=== PATIENT | female | born 1935 | race Caucasian/White ===

== ENCOUNTER 2017-01-04 17:20 | Inpatient (IN) | payer OTHER, BC ==
[~2017-01-04] VITALS: Ht 157.5 cm; Wt 57.2 kg
[~2017-01-04 17:20] MED LIST: ACET-1256 PO; ASCA500 PO; ASPI81TA28 PO; BTP80 PO; CALC500C70 PO; CHOL100010 PO; CLOTCRE33 TOP; CLR10 PO; CYAN3INJ INJ; ESTR1CRE PV; FURO20TA PO; LEVO100T7 PO; MAGN400T6 PO; MULT-506 PO; [UNRECOGNIZED DRUG - OTHER] PO
[2017-01-04] MEDS ORDERED: CHOL1000 PO (18:15)
[2017-01-04] MEDS ORDERED: SODIUM CHLORIDE 0.9% 1000ML 1,000 ML IV STA (18:17)
[2017-01-04] MEDS ORDERED: SODIUM CHLORIDE 0.9% 500ML 500 ML IV STA (18:22)
[2017-01-04] MEDS ORDERED: ONDANSETRON INJ 2 MG/ML 2 ML VIAL IV STA (18:22)
[2017-01-04 18:49] LABS: BASO % 0.4 %; BASO ABS # 0.05 K/uL (0-0.2); COMPLETE YES; EOS % 1.3 %; IG% 0.2 %; LYMPH % 6.5 %; LYMPH ABS # 0.75 K/uL (1.2-3.4); MEAN CELL VOLUME 97.2 fL (80-100); MEAN CORPUSCULAR HEMOGLOBIN 33.6 pg (25-34); MEAN CORPUSCULAR HGB CONC 34.5 g/dl (32-36); MEAN PLATELET VOLUME 9.3 fL (7.4-10.4); MONO % 8.7 %; NEUT % 82.9 %; PLATELET COUNT 325 K/uL (130-400); RED BLOOD COUNT 4.32 M/uL (4.2-5.4); WHITE BLOOD COUNT 11.46 K/uL (4.8-10.8)
[2017-01-04 19:00] LABS: PROTHROMBIN TIME (PATIENT) 10.6 SECONDS (9.0-12.0)
[2017-01-04 19:06] LABS: ALT/SGPT 24 U/L (12-78); AST/SGOT 30 U/L (15-37); BLOOD UREA NITROGEN 22 mg/dl (7-18); BUN/CREATININE RATIO 24.2 (10-20); CALCIUM 8.6 mg/dl (8.5-10.1); CARBON DIOXIDE 27 mmol/L (21-32); CHLORIDE 101 mmol/L (98-107); CREATININE 0.93 mg/dl (0.60-1.20); GLUCOSE 94 mg/dl (70-99); POTASSIUM 4.3 mmol/L (3.5-5.1); SODIUM 138 mmol/L (136-145)
[2017-01-04 19:17] LABS: ALKALINE PHOSPHATASE 107 U/L (45-117)
--- NOTE | 2017-01-04 19:33 | DIAGNOSTIC IMAGING REPORT ---
CT OF THE ABDOMEN AND PELVIS WITHOUT CONTRAST CLINICAL HISTORY: Upper bowel pain, nausea and vomiting. COMPARISON STUDY: Renal ultrasound November 11, 2011. TECHNIQUE: Axial images of the abdomen and pelvis were obtained without IV contrast. Images were reviewed in the axial, sagittal, and coronal planes. FINDINGS: Visualized portions the lower chest demonstrate several small pulmonary nodules which are unchanged since CT of October 20, 2015. Therefore, these are benign. Pacer leads are partially imaged. There are old lumbar spine compression fractures. Evaluation of the abdomen and pelvis is markedly compromised the lack of IV and oral contrast and paucity of intra-abdominal fat. A right hepatic lobe cyst is unchanged. Severe right hydroureteronephrosis is noted with suspected urothelial thickening. This is been shown on prior exams. A Walker balloon is present within the bladder which is collapsed. There is extensive atherosclerotic plaque of the abdominal aorta. Unenhanced images of the spleen, adrenal glands and pancreas are unremarkable. There is no peripancreatic or pericholecystic infiltration. There is evidence for pelvic floor relaxation. A sigmoid anastomosis is noted. The small bowel is fluid-filled and slightly dilated. No transition point is identified. The stomach is mildly distended and fluid filled. IMPRESSION: 1. Study significantly compromised given the lack of IV and oral contrast and paucity of intra-abdominal fat. 2. Severe right hydroureteronephrosis with suspected urothelial thickening and right renal cortical thinning. These findings could been shown on prior exams and are likely chronic and may be related to reflux given findings on prior [facility]G. However, correlation with urinalysis and urine cytology is recommended. 3. Fluid-filled mildly dilated small bowel. A low-grade partial small bowel obstruction would be difficult to exclude but no transition point is identified. 4. Mildly distended, fluid-filled stomach. Electronically signed by: Myles Aguilar M.D. 01/04/2017 7:31 PM Dictated Date/Time: 01/04/2017 7:19 PM
[2017-01-04] MEDS ORDERED: CEFTRIAXONE SOD INJ 1 GM ADDVIAL IV STA (19:45)
[2017-01-04 19:49] LABS: URINE APPEARANCE CLOUDY (CLEAR); URINE BILIRUBIN NEG (NEG); URINE COLOR YELLOW; URINE NITRITE NEG (NEG); URINE PH >= 9.0 (4.5-7.5); URINE SPECIFIC GRAVITY 1.009 (1.000-1.030); UROBILINOGEN NEG (NEG)
[2017-01-04 20:01] LABS: MANUAL MICROSCOPIC REQUIRED? NO; REVIEW REQ? YES; SULFASALICYLIC ACID POS (NEG)
[2017-01-04 20:05] LABS: URINE PATH CASTS 5-10 GRANULAR CASTS /lpf (0)
--- NOTE | 2017-01-04 21:46 | EMERGENCY ROOM VISIT NOTE ---
History Report prepared by Jovanni: Luisa Martin Under the Supervision of: Dr. Dharmesh Pollard M.D. First contact with patient: 18:16 Chief Complaint: NAUSEA Stated Complaint: NAUSEA, VOMIT Nursing Triage Summary: pt arrived bls with c/o acute onset of n/v that started shortly after dinner this evening. Pt states "I felt like I was going to pass out, my body became weak and then my abdomen started to hurt." denies LOC. Pt reports feeling better upon arrival. Hx of MS and Celiac disease. History of Present Illness The patient is a 81 year old female who presents to the Emergency Room with complaints of acute onset of nausea and vomiting that started [employer]. The patient came to the ED via ambulance from home. She reports that she was starting to feel better, but now she is feeling worse again. The patient is unsure of how many episodes of vomiting she has experienced. She states that shortly after eating dinner, she felt like she was going to experience syncope and her body became weak then she experienced abdominal cramping. The patient then experienced nausea and vomiting. She states that she felt weak all day. The patient is also experiencing chills and diarrhea. The patient has Celiac disease but denies eating any gluten today. The patient's states that they ate hamburgers and haitian fries for dinner. He also states that he was admitted to the hospital from December 18- for similar symptoms. The patient adds that her Walker catheter is due to be changed. 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 A total of ten systems were reviewed and were otherwise negative. Past Medical & Surgical Medical Problems: (1) Celiac disease (2) Chest heaviness (3) Complicated UTI (urinary tract infection) (4) Hypothyroidism (5) Multiple sclerosis (6) Multiple sclerosis (7) Neurogenic bladder (8) Osteoporosis (9) Pacemaker (10) Paroxysmal atrial fibrillation (11) SBO (small bowel obstruction) (12) Vertigo Surgical Problems: (1) H/O colonoscopy (2) H/O dilation and curettage (3) History of appendectomy (4) S/P partial colectomy Family History Noncontributory secondary to age. Social History Smoking Status: Former Smoker Alcohol Use: none Drug Use: none Marital Status: Housing Status: lives with significant other Occupation Status: retired Current/Historical Medications Scheduled Ascorbic Acid (Vitamin C), 500 MG PO DAILY@1200 Aspirin (Aspirin Ec), 81 MG PO BID Calcium/Vitamin D (Os-Hitesh 500 Plus D), 1 TAB PO TID Cholecalciferol (Vitamin D3), 1 TAB PO BID Cyanocobalamin (Vitamin B-12 Inj), 1,000 MCG INJ MONTHLY Estrogens, Conjugated Vaginal (Premarin), 1 APPLN PV UD Furosemide (Lasix), 1 TAB PO 2XWK Levothyroxine Sodium (Levothyroxine Sodium), 100 MCG PO DAILYBB Magnesium Oxide (Mag-Ox), 400 MG PO DAILYBL Multivitamin (Multivitamin), 1 TAB PO DAILYBD Potassium Chloride (Catie Ciel Elix), 1.5 TSP PO 2XWK Sotalol HCl (Sotalol HCl), 80 MG PO QAM Sotalol HCl (Sotalol HCl), 40 MG PO HS Scheduled PRN Acetaminophen (Tylenol), 1,000 MG PO DIRECTED PRN for PRN Loratadine (Claritin), 10 MG PO DAILY PRN for ALLERGY SX Allergies Coded Allergies: Sulfa Antibiotics (Verified Allergy, Unknown, ?, 09/09/16) Gluten (Verified Adverse Reaction, Intermediate, GI DISTRESS, 09/09/16) Codeine (Verified Adverse Reaction, Unknown, N/V, 09/09/16) Physical Exam Vital Signs Date Time Temp Pulse Resp B/P Pulse Ox O2 Delivery O2 Flow Rate FiO2 01/04/17 19:21 88 18 160/90 94 Room Air 01/04/17 18:20 94 Room Air 01/04/17 17:47 76 01/04/17 17:34 36.4 75 22 164/95 94 Room Air Physical Exam GENERAL: Awake, alert, uncomfortable-appearing, actively vomiting, in no distress HENT: Normocephalic, atraumatic. Oropharynx unremarkable. EYES: Normal conjunctiva. Sclera non-icteric. NECK: Supple. No nuchal rigidity. FROM. No JVD. RESPIRATORY: Clear to auscultation. CARDIAC: Regular rate, normal rhythm. Extremities warm and well perfused. Pulses equal. ABDOMEN: Soft, non-distended. Epigastric tenderness to palpation. No rebound or guarding. No masses. RECTAL: Deferred. MUSCULOSKELETAL: Chest examination reveals no tenderness. The back is symmetrical on inspection without obvious abnormality. There is no CVA tenderness to palpation. No joint edema. LOWER EXTREMITIES: Calves are equal size bilaterally and non-tender. 1+ edema. No discoloration. NEURO: Normal sensorium. No sensory or motor deficits noted. SKIN: No rash or jaundice noted. Medical Decision & Procedures ER Provider Diagnostic Interpretation: CT results as stated below per my review and radiologist interpretation CT OF THE ABDOMEN AND PELVIS WITHOUT CONTRAST IMPRESSION: 1. Study significantly compromised given the lack of IV and oral contrast and paucity of intra-abdominal fat. 2. Severe right hydroureteronephrosis with suspected urothelial thickening and right renal cortical thinning. These findings could been shown on prior exams and are likely chronic and may be related to reflux given findings on prior VCUG. However, correlation with urinalysis and urine cytology is recommended. 3. Fluid-filled mildly dilated small bowel. A low-grade partial small bowel obstruction would be difficult to exclude but no transition point is identified. 4. Mildly distended, fluid-filled stomach. Electronically signed by: Myles Aguilar M.D. 01/04/2017 7:31 PM Dictated Date/Time: 01/04/2017 7:19 PM Laboratory Results 01/04/17 18:37 Red Blood Count 4.32, Mean Corpuscular Volume 97.2, Mean Corpuscular Hemoglobin 33.6, Mean Corpuscular Hemoglobin Concent 34.5, Mean Platelet Volume 9.3, Neutrophils (%) (Auto) 82.9, Lymphocytes (%) (Auto) 6.5, Monocytes (%) (Auto) 8.7, Eosinophils (%) (Auto) 1.3, Basophils (%) (Auto) 0.4, Neutrophils # (Auto) 9.49, Lymphocytes # (Auto) 0.75, Monocytes # (Auto) 1.00, Eosinophils # (Auto) 0.15, Basophils # (Auto) 0.05 01/04/17 18:37 Test 01/04/17 18:37 01/04/17 19:23 White Blood Count 11.46 K/uL (4.8-10.8) Red Blood Count 4.32 M/uL (4.2-5.4) Hemoglobin 14.5 g/dL (12.0-16.0) Hematocrit 42.0 % (37-47) Mean Corpuscular Volume 97.2 fL (80-100) Mean Corpuscular Hemoglobin 33.6 pg (25-34) Mean Corpuscular Hemoglobin Concent 34.5 g/dl (32-36) Platelet Count 325 K/uL (130-400) Mean Platelet Volume 9.3 fL (7.4-10.4) Neutrophils (%) (Auto) 82.9 % Lymphocytes (%) (Auto) 6.5 % Monocytes (%) (Auto) 8.7 % Eosinophils (%) (Auto) 1.3 % Basophils (%) (Auto) 0.4 % Neutrophils # (Auto) 9.49 K/uL (1.4-6.5) Lymphocytes # (Auto) 0.75 K/uL (1.2-3.4) Monocytes # (Auto) 1.00 K/uL (0.11-0.59) Eosinophils # (Auto) 0.15 K/uL (0-0.5) Basophils # (Auto) 0.05 K/uL (0-0.2) RDW Standard Deviation 49.3 fL (36.4-46.3) RDW Coefficient of Variation 13.8 % (11.5-14.5) Immature Granulocyte % (Auto) 0.2 % Immature Granulocyte # (Auto) 0.02 K/uL (0.00-0.02) Prothrombin Time 10.6 SECONDS (9.0-12.0) Prothromb Time International Ratio 1.0 (0.9-1.1) Activated Partial Thromboplast Time 27.1 SECONDS (21.0-31.0) Partial Thromboplastin Ratio 1.0 Anion Gap 10.0 mmol/L (3-11) Est Creatinine Clear Calc Drug Dose 36.9 ml/min Estimated GFR () 66.3 Estimated GFR (Non- 57.2 BUN/Creatinine Ratio 24.2 (10-20) Calcium Level 8.6 mg/dl (8.5-10.1) Magnesium Level 2.0 mg/dl (1.8-2.4) Total Bilirubin 0.2 mg/dl (0.2-1) Direct Bilirubin < 0.1 mg/dl (0-0.2) Aspartate Amino Transf (AST/SGOT) 30 U/L (15-37) Alanine Aminotransferase (ALT/SGPT) 24 U/L (12-78) Alkaline Phosphatase 107 U/L (45-117) Troponin I < 0.015 ng/ml (0-0.045) Total Protein 7.0 gm/dl (6.4-8.2) Albumin 3.3 gm/dl (3.4-5.0) Lipase 293 U/L (73-393) Thyroid Stimulating Hormone (TSH) 1.050 uIu/ml (0.300-4.500) Urine Color YELLOW Urine Appearance CLOUDY (CLEAR) Urine pH >= 9.0 (4.5-7.5) Urine Specific [place] 1.009 (1.000-1.030) Urine Protein 2+ (NEG) Urine Glucose (UA) NEG (NEG) Urine Ketones NEG (NEG) Urine Occult Blood 2+ (NEG) Urine Nitrite NEG (NEG) Urine Bilirubin NEG (NEG) Urine Urobilinogen NEG (NEG) Urine Leukocyte Esterase LARGE (NEG) Urine WBC (Auto) >30 /hpf (0-5) Urine RBC (Auto) 10-30 /hpf (0-4) Urine Hyaline Casts (Auto) 5-10 /lpf (0-5) Urine Epithelial Cells (Auto) 5-10 /lpf (0-5) Urine Bacteria (Auto) NEG (NEG) Urine Pathogenic Casts 5-10 GRANULAR CASTS /lpf (0) Urine Yeast (Auto) (NONE PRSENT) Laboratory results reviewed by me Medications Administered Medications (Trade) Dose Ordered Sig/Van Route Start Time Stop Time Status Last Admin Dose Admin Sodium Chloride (Nss 1000ml) 1,000 ml @ 125 mls/hr Q8H STAT IV 01/04/17 18:17 01/05/17 02:16 01/04/17 18:35 125 MLS/HR Ondansetron HCl 4 mg 4 mg NOW STAT IV 01/04/17 18:22 01/04/17 18:23 DC 01/04/17 18:32 4 MG Sodium Chloride (Nss 500ml) 500 ml @ 999 mls/hr Q31M STAT IV 01/04/17 18:22 01/04/17 18:52 DC 01/04/17 18:22 999 MLS/HR Ceftriaxone Sodium (Rocephin Inj) 1 gm NOW STAT IV 01/04/17 19:45 01/04/17 19:46 DC 01/04/17 19:54 1 GM ECG Indication: nausea Rate (beats per minute): 76 Rhythm: sinus with SA Findings: 1st degree AV block, no acute ischemic change, no ectopy, other ( poor R wave progression anteriorly) ED Course 1816: Ordered Sodium Chloride 1000 ml @ 125 mls/hr IV 1820: The patient was evaluated in room A12. A complete history and physical exam was performed. 1821: Ordered Sodium Chloride 500 ml @ 999 mls/hr IV, Zofran Inj 4 mg IV 1944: Ordered Rocephin Inj 1 gm IV 1948: Upon reexamination, the patient was resting comfortably. I discussed the test results and treatment plan with her. The patient will be evaluated for further management. 2009: Discussed the patient's case with Dr. Ramiro Loza. The patient will be evaluated for further treatment and disposition. Medical Decision Prior records/ancillary studies reviewed. Triage Nursing notes reviewed and agree them. Additional history obtained from her . The patient's history was concerning for abdominal pain. Differential diagnosis: Etiologies such as UTI, pancreatitis, obstruction, appendicitis, diverticulitis , PUD, biliary pathology, mesenteric ischemia, aortic pathology, infections, inflammatory bowel disease, renal colic, as well as others were entertained. Physical examination findings: As above. The patient was quite uncomfortable with nausea and vomiting. ER treatment provided: IV normal saline IV Zofran IV Rocephin On reassessment the patient felt better. Diagnostics interpreted by me: ECG: No ischemia The labs revealed mild leukocytosis on CBC. Chemistry panel was unremarkable. Urinalysis was concerning for infection. Imaging studies: CT scan as above. Concerning for partial small bowel obstruction patient also has hydroureter. Patient was informed. She will need further treatment in the hospital. She was doing much better after her nausea and vomiting had been controlled. Consultation: A consultation was placed with the the [facility] hospitalist. The case was discussed and diagnostics were reviewed. The patient was evaluated in the ER for further treatment. The chart was completed utilizing [employer] voice recognition software. Grammatical errors, random word insertions, pronoun errors, and incomplete sentences are an occasional consequence of this system due to software limitations, ambient noise, and hardware issues. Any formal questions or concerns about the content, text, or information contained within the body of this dictation should be directly addressed to the physician for clarification. Consults Time Called: 1952 Consulting Physician: Dr. Ramiro Loza Returned Call: 2009 Discussed the patient's case with Dr. Ramiro Loza. The patient will be evaluated for further treatment and disposition. Impression Primary Impression: Partial small bowel obstruction Additional Impressions: Vomiting UTI (urinary tract infection) Scribe Attestation The scribe's documentation has been prepared under my direction and personally reviewed by me in its entirety. I confirm that the note above accurately reflects all work, treatment, procedures, and medical decision making performed by me. Departure Information Dispostion Being Evaluated By Hospitalist Genevieve Rao M.D. (PCP) Patient Instructions [facility] Problem Qualifiers Additional Impressions: Vomiting Vomiting type: unspecified Vomiting Intractability: unspecified Nausea presence: with nausea Qualified Codes: R11.2 - Nausea with vomiting, unspecified UTI (urinary tract infection) Urinary tract infection type: catheter-associated UTI Indwelling urinary catheter type: unspecified Encounter type: initial encounter Qualified Codes : T83.511A - Infection and inflammatory reaction due to indwelling urethral catheter, initial encounter; N39.0 - Urinary tract infection, site not specified
[2017-01-04] MEDS ORDERED: ACETAMINOPHEN 325 MG TAB PO PRN (22:15)
[2017-01-04] MEDS ORDERED: PROMETHAZINE HCL INJ 12.5 MG in SODIUM CHLORIDE 0.9% 50ML 50 ML IV PRN (22:15)
[2017-01-04] MEDS ORDERED: HYDROmorphone INJ 0.5 MG/0.5 ML SYR IV PRN (22:15)
[2017-01-04] MEDS ORDERED: ONDANSETRON INJ 2 MG/ML 2 ML VIAL IV PRN (22:15)
[2017-01-04] MEDS ORDERED: TRAMADOL HCL 50 MG TAB PO PRN (22:15)
--- NOTE | 2017-01-04 22:20 | History and Physical ---
History & Physical Date & Time of Service: Jan 04, 2017 at 21:38 Chief Complaint: Nausea, Vomit Primary Care Physician: Reggie Peña D.OBonnie History of Present Illness Source: patient, clinic records, hospital records This is an 81 year old female with PMH of MS, PAF, hx pacemaker, chronic welsh, recurrent UTI's, gluten sensitivity, hx appendectomy and 2 bowel surgeries, hx C. diff, and other problems listed below who presents to the ED With N/V. Pt 1 hour after having a gluten free dinner tonight she developed generalized weakness and nausea. 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 She had associated bloating and lower abdominal pressure which are resolved. She received Zofran and is no longer feeling nauseous. No further vomiting or diarrhea. Denies passing flatus in ER. She was transiently lightheaded at home. She had chills earlier. Currently she is feeling fatigued. Pt has a chronic Welsh which was due to be changed tomorrow. Welsh was changed in ER today. She has noted foul urinary odor. Pt was hospitalized for UTI in 2015; cx grew > 3 types of organisms, treated with Levaquin. Had recurrent UTI late October; urine cx grew pseudomonas and beta strep group B and pt treated with Ceftin. Pt denies fever, URI sx, cough, CP, palpitations, SOB, GI bleeding, hematuria, cloudy urine. She uses a motorized chair at home. Pt's was ill with vomiting in mid December. Past Medical/Surgical History Medical Problems: (1) Celiac disease Status: Chronic (2) Cystocele Status: Chronic (3) Hypothyroidism Status: Chronic (4) Multiple sclerosis Status: Chronic (5) Neurogenic bladder Status: Chronic (6) Neurogenic bowel Status: Chronic (7) Osteoporosis Status: Chronic (8) Pacemaker Status: Chronic (9) Paroxysmal atrial fibrillation Status: Chronic (10) PVD (peripheral vascular disease) Status: Chronic (11) Rectocele Status: Chronic (12) Urinary retention Status: Chronic (13) Vertigo Status: Resolved Surgical Problems: (1) H/O colonoscopy Status: Chronic (2) H/O dilation and curettage Status: Chronic (3) History of appendectomy Status: Chronic (4) S/P partial colectomy Permanent Comment: x2 for prolapse Status: Chronic Family History FH: CAD (coronary artery disease) FATHER SISTER Social History Smoking Status: Former Smoker (quit in ) Alcohol Use: none Drug Use: none Marital Status: Housing status: lives with significant other 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) Immunizations History of Influenza Vaccine: Yes Influenza Vaccine Date: Aug 07, 2012 History of Tetanus Vaccine?: Unknown Tetanus Immunization Date: Sep 14, 2004 History of Pneumococcal: Yes Pneumococcal Date: Nov 07, 2009 History of Hepatitis B Vaccine: No Multi-Drug Resistant Organisms History of MDRO: No Allergies Coded Allergies: Sulfa Antibiotics (Verified Allergy, Unknown, ?, 09/09/16) Gluten (Verified Adverse Reaction, Intermediate, GI DISTRESS, 09/09/16) Codeine (Verified Adverse Reaction, Unknown, N/V, 09/09/16) Home Medications Scheduled Ascorbic Acid (Vitamin C), 500 MG PO DAILY@1200 Aspirin (Aspirin Ec), 81 MG PO BID Calcium/Vitamin D (Os-Hitesh 500 Plus D), 1 TAB PO TID Cholecalciferol (Vitamin D3), 1 TAB PO BID Cyanocobalamin (Vitamin B-12 Inj), 1,000 MCG INJ MONTHLY Estrogens, Conjugated Vaginal (Premarin), 1 APPLN PV UD Furosemide (Lasix), 1 TAB PO 2XWK Levothyroxine Sodium (Levothyroxine Sodium), 100 MCG PO DAILYBB Magnesium Oxide (Mag-Ox), 400 MG PO DAILYBL Multivitamin (Multivitamin), 1 TAB PO DAILYBD Potassium Chloride (Catie Ciel Elix), 1.5 TSP PO 2XWK Sotalol HCl (Sotalol HCl), 80 MG PO QAM Sotalol HCl (Sotalol HCl), 40 MG PO HS Scheduled PRN Acetaminophen (Tylenol), 1,000 MG PO DIRECTED PRN for PRN Loratadine (Claritin), 10 MG PO DAILY PRN for ALLERGY SX Review of Systems Ten point review of systems performed with pertinent positives and negatives noted in HPI. Physical Exam Vital Signs Date Time Temp Pulse Resp B/P Pulse Ox O2 Delivery O2 Flow Rate FiO2 01/04/17 19:21 88 18 160/90 94 Room Air 01/04/17 18:20 94 Room Air 01/04/17 17:47 76 01/04/17 17:34 36.4 75 22 164/95 94 Room Air General Appearance: WD/WN, no apparent distress, + pertinent finding (pleasant alert elderly female) Head: normocephalic, atraumatic Eyes: normal inspection, sclerae normal ENT: hearing grossly normal, pharynx normal, + pertinent finding (lips are dry) Neck: supple, trachea midline Respiratory/Chest: lungs clear, normal breath sounds, no respiratory distress, no accessory muscle use Cardiovascular: regular rate, rhythm, no murmur Abdomen/GI: normal bowel sounds, non tender, soft Extremities/Musculoskelatal: no calf tenderness, no pedal edema Neurologic/Psych: alert, normal mood/affect, oriented x 3, + pertinent finding (upper extremities no gross motor deficit. chronic weakness RLE > LLE) Skin: normal color, warm/dry, + pertinent finding (+ skin tenting) Diagnostics Laboratory Results Results Past 24 Hours Test 01/04/17 18:37 01/04/17 19:23 Range/Units White Blood Count 11.46 4.8-10.8 K/uL Red Blood Count 4.32 4.2-5.4 M/uL Hemoglobin 14.5 12.0-16.0 g/dL Hematocrit 42.0 37-47 % Mean Corpuscular Volume 97.2 80-100 fL Mean Corpuscular Hemoglobin 33.6 25-34 pg Mean Corpuscular Hemoglobin Concent 34.5 32-36 g/dl Platelet Count 325 130-400 K/uL Mean Platelet Volume 9.3 7.4-10.4 fL Neutrophils (%) (Auto) 82.9 % Lymphocytes (%) (Auto) 6.5 % Monocytes (%) (Auto) 8.7 % Eosinophils (%) (Auto) 1.3 % Basophils (%) (Auto) 0.4 % Neutrophils # (Auto) 9.49 1.4-6.5 K/uL Lymphocytes # (Auto) 0.75 1.2-3.4 K/uL Monocytes # (Auto) 1.00 0.11-0.59 K/uL Eosinophils # (Auto) 0.15 0-0.5 K/uL Basophils # (Auto) 0.05 0-0.2 K/uL RDW Standard Deviation 49.3 36.4-46.3 fL RDW Coefficient of Variation 13.8 11.5-14.5 % Immature Granulocyte % (Auto) 0.2 % Immature Granulocyte # (Auto) 0.02 0.00-0.02 K/uL Prothrombin Time 10.6 9.0-12.0 SECONDS Prothromb Time International Ratio 1.0 0.9-1.1 Activated Partial Thromboplast Time 27.1 21.0-31.0 SECONDS Partial Thromboplastin Ratio 1.0 Sodium Level 138 136-145 mmol/L Potassium Level 4.3 3.5-5.1 mmol/L Chloride Level 101 98-107 mmol/L Carbon Dioxide Level 27 21-32 mmol/L Anion Gap 10.0 3-11 mmol/L Blood Urea Nitrogen 22 7-18 mg/dl Creatinine 0.93 0.60-1.20 mg/dl Est Creatinine Clear Calc Drug Dose 36.9 ml/min Estimated GFR () 66.3 Estimated GFR (Non- 57.2 BUN/Creatinine Ratio 24.2 10-20 Random Glucose 94 70-99 mg/dl Calcium Level 8.6 8.5-10.1 mg/dl Magnesium Level 2.0 1.8-2.4 mg/dl Total Bilirubin 0.2 0.2-1 mg/dl Direct Bilirubin < 0.1 0-0.2 mg/dl Aspartate Amino Transf (AST/SGOT) 30 15-37 U/L Alanine Aminotransferase (ALT/SGPT) 24 12-78 U/L Alkaline Phosphatase 107 45-117 U/L Troponin I < 0.015 0-0.045 ng/ml Total Protein 7.0 6.4-8.2 gm/dl Albumin 3.3 3.4-5.0 gm/dl Lipase 293 73-393 U/L Thyroid Stimulating Hormone (TSH) 1.050 0.300-4.500 uIu/ml Urine Color YELLOW Urine Appearance CLOUDY CLEAR Urine pH >= 9.0 4.5-7.5 Urine Specific [place] 1.009 1.000-1.030 Urine Protein 2+ NEG Urine Glucose (UA) NEG NEG Urine Ketones NEG NEG Urine Occult Blood 2+ NEG Urine Nitrite NEG NEG Urine Bilirubin NEG NEG Urine Urobilinogen NEG NEG Urine Leukocyte Esterase LARGE NEG Urine WBC (Auto) >30 0-5 /hpf Urine RBC (Auto) 10-30 0-4 /hpf Urine Hyaline Casts (Auto) 5-10 0-5 /lpf Urine Epithelial Cells (Auto) 5-10 0-5 /lpf Urine Bacteria (Auto) NEG NEG Urine Pathogenic Casts 5-10 GRANULAR CASTS 0 /lpf Urine Yeast (Auto) NONE PRSENT Microbiology Results 01/04/17 Urine Culture, Received Pending Diagnostic Radiology CT OF THE ABDOMEN AND PELVIS WITHOUT CONTRAST CLINICAL HISTORY: Upper bowel pain, nausea and vomiting. COMPARISON STUDY: Renal ultrasound November 11, 2011. TECHNIQUE: Axial images of the abdomen and pelvis were obtained without IV contrast. Images were reviewed in the axial, sagittal, and coronal planes. FINDINGS: Visualized portions the lower chest demonstrate several small pulmonary nodules which are unchanged since CT of October 20, 2015. Therefore, these are benign. Pacer leads are partially imaged. There are old lumbar spine compression fractures. Evaluation of the abdomen and pelvis is markedly compromised the lack of IV and oral contrast and paucity of intra-abdominal fat. A right hepatic lobe cyst is unchanged. Severe right hydroureteronephrosis is noted with suspected urothelial thickening. This is been shown on prior exams. A Welsh balloon is present within the bladder which is collapsed. There is extensive atherosclerotic plaque of the abdominal aorta. Unenhanced images of the spleen, adrenal glands and pancreas are unremarkable. There is no peripancreatic or pericholecystic infiltration. There is evidence for pelvic floor relaxation. A sigmoid anastomosis is noted. The small bowel is fluid-filled and slightly dilated. No transition point is identified. The stomach is mildly distended and fluid filled. IMPRESSION: 1. Study significantly compromised given the lack of IV and oral contrast and paucity of intra-abdominal fat. 2. Severe right hydroureteronephrosis with suspected urothelial thickening and right renal cortical thinning. These findings could been shown on prior exams and are likely chronic and may be related to reflux given findings on prior [facility]G. However, correlation with urinalysis and urine cytology is recommended. 3. Fluid-filled mildly dilated small bowel. A low-grade partial small bowel obstruction would be difficult to exclude but no transition point is identified. 4. Mildly distended, fluid-filled stomach. EKG sinus rhythm with sinus arrhythmia, 1st degree AV block, no ST or T wave abnormality, poor R wave progression Impression Assessment and Plan PARTIAL SBO CT a/p showed fluid filled mildly dilated small bowel ? low grade partial SBO, mildly distended fluid filled stomach Likely has adhesions s/p multiple bowel surgeries Received Zofran and IVF's in ER NPO except ice chips, continue IVF's, PRN antiemetics Check stool for C. diff Consult general surgery ? RECURRENT UTI In setting of Welsh catheter Ct a/p shows severe right hydroureteronephrosis with suspected urothelial thickening and right renal cortical thinning- chronic finding UA 2+ occult blood, large leuk esterase, WBC >30, RBC 10-30, hyaline casts 5-10 , epithelial cells 5-10, granular casts 5-10 Urine cx Oct 2016 grew pseudomonas and beta strep group B Rocephin given in ER Follow results of urine culture PAF S/P PACEMAKER Currently in sinus rhythm Continue sotalol HYPOTHYROIDISM Continue levothyroxine DVT PROPHYLAXIS Lovenox SQ CODE STATUS Full code per my discussion with the patient DISPOSITION Admit to med/surg Lives with Follows with Dr. Reggie Peña for primary care Patient seen in collaboration with Dr. Rubio. Please see his addendum for further recommendations. Assessment/Plan IM ATTENDING : Patient seen and examined. Preceding documentation by Ms Bernarda Benton PA-C, reviewed. FINAL ASSESSMENT AND PLAN as follows: 1. Abdominal pain, nausea, vomiting, diarrhea ileus versus partial small bowel obstruction history past bowel surgery 2. diarrhea ro recurrent Clostridium difficile colitis 3. asymptomatic pyuria chronic indwelling Welsh catheter 2 to neurogenic bladder 2 to MS no sepsis, 4. hypertension, slightly elevated 5. SSS sp PPM 6. past tobacco abuse. GMF bowel rest, IV fluids analgesia, antiemetics Surgery consult RE partial SBO, abn CT stool cdif Hold off on antibiotics until urine CS back DVT prophylaxis, Lovenox subQ. Full code.
[2017-01-04 22:33] VITALS: Ht 157.5 cm; Wt 57.2 kg
[2017-01-04 23:09] VITALS: BP 129/76; PULSE 73; TEMP 36.6; O2SAT 92
[2017-01-04] MEDS ORDERED: SOTALOL HCL 80 MG TAB PO ONE (23:15)
[2017-01-04] MEDS: SODIUM CHLORIDE 0.9% 1000ML 1,000 ML IV SCH (23:22)
--- NOTE | 2017-01-05 00:51 | HISTORY & PHYSICAL EXAMINATION ---
DATE OF ADMISSION: 01/04/2017 IM ATTENDING : Patient seen and examined. Preceding documentation by Ms Bernarda Benton PA-C, reviewed. FINAL ASSESSMENT AND PLAN as follows: 1. Abdominal pain, nausea, vomiting, diarrhea ileus versus partial small bowel obstruction history past bowel surgery 2. diarrhea ro recurrent Clostridium difficile colitis 3. asymptomatic pyuria chronic indwelling Walker catheter 2 to neurogenic bladder 2 to MS no sepsis, 4. hypertension, slightly elevated 5. SSS sp PPM 6. past tobacco abuse. GMF bowel rest, IV fluids analgesia, antiemetics Surgery consult RE partial SBO, abn CT stool cdif Hold off on antibiotics until urine CS back DVT prophylaxis, Lovenox subQ. Full code. MTDD
[2017-01-05] MEDS: LEVOTHYROXINE 100 MCG TAB PO SCH (05:23)
[2017-01-05 07:26] LABS: BASO % 0.9 %; BASO ABS # 0.04 K/uL (0-0.2); COMPLETE YES; EOS % 1.3 %; HEMATOCRIT 33.7 % (37-47); IG% 0.2 %; LYMPH % 31.4 %; LYMPH ABS # 1.45 K/uL (1.2-3.4); MEAN CELL VOLUME 98.3 fL (80-100); MEAN CORPUSCULAR HEMOGLOBIN 32.7 pg (25-34); MEAN CORPUSCULAR HGB CONC 33.2 g/dl (32-36); MEAN PLATELET VOLUME 9.1 fL (7.4-10.4); MONO % 12.3 %; NEUT % 53.9 %; PLATELET COUNT 281 K/uL (130-400); RED BLOOD COUNT 3.43 M/uL (4.2-5.4); WHITE BLOOD COUNT 4.62 K/uL (4.8-10.8)
[2017-01-05 07:53] VITALS: BP 127/68; PULSE 69; TEMP 36.7; O2SAT 92
[2017-01-05] MEDS: LORATADINE 10 MG TAB PO PRN (08:45)
[2017-01-05] MEDS: SOTALOL HCL 80 MG TAB PO SCH ×2 (08:45→21:45)
[2017-01-05] MEDS: ASPIRIN 81 MG ECTAB PO SCH ×2 (08:46→21:44)
[2017-01-05] MEDS: ENOXAPARIN 40 MG/0.4 ML SYR SQ SCH (08:52)
--- NOTE | 2017-01-05 09:53 | Surgery Consultation ---
Consultation Date of Consultation: Jan 05, 2017. Attending Physician: Aaron Garcias DO Reason for Consultation: partial SBO (Buffy Murphy PA-C) History of Present Illness Mariluz is a pleasant 81 year-old female who presented to emergency department last evening with complaint of sudden nausea and vomiting after eating dinner. States she was feeling her normal self earlier in the day and suddenly felt a wave of weakness and sudden urge of nausea and vomiting after eating her dinner. States she had a similar episode when she found out she had gluten intolerance however no other previous similar episodes. Mariluz states she had continuous vomiting. No real abdominal pain. She also states she had sudden diarrhea as well. Last normal/formed bowel movement yesterday morning. Denies of any fever, chills, night sweats, vomiting blood, recent changes in bowel habits, black/tarry stools, or blood in stools. CT scan of abdomen and pelvis without oral or IV contrast showed Fluid-filled mildly dilated small bowel. A low-grade partial small bowel obstruction would be difficult to exclude but no transition point is identified. No leukocytosis on admission (Buffy Murphy PA-C) Past Medical/Surgical History Medical Problems: (1) Exacerbation of multiple sclerosis Status: Acute (2) Pacemaker failure Status: Acute (3) Partial small bowel obstruction Status: Acute (4) UTI (urinary tract infection) Status: Acute (5) UTI (urinary tract infection) Status: Acute (6) Vomiting Status: Acute (7) Weakness Status: Acute (Buffy Murphy PA-C) Family History FH: CAD (coronary artery disease) FATHER SISTER (Buffy Murphy PA-C) FH: CAD (coronary artery disease) FATHER SISTER (Rasheed Almaguer M.D.) Social History Smoking Status: Former Smoker Alcohol Use: none Drug Use: none Marital Status: Housing Status: lives with significant other 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) (Buffy Murphy PA-C) Allergies Coded Allergies: Sulfa Antibiotics (Verified Allergy, Unknown, ?, 09/09/16) Gluten (Verified Adverse Reaction, Intermediate, GI DISTRESS, 09/09/16) Codeine (Verified Adverse Reaction, Unknown, N/V, 09/09/16) Home Medications Scheduled Ascorbic Acid (Vitamin C), 500 MG PO DAILY@1200 Aspirin (Aspirin Ec), 81 MG PO BID Calcium/Vitamin D (Os-Hitesh 500 Plus D), 1 TAB PO TID Cholecalciferol (Vitamin D3), 1 TAB PO BID Cyanocobalamin (Vitamin B-12 Inj), 1,000 MCG INJ MONTHLY Estrogens, Conjugated Vaginal (Premarin), 1 APPLN PV UD Furosemide (Lasix), 1 TAB PO 2XWK Levothyroxine Sodium (Levothyroxine Sodium), 100 MCG PO DAILYBB Magnesium Oxide (Mag-Ox), 400 MG PO DAILYBL Multivitamin (Multivitamin), 1 TAB PO DAILYBD Potassium Chloride (Catie Ciel Elix), 1.5 TSP PO 2XWK Sotalol HCl (Sotalol HCl), 80 MG PO QAM Sotalol HCl (Sotalol HCl), 40 MG PO HS Scheduled PRN Acetaminophen (Tylenol), 1,000 MG PO DIRECTED PRN for PRN Loratadine (Claritin), 10 MG PO DAILY PRN for ALLERGY SX Current Inpatient Medications Current Inpatient Medications Medications (Trade) Dose Ordered Sig/Van Route Start Time Stop Time Status Last Admin Dose Admin Enoxaparin Sodium (Lovenox Inj) 40 mg QAM SQ 01/05/17 09:00 02/04/17 08:59 01/05/17 08:52 40 MG Acetaminophen (Tylenol Tab) 650 mg Q4H PRN PO 01/04/17 22:15 02/03/17 22:14 Aspirin (Ecotrin Tab) 81 mg BID PO 01/05/17 09:00 02/04/17 08:59 01/05/17 08:46 81 MG Levothyroxine Sodium (Synthroid Tab) 100 mcg DAILYBB PO 01/05/17 06:00 02/04/17 06:59 01/05/17 05:23 100 MCG Loratadine (Claritin Tab) 10 mg DAILY PRN PO 01/04/17 22:15 02/03/17 22:14 01/05/17 08:45 10 MG Multivitamins (Multivitamin Tab) 1 tab DAILYBD PO 01/05/17 16:00 02/04/17 15:59 Sotalol HCl (Betapace Tab) 40 mg HS PO 01/05/17 21:00 02/04/17 20:59 Sotalol HCl 80 mg 80 mg QAM PO 01/05/17 09:00 02/04/17 08:59 01/05/17 08:45 80 MG Sodium Chloride (Nss 1000ml) 1,000 ml @ 60 mls/hr [id number] IV 01/04/17 22:15 02/03/17 22:14 01/04/17 23:22 60 MLS/HR Ondansetron HCl 4 mg 4 mg Q6H PRN IV 01/04/17 22:15 02/03/17 22:14 Promethazine HCl/ Sodium Chloride (Phenergan Inj/ Nss 50ml) 50.5 ml @ 204 mls/hr Q6H PRN IV 01/04/17 22:15 02/03/17 22:14 Tramadol HCl (Ultram Tab) 25 mg Q6H PRN PO 01/04/17 22:15 02/03/17 22:14 Hydromorphone HCl (Dilaudid Inj) 0.5 mg Q3H PRN IV 01/04/17 22:15 01/18/17 22:14 (Buffy Murphy ., PA-C) Review of Systems Constitutional: + fatigue, + weakness, No chills, No fever, No sweats Respiratory: No shortness of breath Cardiovascular: No chest pain Abdomen: + diarrhea, + nausea, + vomiting, No GI bleeding, No constipation, No pain Genitourinary - Female: + problem reported (physician allergist immunologist Walker catheter) Neurologic: + weakness Endocrine: + fatigue Hematologic / Lymphatic: No abnormal bleeding/bruising Integumentary: No rash (Buffy Murphy, PA-C) Physical Exam Date Time Temp Pulse Resp B/P Pulse Ox O2 Delivery O2 Flow Rate FiO2 01/05/17 07:53 36.7 69 18 127/68 92 Room Air 01/04/17 23:12 Room Air 01/04/17 23:09 36.6 73 18 129/76 92 Room Air 01/04/17 22:50 77 18 132/81 93 Room Air 01/04/17 22:33 Room Air 01/04/17 21:50 85 20 93 01/04/17 21:44 146/70 01/04/17 21:20 86 32 93 01/04/17 20:50 81 17 90 01/04/17 20:20 84 20 92 01/04/17 19:50 75 14 91 01/04/17 19:21 88 18 160/90 94 Room Air 01/04/17 19:21 160/90 01/04/17 18:50 84 26 01/04/17 18:20 94 Room Air 01/04/17 18:20 77 17 01/04/17 17:50 74 17 01/04/17 17:47 76 01/04/17 17:34 36.4 75 22 164/95 94 Room Air 01/04/17 17:32 164/95 General Appearance: WD/WN, no apparent distress Head: normocephalic, atraumatic Eyes: sclerae normal ENT: hearing grossly normal Respiratory/Chest: lungs clear, normal breath sounds, no respiratory distress, no accessory muscle use Cardiovascular: regular rate, rhythm, no murmur Abdomen/GI: non tender, soft, no organomegaly, no pulsatile mass, + abnormal bowel sounds (hypoactive bowel sounds) Neurologic/Psych: alert, normal mood/affect, oriented x 3 Skin: normal color, warm/dry, no rash (Buffy Murphy ., PA-C) Laboratory Results Last 24 Hours Test 01/04/17 18:37 01/04/17 19:23 01/05/17 05:59 White Blood Count 11.46 K/uL 4.62 K/uL Red Blood Count 4.32 M/uL 3.43 M/uL Hemoglobin 14.5 g/dL 11.2 g/dL Hematocrit 42.0 % 33.7 % Mean Corpuscular Volume 97.2 fL 98.3 fL Mean Corpuscular Hemoglobin 33.6 pg 32.7 pg Mean Corpuscular Hemoglobin Concent 34.5 g/dl 33.2 g/dl Platelet Count 325 K/uL 281 K/uL Mean Platelet Volume 9.3 fL 9.1 fL Neutrophils (%) (Auto) 82.9 % 53.9 % Lymphocytes (%) (Auto) 6.5 % 31.4 % Monocytes (%) (Auto) 8.7 % 12.3 % Eosinophils (%) (Auto) 1.3 % 1.3 % Basophils (%) (Auto) 0.4 % 0.9 % Neutrophils # (Auto) 9.49 K/uL 2.49 K/uL Lymphocytes # (Auto) 0.75 K/uL 1.45 K/uL Monocytes # (Auto) 1.00 K/uL 0.57 K/uL Eosinophils # (Auto) 0.15 K/uL 0.06 K/uL Basophils # (Auto) 0.05 K/uL 0.04 K/uL RDW Standard Deviation 49.3 fL 50.8 fL RDW Coefficient of Variation 13.8 % 14.2 % Immature Granulocyte % (Auto) 0.2 % 0.2 % Immature Granulocyte # (Auto) 0.02 K/uL 0.01 K/uL Prothrombin Time 10.6 SECONDS Prothromb Time International Ratio 1.0 Activated Partial Thromboplast Time 27.1 SECONDS Partial Thromboplastin Ratio 1.0 Sodium Level 138 mmol/L Potassium Level 4.3 mmol/L Chloride Level 101 mmol/L Carbon Dioxide Level 27 mmol/L Anion Gap 10.0 mmol/L Blood Urea Nitrogen 22 mg/dl Creatinine 0.93 mg/dl Est Creatinine Clear Calc Drug Dose 36.9 ml/min Estimated GFR () 66.3 Estimated GFR (Non- 57.2 BUN/Creatinine Ratio 24.2 Random Glucose 94 mg/dl Calcium Level 8.6 mg/dl Magnesium Level 2.0 mg/dl Total Bilirubin 0.2 mg/dl Direct Bilirubin < 0.1 mg/dl Aspartate Amino Transf (AST/SGOT) 30 U/L Alanine Aminotransferase (ALT/SGPT) 24 U/L Alkaline Phosphatase 107 U/L Troponin I < 0.015 ng/ml Total Protein 7.0 gm/dl Albumin 3.3 gm/dl Lipase 293 U/L Thyroid Stimulating Hormone (TSH) 1.050 uIu/ml Urine Color YELLOW Urine Appearance CLOUDY Urine pH >= 9.0 Urine Specific [place] 1.009 Urine Protein 2+ Urine Glucose (UA) NEG Urine Ketones NEG Urine Occult Blood 2+ Urine Nitrite NEG Urine Bilirubin NEG Urine Urobilinogen NEG Urine Leukocyte Esterase LARGE Urine WBC (Auto) >30 /hpf Urine RBC (Auto) 10-30 /hpf Urine Hyaline Casts (Auto) 5-10 /lpf Urine Epithelial Cells (Auto) 5-10 /lpf Urine Bacteria (Auto) NEG Urine Pathogenic Casts 5-10 GRANULAR CASTS /lpf Urine Yeast (Auto) (Buffy Murphy ., HILARYC) Assessment & Plan Partial SBO - no leukocytosis - Nausea and vomiting have resolved - no abdominal pain - Benign abdominal examination Plan: Continue conservative management IV fluids, IV pain medication and Zofran prn Will continue to monitor Dr. Almaguer has seen and examined patient, developed assessment and plan. Re-examined with Dr. Almaguer at 11 am, patient passed flatus Okay to start clear liquids (Buffy Murphy ., PA-C) I examined and interviewed this patient and reviewed her labs and radiology studies and I agree with the above note. She never had abdominal pain. The CT is only suggestive of partial SBO but she is moving her bowels and passing flatus and she no longer has nausea. I do not feel there is any indication for surgical intervention at this time. (Rasheed Almaguer M.D.)
--- NOTE | 2017-01-05 13:04 | Progress Note ---
Subjective Date of Service: Jan 05, 2017. Subjective Pt evaluation today including: conversation w/ patient, physical exam, lab review, review of studies, review of inpatient medication list This is a pleasant 81 year old female with PMH of MS, neurogenic bladder and chronic indwelling catheter, paroxysmal atrial fibrillation s/p PPM, gluten sensitivity, hx. of C. diff, multiple abdominal surgeries presented with nausea/ vomiting multiple episodes. She developed sudden weakness and then developed the n/v. Abdominal CT showed partial SBO. She has been doing better throughout this morning and early afternoon - + passing gas, no BMs as of yet - no abdominal pain. No other acute issues to note. Problem List Medical Problems: (1) Exacerbation of multiple sclerosis Status: Acute (2) Pacemaker failure Status: Acute (3) Partial small bowel obstruction Status: Acute (4) UTI (urinary tract infection) Status: Acute (5) UTI (urinary tract infection) Status: Acute (6) Vomiting Status: Acute (7) Weakness Status: Acute Review of Systems Constitutional: + fatigue, + weakness, No chills, No fever Respiratory: No cough, No dyspnea at rest, No dyspnea on exertion, No hemoptysis, No shortness of breath, No sputum, No wheezing Cardiac: No chest pain, No edema, No palpitations Abdomen: + nausea, + vomiting (improved), No diarrhea, No pain Heme: No abnormal bleeding/bruising Medications Current Inpatient Medications Medications (Trade) Dose Ordered Sig/Van Route Start Time Stop Time Status Last Admin Dose Admin Enoxaparin Sodium (Lovenox Inj) 40 mg QAM SQ 01/05/17 09:00 02/04/17 08:59 01/05/17 08:52 40 MG Acetaminophen (Tylenol Tab) 650 mg Q4H PRN PO 01/04/17 22:15 02/03/17 22:14 Aspirin (Ecotrin Tab) 81 mg BID PO 01/05/17 09:00 02/04/17 08:59 01/05/17 08:46 81 MG Levothyroxine Sodium (Synthroid Tab) 100 mcg DAILYBB PO 01/05/17 06:00 02/04/17 06:59 01/05/17 05:23 100 MCG Loratadine (Claritin Tab) 10 mg DAILY PRN PO 01/04/17 22:15 02/03/17 22:14 01/05/17 08:45 10 MG Multivitamins (Multivitamin Tab) 1 tab DAILYBD PO 01/05/17 16:00 02/04/17 15:59 Sotalol HCl (Betapace Tab) 40 mg HS PO 01/05/17 21:00 02/04/17 20:59 Sotalol HCl 80 mg 80 mg QAM PO 01/05/17 09:00 02/04/17 08:59 01/05/17 08:45 80 MG Sodium Chloride (Nss 1000ml) 1,000 ml @ 60 mls/hr [id number] IV 01/04/17 22:15 02/03/17 22:14 01/04/17 23:22 60 MLS/HR Ondansetron HCl 4 mg 4 mg Q6H PRN IV 01/04/17 22:15 02/03/17 22:14 Promethazine HCl/ Sodium Chloride (Phenergan Inj/ Nss 50ml) 50.5 ml @ 204 mls/hr Q6H PRN IV 01/04/17 22:15 02/03/17 22:14 Tramadol HCl (Ultram Tab) 25 mg Q6H PRN PO 01/04/17 22:15 02/03/17 22:14 Hydromorphone HCl (Dilaudid Inj) 0.5 mg Q3H PRN IV 01/04/17 22:15 01/18/17 22:14 Objective Vital Signs Date Time Temp Pulse Resp B/P Pulse Ox O2 Delivery O2 Flow Rate FiO2 01/05/17 08:00 Room Air 01/05/17 07:53 36.7 69 18 127/68 92 Room Air 01/04/17 23:12 Room Air 01/04/17 23:09 36.6 73 18 129/76 92 Room Air 01/04/17 22:50 77 18 132/81 93 Room Air 01/04/17 22:33 Room Air 01/04/17 21:50 85 20 93 01/04/17 21:44 146/70 01/04/17 21:20 86 32 93 01/04/17 20:50 81 17 90 01/04/17 20:20 84 20 92 01/04/17 19:50 75 14 91 01/04/17 19:21 88 18 160/90 94 Room Air 01/04/17 19:21 160/90 01/04/17 18:50 84 26 01/04/17 18:20 94 Room Air 01/04/17 18:20 77 17 01/04/17 17:50 74 17 01/04/17 17:47 76 01/04/17 17:34 36.4 75 22 164/95 94 Room Air 01/04/17 17:32 164/95 Physical Exam General Appearance: no apparent distress Respiratory/Chest: lungs clear, normal breath sounds, no respiratory distress, no accessory muscle use Cardiovascular: regular rate, rhythm, no edema, no murmur Abdomen: non tender, soft, + abnormal bowel sounds (decreased bowel sounds) Extremities: normal inspection, no pedal edema Neurologic/Psychiatric: no motor/sensory deficits, alert, normal mood/affect Skin: + pertinent finding (redness between gluteal folds with blistering) Laboratory Results Last 24 Hours Test 01/04/17 18:37 01/04/17 19:23 01/05/17 05:59 White Blood Count 11.46 K/uL 4.62 K/uL Red Blood Count 4.32 M/uL 3.43 M/uL Hemoglobin 14.5 g/dL 11.2 g/dL Hematocrit 42.0 % 33.7 % Mean Corpuscular Volume 97.2 fL 98.3 fL Mean Corpuscular Hemoglobin 33.6 pg 32.7 pg Mean Corpuscular Hemoglobin Concent 34.5 g/dl 33.2 g/dl Platelet Count 325 K/uL 281 K/uL Mean Platelet Volume 9.3 fL 9.1 fL Neutrophils (%) (Auto) 82.9 % 53.9 % Lymphocytes (%) (Auto) 6.5 % 31.4 % Monocytes (%) (Auto) 8.7 % 12.3 % Eosinophils (%) (Auto) 1.3 % 1.3 % Basophils (%) (Auto) 0.4 % 0.9 % Neutrophils # (Auto) 9.49 K/uL 2.49 K/uL Lymphocytes # (Auto) 0.75 K/uL 1.45 K/uL Monocytes # (Auto) 1.00 K/uL 0.57 K/uL Eosinophils # (Auto) 0.15 K/uL 0.06 K/uL Basophils # (Auto) 0.05 K/uL 0.04 K/uL RDW Standard Deviation 49.3 fL 50.8 fL RDW Coefficient of Variation 13.8 % 14.2 % Immature Granulocyte % (Auto) 0.2 % 0.2 % Immature Granulocyte # (Auto) 0.02 K/uL 0.01 K/uL Prothrombin Time 10.6 SECONDS Prothromb Time International Ratio 1.0 Activated Partial Thromboplast Time 27.1 SECONDS Partial Thromboplastin Ratio 1.0 Sodium Level 138 mmol/L Potassium Level 4.3 mmol/L Chloride Level 101 mmol/L Carbon Dioxide Level 27 mmol/L Anion Gap 10.0 mmol/L Blood Urea Nitrogen 22 mg/dl Creatinine 0.93 mg/dl Est Creatinine Clear Calc Drug Dose 36.9 ml/min Estimated GFR () 66.3 Estimated GFR (Non- 57.2 BUN/Creatinine Ratio 24.2 Random Glucose 94 mg/dl Calcium Level 8.6 mg/dl Magnesium Level 2.0 mg/dl Total Bilirubin 0.2 mg/dl Direct Bilirubin < 0.1 mg/dl Aspartate Amino Transf (AST/SGOT) 30 U/L Alanine Aminotransferase (ALT/SGPT) 24 U/L Alkaline Phosphatase 107 U/L Troponin I < 0.015 ng/ml Total Protein 7.0 gm/dl Albumin 3.3 gm/dl Lipase 293 U/L Thyroid Stimulating Hormone (TSH) 1.050 uIu/ml Urine Color YELLOW Urine Appearance CLOUDY Urine pH >= 9.0 Urine Specific [place] 1.009 Urine Protein 2+ Urine Glucose (UA) NEG Urine Ketones NEG Urine Occult Blood 2+ Urine Nitrite NEG Urine Bilirubin NEG Urine Urobilinogen NEG Urine Leukocyte Esterase LARGE Urine WBC (Auto) >30 /hpf Urine RBC (Auto) 10-30 /hpf Urine Hyaline Casts (Auto) 5-10 /lpf Urine Epithelial Cells (Auto) 5-10 /lpf Urine Bacteria (Auto) NEG Urine Pathogenic Casts 5-10 GRANULAR CASTS /lpf Urine Yeast (Auto) Assessment and Plan This is a pleasant 81 year old female with PMH of MS, neurogenic bladder and chronic indwelling catheter, paroxysmal atrial fibrillation s/p PPM, gluten sensitivity, hx. of C. diff, multiple abdominal surgeries presented with partial SBO Partial SBO nausea/vomiting resolved no abdominal pain Abdominal CT showed possible partial SBO +flatus No BMs as of yet clears, IVFs, antiemetics advance diet in AM (01/06) Neurogenic Bladder Chronic Indwelling Catheter catheter changed yesterday (01/04) chronic urinalysis changes noted urine culture is pending hold off on antibiotics for now unless culture has significant findings has a hx. of c. Diff Paroxysmal Atrial Fibrillation s/p PPM currently NSR continue sotalol Hypothyroidism cont. Synthroid DVT ppx lovenox FULL CODE d/c home after advancing diet (likely 01/06)
[2017-01-05] MEDS: SODIUM CHLORIDE 0.9% 1000ML 1,000 ML IV SCH (15:03)
[2017-01-05 15:28] VITALS: BP 147/74; PULSE 58; TEMP 36.6; O2SAT 96
[2017-01-05] MEDS: MULTIVITAMIN TAB PO SCH (18:31)
[2017-01-05 21:43] VITALS: BP 151/67; PULSE 64
[2017-01-05 23:12] VITALS: BP 164/77; PULSE 64; TEMP 36.4; O2SAT 95
[2017-01-06] VITALS (8 sets, daily range): BP systolic 146–179; BP diastolic 61–82; PULSE 60–66; TEMP 36.4–37; O2SAT 94–97
[2017-01-06] MEDS: LEVOTHYROXINE 100 MCG TAB PO SCH (06:09)
[2017-01-06 07:20] LABS: HEMATOCRIT 34.6 % (37-47); MEAN CELL VOLUME 97.5 fL (80-100); MEAN CORPUSCULAR HEMOGLOBIN 32.4 pg (25-34); MEAN CORPUSCULAR HGB CONC 33.2 g/dl (32-36); MEAN PLATELET VOLUME 8.6 fL (7.4-10.4); PLATELET COUNT 255 K/uL (130-400); RED BLOOD COUNT 3.55 M/uL (4.2-5.4); WHITE BLOOD COUNT 3.83 K/uL (4.8-10.8)
[2017-01-06] MEDS: SODIUM CHLORIDE 0.9% 1000ML 1,000 ML IV SCH ×2 (07:36→23:35)
[2017-01-06 07:59] LABS: BUN/CREATININE RATIO 19.5 (10-20); CALCIUM 7.2 mg/dl (8.5-10.1); CREATININE 0.56 mg/dl (0.60-1.20)
[2017-01-06 08:24] LABS: POTASSIUM 3.6 mmol/L (3.5-5.1)
[2017-01-06] MEDS: LORATADINE 10 MG TAB PO PRN (08:32)
[2017-01-06] MEDS: ASPIRIN 81 MG ECTAB PO SCH ×2 (08:33→20:45)
[2017-01-06] MEDS: SOTALOL HCL 80 MG TAB PO SCH ×2 (08:33→20:45)
[2017-01-06] MEDS: ENOXAPARIN 40 MG/0.4 ML SYR SQ SCH (08:34)
--- NOTE | 2017-01-06 09:22 | Surgery Progress Note ---
Surgery Progress Note Date of Service Jan 06, 2017. Subjective + diet (tolerated clear liquids), + feeling well, No complaints, No nausea, No vomiting Objective Vital Signs: Date Time Temp Pulse Resp B/P Pulse Ox O2 Delivery O2 Flow Rate FiO2 01/06/17 07:56 36.4 63 14 150/66 94 Room Air 01/06/17 03:19 66 146/61 01/06/17 03:05 66 18 169/79 94 Room Air 01/06/17 00:50 60 159/72 01/06/17 00:40 Room Air 01/05/17 23:12 36.4 64 18 164/77 95 Room Air 01/05/17 21:43 64 151/67 01/05/17 16:20 Room Air 01/05/17 15:28 36.6 58 16 147/74 96 Room Air Abdomen: normal bowel sounds, non tender, non distended, soft Laboratory Results: Results Past 24 Hours Test 01/06/17 07:06 Range/Units White Blood Count 3.83 4.8-10.8 K/uL Red Blood Count 3.55 4.2-5.4 M/uL Hemoglobin 11.5 12.0-16.0 g/dL Hematocrit 34.6 37-47 % Mean Corpuscular Volume 97.5 80-100 fL Mean Corpuscular Hemoglobin 32.4 25-34 pg Mean Corpuscular Hemoglobin Concent 33.2 32-36 g/dl RDW Standard Deviation 51.1 36.4-46.3 fL RDW Coefficient of Variation 14.1 11.5-14.5 % Platelet Count 255 130-400 K/uL Mean Platelet Volume 8.6 7.4-10.4 fL Sodium Level 141 136-145 mmol/L Potassium Level 3.6 3.5-5.1 mmol/L Chloride Level 109 98-107 mmol/L Carbon Dioxide Level 22 21-32 mmol/L Anion Gap 10.0 3-11 mmol/L Blood Urea Nitrogen 11 7-18 mg/dl Creatinine 0.56 0.60-1.20 mg/dl Est Creatinine Clear Calc Drug Dose 61.3 ml/min Estimated GFR () 100.6 Estimated GFR (Non- 86.8 BUN/Creatinine Ratio 19.5 10-20 Random Glucose 76 70-99 mg/dl Calcium Level 7.2 8.5-10.1 mg/dl Magnesium Level 2.0 1.8-2.4 mg/dl Microbiology Results 01/05/17 C.difficile Toxin B Gene (PCR) - Final, Complete No C. difficile toxin B gene detected Assessment & Plan Doubt bowel obstruction Advance to soft diet
--- NOTE | 2017-01-06 17:54 | Progress Note ---
Internal Med Progress Note Date of Service: Jan 06, 2017. Provider Documentation: SUBJECTIVE: Patient is seen and examined at bedside. States having mild abdominal discomfort. No nausea, vomiting. +flatus, Last BM yesterday. OBJECTIVE: Vital Signs-as noted below Physical Exam: General Appearance:Thin, fragile, no apparent distress Head: normocephalic, Atraumatic Eyes: normal inspection, EOMI, PERRLA Neck: supple, no JVD, Trachea midline Respiratory/Chest: Normal breath sounds, CTA Cardiovascular: S1, S2, No murmur Abdomen/GI:Soft, Non tender, Bowel sounds present Extremities/Musculoskelatal:normal inspection, no edema Neurologic/Psych:AAOX3, grossly no focal neurological deficits Skin: redness between gluteal folds with blistering Lab data as noted below. ASSESSMENT & PLAN: Patient is an 81 yr old female with PMH of MS, neurogenic bladder and chronic indwelling catheter, paroxysmal atrial fibrillation s/p PPM, gluten sensitivity , hx. of C. diff, multiple abdominal surgeries presented with partial SBO Partial SBO nausea/vomiting resolved Abdominal CT showed possible partial SBO +flatus, last BM yesterday Appreciate Surgery input Advanced to GI soft diet No BM today Continue IVF Neurogenic Bladder Chronic Indwelling Catheter catheter changed yesterday (01/04) chronic urinalysis changes noted urine culture: Needs repeat Urine culture hold off on antibiotics for now unless culture has significant findings has a hx. of c. Diff Denies any urinary symptoms Afebrile, No leukocytosis Paroxysmal Atrial Fibrillation s/p PPM currently NSR continue sotalol Hypothyroidism continue Synthroid DVT px lovenox SQ Code Status: FULL CODE Disposition: Likely Home PT/OT Vital Signs: Date Time Temp Pulse Resp B/P Pulse Ox O2 Delivery O2 Flow Rate FiO2 01/06/17 15:30 Room Air 01/06/17 15:08 37.0 62 17 167/80 97 Room Air 01/06/17 10:27 94 Room Air 01/06/17 07:56 36.4 63 14 150/66 94 Room Air 01/06/17 07:50 Room Air 01/06/17 03:19 66 146/61 01/06/17 03:05 66 18 169/79 94 Room Air 01/06/17 00:50 60 159/72 01/06/17 00:40 Room Air 01/05/17 23:12 36.4 64 18 164/77 95 Room Air 01/05/17 21:43 64 151/67 Lab Results: Results Past 24 Hours Test 01/06/17 07:06 Range/Units White Blood Count 3.83 4.8-10.8 K/uL Red Blood Count 3.55 4.2-5.4 M/uL Hemoglobin 11.5 12.0-16.0 g/dL Hematocrit 34.6 37-47 % Mean Corpuscular Volume 97.5 80-100 fL Mean Corpuscular Hemoglobin 32.4 25-34 pg Mean Corpuscular Hemoglobin Concent 33.2 32-36 g/dl RDW Standard Deviation 51.1 36.4-46.3 fL RDW Coefficient of Variation 14.1 11.5-14.5 % Platelet Count 255 130-400 K/uL Mean Platelet Volume 8.6 7.4-10.4 fL Sodium Level 141 136-145 mmol/L Potassium Level 3.6 3.5-5.1 mmol/L Chloride Level 109 98-107 mmol/L Carbon Dioxide Level 22 21-32 mmol/L Anion Gap 10.0 3-11 mmol/L Blood Urea Nitrogen 11 7-18 mg/dl Creatinine 0.56 0.60-1.20 mg/dl Est Creatinine Clear Calc Drug Dose 61.3 ml/min Estimated GFR () 100.6 Estimated GFR (Non- 86.8 BUN/Creatinine Ratio 19.5 10-20 Random Glucose 76 70-99 mg/dl Calcium Level 7.2 8.5-10.1 mg/dl Magnesium Level 2.0 1.8-2.4 mg/dl Microbiology Results 01/05/17 C.difficile Toxin B Gene (PCR) - Final, Complete No C. difficile toxin B gene detected
[2017-01-06] MEDS: MULTIVITAMIN TAB PO SCH (18:49)
[2017-01-07] MEDS: LEVOTHYROXINE 100 MCG TAB PO SCH (05:53)
[2017-01-07 05:55] VITALS: BP 163/67; PULSE 65
[2017-01-07 07:10] VITALS: BP 158/72; PULSE 65; TEMP 36.8; O2SAT 96
[2017-01-07] MEDS: ASPIRIN 81 MG ECTAB PO SCH ×2 (08:48→21:16)
[2017-01-07] MEDS: SOTALOL HCL 80 MG TAB PO SCH ×2 (08:48→21:16)
[2017-01-07] MEDS: ENOXAPARIN 40 MG/0.4 ML SYR SQ SCH (10:16)
[2017-01-07] MEDS: LORATADINE 10 MG TAB PO PRN (10:16)
[2017-01-07 15:37] VITALS: BP 175/79; PULSE 60; TEMP 36.7; O2SAT 97
--- NOTE | 2017-01-07 16:10 | Progress Note ---
Internal Med Progress Note Date of Service: Jan 07, 2017. Provider Documentation: SUBJECTIVE: Patient is seen and examined at bedside. Had BM today. Denies any nausea, vomiting, abd pain. Offers no other complaints. OBJECTIVE: Vital Signs-as noted below Physical Exam: General Appearance:Thin, fragile, no apparent distress Head: normocephalic, Atraumatic Eyes: normal inspection, EOMI, PERRLA Neck: supple, no JVD, Trachea midline Respiratory/Chest: Normal breath sounds, CTA Cardiovascular: S1, S2, No murmur Abdomen/GI:Soft, Non tender, Bowel sounds present Extremities/Musculoskelatal:normal inspection, no edema Neurologic/Psych:AAOX3, grossly no focal neurological deficits Skin: redness between gluteal folds with blistering Lab data as noted below. ASSESSMENT & PLAN: Patient is an 81 yr old female with PMH of MS, neurogenic bladder and chronic indwelling catheter, paroxysmal atrial fibrillation s/p PPM, gluten sensitivity , hx. of C. diff, multiple abdominal surgeries presented with partial SBO Partial SBO nausea/vomiting/Abd pain resolved Abdominal CT showed possible partial SBO +flatus, BM today Appreciate Surgery input Continue GI soft diet DC IVF Neurogenic Bladder Chronic Indwelling Catheter catheter changed yesterday (01/04) chronic urinalysis changes noted hold off on antibiotics for now unless culture has significant findings has a hx. of c. Diff Denies any urinary symptoms Afebrile, No leukocytosis Follow up repeat Urine culture Hypertension: BP elevated today Asymptomatic DC IVF Restart home lasix Paroxysmal Atrial Fibrillation s/p PPM currently NSR continue sotalol Hypothyroidism continue Synthroid DVT px lovenox SQ Code Status: FULL CODE Disposition: Likely Home with home health PT/OT Vital Signs: Date Time Temp Pulse Resp B/P Pulse Ox O2 Delivery O2 Flow Rate FiO2 01/07/17 15:37 36.7 60 16 175/79 97 Room Air 01/07/17 09:00 Room Air 01/07/17 07:10 36.8 65 17 158/72 96 Room Air 01/07/17 05:55 65 163/67 01/06/17 23:35 Room Air 01/06/17 23:20 160/77 01/06/17 23:19 36.7 65 12 179/82 96 Room Air Lab Results: Microbiology Results 01/06/17 Urine Culture, Received Pending
[2017-01-07] MEDS ORDERED: POTASSIUM CHLORIDE 20MEQ/15ML 473ML PO ONE ×2 (16:15→16:45)
[2017-01-07] MEDS ORDERED: FUROSEMIDE 20 MG TAB PO ONE (16:30)
[2017-01-07] MEDS: MULTIVITAMIN TAB PO SCH (17:22)
[2017-01-07 18:56] VITALS: BP 166/79
[2017-01-07 21:13] VITALS: BP 176/83; PULSE 60
[2017-01-07 23:08] VITALS: BP 158/76; PULSE 64; TEMP 36.7; O2SAT 95
[2017-01-08] MEDS: LEVOTHYROXINE 100 MCG TAB PO SCH (06:05)
[2017-01-08 06:18] LABS: BASO % 1.2 %; BASO ABS # 0.07 K/uL (0-0.2); COMPLETE YES; HEMATOCRIT 37.3 % (37-47); IG% 0.2 %; LYMPH % 29.5 %; LYMPH ABS # 1.77 K/uL (1.2-3.4); MEAN CELL VOLUME 98.2 fL (80-100); MEAN CORPUSCULAR HEMOGLOBIN 32.9 pg (25-34); MEAN CORPUSCULAR HGB CONC 33.5 g/dl (32-36); MEAN PLATELET VOLUME 9.1 fL (7.4-10.4); MONO % 13.4 %; NEUT % 51.7 %; PLATELET COUNT 262 K/uL (130-400); WHITE BLOOD COUNT 5.99 K/uL (4.8-10.8)
[2017-01-08 08:05] VITALS: BP 172/76; PULSE 65; TEMP 36.4; O2SAT 97
[2017-01-08] MEDS: ASPIRIN 81 MG ECTAB PO SCH ×2 (09:21→20:50)
[2017-01-08] MEDS: SOTALOL HCL 80 MG TAB PO SCH ×2 (09:21→20:50)
[2017-01-08] MEDS: LORATADINE 10 MG TAB PO PRN (09:21)
[2017-01-08] MEDS: ENOXAPARIN 40 MG/0.4 ML SYR SQ SCH (09:22)
[2017-01-08] MEDS: MAGNESIUM OXIDE 400 MG TAB PO SCH (12:02)
--- NOTE | 2017-01-08 13:11 | Progress Note ---
Internal Med Progress Note Date of Service: Jan 08, 2017. Provider Documentation: SUBJECTIVE: Patient is seen and examined at bedside. Feels well. No complaints. Eager to get discharged. No BM yet today. OBJECTIVE: Vital Signs-as noted below Physical Exam: General Appearance:Thin, fragile, no apparent distress Head: normocephalic, Atraumatic Eyes: normal inspection, EOMI, PERRLA Neck: supple, no JVD, Trachea midline Respiratory/Chest: Normal breath sounds, CTA Cardiovascular: S1, S2, No murmur Abdomen/GI:Soft, Non tender, Bowel sounds present Extremities/Musculoskelatal:normal inspection, no edema Neurologic/Psych:AAOX3, grossly no focal neurological deficits Skin: redness between gluteal folds with blistering Lab data as noted below. ASSESSMENT & PLAN: Patient is an 81 yr old female with PMH of MS, neurogenic bladder and chronic indwelling catheter, paroxysmal atrial fibrillation s/p PPM, gluten sensitivity , hx. of C. diff, multiple abdominal surgeries presented with partial SBO Partial SBO nausea/vomiting/Abd pain resolved Abdominal CT showed possible partial SBO +flatus, BM yesterday Appreciate Surgery input Advance to regular diet DC IVF Neurogenic Bladder Chronic Indwelling Catheter catheter changed yesterday (01/04) Afebrile, No leukocytosis Urine culture: Enterococcus Start IV Rocephin Follow up sensitivities Hypertension: BP elevated Asymptomatic Increase lasix 20mg to daily Continue Sotolol Paroxysmal Atrial Fibrillation s/p PPM currently NSR continue sotalol Hypothyroidism continue Synthroid DVT px lovenox SQ Code Status: FULL CODE Disposition: Likely Home with home health PT/OT Await for Urine culture sensitivities Vital Signs: Date Time Temp Pulse Resp B/P Pulse Ox O2 Delivery O2 Flow Rate FiO2 01/08/17 08:15 Room Air 01/08/17 08:05 36.4 65 16 172/76 97 Room Air 01/07/17 23:08 36.7 64 14 158/76 95 Room Air 01/07/17 21:13 60 176/83 01/07/17 19:35 Room Air 01/07/17 18:56 166/79 01/07/17 15:37 36.7 60 16 175/79 97 Room Air Lab Results: Results Past 24 Hours Test 01/08/17 06:07 Range/Units White Blood Count 5.99 4.8-10.8 K/uL Red Blood Count 3.80 4.2-5.4 M/uL Hemoglobin 12.5 12.0-16.0 g/dL Hematocrit 37.3 37-47 % Mean Corpuscular Volume 98.2 80-100 fL Mean Corpuscular Hemoglobin 32.9 25-34 pg Mean Corpuscular Hemoglobin Concent 33.5 32-36 g/dl Platelet Count 262 130-400 K/uL Mean Platelet Volume 9.1 7.4-10.4 fL Neutrophils (%) (Auto) 51.7 % Lymphocytes (%) (Auto) 29.5 % Monocytes (%) (Auto) 13.4 % Eosinophils (%) (Auto) 4.0 % Basophils (%) (Auto) 1.2 % Neutrophils # (Auto) 3.10 1.4-6.5 K/uL Lymphocytes # (Auto) 1.77 1.2-3.4 K/uL Monocytes # (Auto) 0.80 0.11-0.59 K/uL Eosinophils # (Auto) 0.24 0-0.5 K/uL Basophils # (Auto) 0.07 0-0.2 K/uL RDW Standard Deviation 50.6 36.4-46.3 fL RDW Coefficient of Variation 14.1 11.5-14.5 % Immature Granulocyte % (Auto) 0.2 % Immature Granulocyte # (Auto) 0.01 0.00-0.02 K/uL
[2017-01-08] MEDS ORDERED: FUROSEMIDE 40 MG TAB PO ONE (13:30)
[2017-01-08] MEDS ORDERED: CEFTRIAXONE SOD INJ 1 GM in DEXTROSE 5% ADD-VANTAGE 50ML 50 ML IV SCH (14:00)
[2017-01-08 14:53] VITALS: BP 158/80; PULSE 64; TEMP 36.5; O2SAT 99
[2017-01-08] MEDS: MULTIVITAMIN TAB PO SCH (15:10)
[2017-01-08 20:48] VITALS: BP 143/80; PULSE 76
[2017-01-08 23:20] VITALS: BP 147/83; PULSE 73; TEMP 36.7; O2SAT 95
[2017-01-09] MEDS: LEVOTHYROXINE 100 MCG TAB PO SCH (06:01)
[2017-01-09 06:40] LABS: CREATININE 0.81 mg/dl (0.60-1.20)
[2017-01-09 07:58] VITALS: BP 150/71; PULSE 67; TEMP 36.6; O2SAT 95
[2017-01-09 09:00] VITALS: O2SAT 95
[2017-01-09] MEDS ORDERED: FUROSEMIDE 20 MG TAB PO SCH (09:00)
[2017-01-09] MEDS: SOTALOL HCL 80 MG TAB PO SCH (09:02)
[2017-01-09] MEDS: ASPIRIN 81 MG ECTAB PO SCH (09:03)
[2017-01-09] MEDS: ENOXAPARIN 40 MG/0.4 ML SYR SQ SCH (09:26)
--- NOTE | 2017-01-09 11:40 | Progress Note ---
Internal Med Progress Note Date of Service: Jan 09, 2017. Provider Documentation: SUBJECTIVE: Patient is seen and examined at bedside. Eager to get discharged. Denies nausea , vomiting, abd pain. +flatus OBJECTIVE: Vital Signs-as noted below Physical Exam: General Appearance:Thin, fragile, no apparent distress Head: normocephalic, Atraumatic Eyes: normal inspection, EOMI, PERRLA Neck: supple, no JVD, Trachea midline Respiratory/Chest: Normal breath sounds, CTA Cardiovascular: S1, S2, No murmur Abdomen/GI:Soft, Non tender, Bowel sounds present Extremities/Musculoskelatal:normal inspection, no edema Neurologic/Psych:AAOX3, grossly no focal neurological deficits Skin: redness between gluteal folds with blistering Lab data as noted below. ASSESSMENT & PLAN: Patient is an 81 yr old female with PMH of MS, neurogenic bladder and chronic indwelling catheter, paroxysmal atrial fibrillation s/p PPM, gluten sensitivity , hx. of C. diff, multiple abdominal surgeries presented with partial SBO Partial SBO nausea/vomiting/Abd pain resolved Abdominal CT showed possible partial SBO +flatus, BM Appreciate Surgery input Advance to regular diet DC IVF Bowel regimen Neurogenic Bladder Chronic Indwelling Catheter UTI likely secondary to catheter catheter changed yesterday (01/04) Afebrile, No leukocytosis Urine culture: Enterococcus faecalis Plan to start on Amox 500mg TID for 7 days Hypertension: BP Stable Asymptomatic Continue lasix 20mg daily which was increased from twice weekly Continue Sotolol Paroxysmal Atrial Fibrillation s/p PPM currently NSR continue sotalol Hypothyroidism continue Synthroid DVT px lovenox SQ Code Status: FULL CODE Disposition: Home with home health PT/OT Follow up with on January 16 AT 11:50am Vital Signs: Date Time Temp Pulse Resp B/P Pulse Ox O2 Delivery O2 Flow Rate FiO2 01/09/17 12:36 36.6 67 21 95 Room Air Lab Results:
[2017-01-09] MEDS ORDERED: AMX500 PO (11:53)
[2017-01-09] MEDS ORDERED: DOCU-94 PO (11:53)
[2017-01-09] MEDS ORDERED: FURO20TA PO (11:53)
--- NOTE | 2017-01-09 11:57 | Discharge Summary ---
Discharge Summary Date of Service Jan 09, 2017. Discharge Summary Admission Date: Jan 04, 2017 at 21:41 Discharge Date: Jan 09, 2017 Discharge Disposition: Home Principal Diagnosis: Partial SBO, UTI Procedures: CT abdomen: 1. Study significantly compromised given the lack of IV and oral contrast and paucity of intra-abdominal fat. 2. Severe right hydroureteronephrosis with suspected urothelial thickening and right renal cortical thinning. These findings could been shown on prior exams and are likely chronic and may be related to reflux given findings on prior VCUG. However, correlation with urinalysis and urine cytology is recommended. 3. Fluid-filled mildly dilated small bowel. A low-grade partial small bowel obstruction would be difficult to exclude but no transition point is identified. 4. Mildly distended, fluid-filled stomach. Consultations: surgery Pending Studies/Follow-Up: Follow up with on January 16 AT 11:50am Complete the antibiotic course as prescribed Seek immediate medical attention if your symptoms reoccur or worsen Medication Reconciliation New Medications: Docusate Sodium (Colace) 100 Mg Cap 1 CAP PO BID PRN for constipation for 15 Days, #30 CAP Amoxicillin (Amoxicillin) 500 Mg Cap 500 MG PO Q8H for 7 Days, #21 CAP Changed Medications: Furosemide (Lasix) 20 Mg Tab 1 TAB PO DAILY for 90 Days, #90 TAB 1 Refill (Changed from: 2XWK) Continued Medications: Acetaminophen (Tylenol) 500 Mg Tab 1000 MG PO DIRECTED PRN for PRN, TAB Ascorbic Acid (Vitamin C) 500 Mg Tab 500 MG PO DAILY@1200 Aspirin (Aspirin Ec) 81 Mg Tab 81 MG PO BID Calcium/Vitamin D (Os-Hitesh 500 Plus D) Tab 1 TAB PO TID Cholecalciferol (Vitamin D3) 1,000 Unit Tab 1 TAB PO BID for 90 Days, #180 TAB 3 Refills Cyanocobalamin (Vitamin B-12 Inj) Inj 1000 MCG INJ MONTHLY Estrogens, Conjugated Vaginal (Premarin) 0.625 Mg/ Cre 1 APPLN PV UD, #30 USE ON MONDAYS AND FRIDAYS Levothyroxine Sodium (Levothyroxine Sodium) 100 Mcg Tab 100 MCG PO DAILYBB Loratadine (Claritin) 10 Mg Tab 10 MG PO DAILY PRN for ALLERGY SX, 0 Refills Magnesium Oxide (Mag-Ox) 400 Mg Tab 400 MG PO DAILYBL Multivitamin (Multivitamin) Tab 1 TAB PO DAILYBD CENTRUM Potassium Chloride (Catie Ciel Elix) 20 Meq/15 Ml Elix 1.5 TSP PO 2XWK, #56 TAKE MONDAY AND MONDAY Sotalol HCl (Sotalol HCl) 80 Mg Tab 80 MG PO QAM for 30 Days, #30 TAB 1 Refill Sotalol HCl (Sotalol HCl) 80 Mg Tab 40 MG PO HS for 30 Days, #30 TAB 1 Refill Admission Information HPI (per Admitting provider): This is an 81 year old female with PMH of MS, PAF, hx pacemaker, chronic welsh, recurrent UTI's, gluten sensitivity, hx appendectomy and 2 bowel surgeries, hx C. diff, and other problems listed below who presents to the ED With N/V. Pt 1 hour after having a gluten free dinner tonight she developed generalized weakness and nausea. 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 She had associated bloating and lower abdominal pressure which are resolved. She received Zofran and is no longer feeling nauseous. No further vomiting or diarrhea. Denies passing flatus in ER. She was transiently lightheaded at home. She had chills earlier. Currently she is feeling fatigued. Pt has a chronic Welsh which was due to be changed tomorrow. Welsh was changed in ER today. She has noted foul urinary odor. Pt was hospitalized for UTI in 2015; cx grew > 3 types of organisms, treated with Levaquin. Had recurrent UTI late October; urine cx grew pseudomonas and beta strep group B and pt treated with Ceftin. Pt denies fever, URI sx, cough, CP, palpitations, SOB, GI bleeding, hematuria, cloudy urine. She uses a motorized chair at home. Pt's was ill with vomiting in mid December. Physical Exam (per Admitting): General Appearance: WD/WN, no apparent distress, + pertinent finding ( pleasant alert elderly female) Head: normocephalic, atraumatic Eyes: normal inspection, sclerae normal ENT: hearing grossly normal, pharynx normal, + pertinent finding (lips are dry) Neck: supple, trachea midline Respiratory/Chest: lungs clear, normal breath sounds, no respiratory distress, no accessory muscle use Cardiovascular: regular rate, rhythm, no murmur Abdomen/GI: normal bowel sounds, non tender, soft Extremities/Musculoskelatal: no calf tenderness, no pedal edema Neurologic/Psych: alert, normal mood/affect, oriented x 3, + pertinent finding (upper extremities no gross motor deficit. chronic weakness RLE > LLE) Skin: normal color, warm/dry, + pertinent finding (+ skin tenting) Hospital Course Patient is an 81 yr old female with PMH of MS, neurogenic bladder and chronic indwelling catheter, paroxysmal atrial fibrillation s/p PPM, gluten sensitivity , hx. of C. diff, multiple abdominal surgeries presented with partial SBO Partial SBO nausea/vomiting/Abd pain resolved Abdominal CT showed possible partial SBO +flatus, BM Appreciate Surgery input Advance to regular diet DC IVF Bowel regimen Neurogenic Bladder Chronic Indwelling Catheter catheter changed yesterday (01/04) Afebrile, No leukocytosis Urine culture: Enterococcus faecalis Plan to start on Amox 500mg TID for 7 days Hypertension: BP Stable Asymptomatic Continue lasix 20mg daily which was increased from twice weekly Continue Sotolol Paroxysmal Atrial Fibrillation s/p PPM currently NSR continue sotalol Hypothyroidism continue Synthroid DVT px lovenox SQ Code Status: FULL CODE Disposition: Home with home health PT/OT Follow up with on January 16 AT 11:50am Total time spent on discharge = 35 minutes This includes examination of the patient, discharge planning, medication reconciliation, and communication with other providers. Discharge Instructions Discharge Instructions Date of Service Jan 09, 2017. Admission Reason for Admission: SBO Discharge Discharge Diagnosis / Problem: Partial SBO, UTI Discharge Goals Goal(s): Decrease discomfort, Improve function Activity Recommendations Activity Limitations: resume your previous activity Exercise/Sports Limitations: as tolerated Driving or Machine Use: No driving . Instructions / Follow-Up Instructions / Follow-Up Follow up with on January 16 AT 11:50am Complete the antibiotic course as prescribed Seek immediate medical attention if your symptoms reoccur or worsen Current Hospital Diet Patient's current hospital diet: Regular Diet Discharge Diet Recommended Diet: Regular Diet Pending Studies Studies pending at discharge: no Medical Emergencies . Who to Call and When: Medical Emergencies: If at any time you feel your situation is an emergency, please call 911 immediately. . Non-Emergent Contact Non-Emergency issues call your: Primary Care Provider Call Non-Emergent contact if: you have a fever, your pain is not controlled, your pain is worsening, your pain is unusual for you, you have any medication questions . . "Provider Documentation" section prepared by Johnathan Junior. VTE Core Measure Inpt VTE Proph given/why not?: Enoxaparin (Lovenox)SQ
[2017-01-09] MEDS: MAGNESIUM OXIDE 400 MG TAB PO SCH (12:00)
[2017-01-09] MEDS ORDERED: AMOXICILLIN 500 MG CAP PO SCH ×2 (12:00→14:00)
[2017-01-09 12:36] VITALS: BP 150/71; PULSE 67; TEMP 36.6; O2SAT 95
--- NOTE | 2017-01-10 10:21 | EDITING REQUIRED CODING QUERY ---
CODING QUERY To promote full compliance with coding requirements relating to patient care, provider participation is requested in all cases of medical records coder uncertainty. Please assist us with the question(s) below: Coding Question(s): Patient admitted with SBO and recurrent UTI in the setting of Walker catheter. Urinary Catheter was changed during this inpatient stay. History of chronic indwelling urinary catheter. ED note states UTI due to indwelling urinary catheter. Please check the statement that describes what was treated during this stay. Thank you. Sukhwinder Hunter RESPIRATORY [employer] [facility] Physician's Response(s): _x Urinary Catheter induced UTI UTI not due to the Urinary Catheter Cannot clinically correlate Other: Please document : Principal Diagnosis: "_that condition established after study, to be chiefly responsible for occasioning the admission of the patient to the hospital for care." Co-Existing Principal Diagnosis: "_when two or more diagnoses equally meet the criteria for principal diagnosis as determined by the circumstances of admission, diagnostic work up, and/or therapy provided, and the Alphabetic Index, Tabular List, or another coding guideline does not provide sequencing direction, any one of the diagnoses may be sequenced first." "When the physician has documented what appears to be a current diagnosis in the body of the record, but has not included the diagnosis in the final diagnostic statement, the physician should be asked whether the diagnosis should be added." (Source Coding Clinic 2 QTR90. p3-4)
[2017-03-01] MEDS ORDERED: PRED10TA PO (14:55)
[2017-03-01] MEDS ORDERED: BENZ100C7 PO (14:55)
[2017-03-01] MEDS ORDERED: DOXY100C2 PO (14:55)
[2017-05-16] MEDS ORDERED: DXY100 PO (16:27)
[2017-08-04] MEDS ORDERED: CPR500 PO (13:10)
== END 2017-01-09 14:09 | disposition home health service (06) | DRG 389 ==
LOC: ENRESERVTM → ENRESERVDT → EDBD 17:20 → C.EDA 17:21 → C.MSW 21:41
PROVIDERS: ADMIT Internal Medicine; ATTEND Internal Medicine
PROC: 0T9B70Z Drainage of Bladder with Drainage Device, Via Natural or Artificial Opening (ICD-10-PCS; principal; 2017-01-04)
DX: K56.60 Unspecified intestinal obstruction (principal); T83.518A Infection and inflammatory reaction due to other urinary catheter, initial encounter; N39.0 Urinary tract infection, site not specified; K90.0 Celiac disease; I10 Essential (primary) hypertension; E03.9 Hypothyroidism, unspecified; G35 Multiple sclerosis; N31.9 Neuromuscular dysfunction of bladder, unspecified; M81.0 Age-related osteoporosis without current pathological fracture; Z87.891 Personal history of nicotine dependence; Z95.0 Presence of cardiac pacemaker; I48.0 Paroxysmal atrial fibrillation; N81.10 Cystocele, unspecified; R33.8 Other retention of urine; B95.2 Enterococcus as the cause of diseases classified elsewhere; Y84.6 Urinary catheterization as the cause of abnormal reaction of the patient, or of later complication, without mention of misadventure at the time of the procedure; Y92.009 Unspecified place in unspecified non-institutional (private) residence as the place of occurrence of the external cause

== ENCOUNTER → 2017-01-16 | Outpatient (CLI) | payer OTHER, BC ==
[~2017-01-16] MED LIST changes: +AMX500 PO; +BENZ100C7 PO; +CHOL1000 PO; -CHOL100010 PO; +CIPR1TAB11 PO; -CLOTCRE33 TOP; +CPR500 PO; +CYNI1000 INJ; +DEXT30TA7 PO; +DOCU-94 PO; +DOCU100C31 PO; +DOXY100C2 PO; +DXY100 PO; +FURO-85 PO; +IMD/2 PO; +KCLI20/100 PO; +MULTTAB5 PO; +ONDA4TAB10 SL; +ONDA4TAB65 PO; +PRED10TA PO; +PRMVC PV; +PROC1TAB5 PO; +[UNRECOGNIZED DRUG - CODE] PO
--- NOTE | 2017-01-16 18:01 | DIAGNOSTIC IMAGING REPORT ---
RIGHT LOWER EXTREMITY VENOUS DOPPLER CLINICAL HISTORY: Right calf pain. COMPARISON STUDY: Right lower extremity venous Doppler February 01, 2016. TECHNIQUE: Sonography of the deep venous system of the right lower extremity was performed. Compression and augmentation were evaluated. FINDINGS: The right common femoral, superficial femoral and popliteal veins were compressible. Augmentation was normal. No deep venous thrombus is identified within the calf veins of the right lower extremity although the peroneal veins were not well visualized on this exam. Note was made of a complex 3.5 x 5.2 x 0.8 cm fluid collection within the posterior upper calf. There is also a 3.2 x 1.8 x 1 cm suspected popliteal cyst. IMPRESSION: 1. No evidence of deep venous thrombus within the right lower extremity. 2. 3.5 x 5.2 x 0.8 cm elongated mildly complex fluid collection within the posterior upper right calf. This could reflect a ruptured popliteal cyst or small hematoma. 2. Small right popliteal cyst. Electronically signed by: Myles Aguilar M.D. 01/16/2017 5:59 PM Dictated Date/Time: 01/16/2017 5:57 PM
== END | disposition home or self-care (01) ==
LOC: C.ULTR 17:07
PROVIDERS: ATTEND Family Medicine
DX: M79.661 Pain in right lower leg (principal); M71.21 Synovial cyst of popliteal space [Baker], right knee

== ENCOUNTER 2017-02-15 07:36 | Emergency (ER) | payer OTHER, BC ==
[~2017-02-15] VITALS: Ht 157.5 cm; Wt 55.9 kg
[~2017-02-15 07:36] MED LIST changes: -BENZ100C7 PO; -CIPR1TAB11 PO; -CPR500 PO; -CYNI1000 INJ; -DEXT30TA7 PO; -DOCU-94 PO; -DOCU100C31 PO; -DOXY100C2 PO; -DXY100 PO; -FURO-85 PO; -IMD/2 PO; -KCLI20/100 PO; -MULTTAB5 PO; -ONDA4TAB10 SL; -ONDA4TAB65 PO; -PRED10TA PO; -PRMVC PV; -PROC1TAB5 PO; -[UNRECOGNIZED DRUG - CODE] PO
[2017-02-15] MEDS ORDERED: SODIUM CHLORIDE 0.9% 1000ML 1,000 ML IV STA (07:48)
[2017-02-15] MEDS ORDERED: PROCHLORPERAZINE 5 MG/ML 2 ML VIAL IV STA (07:48)
[2017-02-15 07:49] VITALS: Ht 157.5 cm; Wt 55.9 kg
[2017-02-15] MEDS ORDERED: CEFTRIAXONE SOD INJ 1 GM ADDVIAL IV STA (07:49)
[2017-02-15 08:04] LABS: BASO % 1.8 %; BASO ABS # 0.08 K/uL (0-0.2); COMPLETE YES; EOS % 0.7 %; HEMATOCRIT 39.2 % (37-47); IG% 0.2 %; LYMPH % 22.5 %; LYMPH ABS # 1.02 K/uL (1.2-3.4); MEAN CORPUSCULAR HEMOGLOBIN 32.4 pg (25-34); MEAN CORPUSCULAR HGB CONC 33.4 g/dl (32-36); MONO % 15.2 %; NEUT % 59.6 %; PLATELET COUNT 263 K/uL (130-400); RED BLOOD COUNT 4.04 M/uL (4.2-5.4); WHITE BLOOD COUNT 4.54 K/uL (4.8-10.8)
[2017-02-15 08:12] LABS: INR 1.1 (0.9-1.1); PARTIAL THROMBOPLASTIN RATIO 1.3; PROTHROMBIN TIME (PATIENT) 11.6 SECONDS (9.0-12.0)
--- NOTE | 2017-02-15 08:14 | DIAGNOSTIC IMAGING REPORT ---
CHEST ONE VIEW PORTABLE HISTORY: EVALUATE ALTERED MENTAL STATUS/WEAKNESS COMPARISON: Chest 09/09/2016. FINDINGS: Rotated study. The heart remains mildly enlarged. Left-sided dual-chamber pacemaker. Hazy appearance the left lung base remains unchanged. This favors prominent mediastinal fat. No new focal lung consolidations to suggest pneumonia. No evidence or pulmonary edema. Old, healed right-sided rib fractures. Nodular density the right lung base is likely due to the overlying old rib fracture. IMPRESSION: Rotated study. Chronic changes as described above. No acute process identified. Electronically signed by: Tolu Gregory M.D. 02/15/2017 8:12 AM Dictated Date/Time: 02/15/2017 8:10 AM
[2017-02-15 08:23] LABS: ALT/SGPT 16 U/L (12-78); BLOOD UREA NITROGEN 19 mg/dl (7-18); BUN/CREATININE RATIO 21.3 (10-20); CARBON DIOXIDE 25 mmol/L (21-32); CHLORIDE 102 mmol/L (98-107); CREATININE 0.89 mg/dl (0.60-1.20); GLUCOSE 96 mg/dl (70-99); MAGNESIUM 2.1 mg/dl (1.8-2.4); POTASSIUM 3.7 mmol/L (3.5-5.1); SODIUM 135 mmol/L (136-145)
[2017-02-15 08:30] LABS: ALKALINE PHOSPHATASE 95 U/L (45-117); AST/SGOT 27 U/L (15-37); CKMB/CK RATIO 2.2 (0-3.0)
[2017-02-15 08:38] LABS: MANUAL MICROSCOPIC REQUIRED? NO; REVIEW REQ? YES; URINE APPEARANCE TURBID (CLEAR); URINE BILIRUBIN NEG (NEG); URINE COLOR YELLOW; URINE EPITHELIAL CELL AUTO >30 /lpf (0-5); URINE NITRITE POS (NEG); URINE PH 7.5 (4.5-7.5); URINE SPECIFIC GRAVITY 1.011 (1.000-1.030); UROBILINOGEN NEG (NEG)
[2017-02-15] MEDS ORDERED: CIPR1TAB11 PO (08:41)
[2017-02-15 08:49] LABS: SULFASALICYLIC ACID POS (NEG)
[2017-02-15] MEDS ORDERED: KCLI20/100 PO (08:50)
[2017-02-15] MEDS ORDERED: CYNI1000 INJ (08:50)
[2017-02-15] MEDS ORDERED: PRMVC PV (08:53)
[2017-02-15] MEDS ORDERED: ONDA4TAB10 SL (10:00)
--- NOTE | 2017-02-15 10:01 | EMERGENCY ROOM VISIT NOTE ---
History Report prepared by Jovanni: Yamila Payton Under the Supervision of: Dr. Barry Leone D.O. First contact with patient: 07:40 Stated Complaint: WEAKNESS/CHEST DISCOMFORT History of Present Illness The patient is an 81 year old female who presents to the Emergency Room with complaints of persistent nausea starting yesterday. She presents to the ED by EMS. She received Zofran and fluids on the way. She states that the medications have not helped her. She has a Walker catheter in place and was placed on Cipro yesterday for a suspected UTI. Last night she started having dizziness, lightheadedness, nausea, chest pain, and fever. She also states that her mouth is dry and she has had some cough. She had some diarrhea 2 nights ago. She denies any vomiting or abdominal pain. Source of History: patient, nursing staff Onset: yesterday Position: other (global) Quality: other (nausea) Timing: other (persistent) Associated Symptoms: + chest pain, + cough, + diarrhea, + fevers, No abdominal pain, No vomiting Note: Pt reports dizziness, lightheadedness, dry mouth. Review of Systems See HPI for pertinent positives & negatives. A total of 10 systems reviewed and were otherwise negative. Past Medical & Surgical Medical Problems: (1) Celiac disease (2) Chest heaviness (3) Complicated UTI (urinary tract infection) (4) Cystocele (5) Hypothyroidism (6) Multiple sclerosis (7) Multiple sclerosis (8) Neurogenic bladder (9) Neurogenic bowel (10) Osteoporosis (11) Pacemaker (12) Paroxysmal atrial fibrillation (13) PVD (peripheral vascular disease) (14) Rectocele (15) SBO (small bowel obstruction) (16) Urinary retention (17) Vertigo Surgical Problems: (1) H/O colonoscopy (2) H/O dilation and curettage (3) History of appendectomy (4) S/P partial colectomy Family History FH: CAD (coronary artery disease) FATHER SISTER Social History Smoking Status: Former Smoker Alcohol Use: none Drug Use: none Marital Status: Housing Status: lives with significant other Occupation Status: retired Current/Historical Medications Scheduled Ascorbic Acid (Vitamin C), 500 MG PO DAILY@1200 Aspirin (Aspirin Ec), 81 MG PO BID Calcium/Vitamin D (Os-Hitesh 500 Plus D), 1 TAB PO TID Cholecalciferol (Vitamin D3), 1 TAB PO BID Ciprofloxacin Tab (Cipro), 250 MG PO BID Cyanocobalamin (Cyanocobalamin), 1,000 MCG INJ MONTHLY Estrogens, Conjugated (Premarin), 1 APPLN PV UD Furosemide (Lasix), 1 TAB PO DAILY Levothyroxine Sodium (Levothyroxine Sodium), 100 MCG PO DAILYBB Magnesium Oxide (Mag-Ox), 400 MG PO DAILYBL Multivitamin (Multivitamin), 1 TAB PO DAILYBD Ondasetron Odt (Zofran Odt), 4 MG SL Q6H Potassium Chloride (Potassium Chloride), 1.5 TSP PO 2XWK Sotalol HCl (Sotalol HCl), 80 MG PO QAM Sotalol HCl (Sotalol HCl), 40 MG PO HS Scheduled PRN Acetaminophen (Tylenol), 1,000 MG PO DIRECTED PRN for PRN Loratadine (Claritin), 10 MG PO DAILY PRN for ALLERGY SX Allergies Coded Allergies: Sulfa Antibiotics (Verified Allergy, Unknown, ?, 02/15/17) Gluten (Verified Adverse Reaction, Intermediate, GI DISTRESS, 02/15/17) Codeine (Verified Adverse Reaction, Unknown, N/V, 02/15/17) Physical Exam Vital Signs Date Time Temp Pulse Resp B/P Pulse Ox O2 Delivery O2 Flow Rate FiO2 02/15/17 10:08 37.5 77 24 135/68 92 Room Air 02/15/17 09:43 72 18 142/76 97 Nasal Cannula 3.0 02/15/17 08:58 73 02/15/17 07:49 37.3 77 18 187/97 95 Room Air Physical Exam CONSTITUTIONAL/VITAL SIGNS: Reviewed / noted above. GENERAL: Non-toxic in appearance. INTEGUMENTARY: Warm, dry, and [place]. HEAD: Normocephalic. EYES: without scleral icterus or trauma. ENT/OROPHARYNX: clear, dry mucous membranes. LYMPHADENOPATHY/NECK: Is supple without lymphadenopathy or meningismus. RESPIRATORY: Lungs clear and equal. CARDIOVASCULAR: Regular rate and rhythm. GI/ABDOMEN: Soft and nontender. No organomegaly or pulsatile mass. No rebound or guarding. Normal bowel sounds. EXTREMITIES: Warm and well perfused. BACK: No CVA tenderness. NEUROLOGICAL: Intact without focal deficits. PSYCHIATRIC: normal affect. MUSCULOSKELETAL: Normally developed with good muscle tone. Medical Decision & Procedures ER Provider Diagnostic Interpretation: X ray results and stated below per my interpretation and radiology interpretation. CHEST ONE VIEW PORTABLE HISTORY: EVALUATE ALTERED MENTAL STATUS/WEAKNESS COMPARISON: Chest 09/09/2016. FINDINGS: Rotated study. The heart remains mildly enlarged. Left-sided dual-chamber pacemaker. Hazy appearance the left lung base remains unchanged. This favors prominent mediastinal fat. No new focal lung consolidations to suggest pneumonia. No evidence or pulmonary edema. Old, healed right-sided rib fractures. Nodular density the right lung base is likely due to the overlying old rib fracture. IMPRESSION: Rotated study. Chronic changes as described above. No acute process identified. Electronically signed by: Tolu Gregory M.D. 02/15/2017 8:12 AM Dictated Date/Time: 02/15/2017 8:10 AM Laboratory Results 02/15/17 07:50 Red Blood Count 4.04, Mean Corpuscular Volume 97.0, Mean Corpuscular Hemoglobin 32.4, Mean Corpuscular Hemoglobin Concent 33.4, Mean Platelet Volume 9.0, Neutrophils (%) (Auto) 59.6, Lymphocytes (%) (Auto) 22.5, Monocytes (%) (Auto) 15.2, Eosinophils (%) (Auto) 0.7, Basophils (%) (Auto) 1.8, Neutrophils # (Auto ) 2.71, Lymphocytes # (Auto) 1.02, Monocytes # (Auto) 0.69, Eosinophils # (Auto ) 0.03, Basophils # (Auto) 0.08 02/15/17 07:50 Test 02/15/17 07:50 02/15/17 08:20 White Blood Count 4.54 K/uL (4.8-10.8) Red Blood Count 4.04 M/uL (4.2-5.4) Hemoglobin 13.1 g/dL (12.0-16.0) Hematocrit 39.2 % (37-47) Mean Corpuscular Volume 97.0 fL (80-100) Mean Corpuscular Hemoglobin 32.4 pg (25-34) Mean Corpuscular Hemoglobin Concent 33.4 g/dl (32-36) Platelet Count 263 K/uL (130-400) Mean Platelet Volume 9.0 fL (7.4-10.4) Neutrophils (%) (Auto) 59.6 % Lymphocytes (%) (Auto) 22.5 % Monocytes (%) (Auto) 15.2 % Eosinophils (%) (Auto) 0.7 % Basophils (%) (Auto) 1.8 % Neutrophils # (Auto) 2.71 K/uL (1.4-6.5) Lymphocytes # (Auto) 1.02 K/uL (1.2-3.4) Monocytes # (Auto) 0.69 K/uL (0.11-0.59) Eosinophils # (Auto) 0.03 K/uL (0-0.5) Basophils # (Auto) 0.08 K/uL (0-0.2) RDW Standard Deviation 50.1 fL (36.4-46.3) RDW Coefficient of Variation 14.0 % (11.5-14.5) Immature Granulocyte % (Auto) 0.2 % Immature Granulocyte # (Auto) 0.01 K/uL (0.00-0.02) Prothrombin Time 11.6 SECONDS (9.0-12.0) Prothromb Time International Ratio 1.1 (0.9-1.1) Activated Partial Thromboplast Time 32.9 SECONDS (21.0-31.0) Partial Thromboplastin Ratio 1.3 Anion Gap 8.0 mmol/L (3-11) Est Creatinine Clear Calc Drug Dose 38.6 ml/min Estimated GFR () 70.0 Estimated GFR (Non- 60.4 BUN/Creatinine Ratio 21.3 (10-20) Calcium Level 8.1 mg/dl (8.5-10.1) Magnesium Level 2.1 mg/dl (1.8-2.4) Total Bilirubin 0.2 mg/dl (0.2-1) Direct Bilirubin < 0.1 mg/dl (0-0.2) Aspartate Amino Transf (AST/SGOT) 27 U/L (15-37) Alanine Aminotransferase (ALT/SGPT) 16 U/L (12-78) Alkaline Phosphatase 95 U/L (45-117) Total Creatine Kinase 59 U/L (26-192) Creatine Kinase MB 1.3 ng/ml (0.5-3.6) Creatine Kinase MB Ratio 2.2 (0-3.0) Troponin I 0.018 ng/ml (0-0.045) Total Protein 6.7 gm/dl (6.4-8.2) Albumin 3.1 gm/dl (3.4-5.0) Lipase 291 U/L (73-393) Urine Color YELLOW Urine Appearance TURBID (CLEAR) Urine pH 7.5 (4.5-7.5) Urine Specific [place] 1.011 (1.000-1.030) Urine Protein 2+ (NEG) Urine Glucose (UA) NEG (NEG) Urine Ketones 1+ (NEG) Urine Occult Blood 2+ (NEG) Urine Nitrite POS (NEG) Urine Bilirubin NEG (NEG) Urine Urobilinogen NEG (NEG) Urine Leukocyte Esterase LARGE (NEG) Urine WBC (Auto) >30 /hpf (0-5) Urine RBC (Auto) 5-10 /hpf (0-4) Urine Hyaline Casts (Auto) 10-30 /lpf (0-5) Urine Epithelial Cells (Auto) >30 /lpf (0-5) Urine Bacteria (Auto) 3+ (NEG) Laboratory results as stated above per my review. Medications Administered Medications (Trade) Dose Ordered Sig/Van Route Start Time Stop Time Status Last Admin Dose Admin Sodium Chloride (Nss 1000ml) 1,000 ml @ 999 mls/hr Q1H1M STAT IV 02/15/17 07:48 02/15/17 08:48 DC 02/15/17 08:09 999 MLS/HR Prochlorperazine Edisylate (Compazine Inj) 5 mg NOW STAT IV 02/15/17 07:48 02/15/17 07:50 DC 02/15/17 08:09 5 MG Ceftriaxone Sodium (Rocephin Inj) 1 gm NOW STAT IV 02/15/17 07:49 02/15/17 07:50 DC 02/15/17 08:09 1 GM ECG Indication: chest pain Rate (beats per minute): 74 Rhythm: sinus rhythm Findings: 1st degree AV block, no ectopy, other (no acute injury) ED Course 0744: Previous medical records were reviewed. The patient was evaluated in room A10. A complete history and physical examination was performed. 0748: Compazine Inj 5 mg IV, NSS 1000 ml @ 999 mls/hr IV. 0749: Rocephin Inj 1 gm IV. 0953: On reevaluation, the patient is doing well. Her nausea has improved. I discussed the results and findings with the patient. She verbalized agreement of the treatment plan. She was discharged home. Medical Decision Differential includes acute coronary syndrome, myocardial infarction, CVA, TIA, anemia, infection, pneumonia, UTI, pyelonephritis, poor nutrition, dehydration, electrolyte disturbance,hypoglycemia. This is a 81-year-old female who presents to the ED with a chief complaint of some chest pain, nausea, lightheadedness. The patient has an indwelling Walker catheter. She has a history of MS. She had a temperature of 99.9 at home. Yesterday she was started on Cipro because she is felt to have a UTI by her PCP. The patient presents by ambulance complaining of feeling very nauseated. EMS provided Zofran and IV fluids. She also reports dry mouth. Her exam reveals dry mucous membranes. Her exam also reveals indwelling Walker catheter. Abdomen is soft and nontender. Lungs were clear. Rest her exam was unremarkable. The patient has an unremarkable CBC. Chest x-ray was negative for acute disease. EKG shows a sinus rhythm at a rate of 74. BUN is 19. Metabolic panel was otherwise unremarkable. Lipase is negative. Troponin is negative. Urine suggest infection. The patient has been on Cipro for the past 12 hours. She was given IV Rocephin here and IV fluids as well as IV Compazine. She feels comfortable going home. She was given a prescription for Zofran. She will continue Cipro. She will follow-up with her doctor and return for worsening. Impression Primary Impression: Complicated UTI (urinary tract infection) Additional Impression: Dehydration Scribe Attestation The scribe's documentation has been prepared under my direction and personally reviewed by me in its entirety. I confirm that the note above accurately reflects all work, treatment, procedures, and medical decision making performed by me. Departure Information Dispostion Home / Self-Care Prescriptions Ondasetron Odt (ZOFRAN ODT) 4 Mg Tab 4 MG SL Q6H for Nausea, #15 TAB Prov: Barry Leone D.O. 02/15/17 Referrals Reggie Peña D.OBonnie (PCP) Additional Instructions Zofran: Allow one tablet to dissolve under the tongue every 6 hours as needed for nausea or vomiting. Continue your Cipro. Return for worsening. Follow-up with your doctor for recheck in 2 days. Problem Qualifiers
[2017-02-15 10:08] VITALS: BP 135/68; PULSE 77; TEMP 37.5; O2SAT 92
[2017-02-15 15:27] LABS: CALCIUM 8.6 mg/dl (8.5-10.1)
[2017-03-01] MEDS ORDERED: DOXY100C2 PO (14:55)
[2017-03-01] MEDS ORDERED: BENZ100C7 PO (14:55)
[2017-03-01] MEDS ORDERED: PRED10TA PO (14:55)
[2017-05-16] MEDS ORDERED: DXY100 PO (16:27)
[2017-08-04] MEDS ORDERED: CPR500 PO (13:10)
== END 2017-02-15 11:08 | disposition home or self-care (01) ==
LOC: EDBD 07:36 → C.EDA 07:38
DX: N39.0 Urinary tract infection, site not specified (principal); E86.0 Dehydration; K90.0 Celiac disease; E03.9 Hypothyroidism, unspecified; G35 Multiple sclerosis; M81.0 Age-related osteoporosis without current pathological fracture; Z95.0 Presence of cardiac pacemaker; I48.91 Unspecified atrial fibrillation; I73.9 Peripheral vascular disease, unspecified; Z90.49 Acquired absence of other specified parts of digestive tract; Z82.49 Family history of ischemic heart disease and other diseases of the circulatory system; Z87.891 Personal history of nicotine dependence; Z79.82 Long term (current) use of aspirin; Z79.899 Other long term (current) drug therapy

== ENCOUNTER 2017-02-25 11:37 | Inpatient (IN) | payer OTHER, BC ==
[~2017-02-25] VITALS: Ht 157.5 cm; Wt 51.9 kg
[~2017-02-25 11:37] MED LIST changes: -AMX500 PO; +CIPR1TAB11 PO; -CYAN3INJ INJ; +CYNI1000 INJ; -ESTR1CRE PV; +KCLI20/100 PO; +ONDA4TAB10 SL; +PRMVC PV; -[UNRECOGNIZED DRUG - OTHER] PO
[2017-02-25] MEDS ORDERED: FURO-85 PO (11:55)
[2017-02-25] MEDS ORDERED: BTP80 PO ×2 (11:59)
[2017-02-25] MEDS ORDERED: DOXY100C2 PO (11:59)
[2017-02-25 13:00] LABS: BASO % 0.1 %; BASO ABS # 0.01 K/uL (0-0.2); COMPLETE YES; EOS % 0.1 %; HEMATOCRIT 37.9 % (37-47); IG% 0.4 %; LYMPH % 6.8 %; LYMPH ABS # 1.02 K/uL (1.2-3.4); MEAN CELL VOLUME 96.4 fL (80-100); MEAN CORPUSCULAR HEMOGLOBIN 32.3 pg (25-34); MEAN CORPUSCULAR HGB CONC 33.5 g/dl (32-36); MEAN PLATELET VOLUME 9.3 fL (7.4-10.4); MONO % 8.4 %; NEUT % 84.2 %; PLATELET COUNT 357 K/uL (130-400); RED BLOOD COUNT 3.93 M/uL (4.2-5.4); WHITE BLOOD COUNT 15.07 K/uL (4.8-10.8)
[2017-02-25 13:09] LABS: PROTHROMBIN TIME (PATIENT) 10.4 SECONDS (9.0-12.0)
[2017-02-25 13:17] LABS: BUN/CREATININE RATIO 23.9 (10-20); CALCIUM 9.2 mg/dl (8.5-10.1); POTASSIUM 3.9 mmol/L (3.5-5.1)
[2017-02-25 13:20] LABS: ALB/GLOB RATIO 0.8 (0.9-2)
--- NOTE | 2017-02-25 13:38 | DIAGNOSTIC IMAGING REPORT ---
CHEST 2 VIEWS ROUTINE CLINICAL HISTORY: Pneumonia COMPARISON STUDY: 02/15/2017 FINDINGS: The heart is normal in size. There is aortic tortuosity. There is a left subclavian dual-chamber central venous pacemaker present. There is mild interstitial thickening. There is no lobar consolidation. There is basilar atelectasis. There is a nonspecific 1 cm opacity at the right lung base,[ IMPRESSION: 1. No lobar consolidation 2. Interstitial thickening 3. Basilar atelectasis 4. Nonspecific 1 cm opacity at the right lung base Electronically signed by: Teodoro Chamberlain M.D. 02/25/2017 1:36 PM Dictated Date/Time: 02/25/2017 1:33 PM
--- NOTE | 2017-02-25 14:01 | DIAGNOSTIC IMAGING REPORT ---
ULTRASOUND RIGHT VENOUS DOPP LOWER EXT UNILAT CLINICAL HISTORY: Right leg swelling. COMPARISON STUDY: 01/16/2017 FINDINGS: Real-time and color flow Doppler imaging were performed. Flow was seen within the femoral, popliteal and calf veins with no intraluminal thrombus demonstrated. The saphenous vein is patent. There is a small popliteal cyst measuring 24 x 14 x 7 mm. IMPRESSION: No evidence of right lower extremity DVT Electronically signed by: Teodoro Chamberlain M.D. 02/25/2017 1:59 PM Dictated Date/Time: 02/25/2017 1:58 PM
[2017-02-25] MEDS ORDERED: ACETAMINOPHEN 325 MG TAB PO PRN (14:45)
[2017-02-25] MEDS ORDERED: ONDANSETRON INJ 2 MG/ML 2 ML VIAL IV PRN (14:45)
[2017-02-25] MEDS ORDERED: ONDA4TAB65 PO (14:56)
[2017-02-25] MEDS ORDERED: MULTTAB5 PO (14:56)
[2017-02-25] MEDS ORDERED: DOCU100C31 PO (14:56)
[2017-02-25] MEDS ORDERED: DEXT30TA7 PO (14:56)
[2017-02-25] MEDS ORDERED: IMD/2 PO (14:56)
[2017-02-25] MEDS ORDERED: PROC1TAB5 PO (14:56)
[2017-02-25] MEDS ORDERED: [UNRECOGNIZED DRUG - CODE] PO (14:56)
[2017-02-25] MEDS ORDERED: PRED10TA PO (14:56)
[2017-02-25 15:00] VITALS: O2SAT 94; Ht 157.5 cm; Wt 51.9 kg
--- NOTE | 2017-02-25 15:52 | History and Physical ---
History & Physical Date & Time of Service: Feb 25, 2017 at 15:09 Chief Complaint: Cough, Weakness Primary Care Physician: Reggie Peña D.O. History of Present Illness 81 year old female who presents to the ER with cough and generalized weakness. Patient reports she started getting sick two weeks ago with cold like symptoms of sinus congestion and cough. She was also diagnosed with a UTI and was placed on Cipro on 02/14. She reports she did not finish the entire course due to nausea. She reports cough has persisted. It is moist and non productive. She reports she feels short of breath when she has a bad coughing spell. She has history of MS and reports she is mostly chair bound however usually can ambulate with a walker. Recently, she has been requiring a lot of assistance. She feels generally weak. Denies unilateral weakness. She was seen by her neurologist and construction executive on 02/23. Dr. Coreas did not feel as though she was having a MS flare, however he did prescribe her steroids for the URI. She then saw Dr. Campos who prescribed her doxycycline. Patient reports she continues to cough and have generalized weakness. She reports a poor appetite. No abdominal pain, nausea, vomiting, or diarrhea. She has a chronic welsh in place and reports urine has been clear. She denies chest pain. No lightheadedness, dizziness, diaphoresis, or syncopal events. In the ER, vitals are stable. WBC 15K, remainder of the other labs are unremarkable. Past Medical/Surgical History Medical Problems: (1) Celiac disease Status: Chronic (2) cystocel repair Status: Chronic (3) Hypothyroidism Status: Chronic (4) Multiple sclerosis Status: Chronic (5) Neurogenic bladder Status: Chronic (6) Osteoporosis Status: Chronic (7) Pacemaker Status: Chronic (8) Paroxysmal atrial fibrillation Status: Chronic (9) PVD (peripheral vascular disease) Status: Chronic (10) rectocele repair Status: Chronic (11) SBO (small bowel obstruction) Status: Chronic (12) Vertigo Status: Resolved Surgical Problems: (1) H/O dilation and curettage Status: Chronic (2) History of appendectomy Status: Chronic (3) S/P partial colectomy Permanent Comment: x2 for prolapse Status: Chronic Family History non contributory due to patient's age Social History Smoking Status: Former Smoker Alcohol Use: none Marital Status: Housing status: lives with significant other Immunizations History of Influenza Vaccine: Yes Influenza Vaccine Date: Aug 22, 2016 History of Tetanus Vaccine?: Yes Tetanus Immunization Date: Nov 29, 2016 History of Pneumococcal: Yes Pneumococcal Date: Sep 01, 2015 Multi-Drug Resistant Organisms History of MDRO: No Allergies Coded Allergies: Sulfa Antibiotics (Verified Allergy, Unknown, ?, 02/25/17) Gluten (Verified Adverse Reaction, Intermediate, GI DISTRESS, 02/25/17) Codeine (Verified Adverse Reaction, Unknown, N/V, 02/25/17) Home Medications Scheduled Ascorbic Acid (Vitamin C), 500 MG PO DAILY@1200 Aspirin (Aspirin Ec), 81 MG PO BID Calcium/Vitamin D (Os-Hitesh 500 Plus D), 1 TAB PO TID Cholecalciferol (Vitamin D3), 1 TAB PO BID Cyanocobalamin (Cyanocobalamin), 1,000 MCG INJ MONTHLY Doxycycline Hyclate (Vibramycin), 100 MG PO BID Estrogens, Conjugated (Premarin), 1 APPLN PV UD Furosemide (Lasix), 20 MG PO DAILY Levothyroxine Sodium (Levothyroxine Sodium), 100 MCG PO DAILYBB Magnesium Oxide (Mag-Ox), 400 MG PO DAILYBL Multiple Vitamins W/ Minerals (Centrum), 1 TAB PO DAILY Potassium Chloride (Potassium Chloride), 20 MEQ PO 3XWK Prednisone Tab (Prednisone), 10 MG PO DAILY Sotalol HCl (Sotalol HCl), 80 MG PO QAM Sotalol HCl (Sotalol HCl), 40 MG PO QPM Scheduled PRN Acetaminophen (Tylenol), 1,000 MG PO Q8H PRN for Pain Dextromethorphan-Guaifenesin (Mucinex Dm), 1 TAB PO Q12 PRN for Cough Docusate Sodium (Docusate Sodium), 1 CAP PO BID PRN for Constipation Loperamide Hcl (Imodium), 2 MG PO for Diarrhea Loratadine (Claritin), 10 MG PO DAILY PRN for ALLERGY SX Ondansetron Hcl (Zofran), 1 TAB PO Q8H PRN for Nausea or Vomiting Prochlorperazine Maleate (Compazine), 5 MG PO Q6 PRN for Nausea Review of Systems 10 point review of systems was completed with the pertinent positives and negatives noted per the HPI Physical Exam Vital Signs Date Time Temp Pulse Resp B/P Pulse Ox O2 Delivery O2 Flow Rate FiO2 02/25/17 13:57 61 20 147/105 94 Room Air 02/25/17 12:14 61 02/25/17 12:04 94 Room Air 02/25/17 11:41 36.3 66 18 133/73 91 Room Air General Appearance: no apparent distress Head: normocephalic Eyes: normal inspection ENT: hearing grossly normal Neck: supple, no JVD Respiratory/Chest: no respiratory distress, + decreased breath sounds, + rhonchi (faint, BL bases), + pertinent finding (frequent coughing with deep breath, moist non productive) Cardiovascular: regular rate, rhythm, normal peripheral pulses, + pertinent finding (trace edema BLLE, R > L ) Abdomen/GI: normal bowel sounds, non tender, soft Extremities/Musculoskelatal: normal inspection, no calf tenderness Neurologic/Psych: no motor/sensory deficits, alert, normal mood/affect, oriented x 3 Skin: normal color, warm/dry Diagnostics Laboratory Results Results Past 24 Hours Test 02/25/17 12:10 02/25/17 12:34 02/25/17 12:37 Range/Units White Blood Count 15.07 4.8-10.8 K/uL Red Blood Count 3.93 4.2-5.4 M/uL Hemoglobin 12.7 12.0-16.0 g/dL Hematocrit 37.9 37-47 % Mean Corpuscular Volume 96.4 80-100 fL Mean Corpuscular Hemoglobin 32.3 25-34 pg Mean Corpuscular Hemoglobin Concent 33.5 32-36 g/dl Platelet Count 357 130-400 K/uL Mean Platelet Volume 9.3 7.4-10.4 fL Neutrophils (%) (Auto) 84.2 % Lymphocytes (%) (Auto) 6.8 % Monocytes (%) (Auto) 8.4 % Eosinophils (%) (Auto) 0.1 % Basophils (%) (Auto) 0.1 % Neutrophils # (Auto) 12.71 1.4-6.5 K/uL Lymphocytes # (Auto) 1.02 1.2-3.4 K/uL Monocytes # (Auto) 1.26 0.11-0.59 K/uL Eosinophils # (Auto) 0.01 0-0.5 K/uL Basophils # (Auto) 0.01 0-0.2 K/uL RDW Standard Deviation 47.8 36.4-46.3 fL RDW Coefficient of Variation 13.5 11.5-14.5 % Immature Granulocyte % (Auto) 0.4 % Immature Granulocyte # (Auto) 0.06 0.00-0.02 K/uL Prothrombin Time 10.4 9.0-12.0 SECONDS Prothromb Time International Ratio 1.0 0.9-1.1 Activated Partial Thromboplast Time 26.6 21.0-31.0 SECONDS Partial Thromboplastin Ratio 1.0 Sodium Level 134 136-145 mmol/L Potassium Level 3.9 3.5-5.1 mmol/L Chloride Level 96 98-107 mmol/L Carbon Dioxide Level 33 21-32 mmol/L Anion Gap 5.0 3-11 mmol/L Blood Urea Nitrogen 24 7-18 mg/dl Creatinine 1.00 0.60-1.20 mg/dl Est Creatinine Clear Calc Drug Dose 34.3 ml/min Estimated GFR () 60.8 Estimated GFR (Non- 52.4 BUN/Creatinine Ratio 23.9 10-20 Random Glucose 103 70-99 mg/dl Calcium Level 9.2 8.5-10.1 mg/dl Total Bilirubin 0.4 0.2-1 mg/dl Aspartate Amino Transf (AST/SGOT) 19 15-37 U/L Alanine Aminotransferase (ALT/SGPT) 14 12-78 U/L Alkaline Phosphatase 92 45-117 U/L Total Protein 6.6 6.4-8.2 gm/dl Albumin 2.9 3.4-5.0 gm/dl Globulin 3.7 2.5-4.0 gm/dl Albumin/Globulin Ratio 0.8 0.9-2 Bedside Lactic Acid Venous 1.29 0.90-1.70 mmol/L Bedside Troponin I 0.000 0-0.045 ng/ml Microbiology Results 02/25/17 Blood Culture, Received Pending 02/25/17 Blood Culture, Received Pending Diagnostic Radiology RIGHT LE US IMPRESSION: No evidence of right lower extremity DVT CXR IMPRESSION: 1. No lobar consolidation 2. Interstitial thickening 3. Basilar atelectasis 4. Nonspecific 1 cm opacity at the right lung base Impression Assessment and Plan GENERALIZED WEAKNESS, HX MS URI - admit to med/surg - patient presenting with two weeks of non productive cough and generalized weakness; was placed on doxycycline and steroid taper on 02/23 - no clear infiltrate on CXR, saturating well on room air - WBC 15K (steroids likely contributing), afebrile, BP stable - since patient just started the doxy two days ago, will continue with for now - nebs - also will continue with steroid taper ordered by neurology - will place consult for recommendations if dosing adjustments are needed - gentle IVF - PT/OT, may need short term rehab placement PAROXYSMAL AFIB, HX TACHYBRADY S/P PACEMAKER - on Sotalol for rhythm control, will continue - not anticoagulated due to hematuria while on Coumadin CHRONIC LOWER EXTREMITY EDEMA - holing Lasix while giving IVF HYPOTHYROIDISM - continue levothyroxine NEUROGENIC BLADDER - chronic welsh in place DVT PROPHYLAXIS - SCDs due to poor tolerance of anticoagulants in the past causing hematuria CODE STATUS - Patient is a full code as per my discussion with her. DISPO - In my clinical judgment this beneficiary meets acute admission criteria, established by [facility], that includes being hospitalized through two midnights. Level of Care Med/Surg Resuscitation Status FULL RESUSCITATION VTE Prophylaxis VTE Risk Assessment Done? Y/N: Yes Risk Level: Moderate Given or contraindicated: Enoxaparin (Lovenox)SQ Note ATTENDING ADDENDUM: On exam her vitals were stable and she was in a pleasant mood without any conversational dyspnea. She is well-nourished and well-developed. Lungs with coarse rhonchi at the R base and clear to auscultation on the L side. Abdomen non-tender, soft. UE strength 5/5 (biceps/triceps/finger spread) and sensation intact. LE are 3/5 hip flexion, 5/5 hip extension, 3/5 knee flexion, 5/5 knee extension. 5/5 dorsi and plantarflexion. 2/4 knee reflex bilaterally. LE sensation intact. Gait was not assessed. Active Problems: 1. Cough/Dyspnea 2/2 bronchitis vs LRTI (pneumonia)--no infiltrate but there is a small nonspecific opacity. Agree with doxy for now. Although she was recently hospitalized and had just been on antibiotics, so technically this would be HCAP, she is not ill-appearing, has no conversational dyspnea, tachypnea or hypoxia and is afebrile and hemodynamically stable. Agree with MRSA swab. 2. Weakness that is generalized--she has had a UTI since being discharged from the hospital with a partial SBO in early January, and she just came off of cipro. She has an indwelling welsh catheter and is, therefore, at higher risk for infection. Prior cultures showed sensitivity to Cipro and she declines any symptoms at this time. She was seen by Dr. Coreas two days ago who didn't think she was having an MS flare, but thought the weakness was related to poor reserve in the setting of an infection and placed her on a steroid taper. Since being placed on the steroids she has been able to sleep where she hadn't been for several days. So in that respect she feels better. However, she still feels too weak to stay home and may need placement. PT/OT evaluation. Neuro was also consulted for formal evaluation and current thoughts. 3. MS 4. Neurogenic bladder with indwelling Welsh 5. Leukocytosis in setting of steroid use -normal two weeks ago 6. Nausea without vomiting or diarrhea 7. Chronic LE swelling--LE u/s negative for DVT today and patient is asymptomatic. Held Lasix in setting of poor PO intake to avoid dehydration. Zoe Lange DO [facility] Hospitalist
[2017-02-25] MEDS: ALBUT/IPRATROP 3MG/0.5MG NEB 3 ML VIAL INH SCH ×2 (16:00→20:19)
--- NOTE | 2017-02-25 17:07 | EMERGENCY ROOM VISIT NOTE ---
History Report prepared by Jovanni: Javier Aguayo Under the Supervision of: Dr. Julio C Garg M.D. First contact with patient: 12:03 Chief Complaint: SHORTNESS OF BREATH Stated Complaint: BRONCHINITIS,REF BY Nursing Triage Summary: Cough and SOB x 2 weeks. Getting worse even after starting Doxy . Andres Bronchitis Right Lung Prescribed Doxy and Prednisone. Hx MS History of Present Illness The patient is a 81 year old female who presents to the Emergency Room with complaints of intermittent cough beginning two weeks ago. She states "I'm just so sick". She states that her cough produces a clear sputum. The patient was seen by her neurologist and her citizenship instructor two days ago. Her neurologist started her on Prednisone, and her citizenship instructor placed her on Doxycycline. She states that her citizenship instructor "heard junky sounds" in her lungs at her visit. The patient notes that she has a history of MS and has a pacemaker in place. She was told that the pacemaker was working well. She also complains of a shortness of breath, chest "tightness", weakness, and chills. She notes that she only feels short of breath with coughing. She states that all of her symptoms became present two weeks ago. The patient denies any fevers, vomiting, increased leg swelling, or abdominal pain. She states that her right leg appears a little more swollen than her left, but states that this has been the case for many months. Source of History: patient Onset: two weeks ago Position: other (global) Quality: other (cough) Timing: intermittent Associated Symptoms: + chest pain ("tightness"), + chills, + weakness, No abdominal pain, No fevers, No vomiting Note: The patient denies any increased leg swelling. Review of Systems See HPI for pertinent positives & negatives. A total of 10 systems reviewed and were otherwise negative. Past Medical & Surgical Medical Problems: (1) Celiac disease (2) cystocel repair (3) Hypothyroidism (4) Multiple sclerosis (5) Neurogenic bladder (6) Osteoporosis (7) Pacemaker (8) Paroxysmal atrial fibrillation (9) PVD (peripheral vascular disease) (10) rectocele repair (11) SBO (small bowel obstruction) (12) Vertigo Surgical Problems: (1) H/O dilation and curettage (2) History of appendectomy (3) S/P partial colectomy Family History FH: CAD (coronary artery disease) FATHER SISTER Social History Smoking Status: Former Smoker Alcohol Use: none Drug Use: none Marital Status: Housing Status: lives with significant other Occupation Status: retired Current/Historical Medications Scheduled Ascorbic Acid (Vitamin C), 500 MG PO DAILY@1200 Aspirin (Aspirin Ec), 81 MG PO BID Calcium/Vitamin D (Os-Hitesh 500 Plus D), 1 TAB PO TID Cholecalciferol (Vitamin D3), 1 TAB PO BID Cyanocobalamin (Cyanocobalamin), 1,000 MCG INJ MONTHLY Doxycycline Hyclate (Vibramycin), 100 MG PO BID Estrogens, Conjugated (Premarin), 1 APPLN PV UD Furosemide (Lasix), 20 MG PO DAILY Levothyroxine Sodium (Levothyroxine Sodium), 100 MCG PO DAILYBB Magnesium Oxide (Mag-Ox), 400 MG PO DAILYBL Multiple Vitamins W/ Minerals (Centrum), 1 TAB PO DAILY Potassium Chloride (Potassium Chloride), 20 MEQ PO 3XWK Prednisone Tab (Prednisone), 10 MG PO DAILY Sotalol HCl (Sotalol HCl), 80 MG PO QAM Sotalol HCl (Sotalol HCl), 40 MG PO QPM Scheduled PRN Acetaminophen (Tylenol), 1,000 MG PO Q8H PRN for Pain Dextromethorphan-Guaifenesin (Mucinex Dm), 1 TAB PO Q12 PRN for Cough Docusate Sodium (Docusate Sodium), 1 CAP PO BID PRN for Constipation Loperamide Hcl (Imodium), 2 MG PO for Diarrhea Loratadine (Claritin), 10 MG PO DAILY PRN for ALLERGY SX Ondansetron Hcl (Zofran), 1 TAB PO Q8H PRN for Nausea or Vomiting Prochlorperazine Maleate (Compazine), 5 MG PO Q6 PRN for Nausea Allergies Coded Allergies: Sulfa Antibiotics (Verified Allergy, Unknown, ?, 02/25/17) Gluten (Verified Adverse Reaction, Intermediate, GI DISTRESS, 02/25/17) Codeine (Verified Adverse Reaction, Unknown, N/V, 02/25/17) Physical Exam Vital Signs Date Time Temp Pulse Resp B/P Pulse Ox O2 Delivery O2 Flow Rate FiO2 02/25/17 16:46 61 20 145/81 95 Room Air 02/25/17 15:57 60 20 167/86 95 Room Air 02/25/17 15:00 94 Room Air 02/25/17 13:57 61 20 147/105 94 Room Air 02/25/17 12:14 61 02/25/17 12:04 94 Room Air 02/25/17 11:41 36.3 66 18 133/73 91 Room Air Physical Exam Constitutional: Vital signs reviewed. Eyes: Pupils are equal round reactive to light. Conjunctiva are noninjected. ENT: Pharynx is clear without erythema or exudate. Mucous membranes are moist. Neck supple without meningeal signs. Respiratory: Scattered rhonchi bilaterally. Breath sounds are equal bilaterally. Cardiovascular: Regular rate and rhythm. No rubs or gallops. GI: Soft, nondistended and nontender. Bowel sounds are present. Musculoskeletal: Bilateral lower extremity edema, greater on the right. No lower extremity tenderness. Integumentary: No cyanosis. Neurological: The patient is awake and alert. No focal deficits. Psychiatric: Normal affect. Medical Decision & Procedures ER Provider Diagnostic Interpretation: US results as stated below per my review and the radiologist's interpretation. X -ray results as stated below per interpretation by me and the radiologist: ULTRASOUND RIGHT VENOUS DOPP LOWER EXT UNILAT FINDINGS: Real-time and color flow Doppler imaging were performed. Flow was seen within the femoral, popliteal and calf veins with no intraluminal thrombus demonstrated. The saphenous vein is patent. There is a small popliteal cyst measuring 24 x 14 x 7 mm. IMPRESSION: No evidence of right lower extremity DVT Electronically signed by: Teodoro Chamberlain M.D. CHEST 2 VIEWS ROUTINE FINDINGS: The heart is normal in size. There is aortic tortuosity. There is a left subclavian dual-chamber central venous pacemaker present. There is mild interstitial thickening. There is no lobar consolidation. There is basilar atelectasis. There is a nonspecific 1 cm opacity at the right lung base,[ IMPRESSION: 1. No lobar consolidation 2. Interstitial thickening 3. Basilar atelectasis 4. Nonspecific 1 cm opacity at the right lung base Electronically signed by: Teodoro Chamberlain M.D. Laboratory Results 02/25/17 12:10 Red Blood Count 3.93, Mean Corpuscular Volume 96.4, Mean Corpuscular Hemoglobin 32.3, Mean Corpuscular Hemoglobin Concent 33.5, Mean Platelet Volume 9.3, Neutrophils (%) (Auto) 84.2, Lymphocytes (%) (Auto) 6.8, Monocytes (%) (Auto) 8.4, Eosinophils (%) (Auto) 0.1, Basophils (%) (Auto) 0.1, Neutrophils # (Auto) 12.71, Lymphocytes # (Auto) 1.02, Monocytes # (Auto) 1.26, Eosinophils # (Auto) 0.01, Basophils # (Auto) 0.01 02/25/17 12:10 Test 02/25/17 12:10 02/25/17 12:34 02/25/17 12:37 White Blood Count 15.07 K/uL (4.8-10.8) Red Blood Count 3.93 M/uL (4.2-5.4) Hemoglobin 12.7 g/dL (12.0-16.0) Hematocrit 37.9 % (37-47) Mean Corpuscular Volume 96.4 fL (80-100) Mean Corpuscular Hemoglobin 32.3 pg (25-34) Mean Corpuscular Hemoglobin Concent 33.5 g/dl (32-36) Platelet Count 357 K/uL (130-400) Mean Platelet Volume 9.3 fL (7.4-10.4) Neutrophils (%) (Auto) 84.2 % Lymphocytes (%) (Auto) 6.8 % Monocytes (%) (Auto) 8.4 % Eosinophils (%) (Auto) 0.1 % Basophils (%) (Auto) 0.1 % Neutrophils # (Auto) 12.71 K/uL (1.4-6.5) Lymphocytes # (Auto) 1.02 K/uL (1.2-3.4) Monocytes # (Auto) 1.26 K/uL (0.11-0.59) Eosinophils # (Auto) 0.01 K/uL (0-0.5) Basophils # (Auto) 0.01 K/uL (0-0.2) RDW Standard Deviation 47.8 fL (36.4-46.3) RDW Coefficient of Variation 13.5 % (11.5-14.5) Immature Granulocyte % (Auto) 0.4 % Immature Granulocyte # (Auto) 0.06 K/uL (0.00-0.02) Prothrombin Time 10.4 SECONDS (9.0-12.0) Prothromb Time International Ratio 1.0 (0.9-1.1) Activated Partial Thromboplast Time 26.6 SECONDS (21.0-31.0) Partial Thromboplastin Ratio 1.0 Anion Gap 5.0 mmol/L (3-11) Est Creatinine Clear Calc Drug Dose 34.3 ml/min Estimated GFR () 60.8 Estimated GFR (Non- 52.4 BUN/Creatinine Ratio 23.9 (10-20) Calcium Level 9.2 mg/dl (8.5-10.1) Total Bilirubin 0.4 mg/dl (0.2-1) Aspartate Amino Transf (AST/SGOT) 19 U/L (15-37) Alanine Aminotransferase (ALT/SGPT) 14 U/L (12-78) Alkaline Phosphatase 92 U/L (45-117) Total Protein 6.6 gm/dl (6.4-8.2) Albumin 2.9 gm/dl (3.4-5.0) Globulin 3.7 gm/dl (2.5-4.0) Albumin/Globulin Ratio 0.8 (0.9-2) Bedside Lactic Acid Venous 1.29 mmol/L (0.90-1.70) Bedside Troponin I 0.000 ng/ml (0-0.045) Laboratory results as reviewed by me. ECG Indication: SOB/dyspnea Rate (beats per minute): 61 Rhythm: other (Occasional atrial paced rhythm) Findings: other (LVH. QRS of 102 ms. ) ED Course 1205: The patient was evaluated in room C3. A complete history and physical exam was performed. 1355: I reassessed the patient. She is resting comfortably. We discussed her test results and treatment plan. The patient verbalized agreement and understanding. The patient will be evaluated for further management. Medical Decision This is an 81-year-old female who presents with cough, shortness breath and chest tightness. Differential diagnosis includes pneumonia, bronchitis, CHF, pleural effusion, acute coronary syndrome. I did perform a limited focused review of portions of the patient's old chart on the electronic medical record. She was seen in the ED February 15 for weakness and chest discomfort with fever. She had a negative chest x-ray and was diagnosed with UTI. I did evaluate the patient as noted above. IV access was established. The patient was placed on a continuous engine monitor. I did order and personally review the patient's 12-lead EKG and chest x-ray as described above. Her chest x-ray demonstrates a nonspecific right-sided infiltrate. This is where she said that her citizenship instructor's heard increased lung sounds. I did order and review the patient's blood work as noted in the electronic medical record. Her white blood cell count is elevated. I did order an ultrasound of the right lower extremity. I did review the images myself as well as the radiology report as described above. There is no evidence of DVT. I did discuss the test results with the patient. She states she is feeling very unwell at this time. I did therefore recommended hospitalization as she does appear to have an infiltrate at the right base. She will likely be placed on IV antibiotics. I did discuss the case with the hospitalist and hospice case manager. Consults Time Called: 1357 Consulting Physician: Dr. Nazario Carreon Returned Call: [address] Lange of [facility]. We discussed the patient and her results. The patient will be further evaluated by [facility]. Impression Primary Impression: Right lower lobe pneumonia Additional Impression: Failure of outpatient treatment Scribe Attestation The scribe's documentation has been prepared under my direct and personally reviewed by me in its entirety. I confirm that the note above accurately reflects all work, treatment, procedures, and medical decision making performed by me. Departure Information Dispostion Being Evaluated By Hospitalist Referrals Reggie Peña D.O. (PCP) Patient Instructions [facility] Problem Qualifiers Primary Impression: Right lower lobe pneumonia Pneumonia type: due to unspecified organism Qualified Codes: J18.1 - Lobar pneumonia, unspecified organism
[2017-02-25 17:30] VITALS: BP 166/79; PULSE 64; TEMP 36.4; O2SAT 94
[2017-02-25] MEDS ORDERED: SODIUM CHLORIDE 0.9% 1000ML 1,000 ML IV SCH (17:30)
[2017-02-25] MEDS: SACCHAROMYCES BOUL (FLORASTOR) 250 MG CAP PO SCH (18:01)
[2017-02-25 18:23] LABS: URINE APPEARANCE CLOUDY (CLEAR); URINE BILIRUBIN NEG (NEG); URINE COLOR YELLOW; URINE NITRITE NEG (NEG); URINE PH 8.5 (4.5-7.5); URINE SPECIFIC GRAVITY 1.011 (1.000-1.030); UROBILINOGEN NEG (NEG); ZZURINE CULT IF INDIC CATH YES
[2017-02-25 18:24] LABS: MANUAL MICROSCOPIC REQUIRED? NO; REVIEW REQ? YES
[2017-02-25 20:19] VITALS: PULSE 74; O2SAT 92
[2017-02-25] MEDS: SOTALOL HCL 80 MG TAB PO SCH (20:22)
[2017-02-25] MEDS: CALCIUM 600MG + VIT D 400 IU TAB PO SCH (20:22)
[2017-02-25] MEDS: GUAIFENESIN/DEXTROM SYRUP 200MG/20MG 10ML UDC PO SCH (20:23)
[2017-02-25] MEDS: CHOLECALCIFEROL 1000 INTER.UNIT TAB PO SCH (20:24)
[2017-02-25] MEDS: DOXYCYCLINE HYCLATE 100 MG CAP PO SCH (20:24)
[2017-02-25] MEDS: ASPIRIN 81 MG ECTAB PO SCH (20:25)
[2017-02-25 23:45] VITALS: BP 158/78; PULSE 62; TEMP 36.8; O2SAT 93
[2017-02-26] VITALS (8 sets, daily range): BP systolic 145–181; BP diastolic 72–83; PULSE 62–76; TEMP 36.4–36.7; O2SAT 92–97
[2017-02-26] MEDS: ALBUT/IPRATROP 3MG/0.5MG NEB 3 ML VIAL INH SCH ×5 (03:48→19:49)
[2017-02-26] MEDS: LEVOTHYROXINE 100 MCG TAB PO SCH (06:13)
[2017-02-26 07:11] LABS: HEMATOCRIT 36.6 % (37-47); MEAN CELL VOLUME 97.1 fL (80-100); MEAN CORPUSCULAR HEMOGLOBIN 31.8 pg (25-34); MEAN CORPUSCULAR HGB CONC 32.8 g/dl (32-36); MEAN PLATELET VOLUME 9.1 fL (7.4-10.4); PLATELET COUNT 367 K/uL (130-400); RED BLOOD COUNT 3.77 M/uL (4.2-5.4); WHITE BLOOD COUNT 12.71 K/uL (4.8-10.8)
[2017-02-26 07:40] LABS: BUN/CREATININE RATIO 27.5 (10-20); CALCIUM 8.3 mg/dl (8.5-10.1); CREATININE 0.89 mg/dl (0.60-1.20); POTASSIUM 3.7 mmol/L (3.5-5.1)
[2017-02-26] MEDS: GUAIFENESIN/DEXTROM SYRUP 200MG/20MG 10ML UDC PO SCH ×2 (08:13→20:37)
[2017-02-26] MEDS: ASPIRIN 81 MG ECTAB PO SCH ×2 (08:17→20:39)
[2017-02-26] MEDS: DOXYCYCLINE HYCLATE 100 MG CAP PO SCH ×2 (08:17→20:39)
[2017-02-26] MEDS: SOTALOL HCL 80 MG TAB PO SCH ×2 (08:17→20:40)
[2017-02-26] MEDS: CALCIUM 600MG + VIT D 400 IU TAB PO SCH ×3 (08:18→20:37)
[2017-02-26] MEDS: SACCHAROMYCES BOUL (FLORASTOR) 250 MG CAP PO SCH (08:18)
[2017-02-26] MEDS: CHOLECALCIFEROL 1000 INTER.UNIT TAB PO SCH ×2 (08:18→20:38)
[2017-02-26] MEDS: CEROVITE ADV FORMULA TAB PO SCH (08:19)
[2017-02-26] MEDS: ENOXAPARIN 40 MG/0.4 ML SYR SQ SCH (08:23)
[2017-02-26] MEDS: MAGNESIUM OXIDE 400 MG TAB PO SCH (10:50)
[2017-02-26] MEDS: ASCORBIC ACID 500 MG TAB PO SCH (10:51)
[2017-02-26] MEDS ORDERED: BENZONATATE 100MG CAP PO ONE (11:00)
--- NOTE | 2017-02-26 11:12 | Progress Note ---
Subjective Date of Service: Feb 26, 2017. Subjective Pt evaluation today including: conversation w/ patient, physical exam, chart review, lab review, review of studies, conversation w/ bath design sales consultant, review of inpatient medication list Saw/examined the patient in room 460 She's doing okay today; +productive cough is her main concern states that the breathing issues and cough began earlier this week (around Monday, 02/21) +weakness Problem List Medical Problems: (1) Dehydration Status: Acute (2) Exacerbation of multiple sclerosis Status: Acute (3) Failure of outpatient treatment Status: Acute (4) Pacemaker failure Status: Acute (5) Partial small bowel obstruction Status: Acute (6) Right lower lobe pneumonia Status: Acute (7) UTI (urinary tract infection) Status: Acute (8) UTI (urinary tract infection) Status: Acute (9) Vomiting Status: Acute (10) Weakness Status: Acute Review of Systems Constitutional: + fatigue, + weakness, No chills, No fever Respiratory: + cough, + shortness of breath, + sputum, No dyspnea at rest, No dyspnea on exertion, No hemoptysis, No wheezing Cardiac: No chest pain, No edema, No palpitations Abdomen: No diarrhea, No nausea, No pain, No vomiting Neurologic: + weakness, No balance problems, No memory loss, No numbness/ tingling, No paralysis, No vertigo Heme: No abnormal bleeding/bruising Endo: + fatigue, No excessive thirst, No excessive urination Medications Current Inpatient Medications Medications (Trade) Dose Ordered Sig/Van Route Start Time Stop Time Status Last Admin Dose Admin Acetaminophen (Tylenol Tab) 650 mg Q4H PRN PO 02/25/17 14:45 03/27/17 14:44 Ondansetron HCl (Zofran Inj) 4 mg Q6H PRN IV 02/25/17 14:45 03/27/17 14:44 Saccharomyces Boulardii (Florastor Cap) 250 mg DAILY PO 02/25/17 17:30 03/27/17 17:29 02/26/17 08:18 250 MG Ascorbic Acid (Vitamin C Tab) 500 mg DAILY@1200 PO 02/26/17 12:00 03/28/17 11:59 Aspirin (Ecotrin Tab) 81 mg BID PO 02/25/17 20:00 03/27/17 20:59 02/26/17 08:17 81 MG Calcium/Vitamin D (Caltrate Plus Tab) 1 tab TID PO 02/25/17 20:00 03/27/17 20:59 02/26/17 08:18 1 TAB Cholecalciferol (Vitamin D Tab) 1,000 inter.unit BID PO 02/25/17 20:00 03/27/17 20:59 02/26/17 08:18 1,000 INTER.UNIT Doxycycline Hyclate (Vibramycin Cap) 100 mg BID PO 02/25/17 20:00 03/04/17 20:59 02/26/17 08:17 100 MG Levothyroxine Sodium (Synthroid Tab) 100 mcg DAILYBB PO 02/26/17 06:30 03/28/17 06:59 02/26/17 06:13 100 MCG Magnesium Oxide (Mag-Ox Tab) 400 mg DAILYBL PO 02/26/17 11:00 03/28/17 10:59 Multivitamins/ Minerals (Multivitamin W/ Minerals Tab) 1 tab DAILY PO 02/26/17 08:00 03/28/17 08:59 02/26/17 08:19 1 TAB Prednisone (PredniSONE TAB) 60 mg Taper DAILY PO 02/26/17 08:00 03/05/17 07:59 02/26/17 08:17 60 MG Sotalol HCl (Betapace Tab) 40 mg QPM PO 02/25/17 21:00 03/27/17 20:59 02/25/17 20:22 40 MG Sotalol HCl (Betapace Tab) 80 mg QAM PO 02/26/17 08:00 03/28/17 08:59 02/26/17 08:17 80 MG Guaifenesin/ Dextromethorphan (Robitussin-Dm Syrup) 10 ml Q12H PO 02/25/17 20:00 03/27/17 19:59 02/26/17 08:13 10 ML Albuterol/ Ipratropium (Duoneb) 3 ml QIDR INH 02/25/17 16:00 03/27/17 15:59 02/26/17 07:46 3 ML Enoxaparin Sodium (Lovenox Inj) 40 mg QAM SQ 02/26/17 08:00 03/28/17 08:59 02/26/17 08:23 40 MG Objective Vital Signs Date Time Temp Pulse Resp B/P Pulse Ox O2 Delivery O2 Flow Rate FiO2 02/26/17 07:16 36.6 67 18 181/83 97 Room Air 02/26/17 03:48 76 18 93 Room Air 02/26/17 00:14 Room Air 02/25/17 23:45 36.8 62 18 158/78 93 Room Air 02/25/17 21:00 Room Air 02/25/17 20:19 74 18 92 Room Air 02/25/17 17:30 36.4 64 20 166/79 94 02/25/17 16:46 61 20 145/81 95 Room Air 02/25/17 15:57 60 20 167/86 95 Room Air 02/25/17 15:00 94 Room Air 02/25/17 13:57 61 20 147/105 94 Room Air 02/25/17 12:14 61 02/25/17 12:04 94 Room Air 02/25/17 11:41 36.3 66 18 133/73 91 Room Air Physical Exam General Appearance: no apparent distress, + thin Respiratory/Chest: chest non-tender, lungs clear, normal breath sounds, no respiratory distress, no accessory muscle use Cardiovascular: regular rate, rhythm, no edema, no gallop, no JVD, no murmur Abdomen: normal bowel sounds, non tender, soft Extremities: normal inspection, no pedal edema Neurologic/Psychiatric: alert, normal mood/affect, + motor weakness Laboratory Results Last 24 Hours Test 02/25/17 12:10 02/25/17 12:34 02/25/17 12:37 02/25/17 17:50 White Blood Count 15.07 K/uL Red Blood Count 3.93 M/uL Hemoglobin 12.7 g/dL Hematocrit 37.9 % Mean Corpuscular Volume 96.4 fL Mean Corpuscular Hemoglobin 32.3 pg Mean Corpuscular Hemoglobin Concent 33.5 g/dl Platelet Count 357 K/uL Mean Platelet Volume 9.3 fL Neutrophils (%) (Auto) 84.2 % Lymphocytes (%) (Auto) 6.8 % Monocytes (%) (Auto) 8.4 % Eosinophils (%) (Auto) 0.1 % Basophils (%) (Auto) 0.1 % Neutrophils # (Auto) 12.71 K/uL Lymphocytes # (Auto) 1.02 K/uL Monocytes # (Auto) 1.26 K/uL Eosinophils # (Auto) 0.01 K/uL Basophils # (Auto) 0.01 K/uL RDW Standard Deviation 47.8 fL RDW Coefficient of Variation 13.5 % Immature Granulocyte % (Auto) 0.4 % Immature Granulocyte # (Auto) 0.06 K/uL Prothrombin Time 10.4 SECONDS Prothromb Time International Ratio 1.0 Activated Partial Thromboplast Time 26.6 SECONDS Partial Thromboplastin Ratio 1.0 Sodium Level 134 mmol/L Potassium Level 3.9 mmol/L Chloride Level 96 mmol/L Carbon Dioxide Level 33 mmol/L Anion Gap 5.0 mmol/L Blood Urea Nitrogen 24 mg/dl Creatinine 1.00 mg/dl Est Creatinine Clear Calc Drug Dose 34.3 ml/min Estimated GFR () 60.8 Estimated GFR (Non- 52.4 BUN/Creatinine Ratio 23.9 Random Glucose 103 mg/dl Calcium Level 9.2 mg/dl Total Bilirubin 0.4 mg/dl Aspartate Amino Transf (AST/SGOT) 19 U/L Alanine Aminotransferase (ALT/SGPT) 14 U/L Alkaline Phosphatase 92 U/L Total Protein 6.6 gm/dl Albumin 2.9 gm/dl Globulin 3.7 gm/dl Albumin/Globulin Ratio 0.8 Bedside Lactic Acid Venous 1.29 mmol/L Bedside Troponin I 0.000 ng/ml Urine Color YELLOW Urine Appearance CLOUDY Urine pH 8.5 Urine Specific [place] 1.011 Urine Protein NEG Urine Glucose (UA) NEG Urine Ketones NEG Urine Occult Blood TRACE Urine Nitrite NEG Urine Bilirubin NEG Urine Urobilinogen NEG Urine Leukocyte Esterase LARGE Urine WBC (Auto) >30 /hpf Urine RBC (Auto) 0-4 /hpf Urine Hyaline Casts (Auto) 5-10 /lpf Urine Epithelial Cells (Auto) 10-20 /lpf Urine Bacteria (Auto) 1+ Urine Yeast (Auto) Test 02/26/17 06:34 White Blood Count 12.71 K/uL Red Blood Count 3.77 M/uL Hemoglobin 12.0 g/dL Hematocrit 36.6 % Mean Corpuscular Volume 97.1 fL Mean Corpuscular Hemoglobin 31.8 pg Mean Corpuscular Hemoglobin Concent 32.8 g/dl RDW Standard Deviation 48.5 fL RDW Coefficient of Variation 13.7 % Platelet Count 367 K/uL Mean Platelet Volume 9.1 fL Assessment and Plan This is an 81 year old female with PMH of MS, neurogenic bladder and chronic indwelling catheter, paroxysmal atrial fibrillation s/p PPM, hx. of C. diff, hypothyroidism, multiple abdominal surgeries with recent admission for partial SBO presented due to a worsening cough Productive Cough, likely Acute Bronchitis CXR showing an opacity in the R lung base possible pneumonia? multiple recent hospital admission due to partial SBO has had antibiotics for a UTI (recurrent UTIs due to chronic indwelling catheter ) Patient's main concern is her cough - likely bronchial in nature possibly viral bronchitis agree with Doxycycline for now to cover for bacterial infections MRSA swab negative cultures are pending Generalized Weakness in the setting of MS patient recently seen by neurology as outpatient had been put on a prednisone taper due to a possibly MS flare will continue this prednisone taper as prescribed by neurology neurology consult appreciated - steroid taper as per neuro recommendation PT ordered - patient does not want to participate in OT Leukocytosis the elevated WBC is likely due to her high dose steroids she had been on 80mg of prednisone on and Monday (02/23 and 02/24) currently on 60mg prednisone and tapering down Elevated Blood Pressure without diagnosis of HTN patient's blood pressure usually runs in the 120s-130s blood pressure readings this morning have been elevated likely worsening by steroid use, nebulizer use, as well as her coughing IVFs have been stopped continue sotalol for A. Fib, otherwise, we will monitor and may need PRN medications Neurogenic Bladder chronic indwelling catheter Paroxysmal Atrial Fibrillation continue Sotalol (QTc < 500) no anticoagulation due to bleeding risk s/p PPM due to bradycardia/sick sinus Chronic LE edema no significant edema noted currently she is on steroids, which may make things worse currently holding IVFs and Lasix Hypothyroidism continue Synthroid DVT ppx Lovenox monitor for hematuria FULL CODE
--- NOTE | 2017-02-26 11:24 | NEUROLOGY CONSULTATION ---
DATE OF CONSULTATION: 02/26/2017 REASON FOR CONSULTATION: Query flare of multiple sclerosis. HISTORY OF PRESENT ILLNESS: Mrs. Nick is an 81-year-old right-handed female who was diagnosed with multiple sclerosis in the late 70s when she presented with what clinically sounds like transverse myelitis. She was thought to have at least a progressive course unclear whether it was relapsing, secondarily progressive and at this point has not had a lot of activity of disease. She had never been on disease modifying meds. The pt ambulates with a walker, has a neurogenic bladder requiring an indwelling Walker and uses a wheelchair significantly as well. On this background, she has had multiple infections. Several weeks ago she was treated for urinary tract infection with Cipro, which she did not complete the course of because of intolerance. Around that time she started having a nonproductive cough which has persisted. Associated with the nonproductive cough the patient has felt generally weaker and less able to ambulate. She does not notice any new sensory symptoms, no new bowel or bladder symptoms, no cranial nerve symptoms or change in her upper extremity function. There is no change in her baseline spasticity. She saw Dr. Coreas in the office on and was given a taper of steroids, I believe she took 80 mg for 2 days prior to coming into the hospital. I am unable to access the [facility] outpatient record at this point. She also saw Dr. Campos who started her on doxycycline. She was admitted yesterday for ongoing weakness, cough. REVIEW OF SYSTEMS: As above. Additionally, the patient has lost approximately 10 pounds over the last 6 months. Decreased appetite. No abdominal pain, nausea, vomiting, diarrhea. No chest pain. No calf swelling. PAST MEDICAL HISTORY: Celiac disease, cystocele repair, hypothyroidism, multiple sclerosis, neurogenic bladder and osteoporosis with vertebral compression fractures, paroxysmal atrial fibrillation, tachy-nichole syndrome, status post pacemaker; peripheral vascular disease, rectocele repair, small-bowel obstruction, vertigo, history of D\\T\\C, appendectomy, partial colectomy for prolapse. FAMILY HISTORY: Noncontributory. SOCIAL HISTORY: Nonsmoker. 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 ALLERGIES: SULFA, GLUTEN AND CODEINE. HOME MEDICATIONS: Ascorbic acid, aspirin, calcium and vitamin D, vitamin D3 one tablet twice a day, B12, doxycycline, Premarin, Lasix, levothyroxine, Mag-Ox, Centrum, potassium chloride, prednisone, sotalol, and on a p.r.n. basis Tylenol, Mucinex, docusate, Imodium, Claritin, Zofran, and Compazine. CURRENT MEDICATIONS: Include ascorbic acid, mag ox, multiple vitamins, prednisone taper 60 for 1 day, 40 for 2, 20 for 2, 10 for 2 and then off; Lovenox, Synthroid, betapace, Ecotrin, calcium, vitamin D, doxycycline, Robitussin, Florastor, albuterol, Tylenol and Zofran. LABORATORY DATA: White count on admission 15, H\\T\\H 12.7/37.9, platelet count 357. PT/PTT 10.4, 26.6. Chemistry profile: Sodium 134, potassium 3.9, BUN and creatinine 24/1, random glucose 103. Transaminases normal, albumin 2.9. Urinalysis, trace blood, large leukocyte esterase, greater than 30 white blood cells. Urine bacteria 1+. PHYSICAL EXAMINATION: VITAL SIGNS: T-max 36.8, current temperature 36.6; 67, 18, 181/83, 97%. GENERAL: The patient is awake and alert. She is an excellent historian. Her affect is appropriate. NECK: There are no carotid bruits. HEART: No heart murmurs. HEART: Regular rate and rhythm. NECK: Supple. ABDOMEN: Soft, nontender. EXTREMITIES: There is no calf swelling or tenderness. Increased tone is noted in both lower extremities. NEUROLOGIC: Pupils are equal, round, reactive to light. There is no afferent pupillary defect, the optic nerve was normal on the right, unable to visualize on the left. Normal godfrey, motility, facial sensation and facial symmetry. UPPER EXTREMITIES: Strength appears to be diffusely about 4/5 in lower extremity strength. The right lower extremity is less than antigravity, the quad is approximately 2+, TA 2+ to 3, gastroc 3 in the left upper, left lower barely antigravity about 3 of the quad, hamstring less than 3, TA 3+, gastroc 3+. Reflexes are diffusely brisk. Toes are chronically upgoing. There is mild dystaxia on left [id number] and [id number] is unable to be performed because of spasticity. There is decreased light touch in the right lower extremity. Otherwise, temperature, vibration sense is normal. Gait was not testable. IMPRESSION: Likely this is "pseudo flare" of her multiple sclerosis, just related to medical illness. I will try to reviewed her medical record and Dr Coreas prescribed prednisone as has been ordered here. The patient desires no medications for spasticity, although that would be an option if she was more concerned. Physical therapy remains appropriate. We will follow with you. CYRIL
[2017-02-26] MEDS ORDERED: SODIUM CHLORIDE 0.65% NA SOLN 45 ML (OCEAN) ONE (20:53)
[2017-02-26] MEDS: BENZONATATE 100MG CAP PO PRN (22:39)
[2017-02-27] VITALS (7 sets, daily range): BP systolic 125–158; BP diastolic 54–84; PULSE 59–72; TEMP 36.2–36.5; O2SAT 91–95
[2017-02-27] MEDS: LEVOTHYROXINE 100 MCG TAB PO SCH (06:16)
[2017-02-27 07:32] LABS: MEAN CELL VOLUME 97.3 fL (80-100); MEAN CORPUSCULAR HEMOGLOBIN 32.7 pg (25-34); MEAN CORPUSCULAR HGB CONC 33.6 g/dl (32-36); MEAN PLATELET VOLUME 8.7 fL (7.4-10.4); PLATELET COUNT 344 K/uL (130-400); WHITE BLOOD COUNT 9.76 K/uL (4.8-10.8)
[2017-02-27 07:57] LABS: BUN/CREATININE RATIO 23.1 (10-20); CALCIUM 8.5 mg/dl (8.5-10.1); CREATININE 0.98 mg/dl (0.60-1.20); POTASSIUM 3.9 mmol/L (3.5-5.1)
[2017-02-27] MEDS: ALBUT/IPRATROP 3MG/0.5MG NEB 3 ML VIAL INH SCH ×4 (08:23→19:32)
[2017-02-27] MEDS: CALCIUM 600MG + VIT D 400 IU TAB PO SCH ×3 (08:24→19:32)
[2017-02-27] MEDS: CEROVITE ADV FORMULA TAB PO SCH (08:27)
[2017-02-27] MEDS: GUAIFENESIN/DEXTROM SYRUP 200MG/20MG 10ML UDC PO SCH ×3 (08:27→22:26)
[2017-02-27] MEDS: CHOLECALCIFEROL 1000 INTER.UNIT TAB PO SCH ×2 (08:29→19:32)
[2017-02-27] MEDS: SOTALOL HCL 80 MG TAB PO SCH ×2 (08:29→19:33)
[2017-02-27] MEDS: SACCHAROMYCES BOUL (FLORASTOR) 250 MG CAP PO SCH (08:30)
[2017-02-27] MEDS: ASPIRIN 81 MG ECTAB PO SCH ×2 (08:31→19:32)
[2017-02-27] MEDS: DOXYCYCLINE HYCLATE 100 MG CAP PO SCH ×2 (08:31→19:32)
[2017-02-27] MEDS: ENOXAPARIN 40 MG/0.4 ML SYR SQ SCH (08:32)
[2017-02-27] MEDS: BENZONATATE 100MG CAP PO PRN (10:19)
--- NOTE | 2017-02-27 10:36 | Progress Note ---
Subjective Date of Service: Feb 27, 2017. Subjective Pt evaluation today including: conversation w/ patient, physical exam, lab review, review of studies, conversation w/ qm consultant, review of inpatient medication list Saw/examined the patient in room 460 Did well overnight and slept well and woke up feeling fine But then she developed her cough again and became nauseous states she just feels bad, but can't pinpoint what Problem List Medical Problems: (1) Dehydration Status: Acute (2) Exacerbation of multiple sclerosis Status: Acute (3) Failure of outpatient treatment Status: Acute (4) Pacemaker failure Status: Acute (5) Partial small bowel obstruction Status: Acute (6) Right lower lobe pneumonia Status: Acute (7) UTI (urinary tract infection) Status: Acute (8) UTI (urinary tract infection) Status: Acute (9) Vomiting Status: Acute (10) Weakness Status: Acute Review of Systems Constitutional: + fatigue, + weakness, No chills, No fever Respiratory: + cough, + sputum, No dyspnea at rest, No dyspnea on exertion, No shortness of breath, No wheezing Cardiac: No chest pain, No edema, No palpitations Abdomen: + nausea, No constipation, No diarrhea, No pain, No vomiting Medications Current Inpatient Medications Medications (Trade) Dose Ordered Sig/Van Route Start Time Stop Time Status Last Admin Dose Admin Acetaminophen (Tylenol Tab) 650 mg Q4H PRN PO 02/25/17 14:45 03/27/17 14:44 Ondansetron HCl (Zofran Inj) 4 mg Q6H PRN IV 02/25/17 14:45 03/27/17 14:44 02/27/17 10:25 4 MG Saccharomyces Boulardii (Florastor Cap) 250 mg DAILY PO 02/25/17 17:30 03/27/17 17:29 02/27/17 08:30 250 MG Ascorbic Acid (Vitamin C Tab) 500 mg DAILY@1200 PO 02/26/17 12:00 03/28/17 11:59 02/26/17 10:51 500 MG Aspirin (Ecotrin Tab) 81 mg BID PO 02/25/17 20:00 03/27/17 20:59 02/27/17 08:31 81 MG Calcium/Vitamin D (Caltrate Plus Tab) 1 tab TID PO 02/25/17 20:00 03/27/17 20:59 02/27/17 08:24 1 TAB Cholecalciferol (Vitamin D Tab) 1,000 inter.unit BID PO 02/25/17 20:00 03/27/17 20:59 02/27/17 08:29 1,000 INTER.UNIT Doxycycline Hyclate (Vibramycin Cap) 100 mg BID PO 02/25/17 20:00 03/04/17 20:59 02/27/17 08:31 100 MG Levothyroxine Sodium (Synthroid Tab) 100 mcg DAILYBB PO 02/26/17 06:30 03/28/17 06:59 02/27/17 06:16 100 MCG Magnesium Oxide (Mag-Ox Tab) 400 mg DAILYBL PO 02/26/17 11:00 03/28/17 10:59 02/26/17 10:50 400 MG Multivitamins/ Minerals (Multivitamin W/ Minerals Tab) 1 tab DAILY PO 02/26/17 08:00 03/28/17 08:59 02/27/17 08:27 1 TAB Prednisone (PredniSONE TAB) 40 mg Taper DAILY PO 02/26/17 08:00 03/05/17 07:59 02/27/17 08:28 40 MG Sotalol HCl (Betapace Tab) 40 mg QPM PO 02/25/17 21:00 03/27/17 20:59 02/26/17 20:40 40 MG Sotalol HCl (Betapace Tab) 80 mg QAM PO 02/26/17 08:00 03/28/17 08:59 02/27/17 08:29 80 MG Guaifenesin/ Dextromethorphan (Robitussin-Dm Syrup) 10 ml Q12H PO 02/25/17 20:00 03/27/17 19:59 02/27/17 08:27 10 ML Albuterol/ Ipratropium (Duoneb) 3 ml QIDR INH 02/25/17 16:00 03/27/17 15:59 02/27/17 08:23 3 ML Enoxaparin Sodium (Lovenox Inj) 40 mg QAM SQ 02/26/17 08:00 03/28/17 08:59 02/27/17 08:32 40 MG Benzonatate (Tessalon Perles Cap) 100 mg TID PO 02/27/17 14:00 03/29/17 13:59 UNV Ciprofloxacin (Cipro Tab) 500 mg DAILY PO 02/28/17 08:00 03/03/17 07:59 UNV Objective Vital Signs Date Time Temp Pulse Resp B/P Pulse Ox O2 Delivery O2 Flow Rate FiO2 02/27/17 09:00 Room Air 02/27/17 07:44 64 18 94 Room Air 02/27/17 07:21 36.5 62 20 158/76 95 Room Air 02/27/17 00:23 Room Air 02/26/17 23:32 36.7 67 18 159/74 95 Room Air 02/26/17 21:09 Room Air 02/26/17 19:49 68 18 93 Room Air 02/26/17 16:00 Room Air 02/26/17 15:35 36.4 65 16 156/79 93 Room Air 02/26/17 14:36 62 18 94 Room Air 02/26/17 10:41 36.4 65 16 145/72 92 Physical Exam General Appearance: no apparent distress Respiratory/Chest: no respiratory distress, no accessory muscle use, + rhonchi , + pertinent finding (pacemaker implanted on left chest wall) Cardiovascular: regular rate, rhythm, no edema, no murmur Abdomen: normal bowel sounds, non tender, soft Extremities: normal inspection, no pedal edema Laboratory Results Last 24 Hours Test 02/27/17 07:16 White Blood Count 9.76 K/uL Red Blood Count 3.70 M/uL Hemoglobin 12.1 g/dL Hematocrit 36.0 % Mean Corpuscular Volume 97.3 fL Mean Corpuscular Hemoglobin 32.7 pg Mean Corpuscular Hemoglobin Concent 33.6 g/dl RDW Standard Deviation 49.3 fL RDW Coefficient of Variation 13.8 % Platelet Count 344 K/uL Mean Platelet Volume 8.7 fL Sodium Level 137 mmol/L Potassium Level 3.9 mmol/L Chloride Level 102 mmol/L Carbon Dioxide Level 31 mmol/L Anion Gap 4.0 mmol/L Blood Urea Nitrogen 23 mg/dl Creatinine 0.98 mg/dl Est Creatinine Clear Calc Drug Dose 35.0 ml/min Estimated GFR () 62.3 Estimated GFR (Non- 53.7 BUN/Creatinine Ratio 23.1 Random Glucose 85 mg/dl Calcium Level 8.5 mg/dl Assessment and Plan This is an 81 year old female with PMH of MS, neurogenic bladder and chronic indwelling catheter, paroxysmal atrial fibrillation s/p PPM, hx. of C. diff, hypothyroidism, multiple abdominal surgeries with recent admission for partial SBO presented due to a worsening cough Productive Cough, likely Acute Bronchitis 02/27 patient had a good night, but now developing the cough again will check CXR in AM tessalon changed to scheduled TID - this seemed to have helped with her breathing continue nebulizers as this helps patient as well doxycycline 02/26 CXR showing an opacity in the R lung base possible pneumonia? multiple recent hospital admission due to partial SBO has had antibiotics for a UTI (recurrent UTIs due to chronic indwelling catheter ) Patient's main concern is her cough - likely bronchial in nature possibly viral bronchitis agree with Doxycycline for now to cover for bacterial infections MRSA swab negative cultures are pending Generalized Weakness in the setting of MS 02/27 appreciate neurology input will continue prednisone taper as prescribed by Dr. Coreas continue PT home health vs. rehab 02/26 patient recently seen by neurology as outpatient had been put on a prednisone taper due to a possibly MS flare will continue this prednisone taper as prescribed by neurology neurology consult appreciated - steroid taper as per neuro recommendation PT ordered - patient does not want to participate in OT Leukocytosis - resolved the elevated WBC is likely due to her high dose steroids she had been on 80mg of prednisone on and Monday (02/23 and 02/24) currently on 60mg prednisone and tapering down Elevated Blood Pressure without diagnosis of HTN - improved patient's blood pressure usually runs in the 120s-130s blood pressure readings this morning have been elevated likely worsening by steroid use, nebulizer use, as well as her coughing IVFs have been stopped continue sotalol for A. Fib, otherwise, we will monitor and may need PRN medications Neurogenic Bladder chronic indwelling catheter urine culture positive for Pseudomonas has been on Cipro as outpatient will add Cipro back for three days Paroxysmal Atrial Fibrillation continue Sotalol (QTc < 500) no anticoagulation due to bleeding risk s/p PPM due to bradycardia/sick sinus Chronic LE edema no significant edema noted currently she is on steroids, which may make things worse currently holding IVFs and Lasix Hypothyroidism continue Synthroid DVT ppx Lovenox monitor for hematuria FULL CODE
[2017-02-27] MEDS: MAGNESIUM OXIDE 400 MG TAB PO SCH (11:44)
[2017-02-27] MEDS: ASCORBIC ACID 500 MG TAB PO SCH (11:45)
[2017-02-27] MEDS: BENZONATATE 100MG CAP PO SCH ×2 (14:16→19:32)
--- NOTE | 2017-02-27 15:33 | Neurology Progress Notes ---
Neurology Progress Note Date of Service Feb 27, 2017. Gem Mcgraw is an 81 year old female who presents with cough and generalized weakness. She had some cold-like symptoms several weeks ago and was diagnosed with a UTI and was placed on Cipro on 02/14. She couldn't finish the antibiotics because it was causing nausea. She has had a persistent cough which is non productive. She has history of MS and is well known to our service. She is not on any MS modulation medications. Her left leg is the leg most effected and needs lot of assistance. She saw Dr Coreas in neurology and her risk control field representative on 02/23. Dr. Coreas did not feel as though she was having a MS flare, however he did prescribe her steroids for the URI. She then saw Dr. Campos who prescribed her doxycycline. She continued to cough and have generalized weakness , She denies abdominal pain, N,V,D, vision changes, CP, falls. She does have a chronic Walker in place. Objective Date Time Temp Pulse Resp B/P Pulse Ox O2 Delivery O2 Flow Rate FiO2 02/27/17 11:08 72 18 91 Room Air 02/27/17 09:00 Room Air 02/27/17 07:44 64 18 94 Room Air 02/27/17 07:21 36.5 62 20 158/76 95 Room Air 02/27/17 00:23 Room Air 02/26/17 23:32 36.7 67 18 159/74 95 Room Air 02/26/17 21:09 Room Air 02/26/17 19:49 68 18 93 Room Air 02/26/17 16:00 Room Air 02/26/17 15:35 36.4 65 16 156/79 93 Room Air Last 24 Hours Test 02/27/17 07:16 White Blood Count 9.76 K/uL Red Blood Count 3.70 M/uL Hemoglobin 12.1 g/dL Hematocrit 36.0 % Mean Corpuscular Volume 97.3 fL Mean Corpuscular Hemoglobin 32.7 pg Mean Corpuscular Hemoglobin Concent 33.6 g/dl RDW Standard Deviation 49.3 fL RDW Coefficient of Variation 13.8 % Platelet Count 344 K/uL Mean Platelet Volume 8.7 fL Sodium Level 137 mmol/L Potassium Level 3.9 mmol/L Chloride Level 102 mmol/L Carbon Dioxide Level 31 mmol/L Anion Gap 4.0 mmol/L Blood Urea Nitrogen 23 mg/dl Creatinine 0.98 mg/dl Est Creatinine Clear Calc Drug Dose 35.0 ml/min Estimated GFR () 62.3 Estimated GFR (Non- 53.7 BUN/Creatinine Ratio 23.1 Random Glucose 85 mg/dl Calcium Level 8.5 mg/dl Imaging: no new imaging Exam: Physical Exam: Constitutional: appearance weak frail Ears, Nose, Mouth and Throat: mucous membranes moist, no injection and skin normal, eyes normal Cardiovascular: normal S-1 and S-2 and regular rate and rhythm Respiratory: inspiratory wheezing with course breath sounds Musculoskeletal: no peripheral edema and good distal pulses Skin: no stigmata of neurocutaneous disease noted and normal and intact Eyes: extraocular muscles intact (EOMI) and pupils equal, round and reactive to light (PERRL) NEUROLOGIC EXAMINATION: Mental status: Alert and interactive Oriented to full date and location Oriented to person Speech fluent with no evidence of aphasia Cranial Nerves facial symmetry Coordination: finger to nose without bi pass, no tremor or cog wheeling Gait/Stance: Posture normal.sitting in bedside chair Strength: generalized weakness, hand tomato pulper operator bicep triceps, hip flex Current Inpatient Medications Medications (Trade) Dose Ordered Sig/Van Route Start Time Stop Time Status Last Admin Dose Admin Acetaminophen (Tylenol Tab) 650 mg Q4H PRN PO 02/25/17 14:45 03/27/17 14:44 Ondansetron HCl (Zofran Inj) 4 mg Q6H PRN IV 02/25/17 14:45 03/27/17 14:44 02/27/17 10:25 4 MG Saccharomyces Boulardii (Florastor Cap) 250 mg DAILY PO 02/25/17 17:30 03/27/17 17:29 02/27/17 08:30 250 MG Ascorbic Acid (Vitamin C Tab) 500 mg DAILY@1200 PO 02/26/17 12:00 03/28/17 11:59 02/27/17 11:45 500 MG Aspirin (Ecotrin Tab) 81 mg BID PO 02/25/17 20:00 03/27/17 20:59 02/27/17 08:31 81 MG Calcium/Vitamin D (Caltrate Plus Tab) 1 tab TID PO 02/25/17 20:00 03/27/17 20:59 02/27/17 11:45 1 TAB Cholecalciferol (Vitamin D Tab) 1,000 inter.unit BID PO 02/25/17 20:00 03/27/17 20:59 02/27/17 08:29 1,000 INTER.UNIT Doxycycline Hyclate (Vibramycin Cap) 100 mg BID PO 02/25/17 20:00 03/04/17 20:59 02/27/17 08:31 100 MG Levothyroxine Sodium (Synthroid Tab) 100 mcg DAILYBB PO 02/26/17 06:30 03/28/17 06:59 02/27/17 06:16 100 MCG Magnesium Oxide (Mag-Ox Tab) 400 mg DAILYBL PO 02/26/17 11:00 03/28/17 10:59 02/27/17 11:44 400 MG Multivitamins/ Minerals (Multivitamin W/ Minerals Tab) 1 tab DAILY PO 02/26/17 08:00 03/28/17 08:59 02/27/17 08:27 1 TAB Prednisone (PredniSONE TAB) 40 mg Taper DAILY PO 02/26/17 08:00 03/05/17 07:59 02/27/17 08:28 40 MG Sotalol HCl (Betapace Tab) 40 mg QPM PO 02/25/17 21:00 03/27/17 20:59 02/26/17 20:40 40 MG Sotalol HCl (Betapace Tab) 80 mg QAM PO 02/26/17 08:00 03/28/17 08:59 02/27/17 08:29 80 MG Guaifenesin/ Dextromethorphan (Robitussin-Dm Syrup) 10 ml Q12H PO 02/25/17 20:00 03/27/17 19:59 02/27/17 08:27 10 ML Albuterol/ Ipratropium (Duoneb) 3 ml QIDR INH 02/25/17 16:00 03/27/17 15:59 02/27/17 11:08 3 ML Enoxaparin Sodium (Lovenox Inj) 40 mg QAM SQ 02/26/17 08:00 03/28/17 08:59 02/27/17 08:32 40 MG Benzonatate (Tessalon Perles Cap) 100 mg TID PO 02/27/17 14:00 03/29/17 13:59 02/27/17 14:16 100 MG Ciprofloxacin (Ciprofloxacin Tab) 250 mg Q12 PO 02/27/17 21:00 03/02/17 09:01 Impression 81 year old female cough and generalized weakness Plan 1. prednisone taper as scheduled 2. cipro 250 mg q 12 h for UTI 3. no current disease modifying medications 4. baclofen may be an option to reduce spasms if needed 5. ? whether breathing treatment may help with cough and congestion may need repeat CXR 6. PT/OT for discharge needs 7. further recommendations to follow I have seen and discussed above patient with Dr Cassi Grissom, neurology Pt seen and examined, tone as well as strength have improved in the LE. Agree with steroid taper and PT. KRISTIN Grissom MD
[2017-02-27] MEDS: CIPROFLOXACIN 250 MG TAB PO SCH (19:32)
[2017-02-28] VITALS (9 sets, daily range): BP systolic 114–162; BP diastolic 68–89; PULSE 57–113; TEMP 36.4–36.8; O2SAT 92–94
[2017-02-28] MEDS ORDERED: NURSING DECISION MEDICATION ORDER SCH (02:15)
[2017-02-28] MEDS ORDERED: MICONAZOLE NITRATE POWDER 43 GM EXT PRN (04:15)
[2017-02-28] MEDS: LEVOTHYROXINE 100 MCG TAB PO SCH (06:12)
[2017-02-28] MEDS: ALBUT/IPRATROP 3MG/0.5MG NEB 3 ML VIAL INH SCH ×4 (07:12→19:25)
[2017-02-28 07:41] LABS: HEMATOCRIT 36.5 % (37-47); MEAN CELL VOLUME 97.6 fL (80-100); MEAN CORPUSCULAR HEMOGLOBIN 32.9 pg (25-34); MEAN CORPUSCULAR HGB CONC 33.7 g/dl (32-36); MEAN PLATELET VOLUME 8.9 fL (7.4-10.4); PLATELET COUNT 379 K/uL (130-400); RED BLOOD COUNT 3.74 M/uL (4.2-5.4); WHITE BLOOD COUNT 9.67 K/uL (4.8-10.8)
--- NOTE | 2017-02-28 08:34 | DIAGNOSTIC IMAGING REPORT ---
CHEST 2 VIEWS ROUTINE HISTORY: worsening cough, bronchitis vs. pneumonia COMPARISON: Chest 02/25/2017. FINDINGS: Multiple compression deformities seen within the lower thoracic and upper lumbar spine are again noted. These remain unchanged. Left-sided dual-chamber pacemaker. The heart remains mildly enlarged. Trace bilateral pleural effusions have improved. No pneumothorax. No evidence for pulmonary edema. Patchy right basilar densities persist. IMPRESSION: 1. No change in the patchy right basilar densities. This may represent atelectasis or pneumonia. Recommend follow-up to resolution. 2. Trace bilateral pleural effusions have improved. Electronically signed by: Tolu Gregory M.D. 02/28/2017 8:32 AM Dictated Date/Time: 02/28/2017 8:30 AM
[2017-02-28 08:39] LABS: CALCIUM 8.7 mg/dl (8.5-10.1); CREATININE 0.91 mg/dl (0.60-1.20); POTASSIUM 4.1 mmol/L (3.5-5.1)
[2017-02-28] MEDS: ASPIRIN 81 MG ECTAB PO SCH ×2 (08:50→20:10)
[2017-02-28] MEDS: SOTALOL HCL 80 MG TAB PO SCH ×2 (08:51→20:11)
[2017-02-28] MEDS: CHOLECALCIFEROL 1000 INTER.UNIT TAB PO SCH ×2 (08:51→20:08)
[2017-02-28] MEDS: GUAIFENESIN/DEXTROM SYRUP 200MG/20MG 10ML UDC PO SCH ×2 (08:51→20:09)
[2017-02-28] MEDS: DOXYCYCLINE HYCLATE 100 MG CAP PO SCH ×2 (08:52→20:09)
[2017-02-28] MEDS: CIPROFLOXACIN 250 MG TAB PO SCH ×2 (08:52→20:09)
[2017-02-28] MEDS: CALCIUM 600MG + VIT D 400 IU TAB PO SCH ×3 (08:52→20:10)
[2017-02-28] MEDS: BENZONATATE 100MG CAP PO SCH ×3 (08:52→20:10)
[2017-02-28] MEDS: CEROVITE ADV FORMULA TAB PO SCH (08:53)
[2017-02-28] MEDS: SACCHAROMYCES BOUL (FLORASTOR) 250 MG CAP PO SCH (08:53)
[2017-02-28] MEDS: ENOXAPARIN 30 MG/0.3 ML SYR SQ SCH (08:54)
[2017-02-28] MEDS: MAGNESIUM OXIDE 400 MG TAB PO SCH (12:04)
[2017-02-28] MEDS: ASCORBIC ACID 500 MG TAB PO SCH (12:05)
--- NOTE | 2017-02-28 13:17 | Progress Note ---
Subjective Date of Service: Feb 28, 2017. Subjective Pt evaluation today including: conversation w/ patient, physical exam, lab review, review of studies, review of inpatient medication list Saw/examined the patient in room 460 She has some left sided rib and chest wall pain cough improving slightly feeling weak Problem List Medical Problems: (1) Dehydration Status: Acute (2) Exacerbation of multiple sclerosis Status: Acute (3) Failure of outpatient treatment Status: Acute (4) Pacemaker failure Status: Acute (5) Partial small bowel obstruction Status: Acute (6) Right lower lobe pneumonia Status: Acute (7) UTI (urinary tract infection) Status: Acute (8) UTI (urinary tract infection) Status: Acute (9) Vomiting Status: Acute (10) Weakness Status: Acute Review of Systems Constitutional: + weakness Respiratory: + cough, + shortness of breath, + sputum, No dyspnea at rest, No dyspnea on exertion, No hemoptysis, No wheezing Cardiac: No chest pain Abdomen: No diarrhea, No nausea, No pain, No vomiting Medications Current Inpatient Medications Medications (Trade) Dose Ordered Sig/Van Route Start Time Stop Time Status Last Admin Dose Admin Acetaminophen (Tylenol Tab) 650 mg Q4H PRN PO 02/25/17 14:45 03/27/17 14:44 Ondansetron HCl (Zofran Inj) 4 mg Q6H PRN IV 02/25/17 14:45 03/27/17 14:44 02/27/17 10:25 4 MG Saccharomyces Boulardii (Florastor Cap) 250 mg DAILY PO 02/25/17 17:30 03/27/17 17:29 02/28/17 08:53 250 MG Ascorbic Acid (Vitamin C Tab) 500 mg DAILY@1200 PO 02/26/17 12:00 03/28/17 11:59 02/28/17 12:05 500 MG Aspirin (Ecotrin Tab) 81 mg BID PO 02/25/17 20:00 03/27/17 20:59 02/28/17 08:50 81 MG Calcium/Vitamin D (Caltrate Plus Tab) 1 tab TID PO 02/25/17 20:00 03/27/17 20:59 02/28/17 12:04 1 TAB Cholecalciferol (Vitamin D Tab) 1,000 inter.unit BID PO 02/25/17 20:00 03/27/17 20:59 02/28/17 08:51 1,000 INTER.UNIT Doxycycline Hyclate (Vibramycin Cap) 100 mg BID PO 02/25/17 20:00 03/04/17 20:59 02/28/17 08:52 100 MG Levothyroxine Sodium (Synthroid Tab) 100 mcg DAILYBB PO 02/26/17 06:30 03/28/17 06:59 02/28/17 06:12 100 MCG Magnesium Oxide (Mag-Ox Tab) 400 mg DAILYBL PO 02/26/17 11:00 03/28/17 10:59 02/28/17 12:04 400 MG Multivitamins/ Minerals (Multivitamin W/ Minerals Tab) 1 tab DAILY PO 02/26/17 08:00 03/28/17 08:59 02/28/17 08:53 1 TAB Prednisone (PredniSONE TAB) 40 mg Taper DAILY PO 02/26/17 08:00 03/05/17 07:59 02/28/17 08:51 40 MG Sotalol HCl (Betapace Tab) 40 mg QPM PO 02/25/17 21:00 03/27/17 20:59 02/27/17 19:33 40 MG Sotalol HCl (Betapace Tab) 80 mg QAM PO 02/26/17 08:00 03/28/17 08:59 02/28/17 08:51 80 MG Guaifenesin/ Dextromethorphan (Robitussin-Dm Syrup) 10 ml Q12H PO 02/25/17 20:00 03/27/17 19:59 02/28/17 08:51 10 ML Albuterol/ Ipratropium (Duoneb) 3 ml QIDR INH 02/25/17 16:00 03/27/17 15:59 02/28/17 12:02 3 ML Benzonatate (Tessalon Perles Cap) 100 mg TID PO 02/27/17 14:00 03/29/17 13:59 02/28/17 08:52 100 MG Ciprofloxacin (Ciprofloxacin Tab) 250 mg Q12 PO 02/27/17 21:00 03/02/17 09:01 02/28/17 08:52 250 MG Enoxaparin Sodium (Lovenox Inj) 30 mg QAM SQ 02/28/17 08:00 03/30/17 07:59 02/28/17 08:54 30 MG Miconazole Nitrate (Desenex Powder) 1 appln PRN PRN EXT 02/28/17 04:15 03/30/17 04:14 Objective Vital Signs Date Time Temp Pulse Resp B/P Pulse Ox O2 Delivery O2 Flow Rate FiO2 02/28/17 12:02 57 16 92 Room Air 02/28/17 10:07 36.4 113 20 137/89 94 Room Air 02/28/17 08:00 Room Air 02/28/17 07:41 36.4 61 18 153/68 94 Room Air 02/28/17 07:13 57 16 92 Room Air 02/28/17 00:00 92 Room Air 02/27/17 23:13 36.2 62 18 128/54 94 Room Air 02/27/17 19:32 61 16 92 Room Air 02/27/17 19:28 68 18 125/69 92 Room Air 02/27/17 16:29 36.4 59 18 143/84 95 Room Air 02/27/17 16:00 Room Air Physical Exam General Appearance: no apparent distress, + thin Respiratory/Chest: lungs clear, normal breath sounds, no respiratory distress, no accessory muscle use, + pertinent finding (+chest wall tenderness at left axilla and under left breast) Cardiovascular: regular rate, rhythm, no edema, no murmur Extremities: normal inspection, no pedal edema Neurologic/Psychiatric: no motor/sensory deficits, alert, normal mood/affect Laboratory Results Last 24 Hours Test 02/28/17 07:20 White Blood Count 9.67 K/uL Red Blood Count 3.74 M/uL Hemoglobin 12.3 g/dL Hematocrit 36.5 % Mean Corpuscular Volume 97.6 fL Mean Corpuscular Hemoglobin 32.9 pg Mean Corpuscular Hemoglobin Concent 33.7 g/dl RDW Standard Deviation 48.4 fL RDW Coefficient of Variation 13.6 % Platelet Count 379 K/uL Mean Platelet Volume 8.9 fL Sodium Level 136 mmol/L Potassium Level 4.1 mmol/L Chloride Level 101 mmol/L Carbon Dioxide Level 31 mmol/L Anion Gap 4.0 mmol/L Blood Urea Nitrogen 22 mg/dl Creatinine 0.91 mg/dl Est Creatinine Clear Calc Drug Dose 37.7 ml/min Estimated GFR () 68.1 Estimated GFR (Non- 58.8 BUN/Creatinine Ratio 24.0 Random Glucose 84 mg/dl Calcium Level 8.7 mg/dl Assessment and Plan This is an 81 year old female with PMH of MS, neurogenic bladder and chronic indwelling catheter, paroxysmal atrial fibrillation s/p PPM, hx. of C. diff, hypothyroidism, multiple abdominal surgeries with recent admission for partial SBO presented due to a worsening cough Productive Cough, likely Acute Bronchitis 02/28 will continue with doxycycline Tessalon + cough syrup + nebulizers PRN 02/27 patient had a good night, but now developing the cough again will check CXR in AM tessalon changed to scheduled TID - this seemed to have helped with her breathing continue nebulizers as this helps patient as well doxycycline 02/26 CXR showing an opacity in the R lung base possible pneumonia? multiple recent hospital admission due to partial SBO has had antibiotics for a UTI (recurrent UTIs due to chronic indwelling catheter ) Patient's main concern is her cough - likely bronchial in nature possibly viral bronchitis agree with Doxycycline for now to cover for bacterial infections MRSA swab negative cultures are pending Generalized Weakness in the setting of MS 02/28 continue prednisone taper PT pending - home health vs. SNF 02/27 appreciate neurology input will continue prednisone taper as prescribed by Dr. Coreas continue PT home health vs. rehab 02/26 patient recently seen by neurology as outpatient had been put on a prednisone taper due to a possibly MS flare will continue this prednisone taper as prescribed by neurology neurology consult appreciated - steroid taper as per neuro recommendation PT ordered - patient does not want to participate in OT Leukocytosis - resolved the elevated WBC is likely due to her high dose steroids she had been on 80mg of prednisone on and Monday (02/23 and 02/24) currently on 60mg prednisone and tapering down Elevated Blood Pressure without diagnosis of HTN - improved patient's blood pressure usually runs in the 120s-130s blood pressure readings this morning have been elevated likely worsening by steroid use, nebulizer use, as well as her coughing IVFs have been stopped continue sotalol for A. Fib, otherwise, we will monitor and may need PRN medications Neurogenic Bladder chronic indwelling catheter urine culture positive for Pseudomonas has been on Cipro as outpatient will add Cipro back for three days Paroxysmal Atrial Fibrillation continue Sotalol (QTc < 500) no anticoagulation due to bleeding risk s/p PPM due to bradycardia/sick sinus Chronic LE edema no significant edema noted currently she is on steroids, which may make things worse currently holding IVFs and Lasix Hypothyroidism continue Synthroid DVT ppx Lovenox monitor for hematuria FULL CODE
--- NOTE | 2017-02-28 16:02 | Neurology Progress Notes ---
Neurology Progress Note Date of Service Feb 28, 2017. Gem Mcgraw is an 81 year old female who presents with cough and generalized weakness. She had some cold-like symptoms several weeks ago and was diagnosed with a UTI and was placed on Cipro on 02/14. She couldn't finish the antibiotics because it was causing nausea. She has had a persistent cough which is non productive. She has history of MS and is well known to our service. She is not on any MS modulation medications. Her left leg is the leg most effected and needs lot of assistance. She saw Dr Coreas in neurology and her finance effectiveness manager on 02/23. Dr. Coreas did not feel as though she was having a MS flare, however he did prescribe her steroids for the URI. She then saw Dr. Campos who prescribed her doxycycline. She continues to cough and have generalized weakness. She state she is getting nebulizer treatments that seem to help. She was hoping to see PT today to see if she can make plans to go home. She denies abdominal pain, N,V,D, vision changes, CP, falls. She does have a chronic Walker in place. Objective Date Time Temp Pulse Resp B/P Pulse Ox O2 Delivery O2 Flow Rate FiO2 02/28/17 15:12 75 16 92 Room Air 02/28/17 12:02 57 16 92 Room Air 02/28/17 10:07 36.4 113 20 137/89 94 Room Air 02/28/17 08:00 Room Air 02/28/17 07:41 36.4 61 18 153/68 94 Room Air 02/28/17 07:13 57 16 92 Room Air 02/28/17 00:00 92 Room Air 02/27/17 23:13 36.2 62 18 128/54 94 Room Air 02/27/17 19:32 61 16 92 Room Air 02/27/17 19:28 68 18 125/69 92 Room Air 02/27/17 16:29 36.4 59 18 143/84 95 Room Air 02/27/17 16:00 Room Air Last 24 Hours Test 02/28/17 07:20 White Blood Count 9.67 K/uL Red Blood Count 3.74 M/uL Hemoglobin 12.3 g/dL Hematocrit 36.5 % Mean Corpuscular Volume 97.6 fL Mean Corpuscular Hemoglobin 32.9 pg Mean Corpuscular Hemoglobin Concent 33.7 g/dl RDW Standard Deviation 48.4 fL RDW Coefficient of Variation 13.6 % Platelet Count 379 K/uL Mean Platelet Volume 8.9 fL Sodium Level 136 mmol/L Potassium Level 4.1 mmol/L Chloride Level 101 mmol/L Carbon Dioxide Level 31 mmol/L Anion Gap 4.0 mmol/L Blood Urea Nitrogen 22 mg/dl Creatinine 0.91 mg/dl Est Creatinine Clear Calc Drug Dose 37.7 ml/min Estimated GFR () 68.1 Estimated GFR (Non- 58.8 BUN/Creatinine Ratio 24.0 Random Glucose 84 mg/dl Calcium Level 8.7 mg/dl Imaging: CXR- No change in the patchy right basilar densities. This may represent atelectasis or pneumonia. Recommend follow-up to resolution. Trace bilateral pleural effusions have improved. Exam: Physical Exam: Constitutional: appearance pale frail Ears, Nose, Mouth and Throat: mucous membranes moist, no injection and skin normal, eyes normal Cardiovascular: normal S-1 and S-2 and regular rate and rhythm Respiratory: harsh breath sound bilaterally Musculoskeletal: no peripheral edema and good distal pulses Skin: no stigmata of neurocutaneous disease noted and normal and intact Eyes: extraocular muscles intact (EOMI) and pupils equal, round and reactive to light (PERRL) NEUROLOGIC EXAMINATION: Mental status: Alert and interactive Oriented to full date and location Oriented to person Speech fluent with no evidence of aphasia Cranial Nerves facial symmetry Gait/Stance: Posture lying in bed Strength: hand medicare biller and biceps triceps 4+/5 bilaterally LE 3/5 right hip flex, left 4/5. some spasticity bilaterally LE Current Inpatient Medications Medications (Trade) Dose Ordered Sig/Van Route Start Time Stop Time Status Last Admin Dose Admin Acetaminophen (Tylenol Tab) 650 mg Q4H PRN PO 02/25/17 14:45 03/27/17 14:44 Ondansetron HCl (Zofran Inj) 4 mg Q6H PRN IV 02/25/17 14:45 03/27/17 14:44 02/27/17 10:25 4 MG Saccharomyces Boulardii (Florastor Cap) 250 mg DAILY PO 02/25/17 17:30 03/27/17 17:29 02/28/17 08:53 250 MG Ascorbic Acid (Vitamin C Tab) 500 mg DAILY@1200 PO 02/26/17 12:00 03/28/17 11:59 02/28/17 12:05 500 MG Aspirin (Ecotrin Tab) 81 mg BID PO 02/25/17 20:00 03/27/17 20:59 02/28/17 08:50 81 MG Calcium/Vitamin D (Caltrate Plus Tab) 1 tab TID PO 02/25/17 20:00 03/27/17 20:59 02/28/17 12:04 1 TAB Cholecalciferol (Vitamin D Tab) 1,000 inter.unit BID PO 02/25/17 20:00 03/27/17 20:59 02/28/17 08:51 1,000 INTER.UNIT Doxycycline Hyclate (Vibramycin Cap) 100 mg BID PO 02/25/17 20:00 03/04/17 20:59 02/28/17 08:52 100 MG Levothyroxine Sodium (Synthroid Tab) 100 mcg DAILYBB PO 02/26/17 06:30 03/28/17 06:59 02/28/17 06:12 100 MCG Magnesium Oxide (Mag-Ox Tab) 400 mg DAILYBL PO 02/26/17 11:00 03/28/17 10:59 02/28/17 12:04 400 MG Multivitamins/ Minerals (Multivitamin W/ Minerals Tab) 1 tab DAILY PO 02/26/17 08:00 03/28/17 08:59 02/28/17 08:53 1 TAB Prednisone (PredniSONE TAB) 40 mg Taper DAILY PO 02/26/17 08:00 03/05/17 07:59 02/28/17 08:51 40 MG Sotalol HCl (Betapace Tab) 40 mg QPM PO 02/25/17 21:00 03/27/17 20:59 02/27/17 19:33 40 MG Sotalol HCl (Betapace Tab) 80 mg QAM PO 02/26/17 08:00 03/28/17 08:59 02/28/17 08:51 80 MG Guaifenesin/ Dextromethorphan (Robitussin-Dm Syrup) 10 ml Q12H PO 02/25/17 20:00 03/27/17 19:59 02/28/17 08:51 10 ML Albuterol/ Ipratropium (Duoneb) 3 ml QIDR INH 02/25/17 16:00 03/27/17 15:59 02/28/17 15:12 3 ML Benzonatate (Tessalon Perles Cap) 100 mg TID PO 02/27/17 14:00 03/29/17 13:59 02/28/17 14:28 100 MG Ciprofloxacin (Ciprofloxacin Tab) 250 mg Q12 PO 02/27/17 21:00 03/02/17 09:01 02/28/17 08:52 250 MG Enoxaparin Sodium (Lovenox Inj) 30 mg QAM SQ 02/28/17 08:00 03/30/17 07:59 02/28/17 08:54 30 MG Miconazole Nitrate (Desenex Powder) 1 appln PRN PRN EXT 02/28/17 04:15 03/30/17 04:14 Impression 81 year old female cough and generalized weakness Plan 1. prednisone taper as scheduled- patient does not think this is helping 2. cipro 250 mg q 12 h for UTI 3. no current disease modifying medications 4. baclofen may be an option to reduce spasms if needed 5. breathing treatments are helping repeat CXR- unchanged 6. PT/OT for discharge needs 7. likely viral infection which has not resolved 8. may need SNF prior to going home will sign off for now will be available for input as needed. follow up with Dr Coreas, neurology as scheduled. PT seen and examined, pt to be dc to home tomorrow with home PT I have seen and discussed above patient with Dr Cassi Grissom, neurology
[2017-03-01] MEDS: LEVOTHYROXINE 100 MCG TAB PO SCH (06:04)
[2017-03-01] MEDS: ALBUT/IPRATROP 3MG/0.5MG NEB 3 ML VIAL INH SCH ×3 (07:55→15:51)
[2017-03-01 07:57] VITALS: BP 158/82; PULSE 60; TEMP 36.4; O2SAT 94
--- NOTE | 2017-03-01 08:07 | DIAGNOSTIC IMAGING REPORT ---
CHEST 2 VIEWS ROUTINE CLINICAL HISTORY: Abnormal chest x-ray. Cough. Bronchitis. COMPARISON STUDY: 02/28/2017 FINDINGS: The cardiac and mediastinal contours remain stable. There is a left subclavian dual-chamber central venous pacemaker. There are old right-sided rib deformities. There are persistent nodular airspace opacities at the right lung base. There are new linear opacities the left lung base likely atelectatic. The bones are osteopenic and multiple thoracic and lumbar vertebral body compression fractures are visualized.[ IMPRESSION: Persistent nodular right basilar airspace opacities statistically inflammatory. Continued radiographic follow-up is recommended. Electronically signed by: Teodoro Chamberlain M.D. 03/01/2017 8:04 AM Dictated Date/Time: 03/01/2017 8:02 AM
[2017-03-01 08:54] LABS: HEMATOCRIT 40.8 % (37-47); MEAN CELL VOLUME 98.6 fL (80-100); MEAN CORPUSCULAR HEMOGLOBIN 33.1 pg (25-34); MEAN CORPUSCULAR HGB CONC 33.6 g/dl (32-36); MEAN PLATELET VOLUME 8.7 fL (7.4-10.4); PLATELET COUNT 437 K/uL (130-400); RED BLOOD COUNT 4.14 M/uL (4.2-5.4); WHITE BLOOD COUNT 9.39 K/uL (4.8-10.8)
[2017-03-01] MEDS: CALCIUM 600MG + VIT D 400 IU TAB PO SCH ×2 (09:08→14:33)
[2017-03-01] MEDS: ASPIRIN 81 MG ECTAB PO SCH (09:09)
[2017-03-01] MEDS: CEROVITE ADV FORMULA TAB PO SCH (09:10)
[2017-03-01] MEDS: SACCHAROMYCES BOUL (FLORASTOR) 250 MG CAP PO SCH (09:10)
[2017-03-01] MEDS: GUAIFENESIN/DEXTROM SYRUP 200MG/20MG 10ML UDC PO SCH (09:11)
[2017-03-01] MEDS: BENZONATATE 100MG CAP PO SCH ×2 (09:12→14:33)
[2017-03-01] MEDS: DOXYCYCLINE HYCLATE 100 MG CAP PO SCH (09:12)
[2017-03-01] MEDS: CHOLECALCIFEROL 1000 INTER.UNIT TAB PO SCH (09:13)
[2017-03-01] MEDS: CIPROFLOXACIN 250 MG TAB PO SCH (09:15)
[2017-03-01] MEDS: ENOXAPARIN 30 MG/0.3 ML SYR SQ SCH (09:15)
[2017-03-01] MEDS: SOTALOL HCL 80 MG TAB PO SCH (09:16)
[2017-03-01 09:31] LABS: BUN/CREATININE RATIO 26.5 (10-20); CALCIUM 9.1 mg/dl (8.5-10.1); CREATININE 0.91 mg/dl (0.60-1.20); POTASSIUM 3.4 mmol/L (3.5-5.1)
[2017-03-01 11:48] VITALS: PULSE 67; O2SAT 91
[2017-03-01] MEDS: ASCORBIC ACID 500 MG TAB PO SCH (12:32)
[2017-03-01] MEDS: MAGNESIUM OXIDE 400 MG TAB PO SCH (12:32)
--- NOTE | 2017-03-01 14:50 | Progress Note ---
Subjective Date of Service: Mar 01, 2017. Subjective Pt evaluation today including: conversation w/ patient, conversation w/ family , physical exam, lab review, review of studies, review of inpatient medication list Saw/examined the patient in room 460 She's doing much better today, cough has improved, no shortness of breath +weakness, but no other issues to note Problem List Medical Problems: (1) Dehydration Status: Acute (2) Exacerbation of multiple sclerosis Status: Acute (3) Failure of outpatient treatment Status: Acute (4) Pacemaker failure Status: Acute (5) Partial small bowel obstruction Status: Acute (6) Right lower lobe pneumonia Status: Acute (7) UTI (urinary tract infection) Status: Acute (8) UTI (urinary tract infection) Status: Acute (9) Vomiting Status: Acute (10) Weakness Status: Acute Review of Systems Constitutional: + weakness Respiratory: + cough, + sputum (improving), No dyspnea at rest, No dyspnea on exertion, No shortness of breath, No wheezing Cardiac: No chest pain, No edema, No palpitations Abdomen: No nausea, No pain Female : No dysuria, No urinary frequency Psychiatric: No anxiety, No insomnia Heme: No abnormal bleeding/bruising Medications Current Inpatient Medications Medications (Trade) Dose Ordered Sig/Van Route Start Time Stop Time Status Last Admin Dose Admin Acetaminophen (Tylenol Tab) 650 mg Q4H PRN PO 02/25/17 14:45 03/27/17 14:44 Ondansetron HCl (Zofran Inj) 4 mg Q6H PRN IV 02/25/17 14:45 03/27/17 14:44 02/27/17 10:25 4 MG Saccharomyces Boulardii (Florastor Cap) 250 mg DAILY PO 02/25/17 17:30 03/27/17 17:29 03/01/17 09:10 250 MG Ascorbic Acid (Vitamin C Tab) 500 mg DAILY@1200 PO 02/26/17 12:00 03/28/17 11:59 03/01/17 12:32 500 MG Aspirin (Ecotrin Tab) 81 mg BID PO 02/25/17 20:00 03/27/17 20:59 03/01/17 09:09 81 MG Calcium/Vitamin D (Caltrate Plus Tab) 1 tab TID PO 02/25/17 20:00 03/27/17 20:59 03/01/17 09:08 1 TAB Cholecalciferol (Vitamin D Tab) 1,000 inter.unit BID PO 02/25/17 20:00 03/27/17 20:59 03/01/17 09:13 1,000 INTER.UNIT Doxycycline Hyclate (Vibramycin Cap) 100 mg BID PO 02/25/17 20:00 03/04/17 20:59 03/01/17 09:12 100 MG Levothyroxine Sodium (Synthroid Tab) 100 mcg DAILYBB PO 02/26/17 06:30 03/28/17 06:59 03/01/17 06:04 100 MCG Magnesium Oxide (Mag-Ox Tab) 400 mg DAILYBL PO 02/26/17 11:00 03/28/17 10:59 03/01/17 12:32 400 MG Multivitamins/ Minerals (Multivitamin W/ Minerals Tab) 1 tab DAILY PO 02/26/17 08:00 03/28/17 08:59 03/01/17 09:10 1 TAB Prednisone (PredniSONE TAB) 20 mg Taper DAILY PO 02/26/17 08:00 03/05/17 07:59 03/01/17 09:11 20 MG Sotalol HCl (Betapace Tab) 40 mg QPM PO 02/25/17 21:00 03/27/17 20:59 02/28/17 20:11 40 MG Sotalol HCl (Betapace Tab) 80 mg QAM PO 02/26/17 08:00 03/28/17 08:59 03/01/17 09:16 80 MG Guaifenesin/ Dextromethorphan (Robitussin-Dm Syrup) 10 ml Q12H PO 02/25/17 20:00 03/27/17 19:59 03/01/17 09:11 10 ML Albuterol/ Ipratropium (Duoneb) 3 ml QIDR INH 02/25/17 16:00 03/27/17 15:59 03/01/17 11:48 3 ML Benzonatate (Tessalon Perles Cap) 100 mg TID PO 02/27/17 14:00 03/29/17 13:59 03/01/17 14:33 100 MG Ciprofloxacin (Ciprofloxacin Tab) 250 mg Q12 PO 02/27/17 21:00 03/02/17 09:01 03/01/17 09:15 250 MG Enoxaparin Sodium (Lovenox Inj) 30 mg QAM SQ 02/28/17 08:00 03/30/17 07:59 03/01/17 09:15 30 MG Miconazole Nitrate (Desenex Powder) 1 appln PRN PRN EXT 02/28/17 04:15 03/30/17 04:14 Objective Vital Signs Date Time Temp Pulse Resp B/P Pulse Ox O2 Delivery O2 Flow Rate FiO2 03/01/17 12:43 Room Air 03/01/17 11:48 67 16 91 Room Air 03/01/17 07:57 36.4 60 18 158/82 94 Room Air 03/01/17 00:00 Room Air 02/28/17 23:42 36.6 62 18 162/84 93 Room Air 02/28/17 20:00 Room Air 02/28/17 19:25 82 16 93 Room Air 02/28/17 16:00 Room Air 02/28/17 15:12 75 16 92 Room Air 02/28/17 15:00 36.8 73 18 114/75 92 Room Air Physical Exam General Appearance: no apparent distress, + thin, + pertinent finding (frail) Respiratory/Chest: lungs clear, normal breath sounds, no respiratory distress, no accessory muscle use Cardiovascular: regular rate, rhythm, no edema, no murmur Abdomen: normal bowel sounds, non tender, soft Extremities: normal inspection, no pedal edema Neurologic/Psychiatric: no motor/sensory deficits, alert, normal mood/affect Laboratory Results Last 24 Hours Test 03/01/17 08:42 White Blood Count 9.39 K/uL Red Blood Count 4.14 M/uL Hemoglobin 13.7 g/dL Hematocrit 40.8 % Mean Corpuscular Volume 98.6 fL Mean Corpuscular Hemoglobin 33.1 pg Mean Corpuscular Hemoglobin Concent 33.6 g/dl RDW Standard Deviation 49.0 fL RDW Coefficient of Variation 13.6 % Platelet Count 437 K/uL Mean Platelet Volume 8.7 fL Sodium Level 138 mmol/L Potassium Level 3.4 mmol/L Chloride Level 100 mmol/L Carbon Dioxide Level 31 mmol/L Anion Gap 7.0 mmol/L Blood Urea Nitrogen 24 mg/dl Creatinine 0.91 mg/dl Est Creatinine Clear Calc Drug Dose 37.7 ml/min Estimated GFR () 68.1 Estimated GFR (Non- 58.8 BUN/Creatinine Ratio 26.5 Random Glucose 110 mg/dl Calcium Level 9.1 mg/dl Magnesium Level 2.0 mg/dl Assessment and Plan This is an 81 year old female with PMH of MS, neurogenic bladder and chronic indwelling catheter, paroxysmal atrial fibrillation s/p PPM, hx. of C. diff, hypothyroidism, multiple abdominal surgeries with recent admission for partial SBO presented due to a worsening cough Productive Cough, likely Acute Bronchitis 03/01 Doing well, will d/c home today with home health d/c with doxycycline and Tessalon Perles 02/28 will continue with doxycycline Tessalon + cough syrup + nebulizers PRN 02/27 patient had a good night, but now developing the cough again will check CXR in AM tessalon changed to scheduled TID - this seemed to have helped with her breathing continue nebulizers as this helps patient as well doxycycline 02/26 CXR showing an opacity in the R lung base possible pneumonia? multiple recent hospital admission due to partial SBO has had antibiotics for a UTI (recurrent UTIs due to chronic indwelling catheter ) Patient's main concern is her cough - likely bronchial in nature possibly viral bronchitis agree with Doxycycline for now to cover for bacterial infections MRSA swab negative cultures are pending Generalized Weakness in the setting of MS 03/01 d/c home with home PT prednisone taper outpatient neurology consultation 02/28 continue prednisone taper PT pending - home health vs. SNF 02/27 appreciate neurology input will continue prednisone taper as prescribed by Dr. Coreas continue PT home health vs. rehab 02/26 patient recently seen by neurology as outpatient had been put on a prednisone taper due to a possibly MS flare will continue this prednisone taper as prescribed by neurology neurology consult appreciated - steroid taper as per neuro recommendation PT ordered - patient does not want to participate in OT Leukocytosis - resolved the elevated WBC is likely due to her high dose steroids she had been on 80mg of prednisone on and Monday (02/23 and 02/24) currently on 60mg prednisone and tapering down Elevated Blood Pressure without diagnosis of HTN - improved patient's blood pressure usually runs in the 120s-130s blood pressure readings this morning have been elevated likely worsening by steroid use, nebulizer use, as well as her coughing IVFs have been stopped continue sotalol for A. Fib, otherwise, we will monitor and may need PRN medications Neurogenic Bladder chronic indwelling catheter urine culture positive for Pseudomonas has been on Cipro as outpatient will add Cipro back for three days Paroxysmal Atrial Fibrillation continue Sotalol (QTc < 500) no anticoagulation due to bleeding risk s/p PPM due to bradycardia/sick sinus Chronic LE edema no significant edema noted currently she is on steroids, which may make things worse currently holding IVFs and Lasix Hypothyroidism continue Synthroid DVT ppx Lovenox monitor for hematuria FULL CODE Discharge planning: home with home health
[2017-03-01] MEDS ORDERED: BENZ100C7 PO (14:55)
[2017-03-01] MEDS ORDERED: PRED10TA PO (14:55)
[2017-03-01] MEDS ORDERED: DOXY100C2 PO (14:55)
--- NOTE | 2017-03-01 14:57 | Discharge Instructions ---
Discharge Instructions Date of Service Mar 01, 2017. Admission Reason for Admission: Pneumonia Discharge Discharge Diagnosis / Problem: Viral Bronchitis vs. Pneumonia, MS flare up Discharge Goals Goal(s): Decrease discomfort, Improve function, Diagnostic testing, Therapeutic intervention Activity Recommendations Activity Limitations: resume your previous activity . Instructions / Follow-Up Instructions / Follow-Up Please follow-up with Dr. Reggie Peña - you will get a phone call with an appointment date and time * Take prednisone 10mg for the next two days (03/02 and 03/03) and then stop - follow-up with neurology as outpatient * You will be given doxycycline (antibiotic) take this as prescribed for the next 6 days * You are prescribed Tessalon Perles for your cough, take this as needed * You may need a repeat chest x-ray in one week Current Hospital Diet Patient's current hospital diet: Gluten Free Diet Discharge Diet Recommended Diet: Gluten Free Diet Pending Studies Studies pending at discharge: no Medical Emergencies . Who to Call and When: Medical Emergencies: If at any time you feel your situation is an emergency, please call 911 immediately. . Non-Emergent Contact Non-Emergency issues call your: Primary Care Provider, Neurologist . . "Provider Documentation" section prepared by Aaron Garcias. . VTE Core Measure Inpt VTE Proph given/why not?: Enoxaparin (Lovenox)SQ
--- NOTE | 2017-03-01 14:58 | Discharge Summary ---
Discharge Summary Date of Service Mar 01, 2017. Discharge Summary Admission Date: Feb 25, 2017 at 14:14 Discharge Date: Mar 01, 2017 Discharge Disposition: Home with services Principal Diagnosis: Acute Bronchitis; Viral Bronchitis Possible Pneumonia MS flare Medication Reconciliation New Medications: Prednisone Tab (Prednisone) 10 Mg Tab 10 MG PO DAILY for 2 Days, #2 TAB Benzonatate (Benzonatate) 100 Mg Cap 100 MG PO TID for 3 Days, #9 CAP Continued Medications: Acetaminophen (Tylenol) 500 Mg Tab 1000 MG PO Q8H PRN for Pain, TAB Ascorbic Acid (Vitamin C) 500 Mg Tab 500 MG PO DAILY@1200 Aspirin (Aspirin Ec) 81 Mg Tab 81 MG PO BID Calcium/Vitamin D (Os-Hitesh 500 Plus D) Tab 1 TAB PO TID Cholecalciferol (Vitamin D3) 1,000 Unit Tab 1 TAB PO BID for 90 Days, #180 TAB 3 Refills Cyanocobalamin (Cyanocobalamin) 1,000 Mcg/Ml Inj 1000 MCG INJ MONTHLY Dextromethorphan-Guaifenesin (Mucinex Dm) 1 Tab Tab 1 TAB PO Q12 PRN for Cough for 10 Days, #20 TAB Docusate Sodium (Docusate Sodium) 100 Mg Cap 1 CAP PO BID PRN for Constipation for 15 Days, #30 CAP Doxycycline Hyclate (Vibramycin) 100 Mg Cap 100 MG PO BID for 6 Days, #12 CAP (This prescription has been renewed) BID FOR 10 DAYS Estrogens, Conjugated (Premarin) 14 Appln/30 Gm Cr 1 APPLN PV UD MONDAYS AND FRIDAYS Furosemide (Lasix) 20 Mg Tab 20 MG PO DAILY, TAB Levothyroxine Sodium (Levothyroxine Sodium) 100 Mcg Tab 100 MCG PO DAILYBB Loperamide Hcl (Imodium) 2 Mg Cap 2 MG PO PRN for Diarrhea, CAP Loratadine (Claritin) 10 Mg Tab 10 MG PO DAILY PRN for ALLERGY SX, 0 Refills Magnesium Oxide (Mag-Ox) 400 Mg Tab 400 MG PO DAILYBL Multiple Vitamins W/ Minerals (Centrum) 1 Tab Tab 1 TAB PO DAILY Ondansetron Hcl (Zofran) 4 Mg Tab 1 TAB PO Q8H PRN for Nausea or Vomiting, #10 TAB 1 Refill Potassium Chloride (Potassium Chloride) 10 Meq Soln 20 MEQ PO 3XWK Prochlorperazine Maleate (Compazine) 10 Mg Tab 5 MG PO Q6 PRN for Nausea for 7 Days, #30 TAB 3 Refills Sotalol HCl (Sotalol HCl) 80 Mg Tab 80 MG PO QAM Sotalol HCl (Sotalol HCl) 80 Mg Tab 40 MG PO QPM Admission Information HPI (per Admitting provider): 81 year old female who presents to the ER with cough and generalized weakness. Patient reports she started getting sick two weeks ago with cold like symptoms of sinus congestion and cough. She was also diagnosed with a UTI and was placed on Cipro on 02/14. She reports she did not finish the entire course due to nausea. She reports cough has persisted. It is moist and non productive. She reports she feels short of breath when she has a bad coughing spell. She has history of MS and reports she is mostly chair bound however usually can ambulate with a walker. Recently, she has been requiring a lot of assistance. She feels generally weak. Denies unilateral weakness. She was seen by her neurologist and tapper bit on 02/23. Dr. Coreas did not feel as though she was having a MS flare, however he did prescribe her steroids for the URI. She then saw Dr. Campos who prescribed her doxycycline. Patient reports she continues to cough and have generalized weakness. She reports a poor appetite. No abdominal pain, nausea, vomiting, or diarrhea. She has a chronic welsh in place and reports urine has been clear. She denies chest pain. No lightheadedness, dizziness, diaphoresis, or syncopal events. In the ER, vitals are stable. WBC 15K, remainder of the other labs are unremarkable. Physical Exam (per Admitting): General Appearance: no apparent distress Head: normocephalic Eyes: normal inspection ENT: hearing grossly normal Neck: supple, no JVD Respiratory/Chest: no respiratory distress, + decreased breath sounds, + rhonchi (faint, BL bases), + pertinent finding (frequent coughing with deep breath, moist non productive) Cardiovascular: regular rate, rhythm, normal peripheral pulses, + pertinent finding (trace edema BLLE, R > L ) Abdomen/GI: normal bowel sounds, non tender, soft Extremities/Musculoskelatal: normal inspection, no calf tenderness Neurologic/Psych: no motor/sensory deficits, alert, normal mood/affect, oriented x 3 Skin: normal color, warm/dry Hospital Course This is an 81 year old female with PMH of MS, neurogenic bladder and chronic indwelling catheter, paroxysmal atrial fibrillation s/p PPM, hx. of C. diff, hypothyroidism, multiple abdominal surgeries with recent admission for partial SBO presented due to a worsening cough Productive Cough, likely Acute Bronchitis 03/01 Doing well, will d/c home today with home health d/c with doxycycline and Tessalon Perles 02/28 will continue with doxycycline Tessalon + cough syrup + nebulizers PRN 02/27 patient had a good night, but now developing the cough again will check CXR in AM tessalon changed to scheduled TID - this seemed to have helped with her breathing continue nebulizers as this helps patient as well doxycycline 02/26 CXR showing an opacity in the R lung base possible pneumonia? multiple recent hospital admission due to partial SBO has had antibiotics for a UTI (recurrent UTIs due to chronic indwelling catheter ) Patient's main concern is her cough - likely bronchial in nature possibly viral bronchitis agree with Doxycycline for now to cover for bacterial infections MRSA swab negative cultures are pending Generalized Weakness in the setting of MS 03/01 d/c home with home PT prednisone taper outpatient neurology consultation 02/28 continue prednisone taper PT pending - home health vs. SNF 02/27 appreciate neurology input will continue prednisone taper as prescribed by Dr. Coreas continue PT home health vs. rehab 02/26 patient recently seen by neurology as outpatient had been put on a prednisone taper due to a possibly MS flare will continue this prednisone taper as prescribed by neurology neurology consult appreciated - steroid taper as per neuro recommendation PT ordered - patient does not want to participate in OT Leukocytosis - resolved the elevated WBC is likely due to her high dose steroids she had been on 80mg of prednisone on and Monday (02/23 and 02/24) currently on 60mg prednisone and tapering down Elevated Blood Pressure without diagnosis of HTN - improved patient's blood pressure usually runs in the 120s-130s blood pressure readings this morning have been elevated likely worsening by steroid use, nebulizer use, as well as her coughing IVFs have been stopped continue sotalol for A. Fib, otherwise, we will monitor and may need PRN medications Neurogenic Bladder chronic indwelling catheter urine culture positive for Pseudomonas has been on Cipro as outpatient will add Cipro back for three days Paroxysmal Atrial Fibrillation continue Sotalol (QTc < 500) no anticoagulation due to bleeding risk s/p PPM due to bradycardia/sick sinus Chronic LE edema no significant edema noted currently she is on steroids, which may make things worse currently holding IVFs and Lasix Hypothyroidism continue Synthroid DVT ppx Lovenox monitor for hematuria FULL CODE Discharge planning: home with home health Total time spent on discharge = 42 minutes This includes examination of the patient, discharge planning, medication reconciliation, and communication with other providers. Discharge Instructions Please follow-up with Dr. Reggie Peña - you will get a phone call with an appointment date and time * Take prednisone 10mg for the next two days (03/02 and 03/03) and then stop - follow-up with neurology as outpatient * You will be given doxycycline (antibiotic) take this as prescribed for the next 6 days * You are prescribed Tessalon Perles for your cough, take this as needed * You may need a repeat chest x-ray in one week
[2017-03-01 15:52] VITALS: PULSE 62; O2SAT 95
[2017-03-01 16:02] VITALS: BP 158/82; PULSE 62; TEMP 36.4; O2SAT 95
[2017-05-16] MEDS ORDERED: DXY100 PO (16:27)
[2017-08-04] MEDS ORDERED: CPR500 PO (13:10)
== END 2017-03-01 19:00 | disposition home health service (06) | DRG 202 ==
LOC: ENRESERVDT → ENRESERVTM → C.EDB 11:39 → C.MS4W 14:14 → EDBEDREQ 15:43
PROVIDERS: ADMIT Hospitalist; ATTEND Family Medicine
DX: J20.8 Acute bronchitis due to other specified organisms (principal); J18.9 Pneumonia, unspecified organism; T83.518A Infection and inflammatory reaction due to other urinary catheter, initial encounter; N39.0 Urinary tract infection, site not specified; K56.60 Unspecified intestinal obstruction; I48.0 Paroxysmal atrial fibrillation; E03.9 Hypothyroidism, unspecified; G35 Multiple sclerosis; N31.9 Neuromuscular dysfunction of bladder, unspecified; Y84.6 Urinary catheterization as the cause of abnormal reaction of the patient, or of later complication, without mention of misadventure at the time of the procedure; R60.0 Localized edema; Z87.891 Personal history of nicotine dependence; M81.0 Age-related osteoporosis without current pathological fracture; Z95.0 Presence of cardiac pacemaker; I73.9 Peripheral vascular disease, unspecified; B96.5 Pseudomonas (aeruginosa) (mallei) (pseudomallei) as the cause of diseases classified elsewhere

== ENCOUNTER 2017-05-12 19:19 | Inpatient (IN) | payer OTHER, BC ==
[~2017-05-12] VITALS: Ht 154.9 cm; Wt 54.4 kg
[~2017-05-12 19:19] MED LIST changes: +BENZ100C7 PO; -CIPR1TAB11 PO; +DEXT30TA7 PO; +DOCU100C31 PO; +DOXY100C2 PO; +FURO-85 PO; -FURO20TA PO; +IMD/2 PO; -KCLI20/100 PO; -MULT-506 PO; +MULTTAB5 PO; -ONDA4TAB10 SL; +ONDA4TAB65 PO; +PROC1TAB5 PO; +[UNRECOGNIZED DRUG - CODE] PO
[2017-05-12] MEDS ORDERED: ONDANSETRON INJ 2 MG/ML 2 ML VIAL IV STA (19:59)
[2017-05-12 20:17] LABS: BASO % 0.5 %; BASO ABS # 0.06 K/uL (0-0.2); COMPLETE YES; EOS % 4.1 %; HEMATOCRIT 38.6 % (37-47); IG% 0.2 %; LYMPH % 14.4 %; MEAN CORPUSCULAR HEMOGLOBIN 33.2 pg (25-34); MEAN CORPUSCULAR HGB CONC 33.2 g/dl (32-36); MEAN PLATELET VOLUME 9.1 fL (7.4-10.4); MONO % 8.5 %; NEUT % 72.3 %; PLATELET COUNT 390 K/uL (130-400); RED BLOOD COUNT 3.86 M/uL (4.2-5.4); WHITE BLOOD COUNT 12.47 K/uL (4.8-10.8)
[2017-05-12 20:24] LABS: BLOOD UREA NITROGEN 22 mg/dl (7-18); BUN/CREATININE RATIO 25.8 (10-20); CALCIUM 9.2 mg/dl (8.5-10.1); CARBON DIOXIDE 28 mmol/L (21-32); CHLORIDE 98 mmol/L (98-107); CREATININE 0.86 mg/dl (0.60-1.20); GLUCOSE 95 mg/dl (70-99); POTASSIUM 4.8 mmol/L (3.5-5.1); SODIUM 133 mmol/L (136-145)
[2017-05-12 20:27] LABS: PARTIAL THROMBOPLASTIN RATIO 1.1; PROTHROMBIN TIME (PATIENT) 10.6 SECONDS (9.0-12.0)
[2017-05-12 20:38] LABS: POINT OF CARE PRO-BNP 1348 pg/ml (0-1800); POINT OF CARE TROPONIN I < 0.030 ng/ml (0-0.045)
--- NOTE | 2017-05-12 21:21 | DIAGNOSTIC IMAGING REPORT ---
TWO VIEW CHEST CLINICAL HISTORY: Cough and dyspnea. FINDINGS: AP and lateral chest radiographs are compared to study dated 03/01/2017. Correlation is made with chest CT dated 10/20/2015. The AP view is significant degraded by patient rotation. A 2-lead cardiac pacemaker is unchanged in position and partially obscures the left mid chest. The heart is enlarged and there is atherosclerotic calcification of the thoracic aorta. The pulmonary vasculature is noncongested. Chronic interstitial thickening is similar to previous. Airspace consolidation is identified at the left lung base. The right lung is grossly clear and there is no large pleural effusion. There is no pneumothorax. The skeletal structures are osteopenic. Numerous compression deformities are seen in the imaged lower lumbar spine. Degenerative change and hyperkyphosis is present. There are healed right-sided rib fractures. IMPRESSION: 1. Cardiomegaly and cardiac pacemaker. There is no radiographic evidence of congestive failure. 2. Airspace consolidation is seen at the left lung base. This could represent atelectasis, pneumonia, and/or aspiration pneumonitis. Clinical correlation will be required and radiographic follow-up to resolution is recommended. Electronically signed by: Jose Pisano M.D. 05/12/2017 9:20 PM Dictated Date/Time: 05/12/2017 9:17 PM
[2017-05-12] MEDS ORDERED: LEVAQUIN 750MG / 150ML D5W IV STA (21:53)
[2017-05-12] MEDS ORDERED: VANCOMYCIN INJ 1,450 MG in SODIUM CHLORIDE 0.9% 500ML 500 ML IV STA (22:06)
[2017-05-12] MEDS ORDERED: VANCOMYCIN CONSULT ACTIVE PRN (22:15)
[2017-05-12] MEDS ORDERED: PIPERACILL/TAZOBAC IV 3.375 GM in DEXTROSE 5% 100ML IV ONE (22:15)
[2017-05-12] MEDS ORDERED: PIPERACILL/TAZOBAC CONSULT ACTIVE PRN (22:15)
[2017-05-12] MEDS ORDERED: LORATADINE 10 MG TAB PO PRN (23:15)
[2017-05-12] MEDS ORDERED: ACETAMINOPHEN 325 MG TAB PO PRN (23:15)
[2017-05-12] MEDS ORDERED: ONDANSETRON INJ 2 MG/ML 2 ML VIAL IV PRN (23:15)
[2017-05-12] MEDS ORDERED: ALUMINUM/MAGNESIUM/SIMETH (MAALOX MAX) 30 ML UDC PO PRN (23:15)
[2017-05-12] MEDS ORDERED: MAGNESIUM HYDROXIDE SUSP 30 ML UDC PO PRN (23:15)
[2017-05-12] MEDS ORDERED: POLYETHYLENE (MIRALAX) 17 GM PACK PO PRN (23:45)
[2017-05-13] VITALS (8 sets, daily range): BP systolic 96–117; BP diastolic 60–67; PULSE 64–89; TEMP 36.6–37; O2SAT 92–99; Ht 154.9 cm; Wt 54.4 kg
--- NOTE | 2017-05-13 00:44 | EMERGENCY ROOM VISIT NOTE ---
History Report prepared by Jovanni: Alvina Henry Under the Supervision of: Dr. Julio C Garg M.D. First contact with patient: 19:50 Chief Complaint: RESPIRATORY PROBLEMS Stated Complaint: PACEMAKER, AFIB CANT BREATHE History of Present Illness The patient is an 81 year old female who presents to the Emergency Room with complaints of persistent shortness of breath that began two weeks ago, but worsened today. She currently rates her discomfort as a 5/10 in severity. The patient states that her symptoms worsened today. She additionally notes nausea , but denies any vomiting. The patient states that sitting forward worsens her shortness of breath. She denies being on supplemental nasal cannula oxygen at home. The patient denies any history of COPD, emphysema, or CHF, but states that she does take Lasix for her edema to her lower extremities. She denies any increased edema to her lower extremities. The patient reports a cough, stating that she has been bringing up clear sputum. She states that she is unsure of any fever. The patient states that she has been having increased bladder spasms. She states that she has a Walker Catheter in place chronically. The patient reports a history of MS. She denies any chest pain. Source of History: patient Onset: two weeks ago Position: other (global) Symptom Intensity: 5/10 Quality: other (shortness of breath) Timing: worsening, other (persistent) Modifying Factors (Worsening): other (sitting forward) Associated Symptoms: + nausea, No chest pain, No vomiting Note: Associated Symptoms: increased bladder spasms Review of Systems See HPI for pertinent positives & negatives. A total of 10 systems reviewed and were otherwise negative. Past Medical & Surgical Medical Problems: (1) Celiac disease (2) cystocel repair (3) HCAP (healthcare-associated pneumonia) (4) Hypothyroidism (5) Multiple sclerosis (6) Neurogenic bladder (7) Osteoporosis (8) Pacemaker (9) Paroxysmal atrial fibrillation (10) PVD (peripheral vascular disease) (11) rectocele repair (12) SBO (small bowel obstruction) (13) Vertigo Surgical Problems: (1) H/O dilation and curettage (2) History of appendectomy (3) S/P partial colectomy Family History FH: CAD (coronary artery disease) FATHER SISTER Social History Smoking Status: Never Smoker Alcohol Use: none Drug Use: none Marital Status: Housing Status: lives with significant other Occupation Status: retired Current/Historical Medications Scheduled Ascorbic Acid (Vitamin C), 500 MG PO DAILY@1200 Aspirin (Aspirin Ec), 81 MG PO BID Benzonatate (Benzonatate), 100 MG PO TID Calcium/Vitamin D (Os-Hitesh 500 Plus D), 1 TAB PO TID Cholecalciferol (Vitamin D3), 1 TAB PO BID Cyanocobalamin (Cyanocobalamin), 1,000 MCG INJ MONTHLY Estrogens, Conjugated (Premarin), 1 APPLN PV UD Furosemide (Lasix), 20 MG PO DAILY Levothyroxine Sodium (Levothyroxine Sodium), 100 MCG PO DAILYBB Magnesium Oxide (Mag-Ox), 400 MG PO DAILYBL Multiple Vitamins W/ Minerals (Centrum), 1 TAB PO DAILY Potassium Chloride (Potassium Chloride), 20 MEQ PO 3XWK Sotalol HCl (Sotalol HCl), 80 MG PO QAM Sotalol HCl (Sotalol HCl), 40 MG PO QPM Scheduled PRN Acetaminophen (Tylenol), 1,000 MG PO Q8H PRN for Pain Dextromethorphan-Guaifenesin (Mucinex Dm), 1 TAB PO Q12 PRN for Cough Docusate Sodium (Docusate Sodium), 1 CAP PO BID PRN for Constipation Loperamide Hcl (Imodium), 2 MG PO for Diarrhea Loratadine (Claritin), 10 MG PO DAILY PRN for ALLERGY SX Ondansetron Hcl (Zofran), 1 TAB PO Q8H PRN for Nausea or Vomiting Prochlorperazine Maleate (Compazine), 5 MG PO Q6 PRN for Nausea Allergies Coded Allergies: Sulfa Antibiotics (Verified Allergy, Unknown, ?, 05/12/17) Gluten (Verified Adverse Reaction, Intermediate, GI DISTRESS, 05/12/17) Codeine (Verified Adverse Reaction, Unknown, N/V, 05/12/17) Physical Exam Vital Signs Date Time Temp Pulse Resp B/P (MAP) Pulse Ox O2 Delivery O2 Flow Rate FiO2 05/12/17 23:01 90 24 103/67 96 Nasal Cannula 3.0 05/12/17 21:41 105 20 126/81 96 Nasal Cannula 3.0 05/12/17 20:34 102 24 162/104 91 Nasal Cannula 2.0 7/7/17 20:24 100 05/12/17 19:54 100 Nasal Cannula 2.0 05/12/17 19:45 96 Room Air 05/12/17 19:45 96 Room Air 05/12/17 19:20 36.9 98 20 160/64 96 Room Air Physical Exam Constitutional: Vital signs reviewed. Eyes: Pupils are equal round reactive to light. Conjunctiva are noninjected. ENT: Pharynx is clear without erythema or exudate. Mucous membranes are moist. Neck supple without meningeal signs. Respiratory: Clear to auscultation bilaterally. Breath sounds are equal bilaterally. Cardiovascular: Tachycardic rate at 105 and regular rhythm. No rubs or gallops. GI: Soft, nondistended and nontender. Bowel sounds are present. Musculoskeletal: No peripheral edema. No lower extremity tenderness. Integumentary: No cyanosis. Neurological: The patient is awake and alert. No focal deficits. Psychiatric: Anxious. Medical Decision & Procedures ER Provider Diagnostic Interpretation: X-ray results as stated below per interpretation by me and the radiologist: TWO VIEW CHEST CLINICAL HISTORY: Cough and dyspnea. FINDINGS: AP and lateral chest radiographs are compared to study dated 03/01/2017. Correlation is made with chest CT dated 10/20/2015. The AP view is significant degraded by patient rotation. A 2-lead cardiac pacemaker is unchanged in position and partially obscures the left mid chest. The heart is enlarged and there is atherosclerotic calcification of the thoracic aorta. The pulmonary vasculature is noncongested. Chronic interstitial thickening is similar to previous. Airspace consolidation is identified at the left lung base. The right lung is grossly clear and there is no large pleural effusion. There is no pneumothorax. The skeletal structures are osteopenic. Numerous compression deformities are seen in the imaged lower lumbar spine. Degenerative change and hyperkyphosis is present. There are healed right-sided rib fractures. IMPRESSION: 1. Cardiomegaly and cardiac pacemaker. There is no radiographic evidence of congestive failure. 2. Airspace consolidation is seen at the left lung base. This could represent atelectasis, pneumonia, and/or aspiration pneumonitis. Clinical correlation will be required and radiographic follow-up to resolution is recommended. Electronically signed by: Jose Pisano M.D. 05/12/2017 9:20 PM Dictated Date/Time: 05/12/2017 9:17 PM Laboratory Results 05/12/17 19:45 Red Blood Count 3.86, Mean Corpuscular Volume 100.0, Mean Corpuscular Hemoglobin 33.2, Mean Corpuscular Hemoglobin Concent 33.2, Mean Platelet Volume 9.1, Neutrophils (%) (Auto) 72.3, Lymphocytes (%) (Auto) 14.4, Monocytes (%) ( Auto) 8.5, Eosinophils (%) (Auto) 4.1, Basophils (%) (Auto) 0.5, Neutrophils # ( Auto) 9.01, Lymphocytes # (Auto) 1.80, Monocytes # (Auto) 1.06, Eosinophils # ( Auto) 0.51, Basophils # (Auto) 0.06 05/12/17 19:45 Test 05/12/17 19:44 05/12/17 19:45 05/12/17 20:19 Bedside Lactic Acid Venous 1.76 mmol/L (0.90-1.70) White Blood Count 12.47 K/uL (4.8-10.8) Red Blood Count 3.86 M/uL (4.2-5.4) Hemoglobin 12.8 g/dL (12.0-16.0) Hematocrit 38.6 % (37-47) Mean Corpuscular Volume 100.0 fL (80-100) Mean Corpuscular Hemoglobin 33.2 pg (25-34) Mean Corpuscular Hemoglobin Concent 33.2 g/dl (32-36) Platelet Count 390 K/uL (130-400) Mean Platelet Volume 9.1 fL (7.4-10.4) Neutrophils (%) (Auto) 72.3 % Lymphocytes (%) (Auto) 14.4 % Monocytes (%) (Auto) 8.5 % Eosinophils (%) (Auto) 4.1 % Basophils (%) (Auto) 0.5 % Neutrophils # (Auto) 9.01 K/uL (1.4-6.5) Lymphocytes # (Auto) 1.80 K/uL (1.2-3.4) Monocytes # (Auto) 1.06 K/uL (0.11-0.59) Eosinophils # (Auto) 0.51 K/uL (0-0.5) Basophils # (Auto) 0.06 K/uL (0-0.2) RDW Standard Deviation 51.4 fL (36.4-46.3) RDW Coefficient of Variation 14.2 % (11.5-14.5) Immature Granulocyte % (Auto) 0.2 % Immature Granulocyte # (Auto) 0.03 K/uL (0.00-0.02) Prothrombin Time 10.6 SECONDS (9.0-12.0) Prothromb Time International Ratio 1.0 (0.9-1.1) Activated Partial Thromboplast Time 29.3 SECONDS (21.0-31.0) Partial Thromboplastin Ratio 1.1 Anion Gap 7.0 mmol/L (3-11) Estimated GFR () 72.9 Estimated GFR (Non- 62.9 BUN/Creatinine Ratio 25.8 (10-20) Calcium Level 9.2 mg/dl (8.5-10.1) Bedside Troponin I < 0.030 ng/ml (0-0.045) VM-Bcg-V-Type Natriuretic Peptide 1348 pg/ml (0-1800) Laboratory results as reviewed by me. Medications Administered Medications (Trade) Dose Ordered Sig/Van Route Start Time Stop Time Status Last Admin Dose Admin Ondansetron HCl (Zofran Inj) 4 mg NOW STAT IV 05/12/17 19:59 05/12/17 20:01 DC 05/12/17 20:05 4 MG Vancomycin HCl 1450 mg/Sodium Chloride 529 ml @ 200 mls/hr ONE STAT IV 05/12/17 22:06 05/13/17 00:44 05/12/17 22:06 200 MLS/HR Piperacillin Sod/ Tazobactam Sod 3.375 gm/Dextrose 115 ml @ 230 mls/hr NOW ONCE IV 05/12/17 22:15 05/12/17 22:44 DC 05/12/17 22:15 230 MLS/HR ECG Indication: SOB/dyspnea Rate (beats per minute): 104 Rhythm: sinus tachycardia Findings: 1st degree AV block, nonspecific-ST abn, no ectopy ED Course 1952: The patient was evaluated in room A3. A complete history and physical exam was performed. 1958: Ordered Zofran Inj 4 mg IV. 2144: I reevaluated the patient and she is resting comfortably. I discussed all the exam findings with her and I discussed the treatment plan. She verbalized complete understanding and agreement. She is going to be evaluated for further treatment. 2151: I discussed the patients case with Denia Chatman. He is going to evaluate the patient for further treatment. 2152: Ordered Levofloxacin 750 mg IV. Medical Decision This is an 81-year-old female presents with shortness of breath. Differential diagnosis includes CHF exacerbation, pulmonary edema, pneumonia, pulmonary embolism, cardiac. I did perform a limited focused review of portions of the patient's old chart on the electronic medical record. The patient was admitted in February for a MS flare and bronchitis. Blood Pressure Screening: Patient was found to have an elevated blood pressure and was referred to their primary doctor for recheck and further treatment. Medication Reconciliation: I attest that I have personally reviewed the patient' s current medication list. I did evaluate the patient as noted above. IV access was established. The patient was placed on a continuous testing manager. I did order and personally review the patient's 12-lead EKG and chest x-ray as described above. She does have a left-sided pneumonia. I did order and review the patient's blood work as noted in the electronic medical record. Her white blood cell count is elevated. Blood cultures were ordered. I did treat patient with Zofran. She was also given Levaquin IV. I did discuss case with the hospice and major case detective. I did discuss the test results with the patient. Consults Time Called: 2149 Consulting Physician: Denia Chatman Returned Call: 2151 I discussed the patients case with Denia Chatman. He is going to evaluate the patient for further treatment. Impression Primary Impression: Left lower lobe pneumonia Scribe Attestation The scribe's documentation has been prepared under my direct and personally reviewed by me in its entirety. I confirm that the note above accurately reflects all work, treatment, procedures, and medical decision making performed by me. Departure Information Dispostion Being Evaluated By Hospitalist Referrals Reggie Peña D.OBonnie (PCP) Problem Qualifiers Primary Impression: Left lower lobe pneumonia Pneumonia type: due to unspecified organism Qualified Codes: J18.1 - Lobar pneumonia, unspecified organism
--- NOTE | 2017-05-13 01:38 | History and Physical ---
History & Physical Date & Time of Service: May 13, 2017 at 01:21 Chief Complaint: Hcap (Healthcare-Associated Pneumonia) Primary Care Physician: Reggie Peña D.OBonnie Past Medical/Surgical History Medical Problems: (1) Celiac disease Status: Chronic (2) cystocel repair Status: Chronic (3) Hypothyroidism Status: Chronic (4) Multiple sclerosis Status: Chronic (5) Neurogenic bladder Status: Chronic (6) Osteoporosis Status: Chronic (7) Pacemaker Status: Chronic (8) Paroxysmal atrial fibrillation Status: Chronic (9) PVD (peripheral vascular disease) Status: Chronic (10) rectocele repair Status: Chronic (11) SBO (small bowel obstruction) Status: Chronic (12) Vertigo Status: Resolved Surgical Problems: (1) H/O dilation and curettage Status: Chronic (2) History of appendectomy Status: Chronic (3) S/P partial colectomy Permanent Comment: x2 for prolapse Status: Chronic Family History FH: CAD (coronary artery disease) FATHER SISTER Social History Smoking Status: Never Smoker Drug Use: none Marital Status: Housing status: lives with significant other Occupational Status: retired Immunizations History of Influenza Vaccine: Yes Influenza Vaccine Date: Aug 22, 2016 History of Tetanus Vaccine?: Yes Tetanus Immunization Date: Nov 29, 2016 History of Pneumococcal: Yes Pneumococcal Date: Sep 01, 2015 Multi-Drug Resistant Organisms History of MDRO: No Allergies Coded Allergies: Sulfa Antibiotics (Verified Allergy, Unknown, ?, 05/12/17) Gluten (Verified Adverse Reaction, Intermediate, GI DISTRESS, 05/12/17) Codeine (Verified Adverse Reaction, Unknown, N/V, 05/12/17) Home Medications Scheduled Ascorbic Acid (Vitamin C), 500 MG PO DAILY@1200 Aspirin (Aspirin Ec), 81 MG PO BID Benzonatate (Benzonatate), 100 MG PO TID Calcium/Vitamin D (Os-Hitesh 500 Plus D), 1 TAB PO TID Cholecalciferol (Vitamin D3), 1 TAB PO BID Cyanocobalamin (Cyanocobalamin), 1,000 MCG INJ MONTHLY Estrogens, Conjugated (Premarin), 1 APPLN PV UD Furosemide (Lasix), 20 MG PO DAILY Levothyroxine Sodium (Levothyroxine Sodium), 100 MCG PO DAILYBB Magnesium Oxide (Mag-Ox), 400 MG PO DAILYBL Multiple Vitamins W/ Minerals (Centrum), 1 TAB PO DAILY Potassium Chloride (Potassium Chloride), 20 MEQ PO 3XWK Sotalol HCl (Sotalol HCl), 80 MG PO QAM Sotalol HCl (Sotalol HCl), 40 MG PO QPM Scheduled PRN Acetaminophen (Tylenol), 1,000 MG PO Q8H PRN for Pain Dextromethorphan-Guaifenesin (Mucinex Dm), 1 TAB PO Q12 PRN for Cough Docusate Sodium (Docusate Sodium), 1 CAP PO BID PRN for Constipation Loperamide Hcl (Imodium), 2 MG PO for Diarrhea Loratadine (Claritin), 10 MG PO DAILY PRN for ALLERGY SX Ondansetron Hcl (Zofran), 1 TAB PO Q8H PRN for Nausea or Vomiting Prochlorperazine Maleate (Compazine), 5 MG PO Q6 PRN for Nausea Physical Exam Vital Signs Date Time Temp Pulse Resp B/P (MAP) Pulse Ox O2 Delivery O2 Flow Rate FiO2 05/13/17 00:22 37.0 89 22 103/65 95 Nasal Cannula 2.0 05/12/17 23:21 90 24 103/67 96 05/12/17 23:01 90 24 103/67 96 Nasal Cannula 3.0 05/12/17 21:41 105 20 126/81 96 Nasal Cannula 3.0 05/12/17 20:34 102 24 162/104 91 Nasal Cannula 2.0 05/12/17 20:24 100 05/12/17 19:54 100 Nasal Cannula 2.0 05/12/17 19:45 96 Room Air 05/12/17 19:45 96 Room Air 05/12/17 19:20 36.9 98 20 160/64 96 Room Air Diagnostics Laboratory Results Results Past 24 Hours Test 05/12/17 19:44 05/12/17 19:45 05/12/17 20:19 Range/Units Bedside Lactic Acid Venous 1.76 0.90-1.70 mmol/L White Blood Count 12.47 4.8-10.8 K/uL Red Blood Count 3.86 4.2-5.4 M/uL Hemoglobin 12.8 12.0-16.0 g/dL Hematocrit 38.6 37-47 % Mean Corpuscular Volume 100.0 80-100 fL Mean Corpuscular Hemoglobin 33.2 25-34 pg Mean Corpuscular Hemoglobin Concent 33.2 32-36 g/dl Platelet Count 390 130-400 K/uL Mean Platelet Volume 9.1 7.4-10.4 fL Neutrophils (%) (Auto) 72.3 % Lymphocytes (%) (Auto) 14.4 % Monocytes (%) (Auto) 8.5 % Eosinophils (%) (Auto) 4.1 % Basophils (%) (Auto) 0.5 % Neutrophils # (Auto) 9.01 1.4-6.5 K/uL Lymphocytes # (Auto) 1.80 1.2-3.4 K/uL Monocytes # (Auto) 1.06 0.11-0.59 K/uL Eosinophils # (Auto) 0.51 0-0.5 K/uL Basophils # (Auto) 0.06 0-0.2 K/uL RDW Standard Deviation 51.4 36.4-46.3 fL RDW Coefficient of Variation 14.2 11.5-14.5 % Immature Granulocyte % (Auto) 0.2 % Immature Granulocyte # (Auto) 0.03 0.00-0.02 K/uL Prothrombin Time 10.6 9.0-12.0 SECONDS Prothromb Time International Ratio 1.0 0.9-1.1 Activated Partial Thromboplast Time 29.3 21.0-31.0 SECONDS Partial Thromboplastin Ratio 1.1 Sodium Level 133 136-145 mmol/L Potassium Level 4.8 3.5-5.1 mmol/L Chloride Level 98 98-107 mmol/L Carbon Dioxide Level 28 21-32 mmol/L Anion Gap 7.0 3-11 mmol/L Blood Urea Nitrogen 22 7-18 mg/dl Creatinine 0.86 0.60-1.20 mg/dl Estimated GFR () 72.9 Estimated GFR (Non- 62.9 BUN/Creatinine Ratio 25.8 10-20 Random Glucose 95 70-99 mg/dl Calcium Level 9.2 8.5-10.1 mg/dl Bedside Troponin I < 0.030 0-0.045 ng/ml FV-Nxf-X-Type Natriuretic Peptide 1348 0-1800 pg/ml Microbiology Results 05/12/17 Blood Culture, Received Pending 05/12/17 Blood Culture, Received Pending Impression Assessment and Plan This is an 81 year old female with PMH of MS, neurogenic bladder and chronic indwelling catheter, paroxysmal atrial fibrillation s/p PPM, hx. of C. diff, hypothyroidism with admission to [facility] in February 2017 for pneumonia presents with worsening generalized weakness; found to have pneumonia HCAP CXR Airspace consolidation is seen at the left lung base. This could represent atelectasis, pneumonia, and/or aspiration pneumonitis. re-admission < 90 days leukocytosis, tachycardia, tachypnea on admission lactic acid < 2 cultures pending will start Vanco + Zosyn repeat CXR in 1-2 days Generalized Weakness possible MS flare? patient has been receiving PT as per neurology for MS she was doing well with a walker at baseline until one day prior to arrival will consult neurology regarding possible steroid use; will try to avoid to prevent immunosuppression Neurogenic Bladder chronic indwelling catheter Paroxysmal A. Fib currently NSR DVT ppx subq heparin FULL CODE Advanced Directives Existing Living Will: Yes Existing Power of Technician Preventative Medicine: Yes VTE Prophylaxis VTE Risk Assessment Done? Y/N: Yes Risk Level: Moderate
[2017-05-13 02:19] LABS: URINE APPEARANCE TURBID (CLEAR); URINE BILIRUBIN NEG (NEG); URINE COLOR YELLOW; URINE EPITHELIAL CELL AUTO >30 /lpf (0-5); URINE NITRITE POS (NEG); URINE SPECIFIC GRAVITY 1.015 (1.000-1.030); UROBILINOGEN NEG (NEG); ZZURINE CULT IF INDIC CATH YES
[2017-05-13 02:39] LABS: MANUAL MICROSCOPIC REQUIRED? NO; REVIEW REQ? YES
[2017-05-13 02:40] LABS: SULFASALICYLIC ACID POS (NEG)
[2017-05-13] MEDS: PIPERACILL/TAZOBAC IV 3.375 GM in DEXTROSE 5% 100ML 100 ML IV SCH ×3 (04:13→20:08)
--- NOTE | 2017-05-13 05:06 | Pharmacy Progress Note ---
Pharmacy Abx Initial Consult Date of Service May 13, 2017. Pharmacy Dosing Scope Date of Consult: 05/12/17 Consultation requested by: Dr. Garcias Pharmacy is consulted to initiate IV Zosyn and Vancomycin dosing therapy, order appropriate labs and adjust drug dose/frequency. Subjective The patient is a 81 year old female admitted on May 12, 2017 at 23:05 with SOB and nausea who's chest xray revealed what looked to be LLL Pneumonia. She had been treated for RLL Pneumonia here at [facility] back in February. She has hx of MS and has welsh catheter in place. Objective Height (Feet): 5 Height (Inches): 1.00 Weight (Kilograms): 54.400 Vital Signs (Past 12Hrs) Vital Signs Past 12 Hours Date Time Temp Pulse Resp B/P (MAP) Pulse Ox O2 Delivery O2 Flow Rate FiO2 05/13/17 00:22 37.0 89 22 103/65 95 Nasal Cannula 2.0 05/12/17 23:21 90 24 103/67 96 05/12/17 23:01 90 24 103/67 96 Nasal Cannula 3.0 05/12/17 21:41 105 20 126/81 96 Nasal Cannula 3.0 05/12/17 20:34 102 24 162/104 91 Nasal Cannula 2.0 05/12/17 20:24 100 05/12/17 19:54 100 Nasal Cannula 2.0 05/12/17 19:45 96 Room Air 05/12/17 19:45 96 Room Air 05/12/17 19:20 36.9 98 20 160/64 96 Room Air Lab Results (24Hrs) Laboratory Tests (24 Hours) Test 05/12/17 19:45 05/13/17 04:44 White Blood Count 12.47 K/uL (4.8-10.8) H Red Blood Count 3.86 M/uL (4.2-5.4) L Hemoglobin 12.8 g/dL (12.0-16.0) Hematocrit 38.6 % (37-47) Mean Corpuscular Volume 100.0 fL (80-100) Mean Corpuscular Hemoglobin 33.2 pg (25-34) Mean Corpuscular Hemoglobin Concent 33.2 g/dl (32-36) Platelet Count 390 K/uL (130-400) Mean Platelet Volume 9.1 fL (7.4-10.4) Neutrophils (%) (Auto) 72.3 % Lymphocytes (%) (Auto) 14.4 % Monocytes (%) (Auto) 8.5 % Eosinophils (%) (Auto) 4.1 % Basophils (%) (Auto) 0.5 % Neutrophils # (Auto) 9.01 K/uL (1.4-6.5) H Lymphocytes # (Auto) 1.80 K/uL (1.2-3.4) Monocytes # (Auto) 1.06 K/uL (0.11-0.59) H Eosinophils # (Auto) 0.51 K/uL (0-0.5) H Basophils # (Auto) 0.06 K/uL (0-0.2) Micro Results Date/Time Source Procedure Growth Status 05/12/17 20:31 Blood Blood Culture Pending Received 05/12/17 19:40 Blood Blood Culture Pending Received 05/13/17 02:10 Urine,Catheterized Urine Culture Pending Received Assessment & Plan Assessment 81 year old female who presents to the ER with SOB and nausea. Found to have LLL Pneumonia started on Zosyn and Vancomycin by Dr. Garcias Plan Vancomycin and Zosyn for treatment of PNX Vancomycin IV * Loading dose: 1450 mg (25 mg/kg) * Maintenance dose: 1000 mg IV (18 mg/kg) every 24 hours * Goal trough level for PNX : 15 to 20 mcg/mL * Trough level ordered prior to 2000 dose on 05/15/17 * I also ordered a MRSA nasal swab. History from [facility] does not she received IV Vancomycin in the past Piperacillin/tazobactam * 3.375g bolus administered over 30 minutes, then 3.375 g IV extended infusion every 8 hours for CrCl greater than 20 mL/min Pharmacy will continue to follow and will adjust dose/frequency as necessary. Thank you.
[2017-05-13] MEDS: LEVOTHYROXINE 100 MCG TAB PO SCH (06:11)
[2017-05-13] MEDS: HEPARIN SOD 5000 UNIT/0.5 ML CARP SQ SCH ×3 (06:13→21:47)
[2017-05-13 07:11] LABS: HEMATOCRIT 34.2 % (37-47); MEAN CORPUSCULAR HEMOGLOBIN 32.2 pg (25-34); MEAN CORPUSCULAR HGB CONC 32.2 g/dl (32-36); MEAN PLATELET VOLUME 8.8 fL (7.4-10.4); PLATELET COUNT 308 K/uL (130-400); RED BLOOD COUNT 3.42 M/uL (4.2-5.4); WHITE BLOOD COUNT 10.14 K/uL (4.8-10.8)
--- NOTE | 2017-05-13 07:17 | Neurology Consultation ---
Neurology Consultation Date of Consultation: May 13, 2017. Attending Physician: Mary Caro M.D. Primary Care Physician: Reggie Peña D.OBonnie Reason for Consultation: known ms now with weakness in legs patient known to you History of Present Illness Source: patient Mariluz is well known to me and has secondary ms for over thirty years and never on any treatment save episodic steroids and now has had multiple hospitalizations for infection issues etither uti or more recently pneumonitis and is now readmitted for increased cough no significant sputum production equivocal fevers and about 48 hours of increasing bilateral, right greater than left leg weakness which actually may be slightly better even now with institution of antibiotic rx for pneumonia. 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 Past Medical/Surgical History Medical Problems: (1) Dehydration Status: Acute (2) Exacerbation of multiple sclerosis Status: Acute (3) Failure of outpatient treatment Status: Acute (4) Left lower lobe pneumonia Status: Acute (5) Pacemaker failure Status: Acute (6) Partial small bowel obstruction Status: Acute (7) Right lower lobe pneumonia Status: Acute (8) UTI (urinary tract infection) Status: Acute (9) UTI (urinary tract infection) Status: Acute (10) Vomiting Status: Acute (11) Weakness Status: Acute Home Medications Scheduled Ascorbic Acid (Vitamin C), 500 MG PO DAILY@1200 Aspirin (Aspirin Ec), 81 MG PO BID Benzonatate (Benzonatate), 100 MG PO TID Calcium/Vitamin D (Os-Hitesh 500 Plus D), 1 TAB PO TID Cholecalciferol (Vitamin D3), 1 TAB PO BID Cyanocobalamin (Cyanocobalamin), 1,000 MCG INJ MONTHLY Estrogens, Conjugated (Premarin), 1 APPLN PV UD Furosemide (Lasix), 20 MG PO DAILY Levothyroxine Sodium (Levothyroxine Sodium), 100 MCG PO DAILYBB Magnesium Oxide (Mag-Ox), 400 MG PO DAILYBL Multiple Vitamins W/ Minerals (Centrum), 1 TAB PO DAILY Potassium Chloride (Potassium Chloride), 20 MEQ PO 3XWK Sotalol HCl (Sotalol HCl), 80 MG PO QAM Sotalol HCl (Sotalol HCl), 40 MG PO QPM Scheduled PRN Acetaminophen (Tylenol), 1,000 MG PO Q8H PRN for Pain Dextromethorphan-Guaifenesin (Mucinex Dm), 1 TAB PO Q12 PRN for Cough Docusate Sodium (Docusate Sodium), 1 CAP PO BID PRN for Constipation Loperamide Hcl (Imodium), 2 MG PO for Diarrhea Loratadine (Claritin), 10 MG PO DAILY PRN for ALLERGY SX Ondansetron Hcl (Zofran), 1 TAB PO Q8H PRN for Nausea or Vomiting Prochlorperazine Maleate (Compazine), 5 MG PO Q6 PRN for Nausea Family History non contributory due to age No previous generations or children have neurological disorders and specifically no MS Social History Smoking Status: Never smoker Alcohol Use: socially Drug Use: none Marital Status: Housing Status: lives with significant other Occupation Status: retired Allergies Coded Allergies: Sulfa Antibiotics (Verified Allergy, Unknown, ?, 05/12/17) Gluten (Verified Adverse Reaction, Intermediate, GI DISTRESS, 05/12/17) Codeine (Verified Adverse Reaction, Unknown, N/V, 05/12/17) Current Inpatient Medications Current Inpatient Medications Medications (Trade) Dose Ordered Sig/Van Route Start Time Stop Time Status Last Admin Dose Admin Vancomycin HCl 1000 mg/Sodium Chloride 270 ml @ 125 mls/hr Q24H IV 05/13/17 20:00 05/20/17 19:59 Piperacillin Sod/ Tazobactam Sod 3.375 gm/Dextrose 115 ml @ 28.75 mls/ hr Q8H IV 05/13/17 04:00 05/20/17 03:59 05/13/17 04:13 28.75 MLS/HR Vancomycin HCl (Consult) 1 ea UD PRN N/A 05/12/17 22:15 06/11/17 22:14 Piperacillin Sod/ Tazobactam Sod (Consult) 1 ea UD PRN N/A 05/12/17 22:15 06/11/17 22:14 Heparin Sodium (Porcine) (Heparin Sq 5000 Unit/0.5ml) 5,000 unit Q8H SQ 05/13/17 06:00 06/12/17 05:59 05/13/17 06:13 5,000 UNIT Acetaminophen (Tylenol Tab) 650 mg Q4H PRN PO 05/12/17 23:15 06/11/17 23:14 Al Hydrox/Mg Hydrox/Simethicone (Maalox Max Susp) 15 ml Q4H PRN PO 05/12/17 23:15 06/11/17 23:14 Magnesium Hydroxide (Milk Of Magnesia Susp) 30 ml Q6H PRN PO 05/12/17 23:15 06/11/17 23:14 Polyethylene (Miralax Powder Packet) 17 gm DAILY PRN PO 05/12/17 23:45 06/11/17 23:44 Ondansetron HCl (Zofran Inj) 4 mg Q6H PRN IV 05/12/17 23:15 06/11/17 23:14 Aspirin (Ecotrin Tab) 81 mg BID PO 05/13/17 09:00 06/12/17 08:59 Furosemide (Lasix Tab) 20 mg DAILY PO 05/13/17 09:00 06/12/17 08:59 Levothyroxine Sodium (Synthroid Tab) 100 mcg DAILYBB PO 05/13/17 06:30 06/12/17 06:59 05/13/17 06:11 100 MCG Loratadine (Claritin Tab) 10 mg DAILY PRN PO 05/12/17 23:15 06/11/17 23:14 Magnesium Oxide (Mag-Ox Tab) 400 mg DAILYBL PO 05/13/17 11:00 06/12/17 10:59 Sotalol HCl (Betapace Tab) 40 mg QPM PO 05/13/17 21:00 06/12/17 20:59 Sotalol HCl (Betapace Tab) 80 mg QAM PO 05/13/17 09:00 06/12/17 08:59 Review of Systems Constitutional: + fever Eyes: No worsening of vision, No eye pain, No redness, No discharge, No diplopia, No problem reported Respiratory: + cough, + sputum, + shortness of breath, + dyspnea on exertion, + dyspnea at rest Cardiovascular: + orthopnea, + PND, + edema Abdomen: + nausea, + vomiting Genitourinary - Female: + dysuria Neurologic: + weakness Physical Exam Vital Signs (Past 24 Hrs): Date Time Temp Pulse Resp B/P (MAP) Pulse Ox O2 Delivery O2 Flow Rate FiO2 05/13/17 00:22 37.0 89 22 103/65 95 Nasal Cannula 2.0 05/12/17 23:21 90 24 103/67 96 05/12/17 23:01 90 24 103/67 96 Nasal Cannula 3.0 05/12/17 21:41 105 20 126/81 96 Nasal Cannula 3.0 05/12/17 20:34 102 24 162/104 91 Nasal Cannula 2.0 05/12/17 20:24 100 05/12/17 19:54 100 Nasal Cannula 2.0 05/12/17 19:45 96 Room Air 05/12/17 19:45 96 Room Air 05/12/17 19:20 36.9 98 20 160/64 96 Room Air Physical Exam: Constitutional: .Appearance nourished, but thin and frail Ears, Nose, Mouth and Throat: mucous membranes moist, no injection and skin normal, eyes normal Cardiovascular: normal S-1 and S-2 and regular rate and rhythm Respiratory: clear to auscultation (CTA) and no rales, few rhonchi in right lung Musculoskeletal: mildperipheral edema and good distal pulses Abdomen: Soft nontender no hepatic or splenic enlargement Skin: normal and intact Eyes: extraocular muscles intact (EOMI) and pupils equal, round and reactive to light (PERRL) NEUROLOGIC EXAMINATION: Mental status: Alert and interactive Oriented to full date and location Oriented to person Speech fluent with no evidence of aphasia Cranial Nerves Normal findings for Cranial Nerves II - XII Reflexes: Deep tendon reflexes were symmetrical and graded 2/5.in upper extremities Lower extremity bilaterally weak worse on left and worse proximally with brisk dts indreased tone and bilateral extensor toes more brisk on right Overall degree of weakness is worse than bseline on the right sn only slightly worse on the left Sensory: no sensory deficits Coordination: on [id number] shows slight tremor with right arm loere extremities very spastic and stiff with increased tone Gait: patient cannot stand or bear weight on legs at the present time at baseline can ambulate over short distances with a walker and can transfer Motor: Negative for pronator drift of out stretched arms with eyes closed. legs very weak as above Laboratory Results Past 24 Hours: Test 05/12/17 19:44 05/12/17 19:45 05/12/17 20:19 05/13/17 02:10 Bedside Lactic Acid Venous 1.76 mmol/L (0.90-1.70) RDW Standard Deviation 51.4 fL (36.4-46.3) RDW Coefficient of Variation 14.2 % (11.5-14.5) White Blood Count 12.47 K/uL (4.8-10.8) Red Blood Count 3.86 M/uL (4.2-5.4) Hemoglobin 12.8 g/dL (12.0-16.0) Hematocrit 38.6 % (37-47) Mean Corpuscular Volume 100.0 fL (80-100) Mean Corpuscular Hemoglobin 33.2 pg (25-34) Mean Corpuscular Hemoglobin Concent 33.2 g/dl (32-36) Platelet Count 390 K/uL (130-400) Mean Platelet Volume 9.1 fL (7.4-10.4) Neutrophils (%) (Auto) 72.3 % Lymphocytes (%) (Auto) 14.4 % Monocytes (%) (Auto) 8.5 % Eosinophils (%) (Auto) 4.1 % Basophils (%) (Auto) 0.5 % Neutrophils # (Auto) 9.01 K/uL (1.4-6.5) Lymphocytes # (Auto) 1.80 K/uL (1.2-3.4) Monocytes # (Auto) 1.06 K/uL (0.11-0.59) Eosinophils # (Auto) 0.51 K/uL (0-0.5) Basophils # (Auto) 0.06 K/uL (0-0.2) Immature Granulocyte % (Auto) 0.2 % Immature Granulocyte # (Auto) 0.03 K/uL (0.00-0.02) Prothrombin Time 10.6 SECONDS (9.0-12.0) Prothromb Time International Ratio 1.0 (0.9-1.1) Activated Partial Thromboplast Time 29.3 SECONDS (21.0-31.0) Partial Thromboplastin Ratio 1.1 Bedside Troponin I < 0.030 ng/ml (0-0.045) IX-Lhh-[id number]-Type Natriuretic Peptide 1348 pg/ml (0-1800) Urine Color YELLOW Urine Appearance TURBID (CLEAR) Urine pH 8.0 (4.5-7.5) Urine Specific [place] 1.015 (1.000-1.030) Urine Protein 2+ (NEG) Urine Glucose (UA) NEG (NEG) Urine Ketones NEG (NEG) Urine Occult Blood 3+ (NEG) Urine Nitrite POS (NEG) Urine Bilirubin NEG (NEG) Urine Urobilinogen NEG (NEG) Urine Leukocyte Esterase LARGE (NEG) Urine WBC (Auto) >30 /hpf (0-5) Urine RBC (Auto) >30 /hpf (0-4) Urine Hyaline Casts (Auto) 1-5 /lpf (0-5) Urine Epithelial Cells (Auto) >30 /lpf (0-5) Urine Bacteria (Auto) 4+ (NEG) Urine Pathogenic Casts /lpf (0) Urine Yeast (Auto) PRESENT (NONE PRSENT) Test 05/13/17 06:39 Imaging Chest x ray rsluts reviewed and agree with interpretation no neuroimaging studies done and none needed Impression 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 This is not likely going to respond to steroids except for the nonspecific energizing effect and perhaps transient improvement in central nervous pathway conduction di may occur but would not be sustained I agree with holding steroids here until we see how she will respond to simple antibiotics, fever reduction , PT, OT and tincture of time. Plan As above This is not a true ms flare I would hold steroids for now I will check back tomorrow continue to rx the pneumonia and perhaps a uti if the labs support a true infection versus colonization in this chronically catheterized state
[2017-05-13 07:36] LABS: BUN/CREATININE RATIO 19.7 (10-20); CREATININE 0.97 mg/dl (0.60-1.20); POTASSIUM 4.2 mmol/L (3.5-5.1)
[2017-05-13] MEDS: MAGNESIUM OXIDE 400 MG TAB PO SCH (08:19)
[2017-05-13] MEDS: ASPIRIN 81 MG ECTAB PO SCH ×2 (08:19→20:27)
[2017-05-13] MEDS: SOTALOL HCL 80 MG TAB PO SCH ×2 (08:19→20:28)
[2017-05-13] MEDS: FUROSEMIDE 20 MG TAB PO SCH (08:21)
--- NOTE | 2017-05-13 17:33 | Progress Note ---
Medicine Progress Note Date & Time of Visit: May 13, 2017 at 16:54. Subjective Pt was seen and examined Lying in bed with no distress Pt said that she feels much better today She is breathing better on RA She denies any fever, cough, chest pain, palpitation, SOB and dizziness Objective Last 8 Hrs Date Time Temp Pulse Resp B/P (MAP) Pulse Ox O2 Delivery O2 Flow Rate FiO2 05/13/17 15:29 36.7 64 20 96/60 (72) 92 Room Air Physical Exam: General- No acute distress, very pleasant Head- atraumatic Eyes- PERRL, EOMI ENT- oropharynx clear Neck- supple, no JVD Lungs- No wheezing, no crackles Heart- regular rhythm Abdomen- normal bowel sounds, soft, nontender Extremities- no calf tenderness, +edema LE Neuro- alert, oriented x 3; PERRL, EOMI; no facial palsy Skin- warm & dry Laboratory Results: Last 24 Hours Test 05/12/17 19:44 05/12/17 19:45 05/12/17 20:19 05/13/17 02:10 Bedside Lactic Acid Venous 1.76 mmol/L White Blood Count 12.47 K/uL Red Blood Count 3.86 M/uL Hemoglobin 12.8 g/dL Hematocrit 38.6 % Mean Corpuscular Volume 100.0 fL Mean Corpuscular Hemoglobin 33.2 pg Mean Corpuscular Hemoglobin Concent 33.2 g/dl Platelet Count 390 K/uL Mean Platelet Volume 9.1 fL Neutrophils (%) (Auto) 72.3 % Lymphocytes (%) (Auto) 14.4 % Monocytes (%) (Auto) 8.5 % Eosinophils (%) (Auto) 4.1 % Basophils (%) (Auto) 0.5 % Neutrophils # (Auto) 9.01 K/uL Lymphocytes # (Auto) 1.80 K/uL Monocytes # (Auto) 1.06 K/uL Eosinophils # (Auto) 0.51 K/uL Basophils # (Auto) 0.06 K/uL RDW Standard Deviation 51.4 fL RDW Coefficient of Variation 14.2 % Immature Granulocyte % (Auto) 0.2 % Immature Granulocyte # (Auto) 0.03 K/uL Prothrombin Time 10.6 SECONDS Prothromb Time International Ratio 1.0 Activated Partial Thromboplast Time 29.3 SECONDS Partial Thromboplastin Ratio 1.1 Sodium Level 133 mmol/L Potassium Level 4.8 mmol/L Chloride Level 98 mmol/L Carbon Dioxide Level 28 mmol/L Anion Gap 7.0 mmol/L Blood Urea Nitrogen 22 mg/dl Creatinine 0.86 mg/dl Estimated GFR () 72.9 Estimated GFR (Non- 62.9 BUN/Creatinine Ratio 25.8 Random Glucose 95 mg/dl Calcium Level 9.2 mg/dl Bedside Troponin I < 0.030 ng/ml [id number] Natriuretic Peptide 1348 pg/ml Urine Color YELLOW Urine Appearance TURBID Urine pH 8.0 Urine Specific [place] 1.015 Urine Protein 2+ Urine Glucose (UA) NEG Urine Ketones NEG Urine Occult Blood 3+ Urine Nitrite POS Urine Bilirubin NEG Urine Urobilinogen NEG Urine Leukocyte Esterase LARGE Urine WBC (Auto) >30 /hpf Urine RBC (Auto) >30 /hpf Urine Hyaline Casts (Auto) 1-5 /lpf Urine Epithelial Cells (Auto) >30 /lpf Urine Bacteria (Auto) 4+ Urine Pathogenic Casts /lpf Urine Yeast (Auto) PRESENT Test 05/13/17 06:39 White Blood Count 10.14 K/uL Red Blood Count 3.42 M/uL Hemoglobin 11.0 g/dL Hematocrit 34.2 % Mean Corpuscular Volume 100.0 fL Mean Corpuscular Hemoglobin 32.2 pg Mean Corpuscular Hemoglobin Concent 32.2 g/dl RDW Standard Deviation 52.2 fL RDW Coefficient of Variation 14.2 % Platelet Count 308 K/uL Mean Platelet Volume 8.8 fL Sodium Level 134 mmol/L Potassium Level 4.2 mmol/L Chloride Level 100 mmol/L Carbon Dioxide Level 26 mmol/L Anion Gap 8.0 mmol/L Blood Urea Nitrogen 19 mg/dl Creatinine 0.97 mg/dl Est Creatinine Clear Calc Drug Dose 33.7 ml/min Estimated GFR () 63.0 Estimated GFR (Non- 54.4 BUN/Creatinine Ratio 19.7 Random Glucose 112 mg/dl Calcium Level 8.0 mg/dl Date/Time Source Procedure Growth Status 05/12/17 20:31 Blood Blood Culture Pending Received 05/12/17 19:40 Blood Blood Culture Pending Received 05/13/17 06:20 Nasal MRSA DNA Surveillance Screen - Final Specimen Negative for MRSA by DNA Probe Complete 05/13/17 02:10 Urine,Catheterized Urine Culture Pending Received Assessment & Plan WORSENING SOB Possible related to healthcare associated pneumonia CXR showed airspace consolidation seen at the left lung base. Was recently in the hospital 2 months ago Present with leukocytosis, tachycardia, tachypnea on admission lactic acid < 2 WBC trending down to normal, afebrile Blood cx and urine cx pending Continue vanco and zosyn for now Repeat CXR in am Generalized Weakness Doubt it is MS flares Neurology was consulted do not believe that was a true MS flared No steroid recommended as per Neuro PT/OT UTI UA is positive for UA Asymptomatic, but pt has neurogenic bladder dx On Zosyn Urine cx pending Neurogenic Bladder chronic indwelling catheter Paroxysmal A. Fib currently NSR Stable DVT ppx subq heparin FULL CODE Consultants: Neurology Current Inpatient Medications: Current Inpatient Medications Medications (Trade) Dose Ordered Sig/Van Route Start Time Stop Time Status Last Admin Dose Admin Vancomycin HCl 1000 mg/Sodium Chloride 270 ml @ 125 mls/hr Q24H IV 05/13/17 20:00 05/20/17 19:59 Piperacillin Sod/ Tazobactam Sod 3.375 gm/Dextrose 115 ml @ 28.75 mls/ hr Q8H IV 05/13/17 04:00 05/20/17 03:59 05/13/17 11:38 28.75 MLS/HR Vancomycin HCl (Consult) 1 ea UD PRN N/A 05/12/17 22:15 06/11/17 22:14 Piperacillin Sod/ Tazobactam Sod (Consult) 1 ea UD PRN N/A 05/12/17 22:15 06/11/17 22:14 Heparin Sodium (Porcine) (Heparin Sq 5000 Unit/0.5ml) 5,000 unit Q8H SQ 05/13/17 06:00 06/12/17 05:59 05/13/17 14:05 5,000 UNIT Acetaminophen (Tylenol Tab) 650 mg Q4H PRN PO 05/12/17 23:15 06/11/17 23:14 Al Hydrox/Mg Hydrox/Simethicone (Maalox Max Susp) 15 ml Q4H PRN PO 05/12/17 23:15 06/11/17 23:14 Magnesium Hydroxide (Milk Of Magnesia Susp) 30 ml Q6H PRN PO 05/12/17 23:15 06/11/17 23:14 Polyethylene (Miralax Powder Packet) 17 gm DAILY PRN PO 05/12/17 23:45 06/11/17 23:44 Ondansetron HCl (Zofran Inj) 4 mg Q6H PRN IV 05/12/17 23:15 06/11/17 23:14 05/13/17 11:05 4 MG Aspirin (Ecotrin Tab) 81 mg BID PO 05/13/17 09:00 06/12/17 08:59 05/13/17 08:19 81 MG Furosemide (Lasix Tab) 20 mg DAILY PO 05/13/17 09:00 06/12/17 08:59 05/13/17 08:21 20 MG Levothyroxine Sodium (Synthroid Tab) 100 mcg DAILYBB PO 05/13/17 06:30 06/12/17 06:59 05/13/17 06:11 100 MCG Loratadine (Claritin Tab) 10 mg DAILY PRN PO 05/12/17 23:15 06/11/17 23:14 Magnesium Oxide (Mag-Ox Tab) 400 mg DAILYBL PO 05/13/17 11:00 06/12/17 10:59 05/13/17 08:19 400 MG Sotalol HCl (Betapace Tab) 40 mg QPM PO 05/13/17 21:00 06/12/17 20:59 Sotalol HCl (Betapace Tab) 80 mg QAM PO 05/13/17 09:00 06/12/17 08:59 05/13/17 08:19 80 MG
[2017-05-13] MEDS ORDERED: VANCOMYCIN INJ 1,000 MG in SODIUM CHLORIDE 0.9% 250ML 250 ML IV SCH (20:00)
[2017-05-14] MEDS: PIPERACILL/TAZOBAC IV 3.375 GM in DEXTROSE 5% 100ML 100 ML IV SCH ×3 (03:33→20:01)
[2017-05-14] MEDS: LEVOTHYROXINE 100 MCG TAB PO SCH (05:59)
[2017-05-14] MEDS: HEPARIN SOD 5000 UNIT/0.5 ML CARP SQ SCH ×3 (06:00→20:58)
[2017-05-14 07:21] VITALS: BP 108/64; PULSE 72; TEMP 36.6; O2SAT 93
[2017-05-14 07:32] LABS: CREATININE 0.92 mg/dl (0.60-1.20)
[2017-05-14 08:00] VITALS: O2SAT 93
[2017-05-14] MEDS: ASPIRIN 81 MG ECTAB PO SCH ×2 (08:12→20:52)
[2017-05-14] MEDS: FUROSEMIDE 20 MG TAB PO SCH (08:12)
[2017-05-14] MEDS: SOTALOL HCL 80 MG TAB PO SCH ×2 (08:13→20:53)
[2017-05-14] MEDS: MAGNESIUM OXIDE 400 MG TAB PO SCH (08:13)
--- NOTE | 2017-05-14 10:23 | Neurology Progress Notes ---
Neurology Progress Note Date of Service May 14, 2017. Subjective Mariluz is better less cough and afrebrile and legs are getting back to near baseline will await pt assessment as she has not been out of bed but overall seems improved Objective Date Time Temp Pulse Resp B/P (MAP) Pulse Ox O2 Delivery O2 Flow Rate FiO2 05/14/17 08:00 93 Room Air 05/14/17 07:21 36.6 72 18 108/64 (79) 93 Room Air 05/14/17 00:00 Room Air 05/13/17 23:45 36.7 73 20 117/67 (84) 95 Room Air 05/13/17 20:31 71 111/66 (81) 05/13/17 16:00 92 Room Air 2.0 05/13/17 15:29 36.7 64 20 96/60 (72) 92 Room Air Last 24 Hours Test 05/14/17 06:31 Creatinine 0.92 mg/dl Est Creatinine Clear Calc Drug Dose 35.5 ml/min Estimated GFR () 67.2 Estimated GFR (Non- 58.0 Exam: Exam is baseline in terms of cranial nerves and upper extremity strength coordination and sensory exam Legs however remain paretic worse on right and this is here pattern at baseline Her distal strength bilaterally is improved tone remains very spastic but this too is baseline for her with bilateral up going toes and normal sensation Impression / Plan 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 This is not likely going to respond to steroids except for the nonspecific energizing effect and perhaps transient improvement in central nervous pathway conduction di may occur but would not be sustained I agree with holding steroids here until we see how she will respond to simple antibiotics, fever reduction , PT, OT and tincture of time. 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
[2017-05-14 11:41] VITALS: BP 107/65; PULSE 63; TEMP 36.4; O2SAT 95
--- NOTE | 2017-05-14 13:52 | Progress Note ---
Medicine Progress Note Date & Time of Visit: May 14, 2017 at 13:36. Subjective Pt was seen and examined Lying in bed with no distress Pt said that she feels a little better today Pt said that she still has some weakness She said that her breathing is getting better Denies any fever, palpitation, dizziness and SOB Objective Last 8 Hrs Date Time Temp Pulse Resp B/P (MAP) Pulse Ox O2 Delivery O2 Flow Rate FiO2 05/14/17 11:41 36.4 63 18 107/65 (79) 95 Room Air 05/14/17 08:00 93 Room Air 05/14/17 07:21 36.6 72 18 108/64 (79) 93 Room Air Physical Exam: General- No acute distress, very pleasant Head- atraumatic Eyes- PERRL, EOMI ENT- oropharynx clear Neck- supple, no JVD Lungs- No wheezing, no crackles Heart- regular rhythm Abdomen- normal bowel sounds, soft, nontender Extremities- no calf tenderness, +edema LE Neuro- alert, oriented x 3; PERRL, EOMI; no facial palsy Skin- warm & dry Laboratory Results: Last 24 Hours Test 05/14/17 06:31 Creatinine 0.92 mg/dl Est Creatinine Clear Calc Drug Dose 35.5 ml/min Estimated GFR () 67.2 Estimated GFR (Non- 58.0 Date/Time Source Procedure Growth Status 05/14/17 09:40 Urine,Catheterized Urine Culture Pending Received Assessment & Plan WORSENING SOB Possible related to healthcare associated pneumonia CXR showed airspace consolidation seen at the left lung base. Was recently in the hospital 2 months ago Present with leukocytosis, tachycardia, tachypnea on admission lactic acid < 2 WBC trending down to normal, afebrile Blood cx and urine cx pending D/c vanco Will continue with Zosyn for now Clinically improved Repeat CXR tomorrow Generalized Weakness Doubt it is MS flares Neurology was consulted do not believe that was a true MS flared No steroid recommended as per Neuro Continue Physical therapy UTI UA is positive for UA Asymptomatic, but pt has neurogenic bladder dx On Zosyn Urine cx growth more than 3 organisms will repeat urine cx Neurogenic Bladder chronic indwelling catheter Paroxysmal A. Fib currently NSR Stable DVT ppx subq heparin FULL CODE Consultants: Neurology Current Inpatient Medications: Current Inpatient Medications Medications (Trade) Dose Ordered Sig/Van Route Start Time Stop Time Status Last Admin Dose Admin Piperacillin Sod/ Tazobactam Sod 3.375 gm/Dextrose 115 ml @ 28.75 mls/ hr Q8H IV 05/13/17 04:00 05/20/17 03:59 05/14/17 12:01 28.75 MLS/HR Piperacillin Sod/ Tazobactam Sod (Consult) 1 ea UD PRN N/A 05/12/17 22:15 06/11/17 22:14 Heparin Sodium (Porcine) (Heparin Sq 5000 Unit/0.5ml) 5,000 unit Q8H SQ 05/13/17 06:00 06/12/17 05:59 05/14/17 06:00 5,000 UNIT Acetaminophen (Tylenol Tab) 650 mg Q4H PRN PO 05/12/17 23:15 06/11/17 23:14 Al Hydrox/Mg Hydrox/Simethicone (Maalox Max Susp) 15 ml Q4H PRN PO 05/12/17 23:15 06/11/17 23:14 05/13/17 23:33 15 ML Magnesium Hydroxide (Milk Of Magnesia Susp) 30 ml Q6H PRN PO 05/12/17 23:15 06/11/17 23:14 Polyethylene (Miralax Powder Packet) 17 gm DAILY PRN PO 05/12/17 23:45 06/11/17 23:44 Ondansetron HCl (Zofran Inj) 4 mg Q6H PRN IV 05/12/17 23:15 06/11/17 23:14 05/13/17 11:05 4 MG Aspirin (Ecotrin Tab) 81 mg BID PO 05/13/17 09:00 06/12/17 08:59 05/14/17 08:12 81 MG Furosemide (Lasix Tab) 20 mg DAILY PO 05/13/17 09:00 06/12/17 08:59 05/14/17 08:12 20 MG Levothyroxine Sodium (Synthroid Tab) 100 mcg DAILYBB PO 05/13/17 06:30 06/12/17 06:59 05/14/17 05:59 100 MCG Loratadine (Claritin Tab) 10 mg DAILY PRN PO 05/12/17 23:15 06/11/17 23:14 Magnesium Oxide (Mag-Ox Tab) 400 mg DAILYBL PO 05/13/17 11:00 06/12/17 10:59 05/14/17 08:13 400 MG Sotalol HCl (Betapace Tab) 40 mg QPM PO 05/13/17 21:00 06/12/17 20:59 05/13/17 20:28 40 MG Sotalol HCl (Betapace Tab) 80 mg QAM PO 05/13/17 09:00 06/12/17 08:59 05/14/17 08:13 80 MG
[2017-05-14 15:52] VITALS: BP 114/68; PULSE 67; TEMP 36.9; O2SAT 95
[2017-05-14 16:00] VITALS: O2SAT 92
[2017-05-14] MEDS: NYSTATIN POWDER 15GM BTL EXT SCH (20:41)
[2017-05-14 23:22] VITALS: BP 157/70; PULSE 78; TEMP 36.7; O2SAT 100
[2017-05-15] MEDS: PIPERACILL/TAZOBAC IV 3.375 GM in DEXTROSE 5% 100ML 100 ML IV SCH ×2 (03:36→12:26)
[2017-05-15 05:39] LABS: HEMATOCRIT 32.4 % (37-47); MEAN CELL VOLUME 97.9 fL (80-100); MEAN CORPUSCULAR HEMOGLOBIN 31.4 pg (25-34); MEAN CORPUSCULAR HGB CONC 32.1 g/dl (32-36); MEAN PLATELET VOLUME 8.7 fL (7.4-10.4); PLATELET COUNT 316 K/uL (130-400); RED BLOOD COUNT 3.31 M/uL (4.2-5.4); WHITE BLOOD COUNT 6.69 K/uL (4.8-10.8)
[2017-05-15] MEDS: LEVOTHYROXINE 100 MCG TAB PO SCH (06:02)
[2017-05-15] MEDS: HEPARIN SOD 5000 UNIT/0.5 ML CARP SQ SCH ×3 (06:06→21:28)
[2017-05-15 06:17] LABS: BUN/CREATININE RATIO 16.9 (10-20); CALCIUM 7.5 mg/dl (8.5-10.1); CREATININE 0.92 mg/dl (0.60-1.20); POTASSIUM 3.7 mmol/L (3.5-5.1)
--- NOTE | 2017-05-15 07:23 | DIAGNOSTIC IMAGING REPORT ---
CHEST ONE VIEW PORTABLE CLINICAL HISTORY: 81 years-old Female presenting with f/u. TECHNIQUE: Portable upright AP view of the chest was obtained. COMPARISON: 05/12/2017. FINDINGS: Left-sided pacer with leads to the right atrium and right ventricular apex again noted. Cardiomediastinal silhouette unchanged. Suggestion of perihilar vascular indistinctness. Scattered minimal vague opacities in the right mid and lower lung as well as more discrete bandlike opacities at the left lung base. Minimal blunting of the left costophrenic angle, likely trace effusion. No pneumothorax. Osseous structures and upper abdomen grossly normal. IMPRESSION: 1. Perihilar vascular indistinctness and minimal subtle lung opacities may indicate volume overload. No da pulmonary edema. No convincing evidence of focal infiltrate to suggest pneumonia. Electronically signed by: Jesse Cleary 05/15/2017 7:21 AM Dictated Date/Time: 05/15/2017 7:16 AM
[2017-05-15 07:28] VITALS: BP 111/69; PULSE 67; TEMP 37.2; O2SAT 92
[2017-05-15] MEDS: SOTALOL HCL 80 MG TAB PO SCH ×2 (08:05→20:40)
[2017-05-15] MEDS: ASPIRIN 81 MG ECTAB PO SCH ×2 (08:05→20:39)
[2017-05-15] MEDS: NYSTATIN POWDER 15GM BTL EXT SCH ×2 (08:06→20:40)
[2017-05-15] MEDS: FUROSEMIDE 20 MG TAB PO SCH (08:06)
[2017-05-15] MEDS: MAGNESIUM OXIDE 400 MG TAB PO SCH (11:15)
[2017-05-15] MEDS: LOPERAMIDE HCL 2 MG CAP PO PRN ×2 (14:31→23:21)
[2017-05-15 15:51] VITALS: BP 135/91; PULSE 61; TEMP 36.5; O2SAT 94; O2SAT 97
--- NOTE | 2017-05-15 15:53 | Neurology Progress Notes ---
Neurology Progress Note Date of Service May 15, 2017. Subjective Mariluz is much better afebrile diarrhea is responding to meds and c diff is negative She has been up walking with a walker with PT and feels she is back to nearly her baseline and is planning to go home tomorrow Objective Date Time Temp Pulse Resp B/P (MAP) Pulse Ox O2 Delivery O2 Flow Rate FiO2 05/15/17 08:00 Room Air 05/15/17 07:28 37.2 67 16 111/69 (83) 92 Room Air 05/15/17 00:00 Room Air 05/14/17 23:22 36.7 78 20 157/70 (99) 100 Room Air 05/14/17 16:00 92 Room Air 05/14/17 15:52 36.9 67 20 114/68 (83) 95 Room Air Last 24 Hours Test 05/15/17 05:11 White Blood Count 6.69 K/uL Red Blood Count 3.31 M/uL Hemoglobin 10.4 g/dL Hematocrit 32.4 % Mean Corpuscular Volume 97.9 fL Mean Corpuscular Hemoglobin 31.4 pg Mean Corpuscular Hemoglobin Concent 32.1 g/dl RDW Standard Deviation 50.3 fL RDW Coefficient of Variation 14.0 % Platelet Count 316 K/uL Mean Platelet Volume 8.7 fL Sodium Level 137 mmol/L Potassium Level 3.7 mmol/L Chloride Level 105 mmol/L Carbon Dioxide Level 26 mmol/L Anion Gap 6.0 mmol/L Blood Urea Nitrogen 16 mg/dl Creatinine 0.92 mg/dl Est Creatinine Clear Calc Drug Dose 35.5 ml/min Estimated GFR () 67.2 Estimated GFR (Non- 58.0 BUN/Creatinine Ratio 16.9 Random Glucose 93 mg/dl Calcium Level 7.5 mg/dl Exam: Cranial nerves normal upper extremities only mildly clumsy and back to her baseline legs spastic and weak proximally more than distally with increased tone and upgoing toes and worse on the right but the exam is at her baseline for me minor subjective reduced touch over the toes Impression / Plan 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 This is not likely going to respond to steroids except for the nonspecific energizing effect and perhaps transient improvement in central nervous pathway conduction di may occur but would not be sustained I agree with holding steroids here until we see how she will respond to simple antibiotics, fever reduction , PT, OT and tincture of time. 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
--- NOTE | 2017-05-15 17:30 | Progress Note ---
Medicine Progress Note Date & Time of Visit: May 15, 2017 at 17:15. Subjective Pt was seen and examined Sitting in bed with no distress Pt said that she has been having diarrhea She said the stool is loose, no watery She is worried about Cdiff because she had Cdiff in the past She feels tired today Denies any fever, chills, palpitation, dizziness and SOB Objective Last 8 Hrs Date Time Temp Pulse Resp B/P (MAP) Pulse Ox O2 Delivery O2 Flow Rate FiO2 05/15/17 15:51 36.5 61 17 135/91 (106) 97 Room Air Physical Exam: General- No acute distress, very pleasant Head- atraumatic Eyes- PERRL, EOMI ENT- oropharynx clear Neck- supple, no JVD Lungs- No wheezing, no crackles Heart- regular rhythm Abdomen- normal bowel sounds, soft, nontender Extremities- no calf tenderness, +edema LE Neuro- alert, oriented x 3; PERRL, EOMI; no facial palsy Skin- warm & dry Laboratory Results: Last 24 Hours Test 05/15/17 05:11 White Blood Count 6.69 K/uL Red Blood Count 3.31 M/uL Hemoglobin 10.4 g/dL Hematocrit 32.4 % Mean Corpuscular Volume 97.9 fL Mean Corpuscular Hemoglobin 31.4 pg Mean Corpuscular Hemoglobin Concent 32.1 g/dl RDW Standard Deviation 50.3 fL RDW Coefficient of Variation 14.0 % Platelet Count 316 K/uL Mean Platelet Volume 8.7 fL Sodium Level 137 mmol/L Potassium Level 3.7 mmol/L Chloride Level 105 mmol/L Carbon Dioxide Level 26 mmol/L Anion Gap 6.0 mmol/L Blood Urea Nitrogen 16 mg/dl Creatinine 0.92 mg/dl Est Creatinine Clear Calc Drug Dose 35.5 ml/min Estimated GFR () 67.2 Estimated GFR (Non- 58.0 BUN/Creatinine Ratio 16.9 Random Glucose 93 mg/dl Calcium Level 7.5 mg/dl Assessment & Plan WORSENING SOB Possible related to healthcare associated pneumonia CXR showed airspace consolidation seen at the left lung base. Was recently in the hospital 2 months ago Present with leukocytosis, tachycardia, tachypnea on admission lactic acid < 2 WBC trending down to normal, afebrile Blood cx and urine cx no growth CXR showed perihilar vascular indistinctness and minimal subtle lung opacities may indicate volume overload D/c vanco D/C Zosyn abx changed to doxy PO Clinically improved Generalized Weakness Doubt it is MS flares Neurology was consulted do not believe that was a true MS flared No steroid recommended as per Neuro Continue Physical therapy Stable UTI UA is positive for UA Asymptomatic, but pt has neurogenic bladder dx On Zosyn repeat Urine cx growth more than 3 organisms will d/c zosyn Neurogenic Bladder chronic indwelling catheter Paroxysmal A. Fib currently NSR Stable DVT ppx subq heparin FULL CODE Consultants: Neurology Current Inpatient Medications: Current Inpatient Medications Medications (Trade) Dose Ordered Sig/Van Route Start Time Stop Time Status Last Admin Dose Admin Piperacillin Sod/ Tazobactam Sod (Consult) 1 ea UD PRN N/A 05/12/17 22:15 06/11/17 22:14 Heparin Sodium (Porcine) (Heparin Sq 5000 Unit/0.5ml) 5,000 unit Q8H SQ 05/13/17 06:00 06/12/17 05:59 05/15/17 14:28 5,000 UNIT Acetaminophen (Tylenol Tab) 650 mg Q4H PRN PO 05/12/17 23:15 06/11/17 23:14 Al Hydrox/Mg Hydrox/Simethicone (Maalox Max Susp) 15 ml Q4H PRN PO 05/12/17 23:15 06/11/17 23:14 05/13/17 23:33 15 ML Magnesium Hydroxide (Milk Of Magnesia Susp) 30 ml Q6H PRN PO 05/12/17 23:15 06/11/17 23:14 Polyethylene (Miralax Powder Packet) 17 gm DAILY PRN PO 05/12/17 23:45 06/11/17 23:44 Ondansetron HCl (Zofran Inj) 4 mg Q6H PRN IV 05/12/17 23:15 06/11/17 23:14 05/13/17 11:05 4 MG Aspirin (Ecotrin Tab) 81 mg BID PO 05/13/17 09:00 06/12/17 08:59 05/15/17 08:05 81 MG Furosemide (Lasix Tab) 20 mg DAILY PO 05/13/17 09:00 06/12/17 08:59 05/15/17 08:06 20 MG Levothyroxine Sodium (Synthroid Tab) 100 mcg DAILYBB PO 05/13/17 06:30 06/12/17 06:59 05/15/17 06:02 100 MCG Loratadine (Claritin Tab) 10 mg DAILY PRN PO 05/12/17 23:15 06/11/17 23:14 Magnesium Oxide (Mag-Ox Tab) 400 mg DAILYBL PO 05/13/17 11:00 06/12/17 10:59 05/15/17 11:15 400 MG Sotalol HCl (Betapace Tab) 40 mg QPM PO 05/13/17 21:00 06/12/17 20:59 05/14/17 20:53 40 MG Sotalol HCl (Betapace Tab) 80 mg QAM PO 05/13/17 09:00 06/12/17 08:59 05/15/17 08:05 80 MG Nystatin (Mycostatin Powder) 1 appln BID EXT 05/14/17 21:00 06/13/17 20:59 Loperamide HCl (Imodium Cap) 2 mg Q8 PRN PO 05/15/17 14:15 06/14/17 14:14 05/15/17 14:31 2 MG
[2017-05-15 19:40] VITALS: BP 147/76; PULSE 71; TEMP 36.6; O2SAT 96
[2017-05-15] MEDS: DOXYCYCLINE HYCLATE 100 MG CAP PO SCH (20:39)
[2017-05-15 23:22] VITALS: BP 156/89; PULSE 72; TEMP 36.9; O2SAT 91
[2017-05-16] MEDS: LEVOTHYROXINE 100 MCG TAB PO SCH (06:07)
[2017-05-16] MEDS: HEPARIN SOD 5000 UNIT/0.5 ML CARP SQ SCH ×2 (06:09→14:44)
[2017-05-16 06:46] LABS: BUN/CREATININE RATIO 18.1 (10-20); CALCIUM 7.8 mg/dl (8.5-10.1); CREATININE 0.75 mg/dl (0.60-1.20); POTASSIUM 3.7 mmol/L (3.5-5.1)
[2017-05-16 07:46] VITALS: BP 131/73; PULSE 74; TEMP 36.7; O2SAT 94
[2017-05-16] MEDS: ASPIRIN 81 MG ECTAB PO SCH (08:14)
[2017-05-16] MEDS: SOTALOL HCL 80 MG TAB PO SCH (08:14)
[2017-05-16] MEDS: FUROSEMIDE 20 MG TAB PO SCH (08:14)
[2017-05-16] MEDS: NYSTATIN POWDER 15GM BTL EXT SCH (08:15)
[2017-05-16] MEDS: DOXYCYCLINE HYCLATE 100 MG CAP PO SCH (08:15)
[2017-05-16] MEDS: LOPERAMIDE HCL 2 MG CAP PO PRN ×2 (10:38→18:40)
[2017-05-16] MEDS: MAGNESIUM OXIDE 400 MG TAB PO SCH (11:25)
[2017-05-16 15:33] VITALS: BP 135/79; PULSE 66; TEMP 36.5; O2SAT 95
--- NOTE | 2017-05-16 15:46 | Neurology Progress Notes ---
Neurology Progress Note Date of Service May 16, 2017. Gem Mcgraw is back to nearly her baseline today but the diarrhea has returned and now c diff testing is being done ( I erroneously thought that it had been done yesterday ) If negative she will be going home on oral antibiotics. Objective Date Time Temp Pulse Resp B/P (MAP) Pulse Ox O2 Delivery O2 Flow Rate FiO2 05/16/17 15:33 36.5 66 17 135/79 (97) 95 Room Air 05/16/17 07:46 36.7 74 18 131/73 (92) 94 Room Air 05/16/17 00:01 Room Air 05/15/17 23:22 36.9 72 18 156/89 (111) 91 Room Air 05/15/17 19:40 36.6 71 18 147/76 (99) 96 Room Air 05/15/17 19:15 Room Air 05/15/17 16:00 Room Air 05/15/17 15:51 36.5 61 17 135/91 (106) 97 Room Air Last 24 Hours Test 05/16/17 06:04 Sodium Level 138 mmol/L Potassium Level 3.7 mmol/L Chloride Level 107 mmol/L Carbon Dioxide Level 23 mmol/L Anion Gap 8.0 mmol/L Blood Urea Nitrogen 14 mg/dl Creatinine 0.75 mg/dl Est Creatinine Clear Calc Drug Dose 43.6 ml/min Estimated GFR () 86.0 Estimated GFR (Non- 74.2 BUN/Creatinine Ratio 18.1 Random Glucose 89 mg/dl Calcium Level 7.8 mg/dl Exam: Exam neurologically remains at her baseline with intact cranial nerves, minor clumsiness of the arms, 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 This is not likely going to respond to steroids except for the nonspecific energizing effect and perhaps transient improvement in central nervous pathway conduction di may occur but would not be sustained I agree with holding steroids here until we see how she will respond to simple antibiotics, fever reduction , PT, OT and tincture of time. 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
--- NOTE | 2017-05-16 16:22 | Progress Note ---
Medicine Progress Note Date & Time of Visit: May 16, 2017 at 16:15. Subjective Pt was seen and examined Sitting in bed with no distress Pt said that she had a BM accident today she said that her stool is very loose She said that she is having a hard time to hold her BM Denies any chest pain, palpitation, dizziness and SOB Objective Last 8 Hrs Date Time Temp Pulse Resp B/P (MAP) Pulse Ox O2 Delivery O2 Flow Rate FiO2 05/16/17 15:33 36.5 66 17 135/79 (97) 95 Room Air Physical Exam: General- No acute distress, very pleasant Head- atraumatic Eyes- PERRL, EOMI ENT- oropharynx clear Neck- supple, no JVD Lungs- No wheezing, no crackles Heart- regular rhythm Abdomen- normal bowel sounds, soft, nontender Extremities- no calf tenderness, +trace edema LE Neuro- alert, oriented x 3; PERRL, EOMI; no facial palsy Skin- warm & dry Laboratory Results: Last 24 Hours Test 05/16/17 06:04 Sodium Level 138 mmol/L Potassium Level 3.7 mmol/L Chloride Level 107 mmol/L Carbon Dioxide Level 23 mmol/L Anion Gap 8.0 mmol/L Blood Urea Nitrogen 14 mg/dl Creatinine 0.75 mg/dl Est Creatinine Clear Calc Drug Dose 43.6 ml/min Estimated GFR () 86.0 Estimated GFR (Non- 74.2 BUN/Creatinine Ratio 18.1 Random Glucose 89 mg/dl Calcium Level 7.8 mg/dl Date/Time Source Procedure Growth Status 05/16/17 14:03 Stool C.difficile Toxin B Gene (PCR) - Final No C. difficile toxin B gene detected Complete Assessment & Plan WORSENING SOB Possible related to healthcare associated pneumonia CXR showed airspace consolidation seen at the left lung base. Was recently in the hospital 2 months ago Present with leukocytosis, tachycardia, tachypnea on admission lactic acid < 2 WBC trending down to normal, afebrile Blood cx and urine cx no growth CXR showed perihilar vascular indistinctness and minimal subtle lung opacities may indicate volume overload D/c vanco D/C Zosyn abx changed to doxy PO Continue Doxy for 2 days Clinically improved DIARRHEA Stool is more loose possible related to abx stool for Cdiff negative Continue loperamide prn Generalized Weakness Doubt it is MS flares Neurology was consulted do not believe that was a true MS flared No steroid recommended as per Neuro Continue Physical therapy Stable UTI UA is positive for UA Asymptomatic, but pt has neurogenic bladder dx On Zosyn repeat Urine cx growth more than 3 organisms will d/c zosyn Neurogenic Bladder chronic indwelling catheter Paroxysmal A. Fib currently NSR Stable DVT ppx subq heparin FULL CODE Consultants: Neurology Current Inpatient Medications: Current Inpatient Medications Medications (Trade) Dose Ordered Sig/Van Route Start Time Stop Time Status Last Admin Dose Admin Heparin Sodium (Porcine) (Heparin Sq 5000 Unit/0.5ml) 5,000 unit Q8H SQ 05/13/17 06:00 06/12/17 05:59 05/16/17 14:44 5,000 UNIT Acetaminophen (Tylenol Tab) 650 mg Q4H PRN PO 05/12/17 23:15 06/11/17 23:14 Al Hydrox/Mg Hydrox/Simethicone (Maalox Max Susp) 15 ml Q4H PRN PO 05/12/17 23:15 06/11/17 23:14 05/13/17 23:33 15 ML Magnesium Hydroxide (Milk Of Magnesia Susp) 30 ml Q6H PRN PO 05/12/17 23:15 06/11/17 23:14 Polyethylene (Miralax Powder Packet) 17 gm DAILY PRN PO 05/12/17 23:45 06/11/17 23:44 Ondansetron HCl (Zofran Inj) 4 mg Q6H PRN IV 05/12/17 23:15 06/11/17 23:14 05/13/17 11:05 4 MG Aspirin (Ecotrin Tab) 81 mg BID PO 05/13/17 09:00 06/12/17 08:59 05/16/17 08:14 81 MG Furosemide (Lasix Tab) 20 mg DAILY PO 05/13/17 09:00 06/12/17 08:59 05/16/17 08:14 20 MG Levothyroxine Sodium (Synthroid Tab) 100 mcg DAILYBB PO 05/13/17 06:30 06/12/17 06:59 05/16/17 06:07 100 MCG Loratadine (Claritin Tab) 10 mg DAILY PRN PO 05/12/17 23:15 06/11/17 23:14 Magnesium Oxide (Mag-Ox Tab) 400 mg DAILYBL PO 05/13/17 11:00 06/12/17 10:59 05/16/17 11:25 400 MG Sotalol HCl (Betapace Tab) 40 mg QPM PO 05/13/17 21:00 06/12/17 20:59 05/15/17 20:40 40 MG Sotalol HCl (Betapace Tab) 80 mg QAM PO 05/13/17 09:00 06/12/17 08:59 05/16/17 08:14 80 MG Nystatin (Mycostatin Powder) 1 appln BID EXT 05/14/17 21:00 06/13/17 20:59 Loperamide HCl (Imodium Cap) 2 mg Q8 PRN PO 05/15/17 14:15 06/14/17 14:14 05/16/17 10:38 2 MG Doxycycline Hyclate (Vibramycin Cap) 100 mg BID PO 05/15/17 21:00 05/22/17 20:59 05/16/17 08:15 100 MG
[2017-05-16] MEDS ORDERED: DXY100 PO (16:27)
--- NOTE | 2017-05-16 16:46 | Discharge Instructions ---
Discharge Instructions Date of Service May 16, 2017. Admission Reason for Admission: Hcap (Healthcare-Associated Pneumonia) Discharge Discharge Diagnosis / Problem: Pneumonia, Generalized Weakness, Diarrhea, Abnormal UA Discharge Goals Goal(s): Decrease discomfort, Improve function, Improve disease control Activity Recommendations Activity Limitations: resume your previous activity (as tolerated) . Instructions / Follow-Up Instructions / Follow-Up Follow up with your Primary care provider Dr. Peña on 05/19 @ 10:55 AM Continue Physical therapy Follow up with Neurology Dr. Coreas in 1 Month Complete Abx course Fall precaution Current Hospital Diet Patient's current hospital diet: Regular Diet Discharge Diet Recommended Diet: Regular Diet Pending Studies Studies pending at discharge: no Medical Emergencies . Who to Call and When: Medical Emergencies: If at any time you feel your situation is an emergency, please call 911 immediately. . Non-Emergent Contact Non-Emergency issues call your: Primary Care Provider Call Non-Emergent contact if: you have a fever, you have any medication questions . . "Provider Documentation" section prepared by Mary Caro. . VTE Core Measure Inpt VTE Proph given/why not?: Unfractionated heparin SQ
[2017-05-16 17:48] VITALS: BP 135/79; PULSE 66; TEMP 36.5; O2SAT 95
--- NOTE | 2017-05-19 09:36 | Discharge Summary ---
Discharge Summary Date of Service May 19, 2017. Discharge Summary Admission Date: May 12, 2017 at 23:05 Discharge Date: May 16, 2017 Discharge Disposition: Home with services Principal Diagnosis: PNEUMONIA Secondary Diagnoses/Problems: GENERALIZED WEAKNESS DIARRHEA NEUROGENIC BLADDER ABNORMAL UA P AFIB MS Procedures: TWO VIEW CHEST CLINICAL HISTORY: Cough and dyspnea. FINDINGS: AP and lateral chest radiographs are compared to study dated 03/01/2017. Correlation is made with chest CT dated 10/20/2015. The AP view is significant degraded by patient rotation. A 2-lead cardiac pacemaker is unchanged in position and partially obscures the left mid chest. The heart is enlarged and there is atherosclerotic calcification of the thoracic aorta. The pulmonary vasculature is noncongested. Chronic interstitial thickening is similar to previous. Airspace consolidation is identified at the left lung base. The right lung is grossly clear and there is no large pleural effusion. There is no pneumothorax. The skeletal structures are osteopenic. Numerous compression deformities are seen in the imaged lower lumbar spine. Degenerative change and hyperkyphosis is present. There are healed right-sided rib fractures. IMPRESSION: 1. Cardiomegaly and cardiac pacemaker. There is no radiographic evidence of congestive failure. 2. Airspace consolidation is seen at the left lung base. This could represent atelectasis, pneumonia, and/or aspiration pneumonitis. Clinical correlation will be required and radiographic follow-up to resolution is recommended. Electronically signed by: Jose Pisano M.D. 05/12/2017 9:20 PM Dictated Date/Time: 05/12/2017 9:17 PM CHEST ONE VIEW PORTABLE CLINICAL HISTORY: 81 years-old Female presenting with f/u. TECHNIQUE: Portable upright AP view of the chest was obtained. COMPARISON: 05/12/2017. FINDINGS: Left-sided pacer with leads to the right atrium and right ventricular apex again noted. Cardiomediastinal silhouette unchanged. Suggestion of perihilar vascular indistinctness. Scattered minimal vague opacities in the right mid and lower lung as well as more discrete bandlike opacities at the left lung base. Minimal blunting of the left costophrenic angle, likely trace effusion. No pneumothorax. Osseous structures and upper abdomen grossly normal. IMPRESSION: 1. Perihilar vascular indistinctness and minimal subtle lung opacities may indicate volume overload. No da pulmonary edema. No convincing evidence of focal infiltrate to suggest pneumonia. Electronically signed by: Jesse Cleary 05/15/2017 7:21 AM Dictated Date/Time: 05/15/2017 7:16 AM Consultations: Neurology Medication Reconciliation New Medications: Doxycycline Hyclate (Doxycycline Hyclate) 100 Mg Cap 100 MG PO BID for 2 Days, #4 CAP Continued Medications: Acetaminophen (Tylenol) 500 Mg Tab 1000 MG PO Q8H PRN for Pain, TAB Ascorbic Acid (Vitamin C) 500 Mg Tab 500 MG PO DAILY@1200 Aspirin (Aspirin Ec) 81 Mg Tab 81 MG PO BID Benzonatate (Benzonatate) 100 Mg Cap 100 MG PO TID for 3 Days, #9 CAP Calcium/Vitamin D (Os-Hitesh 500 Plus D) Tab 1 TAB PO TID Cholecalciferol (Vitamin D3) 1,000 Unit Tab 1 TAB PO BID for 90 Days, #180 TAB 3 Refills Cyanocobalamin (Cyanocobalamin) 1,000 Mcg/Ml Inj 1000 MCG INJ MONTHLY Dextromethorphan-Guaifenesin (Mucinex Dm) 1 Tab Tab 1 TAB PO Q12 PRN for Cough for 10 Days, #20 TAB Docusate Sodium (Docusate Sodium) 100 Mg Cap 1 CAP PO BID PRN for Constipation for 15 Days, #30 CAP Estrogens, Conjugated (Premarin) 14 Appln/30 Gm Cr 1 APPLN PV UD MONDAYS AND FRIDAYS Furosemide (Lasix) 20 Mg Tab 20 MG PO DAILY, TAB Levothyroxine Sodium (Levothyroxine Sodium) 100 Mcg Tab 100 MCG PO DAILYBB Loperamide Hcl (Imodium) 2 Mg Cap 2 MG PO PRN for Diarrhea, CAP Loratadine (Claritin) 10 Mg Tab 10 MG PO DAILY PRN for ALLERGY SX, 0 Refills Magnesium Oxide (Mag-Ox) 400 Mg Tab 400 MG PO DAILYBL Multiple Vitamins W/ Minerals (Centrum) 1 Tab Tab 1 TAB PO DAILY Ondansetron Hcl (Zofran) 4 Mg Tab 1 TAB PO Q8H PRN for Nausea or Vomiting, #10 TAB 1 Refill Potassium Chloride (Potassium Chloride) 10 Meq Soln 20 MEQ PO 3XWK MWF Prochlorperazine Maleate (Compazine) 10 Mg Tab 5 MG PO Q6 PRN for Nausea for 7 Days, #30 TAB 3 Refills Sotalol HCl (Sotalol HCl) 80 Mg Tab 80 MG PO QAM Sotalol HCl (Sotalol HCl) 80 Mg Tab 40 MG PO QPM 2100 Admission Information HPI (per Admitting provider): 81 year old female with PMH of P.Afib, MS, neurogenic bladder, multiple hospital addmission for UTI presents to the Emergency Room with complaints of persistent shortness of breath that that has been going for about 2 weeks, but worsened today. She currently rates her discomfort as a 5/10 in severity. Pt said that her SOB worsening where she cannot even lie down flat. She additionally notes nausea, but denies any vomiting. Her stool has been soft. She denies any chest pain, palpitation, dizziness and fever. Physical Exam (per Admitting): Physical Exam: General- No acute distress, very pleasant Head- atraumatic Eyes- PERRL, EOMI ENT- oropharynx clear Neck- supple, no JVD Lungs- No wheezing, no crackles Heart- regular rhythm Abdomen- normal bowel sounds, soft, nontender Extremities- no calf tenderness, +edema LE Neuro- alert, oriented x 3; PERRL, EOMI; no facial palsy Skin- warm & dry Hospital Course WORSENING SOB Possible related to healthcare associated pneumonia CXR showed airspace consolidation seen at the left lung base. Was recently in the hospital 2 months ago Present with leukocytosis, tachycardia, tachypnea on admission lactic acid < 2 WBC trending down to normal, afebrile Blood cx and urine cx no growth CXR showed perihilar vascular indistinctness and minimal subtle lung opacities may indicate volume overload D/c vanco D/C Zosyn abx changed to doxy PO Continue Doxy for 2 days Clinically improved DIARRHEA Stool is more loose possible related to abx stool for Cdiff negative Continue loperamide prn Generalized Weakness Doubt it is MS flares Neurology was consulted do not believe that was a true MS flared No steroid recommended as per Neuro Continue Physical therapy Stable UTI UA is positive for UA Asymptomatic, but pt has neurogenic bladder dx On Zosyn repeat Urine cx growth more than 3 organisms will d/c zosyn Neurogenic Bladder chronic indwelling catheter Paroxysmal A. Fib currently NSR Stable DVT ppx subq heparin FULL CODE Total time spent on discharge = 35 MINUTES This includes examination of the patient, discharge planning, medication reconciliation, and communication with other providers. Discharge Instructions Discharge Instructions Date of Service May 16, 2017. Admission Reason for Admission: Hcap (Healthcare-Associated Pneumonia) Discharge Discharge Diagnosis / Problem: Pneumonia, Generalized Weakness, Diarrhea, Abnormal UA Discharge Goals Goal(s): Decrease discomfort, Improve function, Improve disease control Activity Recommendations Activity Limitations: resume your previous activity (as tolerated) . Instructions / Follow-Up Instructions / Follow-Up Follow up with your Primary care provider Dr. Peña on 05/19 @ 10:55 AM Continue Physical therapy Follow up with Neurology Dr. Coreas in 1 Month Complete Abx course Fall precaution Current Hospital Diet Patient's current hospital diet: Regular Diet Discharge Diet Recommended Diet: Regular Diet Pending Studies Studies pending at discharge: no Medical Emergencies . Who to Call and When: Medical Emergencies: If at any time you feel your situation is an emergency, please call 911 immediately. . Non-Emergent Contact Non-Emergency issues call your: Primary Care Provider Call Non-Emergent contact if: you have a fever, you have any medication questions . . "Provider Documentation" section prepared by Mary Caro. . VTE Core Measure Inpt VTE Proph given/why not?: Unfractionated heparin SQ Additional Copies To Reggie Peña D.O.
== END 2017-05-16 19:28 | disposition home or self-care (01) | DRG 194 ==
LOC: C.EDB 19:20 → C.MED 23:05 → ENRESERV 23:14
PROVIDERS: ADMIT Family Medicine; ATTEND Internal Medicine
DX: J18.9 Pneumonia, unspecified organism (principal); N39.0 Urinary tract infection, site not specified; G35 Multiple sclerosis; N31.9 Neuromuscular dysfunction of bladder, unspecified; I48.0 Paroxysmal atrial fibrillation; E03.9 Hypothyroidism, unspecified; R19.7 Diarrhea, unspecified; Z95.0 Presence of cardiac pacemaker; Z79.82 Long term (current) use of aspirin; Z79.899 Other long term (current) drug therapy

== ENCOUNTER 2017-08-02 18:49 | Inpatient (IN) | payer OTHER, BC ==
[~2017-08-02] VITALS: Ht 152.4 cm; Wt 53.9 kg
[~2017-08-02 18:49] MED LIST changes: -DOXY100C2 PO; +DXY100 PO
[2017-08-02] MEDS ORDERED: SODIUM CHLORIDE 0.9% 250ML 250 ML IV STA (19:15)
[2017-08-02 19:32] LABS: BASO % 0.5 %; BASO ABS # 0.04 K/uL (0-0.2); COMPLETE YES; HEMATOCRIT 40.3 % (37-47); IG% 0.4 %; LYMPH % 9.6 %; LYMPH ABS # 0.79 K/uL (1.2-3.4); MEAN CELL VOLUME 95.3 fL (80-100); MEAN CORPUSCULAR HEMOGLOBIN 31.7 pg (25-34); MEAN CORPUSCULAR HGB CONC 33.3 g/dl (32-36); MEAN PLATELET VOLUME 9.6 fL (7.4-10.4); MONO % 6.9 %; NEUT % 79.6 %; PLATELET COUNT 283 K/uL (130-400); RED BLOOD COUNT 4.23 M/uL (4.2-5.4); WHITE BLOOD COUNT 8.21 K/uL (4.8-10.8)
[2017-08-02 19:41] LABS: PARTIAL THROMBOPLASTIN RATIO 1.1; PROTHROMBIN TIME (PATIENT) 10.5 SECONDS (9.0-12.0)
--- NOTE | 2017-08-02 19:47 | DIAGNOSTIC IMAGING REPORT ---
CHEST ONE VIEW PORTABLE CLINICAL HISTORY: weak eval for pnea dyspnea COMPARISON STUDY: 05/15/2017 FINDINGS: Chronic atelectatic change left base. Unchanging nodular density right pulmonary apex. No acute infiltrate. No cardiac enlargement. IMPRESSION: Chronic change. No acute process. The above report was generated using voice recognition software. It may contain grammatical, syntax or spelling errors. Electronically signed by: Rasheed Vance M.D. 08/02/2017 7:46 PM Dictated Date/Time: 08/02/2017 7:45 PM
[2017-08-02 19:50] LABS: ALT/SGPT 23 U/L (12-78); BLOOD UREA NITROGEN 26 mg/dl (7-18); BUN/CREATININE RATIO 28.3 (10-20); CALCIUM 9.2 mg/dl (8.5-10.1); CARBON DIOXIDE 30 mmol/L (21-32); CHLORIDE 97 mmol/L (98-107); GLUCOSE 69 mg/dl (70-99); POTASSIUM 4.4 mmol/L (3.5-5.1); SODIUM 134 mmol/L (136-145)
--- NOTE | 2017-08-02 19:54 | DIAGNOSTIC IMAGING REPORT ---
HEAD WITHOUT CONTRAST (CT) CT DOSE: 638.56 mGycm HISTORY: Mental status change weak eval for cva TECHNIQUE: Multiaxial CT images of the head were performed without the use of intravenous contrast. A dose lowering technique was utilized adhering to the principles of ALARA. Comparison: 08/04/2015 Findings: Chronic changes produces described considered unaltered. The calvarium and skull base are intact. The ventricles and sulci are within normal limits. There is no mass, hematoma, midline shift, or acute infarct. Age-related atrophy and chronic small vessel change. No acute intracranial hemorrhage. Impression: Chronic and age-related change. No acute intracranial abnormality. The above report was generated using voice recognition software. It may contain grammatical, syntax or spelling errors. Electronically signed by: Rasheed Vance M.D. 08/02/2017 7:52 PM Dictated Date/Time: 08/02/2017 7:51 PM
[2017-08-02 20:01] LABS: ALKALINE PHOSPHATASE 112 U/L (45-117); AST/SGOT 43 U/L (15-37)
[2017-08-02 20:13] LABS: URINE APPEARANCE CLOUDY (CLEAR); URINE BILIRUBIN NEG (NEG); URINE COLOR YELLOW; URINE NITRITE POS (NEG); URINE PH 8.5 (4.5-7.5); URINE SPECIFIC GRAVITY 1.014 (1.000-1.030); UROBILINOGEN NEG (NEG)
[2017-08-02 20:28] LABS: MANUAL MICROSCOPIC REQUIRED? YES; REVIEW REQ? NO; SULFASALICYLIC ACID POS (NEG)
[2017-08-02 20:32] LABS: URINE BACTERIA 4+ (NEG); URINE WBC >30 /hpf (0-5)
[2017-08-02] MEDS ORDERED: CEFTRIAXONE SOD INJ 1 GM ADDVIAL IV STA (20:46)
[2017-08-02] MEDS ORDERED: DEXTROSE 50% 50 ML SYR IV STA (21:14)
[2017-08-02] MEDS ORDERED: CEFEPIME IV 2,000 MG in DEXTROSE 5% 100ML 100 ML IV ONE (22:45)
[2017-08-02] MEDS ORDERED: PIPERACILLIN/TAZOBACTAM 4.5 GM/100ML D5W IV STA (22:52)
[2017-08-02] MEDS ORDERED: PIPERACILLIN/TAZOBACTAM 4.5 GM/100ML D5W ONE (23:02)
[2017-08-02] MEDS ORDERED: TRAMADOL HCL 50 MG TAB PO PRN (23:15)
[2017-08-02] MEDS ORDERED: NITROGLYCERIN 0.4 MG SL PER TAB CHARGE SL PRN (23:15)
[2017-08-02] MEDS ORDERED: PROMETHAZINE HCL INJ 12.5 MG in SODIUM CHLORIDE 0.9% 50ML 50 ML IV PRN (23:15)
[2017-08-02] MEDS ORDERED: HYDROmorphone INJ 0.5 MG/0.5 ML SYR IV PRN (23:15)
[2017-08-02] MEDS ORDERED: ACETAMINOPHEN 325 MG TAB PO PRN (23:15)
[2017-08-02] MEDS ORDERED: DOCUSATE SODIUM 100 MG CAP PO PRN (23:45)
[2017-08-02] MEDS ORDERED: PIPERACILL/TAZOBAC CONSULT ACTIVE PRN (23:45)
[2017-08-03] VITALS (9 sets, daily range): BP systolic 111–147; BP diastolic 66–88; PULSE 62–79; TEMP 36.4–36.9; O2SAT 91–96; Ht 152.4 cm; Wt 53.9 kg
[2017-08-03] MEDS ORDERED: SODIUM CHLORIDE 0.9% 1000ML 1,000 ML IV ONE
[2017-08-03] MEDS ORDERED: LACTOBACILLUS ACIDOPHILUS (FLORANEX) TAB PO ONE
[2017-08-03] MEDS ORDERED: SOTALOL HCL 80 MG TAB PO ONE
--- NOTE | 2017-08-03 00:13 | EMERGENCY ROOM VISIT NOTE ---
History Report prepared by Jovanni: Alvina Henry Under the Supervision of: Dr. Julio C Garg M.D. First contact with patient: 19:06 Stated Complaint: WEAKNESS, NAUSEA History of Present Illness The patient is an 82 year old female who presents to the Emergency Room with complaints of persistent weakness that began around 1730 this evening. The patient states that she had eaten supper around 1500 she ate a frozen hamburger inez with a gluten free roll. She states that her friend came over to visit and states that she suddenly began feeling weak and nauseous. The patient states that she has a history of Celiac's disease, and notes that she typically feels this way when she comes into contact with Gluten, but denies any recent contact. She additionally states that when she eats gluten she often experiences vomiting and diarrhea, but denies any today. The patient denies any headache. She states that she could not raise her arms due to her weakness. The patient states that her nausea has been alleviated. She reports a persistent cough, but states that she has that most of the time. The patient states that she has a Walker catheter and notes that she is on Lasix. She states that she has a pacemaker due to her atrial fibrillation history, and additionally notes that she is on aspirin twice per day. The patient states that she gets around with assistance of a wheelchair. She reports a history of MS but denies being on any steroids. The patient states that her leg weakness has resolved. She does have chronic weakness to the right leg. The patient denies any chest pain, shortness of breath, runny nose, melena, or hematochezia. Nursing staff reports that the patient had a BSG of 72 mg/dL en- route to the emergency department but denies the patient receiving anything for her low blood glucose. Source of History: patient, nursing staff Onset: 1730 this evening Position: other (global) Quality: other (weakness) Timing: other (persistent) Associated Symptoms: + cough, + nausea, No headache, No chest pain, No SOB, No vomiting, No melena, No hematochezia, No diarrhea Review of Systems See HPI for pertinent positives & negatives. A total of 10 systems reviewed and were otherwise negative. 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) (7) Multiple sclerosis (8) Neurogenic bladder (9) Osteoporosis (10) Pacemaker (11) Paroxysmal atrial fibrillation (12) PVD (peripheral vascular disease) (13) rectocele repair (14) SBO (small bowel obstruction) (15) Vertigo Surgical Problems: (1) H/O dilation and curettage (2) History of appendectomy (3) S/P partial colectomy Family History FH: CAD (coronary artery disease) FATHER SISTER Social History Smoking Status: Never Smoker Alcohol Use: none Drug Use: none Marital Status: Housing Status: lives with significant other Occupation Status: retired Current/Historical Medications Scheduled Ascorbic Acid (Vitamin C), 500 MG PO DAILY@1200 Aspirin (Aspirin Ec), 81 MG PO BID Calcium/Vitamin D (Os-Hitesh 500 Plus D), 1 TAB PO TID Cholecalciferol (Vitamin D3), 1 TAB PO BID Cyanocobalamin (Cyanocobalamin), 1,000 MCG INJ MONTHLY Estrogens, Conjugated (Premarin), 1 APPLN PV UD Furosemide (Lasix), 20 MG PO DAILY Levothyroxine Sodium (Levothyroxine Sodium), 100 MCG PO DAILYBB Magnesium Oxide (Mag-Ox), 400 MG PO DAILYBL Multiple Vitamins W/ Minerals (Centrum), 1 TAB PO DAILY Potassium Chloride (Potassium Chloride), 20 MEQ PO 3XWK Sotalol HCl (Sotalol HCl), 80 MG PO QAM Sotalol HCl (Sotalol HCl), 40 MG PO QPM Scheduled PRN Acetaminophen (Tylenol), 1,000 MG PO Q8H PRN for Pain Dextromethorphan-Guaifenesin (Mucinex Dm), 1 TAB PO Q12 PRN for Cough Docusate Sodium (Docusate Sodium), 1 CAP PO BID PRN for Constipation Loperamide Hcl (Imodium), 2 MG PO for Diarrhea Loratadine (Claritin), 10 MG PO DAILY PRN for ALLERGY SX Ondansetron Hcl (Zofran), 1 TAB PO Q8H PRN for Nausea or Vomiting Prochlorperazine Maleate (Compazine), 5 MG PO Q6 PRN for Nausea Allergies Coded Allergies: Sulfa Antibiotics (Verified Allergy, Unknown, ?, 08/02/17) Doxycycline (Verified Adverse Reaction, Severe, 0, 08/02/17) bad diarrhea as per px Gluten (Verified Adverse Reaction, Intermediate, GI DISTRESS, 08/02/17) Codeine (Verified Adverse Reaction, Unknown, N/V, 08/02/17) Physical Exam Vital Signs Date Time Temp Pulse Resp B/P (MAP) Pulse Ox O2 Delivery O2 Flow Rate FiO2 08/02/17 21:07 85 18 161/88 93 Room Air 08/02/17 19:16 84 08/02/17 19:11 36.4 75 18 167/87 97 Room Air Physical Exam Constitutional: Vital signs reviewed. Eyes: Pupils are equal round reactive to light. Conjunctiva are noninjected. ENT: Pharynx is clear without erythema or exudate. Mucous membranes are moist. Neck supple without meningeal signs. Respiratory: Clear to auscultation bilaterally. Breath sounds are equal bilaterally. Cardiovascular: Regular rate and rhythm. No rubs or gallops. GI: Soft, nondistended and nontender. Bowel sounds are present. Musculoskeletal: Lower extremity edema. No lower extremity tenderness. Integumentary: No cyanosis. Neurological: The patient is awake and alert. Cranial nerves II-XII are intact. 1/5 strength in right leg and 2/5 strength in left leg. Normal strength in the upper extremities. Sensation is intact to light touch all extremities. Normal speech. No pronator drift. Psychiatric: Normal affect. Medical Decision & Procedures ER Provider Diagnostic Interpretation: Radiology results as stated below per my review and the radiologist's interpretation: HEAD WITHOUT CONTRAST (CT) CT DOSE: 638.56 mGycm HISTORY: Mental status change weak eval for cva TECHNIQUE: Multiaxial CT images of the head were performed without the use of intravenous contrast. A dose lowering technique was utilized adhering to the principles of ALARA. Comparison: 08/04/2015 Findings: Chronic changes produces described considered unaltered. The calvarium and skull base are intact. The ventricles and sulci are within normal limits. There is no mass, hematoma, midline shift, or acute infarct. Age-related atrophy and chronic small vessel change. No acute intracranial hemorrhage. Impression: Chronic and age-related change. No acute intracranial abnormality. The above report was generated using voice recognition software. It may contain grammatical, syntax or spelling errors. Electronically signed by: Rasheed Vance M.D. 08/02/2017 7:52 PM Dictated Date/Time: 08/02/2017 7:51 PM CHEST ONE VIEW PORTABLE CLINICAL HISTORY: weak eval for pnea dyspnea COMPARISON STUDY: 05/15/2017 FINDINGS: Chronic atelectatic change left base. Unchanging nodular density right pulmonary apex. No acute infiltrate. No cardiac enlargement. IMPRESSION: Chronic change. No acute process. The above report was generated using voice recognition software. It may contain grammatical, syntax or spelling errors. Electronically signed by: Rasheed Vance M.D. 08/02/2017 7:46 PM Dictated Date/Time: 08/02/2017 7:45 PM Laboratory Results 08/02/17 19:10 Red Blood Count 4.23, Mean Corpuscular Volume 95.3, Mean Corpuscular Hemoglobin 31.7, Mean Corpuscular Hemoglobin Concent 33.3, Mean Platelet Volume 9.6, Neutrophils (%) (Auto) 79.6, Lymphocytes (%) (Auto) 9.6, Monocytes (%) (Auto) 6.9, Eosinophils (%) (Auto) 3.0, Basophils (%) (Auto) 0.5, Neutrophils # (Auto) 6.53, Lymphocytes # (Auto) 0.79, Monocytes # (Auto) 0.57, Eosinophils # (Auto) 0.25, Basophils # (Auto) 0.04 08/02/17 19:10 Test 08/02/17 19:10 08/02/17 19:30 08/02/17 21:19 White Blood Count 8.21 K/uL (4.8-10.8) Red Blood Count 4.23 M/uL (4.2-5.4) Hemoglobin 13.4 g/dL (12.0-16.0) Hematocrit 40.3 % (37-47) Mean Corpuscular Volume 95.3 fL (80-100) Mean Corpuscular Hemoglobin 31.7 pg (25-34) Mean Corpuscular Hemoglobin Concent 33.3 g/dl (32-36) Platelet Count 283 K/uL (130-400) Mean Platelet Volume 9.6 fL (7.4-10.4) Neutrophils (%) (Auto) 79.6 % Lymphocytes (%) (Auto) 9.6 % Monocytes (%) (Auto) 6.9 % Eosinophils (%) (Auto) 3.0 % Basophils (%) (Auto) 0.5 % Neutrophils # (Auto) 6.53 K/uL (1.4-6.5) Lymphocytes # (Auto) 0.79 K/uL (1.2-3.4) Monocytes # (Auto) 0.57 K/uL (0.11-0.59) Eosinophils # (Auto) 0.25 K/uL (0-0.5) Basophils # (Auto) 0.04 K/uL (0-0.2) RDW Standard Deviation 47.2 fL (36.4-46.3) RDW Coefficient of Variation 13.7 % (11.5-14.5) Immature Granulocyte % (Auto) 0.4 % Immature Granulocyte # (Auto) 0.03 K/uL (0.00-0.02) Prothrombin Time 10.5 SECONDS (9.0-12.0) Prothromb Time International Ratio 1.0 (0.9-1.1) Activated Partial Thromboplast Time 27.3 SECONDS (21.0-31.0) Partial Thromboplastin Ratio 1.1 Anion Gap 7.0 mmol/L (3-11) Est Creatinine Clear Calc Drug Dose 34.0 ml/min Estimated GFR () 68.5 Estimated GFR (Non- 59.1 BUN/Creatinine Ratio 28.3 (10-20) Calcium Level 9.2 mg/dl (8.5-10.1) Magnesium Level 2.0 mg/dl (1.8-2.4) Total Bilirubin 0.3 mg/dl (0.2-1) Direct Bilirubin < 0.1 mg/dl (0-0.2) Aspartate Amino Transf (AST/SGOT) 43 U/L (15-37) Alanine Aminotransferase (ALT/SGPT) 23 U/L (12-78) Alkaline Phosphatase 112 U/L (45-117) Troponin I < 0.015 ng/ml (0-0.045) Total Protein 7.0 gm/dl (6.4-8.2) Albumin 3.1 gm/dl (3.4-5.0) Thyroid Stimulating Hormone (TSH) 2.430 uIu/ml (0.300-4.500) Urine Color YELLOW Urine Appearance CLOUDY (CLEAR) Urine pH 8.5 (4.5-7.5) Urine Specific [place] 1.014 (1.000-1.030) Urine Protein 2+ (NEG) Urine Glucose (UA) NEG (NEG) Urine Ketones NEG (NEG) Urine Occult Blood 1+ (NEG) Urine Nitrite POS (NEG) Urine Bilirubin NEG (NEG) Urine Urobilinogen NEG (NEG) Urine Leukocyte Esterase LARGE (NEG) Urine WBC (Auto) /hpf (0-5) Urine RBC (Auto) /hpf (0-4) Urine Hyaline Casts (Auto) /lpf (0-5) Urine Epithelial Cells (Auto) /lpf (0-5) Urine Bacteria (Auto) (NEG) Urine RBC 5-10 /hpf (0-4) Urine WBC >30 /hpf (0-5) Urine Epithelial Cells >30 /lpf (0-5) Urine Bacteria 4+ (NEG) Urine Pathogenic Casts /lpf (0) Bedside Glucose 115 mg/dl (70-90) Laboratory results as reviewed by me. Medications Administered Medications (Trade) Dose Ordered Sig/Van Route Start Time Stop Time Status Last Admin Dose Admin Sodium Chloride 250 ml @ 999 mls/hr Q16M STAT IV 08/02/17 19:15 08/02/17 19:30 DC 08/02/17 19:34 999 MLS/HR Ceftriaxone Sodium (Rocephin Inj) 1 gm NOW STAT IV 08/02/17 20:46 08/02/17 20:48 DC 08/02/17 20:55 1 GM ECG Indication: weakness Rate (beats per minute): 74 Rhythm: sinus rhythm Findings: 1st degree AV block, no acute ischemic change, no ectopy ED Course 1906: The patient was evaluated in room C6. A complete history and physical exam was performed. The patient was given Chase juice for her hypoglycemia 1914: Ordered Sodium Chloride 250 ml @ 999 mls/hr IV. 2045: Ordered Rocephin Inj 1 gm IV. 2046: I reevaluated the patient and she is still feeling weak. She states that she felt a slight jolt from her pacemaker. She did not pass out, or have any symptoms such as chest pain, palpitations or syncope prior to this. I recommended hospitalization. She is going to have her pacemaker interrogated. She is in agreement with the treatment plan. 2055: I discussed the patients case with Denia Young. He is going to evaluate the patient for further treatment. 2135: I spoke to the [employer] at this time. He states that the patient has a pacemaker and she had some atrial pacing. He states that she does not have a defibrillator. 2139: I updated the patient at this time. Medical Decision This is an 82-year-old female presents with weakness and nausea. Differential diagnosis includes infection, UTI, pneumonia, cardiac, metabolic derangement, GI bleed, anemia, CVA. I did perform a limited focused review of portions of the patient's old chart on the electronic medical record. The patient was here in May for pneumonia in the left long. She was discharged with doxycycline. I did evaluate the patient as noted above. The patient is presenting with generalized weakness and a near syncopal episode today. She otherwise has no complaints. She did have some leg weakness but stated she was weak all over. On examination she does have some slight weakness to the left leg. She normally has weakness to the right leg which is not unusual for her. IV access was established. The patient was placed on a continuous radiation monitor. I did order and personally review the patient's 12-lead EKG and chest x-ray as described above. I did order and review the patient's blood work as noted in the electronic medical record. Her blood sugar was 69. She was given orange juice. I did order a CT of the head. I did review the images myself as well as the radiology report as described above. There is no evidence of CVA. A urinalysis was obtained and showed a UTI. A urine culture was sent. I did treat patient with ceftriaxone IV. I did discuss the test results with the patient. I did recommend hospitalization as the patient remained very weak. I did discuss the case with the hospitalist and assistant case manager. Medication Reconcilliation Current Medication List: was personally reviewed by me Blood Pressure Screening Patient's blood pressure: Elevated blood pressure Blood pressure disposition: Referred to PCP Consults Time Called: 2049 Consulting Physician: Denia Young Returned Call: 2055 I discussed the patients case with Denia Young. He is going to evaluate the patient for further treatment. Impression Primary Impression: Near syncope Additional Impressions: Hypoglycemia Catheter-associated urinary tract infection Scribe Attestation The scribe's documentation has been prepared under my direct and personally reviewed by me in its entirety. I confirm that the note above accurately reflects all work, treatment, procedures, and medical decision making performed by me. Departure Information Dispostion Being Evaluated By Hospitalist Reggie Kumar D.O. (PCP) Problem Qualifiers Additional Impressions: Catheter-associated urinary tract infection Indwelling urinary catheter type: indwelling urethral catheter Encounter type : initial encounter Qualified Codes: T83.511A - Infection and inflammatory reaction due to indwelling urethral catheter, initial encounter; N39.0 - Urinary tract infection, site not specified
[2017-08-03] MEDS ORDERED: INFLUENZA ADMINISTRATION CHARGE ONE (01:30)
[2017-08-03] MEDS ORDERED: INFLUENZA VACCINE HIGH DOSE 65+ 0.5 ML SYR IM. ONE (01:30)
--- NOTE | 2017-08-03 04:59 | HISTORY & PHYSICAL EXAMINATION ---
DATE OF ADMISSION: 08/02/2017 PRIMARY CARE DOCTOR: Dr. Peña. CHIEF COMPLAINT: Weakness. HISTORY OF PRESENT ILLNESS: History obtained from the patienta and records. Medical history is significant for MS, history of neurogenic bladder with chronic indwelling Walker catheter, recurrent UTIs, hypertension, sick sinus syndrome status post pacemaker placement, PVD as per records, hypothyroidism. Past tobacco abuse. Recent confinement last May 2017 for HCAP. Today, the patient felt weak, felt nauseous, appetite fair. Denies bowel and bladder symptoms. No belly pain, chest pain, shortness of breath. Patient was brought to the Emergency Room, noted to be hypoglycemic. Given Ceftriaxone for possible UTI. In the ER, the patient felt her cardiac device shocked her. Last episode to her recollection probably last year as per patient. MEDICAL HISTORY: As above. SURGICAL HISTORY: She has had pacemaker placement, gynecologic procedures, appendectomy, bowel surgery/reduction of rectal prolapse. HOME MEDICATIONS: Include, sotalol, Claritin, Centrum, Mag-Ox, Zofran, Compazine, potassium chloride, Mucinex, Premarin, Lasix, levothyroxine, Imodium, aspirin, Tylenol, vitamin C, vitamin B3. ALLERGIES: TO GLUTEN, CODIENE, SULFA, DOXYCYCLINE AND CIPRO. FAMILY HISTORY: Heart disease, stroke, asthma. PERSONAL AND SOCIAL HISTORY: Nonsmoker, no chronic alcohol intake. 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 REVIEW OF SYSTEMS: As per HPI, all other ROS negative. PHYSICAL EXAMINATION: VITAL SIGNS: Blood pressure was noted to be 167/87 later 130/80, pulse rate 86 , RR 18, temperature 37, O2 96% on room air. GENERAL: Noted to be pleasant, slightly anxious, no respiratory distress. Looks younger for stated age. SKIN: Normal color. Dry HEENT: [place] palpebral conjunctivae. Dry mucosa. NECK: Supple. Nontender CHEST: Clear to auscultation. Nontender Cardiovascular : No JVD , Regular rate and rhythm. Systolic murmur. ABDOMEN: Soft. Nontender EXTREMITIES: No edema. Nontender NEUROLOGIC: Coherent , No gross focality. LABORATORY DATA: Hemoglobin was noted to be 13.4, hematocrit 40, white cell count 8.31, platelets was noted to be 283. Sodium noted to be 134, potassium 4.4, chloride 97, CO2 30, BUN 26, creatinine 0.9, glucose was noted to be 68 later 115 mag was noted to be 2, troponin was noted to be 0.015. Nitrite positive urine. IMAGING DATA: Chest x-ray showed chronic changes, atelectasis. CT of the head, chronic changes. EKG as per my interpretation, rate of 70, normal sinus rhythm, 1AVB. No ischemia. ASSESSMENT: 1. Transient cardiac device firing hx SSS sp PPM possibly from illness, hypoglycemia, 2. History of recurrent complicated urinary tract infection Chronic indwelling Walker catheter hx neurogenic bladder 2 to MS, history uterine prolapse (hx Pseudomonas, Streptococcus on past urine cultures) Patient not septic 3. Hypertension, stable. 4. Peripheral vascular disease, as per records. 5. past hx Clostridium difficile 6. Past tobacco abuse PLAN: PCU, RE pacemaker firing Follow pacemaker interrogation results. Cardio consult. RE cardiac device firing. (Px known to Dr. Campos of [facility] [place]) Follow urine cultures, Zosyn for now. DVT prophylaxis, Lovenox subQ. Full code. MTDD
[2017-08-03] MEDS: PIPERACILL/TAZOBAC IV 3.375 GM in DEXTROSE 5% 100ML IV SCH ×3 (05:32→21:44)
[2017-08-03] MEDS: LEVOTHYROXINE 100 MCG TAB PO SCH (05:37)
[2017-08-03 07:27] LABS: BASO % 0.7 %; BASO ABS # 0.03 K/uL (0-0.2); COMPLETE YES; EOS % 4.6 %; HEMATOCRIT 34.3 % (37-47); IG% 0.2 %; LYMPH % 28.7 %; LYMPH ABS # 1.18 K/uL (1.2-3.4); MEAN CELL VOLUME 95.5 fL (80-100); MEAN CORPUSCULAR HGB CONC 33.5 g/dl (32-36); MEAN PLATELET VOLUME 9.2 fL (7.4-10.4); MONO % 11.9 %; NEUT % 53.9 %; PLATELET COUNT 240 K/uL (130-400); RED BLOOD COUNT 3.59 M/uL (4.2-5.4); WHITE BLOOD COUNT 4.11 K/uL (4.8-10.8)
[2017-08-03 07:44] LABS: BLOOD UREA NITROGEN 23 mg/dl (7-18); BUN/CREATININE RATIO 30.1 (10-20); CALCIUM 8.1 mg/dl (8.5-10.1); CARBON DIOXIDE 25 mmol/L (21-32); CHLORIDE 105 mmol/L (98-107); CREATININE 0.75 mg/dl (0.60-1.20); GLUCOSE 88 mg/dl (70-99); POTASSIUM 3.8 mmol/L (3.5-5.1); SODIUM 138 mmol/L (136-145)
[2017-08-03] MEDS: SOTALOL HCL 80 MG TAB PO SCH (08:24)
[2017-08-03] MEDS: CEROVITE ADV FORMULA TAB PO SCH (08:24)
[2017-08-03] MEDS: ASPIRIN 81 MG ECTAB PO SCH ×2 (08:24→20:18)
[2017-08-03] MEDS: LACTOBACILLUS ACIDOPHILUS (FLORANEX) TAB PO SCH ×3 (08:24→17:07)
[2017-08-03] MEDS: ENOXAPARIN 30 MG/0.3 ML SYR SC SCH (08:25)
[2017-08-03] MEDS: MAGNESIUM OXIDE 400 MG TAB PO SCH (10:39)
--- NOTE | 2017-08-03 10:45 | Progress Note ---
Medicine Progress Note Date & Time of Visit: Aug 03, 2017 at 10:31. Subjective Pt was seen and examined Sitting in chair reading her newspaper with no distress Pt said that she feels much better Denies any chest pain palpitation, dizziness and SOB Objective Last 8 Hrs Date Time Temp Pulse Resp B/P (MAP) Pulse Ox O2 Delivery O2 Flow Rate FiO2 08/03/17 07:45 Room Air 08/03/17 07:25 36.9 75 16 134/66 (88) 93 Room Air 08/03/17 04:00 91 Room Air 08/03/17 04:00 36.7 65 16 111/66 (81) 91 Room Air Physical Exam: General- No acute distress Head- atraumatic Eyes- PERRL, EOMI ENT- oropharynx clear Neck- supple, no JVD Lungs- clear to auscultation Heart- regular rhythm Abdomen- normal bowel sounds, soft Extremities- +edema, no calf tenderness Neuro- alert, oriented x 3; PERRL, EOMI Skin- warm & dry Laboratory Results: Last 24 Hours Test 08/02/17 19:10 08/02/17 19:30 08/02/17 21:19 08/03/17 07:12 White Blood Count 8.21 K/uL 4.11 K/uL Red Blood Count 4.23 M/uL 3.59 M/uL Hemoglobin 13.4 g/dL 11.5 g/dL Hematocrit 40.3 % 34.3 % Mean Corpuscular Volume 95.3 fL 95.5 fL Mean Corpuscular Hemoglobin 31.7 pg 32.0 pg Mean Corpuscular Hemoglobin Concent 33.3 g/dl 33.5 g/dl Platelet Count 283 K/uL 240 K/uL Mean Platelet Volume 9.6 fL 9.2 fL Neutrophils (%) (Auto) 79.6 % 53.9 % Lymphocytes (%) (Auto) 9.6 % 28.7 % Monocytes (%) (Auto) 6.9 % 11.9 % Eosinophils (%) (Auto) 3.0 % 4.6 % Basophils (%) (Auto) 0.5 % 0.7 % Neutrophils # (Auto) 6.53 K/uL 2.21 K/uL Lymphocytes # (Auto) 0.79 K/uL 1.18 K/uL Monocytes # (Auto) 0.57 K/uL 0.49 K/uL Eosinophils # (Auto) 0.25 K/uL 0.19 K/uL Basophils # (Auto) 0.04 K/uL 0.03 K/uL RDW Standard Deviation 47.2 fL 47.9 fL RDW Coefficient of Variation 13.7 % 13.9 % Immature Granulocyte % (Auto) 0.4 % 0.2 % Immature Granulocyte # (Auto) 0.03 K/uL 0.01 K/uL Prothrombin Time 10.5 SECONDS Prothromb Time International Ratio 1.0 Activated Partial Thromboplast Time 27.3 SECONDS Partial Thromboplastin Ratio 1.1 Sodium Level 134 mmol/L 138 mmol/L Potassium Level 4.4 mmol/L 3.8 mmol/L Chloride Level 97 mmol/L 105 mmol/L Carbon Dioxide Level 30 mmol/L 25 mmol/L Anion Gap 7.0 mmol/L 8.0 mmol/L Blood Urea Nitrogen 26 mg/dl 23 mg/dl Creatinine 0.90 mg/dl 0.75 mg/dl Est Creatinine Clear Calc Drug Dose 34.0 ml/min 40.8 ml/min Estimated GFR () 68.5 85.4 Estimated GFR (Non- 59.1 73.7 BUN/Creatinine Ratio 28.3 30.1 Random Glucose 69 mg/dl 88 mg/dl Calcium Level 9.2 mg/dl 8.1 mg/dl Magnesium Level 2.0 mg/dl Total Bilirubin 0.3 mg/dl Direct Bilirubin < 0.1 mg/dl Aspartate Amino Transf (AST/SGOT) 43 U/L Alanine Aminotransferase (ALT/SGPT) 23 U/L Alkaline Phosphatase 112 U/L Troponin I < 0.015 ng/ml < 0.015 ng/ml Total Protein 7.0 gm/dl Albumin 3.1 gm/dl Thyroid Stimulating Hormone (TSH) 2.430 uIu/ml Urine Color YELLOW Urine Appearance CLOUDY Urine pH 8.5 Urine Specific [place] 1.014 Urine Protein 2+ Urine Glucose (UA) NEG Urine Ketones NEG Urine Occult Blood 1+ Urine Nitrite POS Urine Bilirubin NEG Urine Urobilinogen NEG Urine Leukocyte Esterase LARGE Urine WBC (Auto) /hpf Urine RBC (Auto) /hpf Urine Hyaline Casts (Auto) /lpf Urine Epithelial Cells (Auto) /lpf Urine Bacteria (Auto) Urine RBC 5-10 /hpf Urine WBC >30 /hpf Urine Epithelial Cells >30 /lpf Urine Bacteria 4+ Urine Pathogenic Casts /lpf Bedside Glucose 115 mg/dl Date/Time Source Procedure Growth Status 08/02/17 19:30 Urine , Clean Catch Urine Culture Pending Received Assessment & Plan UTI Hx of recurrent complicated UTI Chronic indwelling welsh cath UA +leukocytes, nitrite and bacteria Received cefepime in the ER On Zosyn IV urine cx pending Weakness Possible related to UTI PT/OT fall precaution Neurogenic Bladder Due to MS Continue welsh cath Hx Pacemaker placement Pacemaker interrogation done and functioning properly cardiology on board MS No signs of MS flare up Stable Hypertension stable. DVT px on Lovenox CODE STATUS FULL CODE Consultants: Cardio Current Inpatient Medications: Current Inpatient Medications Medications (Trade) Dose Ordered Sig/Van Route Start Time Stop Time Status Last Admin Dose Admin Enoxaparin Sodium (Lovenox Inj) 30 mg Q24H SC 08/03/17 09:00 09/02/17 08:59 08/03/17 08:25 30 MG Sodium Chloride 1,000 ml @ 75 mls/hr [id number] ONCE IV 08/03/17 00:00 08/03/17 13:19 08/03/17 00:13 75 MLS/HR Acetaminophen (Tylenol Tab) 650 mg Q4H PRN PO 08/02/17 23:15 09/01/17 23:14 Nitroglycerin (Nitrostat Tab) 0.4 mg UD PRN SL 08/02/17 23:15 09/01/17 23:14 Piperacillin Sod/ Tazobactam Sod (Consult) 1 ea UD PRN N/A 08/02/17 23:45 09/01/17 23:44 Lactobacillus Acidophilus (Floranex Tab) 4 tab TIDM PO 08/03/17 08:00 09/02/17 07:59 08/03/17 08:24 4 TAB Aspirin (Ecotrin Tab) 81 mg BID PO 08/03/17 09:00 09/02/17 08:59 08/03/17 08:24 81 MG Docusate Sodium (coLACE CAP) 100 mg BID PRN PO 08/02/17 23:45 09/01/17 23:44 Levothyroxine Sodium (Synthroid Tab) 100 mcg DAILYBB PO 08/03/17 06:30 09/02/17 06:59 08/03/17 05:37 100 MCG Magnesium Oxide (Mag-Ox Tab) 400 mg DAILYBL PO 08/03/17 11:00 09/02/17 10:59 Multivitamins/ Minerals (Multivitamin W/ Minerals Tab) 1 tab DAILY PO 08/03/17 09:00 09/02/17 08:59 08/03/17 08:24 1 TAB Sotalol HCl (Betapace Tab) 40 mg QPM PO 08/03/17 21:00 09/02/17 20:59 Sotalol HCl (Betapace Tab) 80 mg QAM PO 08/03/17 09:00 09/02/17 08:59 08/03/17 08:24 80 MG Promethazine HCl 12.5 mg/Sodium Chloride 50.5 ml @ 204 mls/hr Q6H PRN IV 08/02/17 23:15 09/01/17 23:14 Tramadol HCl (Ultram Tab) 25 mg Q6H PRN PO 08/02/17 23:15 09/01/17 23:14 Hydromorphone HCl (Dilaudid Inj) 0.25 mg Q3H PRN IV 08/02/17 23:15 08/16/17 23:14 Piperacillin Sod/ Tazobactam Sod 3.375 gm/Dextrose 115 ml @ 28.75 mls/ hr Q8H IV 08/03/17 06:00 08/13/17 05:59 08/03/17 05:32 28.75 MLS/HR
[2017-08-03] MEDS ORDERED: POTASSIUM CHLORIDE 20 MEQ/15 ML UDC PO STA (11:32)
[2017-08-03] MEDS ORDERED: SOTALOL HCL 80 MG TAB PO SCH (21:00)
[2017-08-04 00:04] VITALS: O2SAT 96
[2017-08-04 03:54] VITALS: BP 135/74; PULSE 62; TEMP 36.5; O2SAT 94
[2017-08-04 04:00] VITALS: O2SAT 95
--- NOTE | 2017-08-04 04:15 | CARDIOLOGY CONSULTATION ---
DATE OF CONSULTATION: 08/03/2017 REFERRING PHYSICIAN: Dr. Rubio. PRIMARY CARE PHYSICIAN: Dr. Reggie Peña. HISTORY OF PRESENT ILLNESS: The patient is an 82-year-old female with multiple complex medical issues, which include: 1. Paroxysmal atrial fibrillation, controlled in sinus rhythm with oral sotalol. 2. History or tachybrady syndrome with prior pacemaker insertion. 3. Multiple sclerosis with neurogenic bladder and chronic indwelling Walker. 4. History of celiac disease. The patient presents today, noting was at home. She is usually cared for by her who is in the hospital as well. She had a friend who came over and after eating a meal, suddenly became nauseated and lightheaded. Symptoms became more profound and the patient presented to the Emergency Room due to concerns regarding impending syncope. She notes one episode of dry heaves. Notes no episode of productive emesis. Notes no melena, hematochezia, dysuria or hematuria. Notes no chest pains. ER raises the questions of possible device shocking her that without defibrillator and with only pacemaker in place. She notes no cough, hoarseness, wheeze or hemoptysis. She has been taking medications as prescribed. Overall, feels improved this morning after IV hydration last night. She initially attributed to her symptoms of possible gluten reaction but feels she did not eat anything with gluten present. ALLERGIES: CODEINE, DOXYCYCLINE, GLUTEN AND SULFA. MEDICATIONS: Prior to hospitalization were ascorbic acid, acetaminophen, aspirin 81 mg b.i.d., Os-Hitesh 500 t.i.d., vitamin D3 one tablet b.i.d., B12 monthly injections 1000 mcg, furosemide 20 mg p.o. daily, levothyroxine 100 mcg p.o. every day, Claritin p.r.n., Imodium p.r.n., Mag-Ox 400 mg p.o. daily, multivitamin and iron per day, potassium chloride 20 mEq 3 days per week, and sotalol 80 mg q.a.m. and 40 mg q.p.m. PAST SURGICAL HISTORY: Notable for prior appendectomy, pacemaker insertion, rectal prolapse and uterine surgeries. FAMILY HISTORY: Notable for heart disease. SOCIAL HISTORY: The patient is a nonsmoker and nondrinker. 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 PHYSICAL EXAMINATION: VITAL SIGNS: Heart rate 65 and blood pressure is 124/74. Telemetry reveals sinus rhythm with occasional ventricular ectopic beats. No arrhythmias. Intermittent pacing. Pacer interrogation today finds it functioning appropriately. HEENT: Normocephalic and atraumatic. Nares without discharge. Throat was clear. NECK: Supple without thyromegaly, lymphadenopathy, or JVD. There are no carotid bruits. LUNGS: Clear with good aeration to both bases. CARDIOVASCULAR: Regular. There is no S3 gallop. ABDOMEN: Soft and nontender. EXTREMITIES: Without cyanosis or clubbing. There is chronic stasis edema at both lower extremities. There is an indwelling Walker catheter present. DATA: EKG on presentation reveals sinus rhythm with first degree AV block, nonspecific ST segment changes on portable tracing. Repeat this morning reveals no acute changes. Pacemaker interrogation as noted in the ER was normal. Troponin I x2 is normal at less than 0.015. TSH is 2.4. Sodium is 138, potassium 3.8, chloride is 105, bicarbonate 25, BUN is 23, and creatinine 0.75, Chest x-ray reveals no infiltrate or edema. IMPRESSION: An 82-year-old female with a history of multiple sclerosis and indwelling catheter for neurogenic bladder, presents with episode of nausea, weakness and near syncope. She carries a history of past atrial arrhythmias, controlled in sinus with sotalol, has remained in sinus since admission. Pacemaker finds it functioning appropriately. There have been no signs of cardiac issues or decline by EKG or history. No arrhythmias on monitor or on pacer interrogation. Overall cardiac status appears stable. Would treat underlying possible urinary tract infection. I agree with cautious hydration and supplementation of potassium. MTDD
[2017-08-04] MEDS: LEVOTHYROXINE 100 MCG TAB PO SCH (05:40)
[2017-08-04] MEDS: PIPERACILL/TAZOBAC IV 3.375 GM in DEXTROSE 5% 100ML IV SCH (05:41)
--- NOTE | 2017-08-04 06:11 | Clinical Documentation Query ---
CLINICAL DOCUMENTATION QUERY 82 year old female with neurogenic bladder from MS with chronic indwelling Walker catheter who presents to the Emergency Room with complaints of persistent weakness and found to have recurrent UTI. In your clinical opinion is this patient being managed for: ( x ) Walker catheter associated UTI ( ) Not Agree ( ) Other explanation of clinical findings (Please Explain) ( ) Unable to determine (Please Define) ( ) Need to Discuss The medical record reflects the following clinical findings, treatment, and risk factors. Clinical Indicators: UTI Treatment: IV Zosyn Risk Factors: MS, Neurogenic bladder, Chronic indwelling Walker catheter Please clarify and document your clinical opinion in the progress notes and discharge summary. Terms such as "probable", "suspected", "likely", "questionable", "possible", or "still to be ruled out" are acceptable. IF IN AGREEMENT, YOU MUST DOCUMENT ABOVE DIAGNOSTIC STATEMENT IN DAILY PROGRESS NOTES AND DISCHARGE SUMMARY. This document is not part of the patient's record. Thank You, Sohail Scott, RN [phone]
[2017-08-04 07:10] VITALS: BP 128/69; PULSE 63; TEMP 36.5; O2SAT 91
[2017-08-04] MEDS: LACTOBACILLUS ACIDOPHILUS (FLORANEX) TAB PO SCH ×2 (07:56→11:43)
[2017-08-04] MEDS: SOTALOL HCL 80 MG TAB PO SCH (07:57)
[2017-08-04] MEDS: ENOXAPARIN 30 MG/0.3 ML SYR SC SCH (07:57)
[2017-08-04] MEDS: ASPIRIN 81 MG ECTAB PO SCH (07:57)
[2017-08-04] MEDS: CEROVITE ADV FORMULA TAB PO SCH (07:57)
[2017-08-04 09:01] LABS: CREATININE 0.89 mg/dl (0.60-1.20)
[2017-08-04] MEDS: MAGNESIUM OXIDE 400 MG TAB PO SCH (10:29)
[2017-08-04] MEDS ORDERED: FUROSEMIDE 20 MG TAB PO ONE (10:30)
[2017-08-04 11:18] VITALS: BP 147/78; PULSE 64; TEMP 36.3; O2SAT 97
--- NOTE | 2017-08-04 11:32 | CARDIOLOGY PROGRESS NOTE ---
DATE: 08/04/2017 The patient was seen and examined. Chart, medications, and telemetry were reviewed. SUBJECTIVE: The patient feels improved this morning. Notes no chest pains. Notes no dizziness. Notes no tachypalpitations or lightheadedness. Telemetry reveals no arrhythmias. OBJECTIVE: VITAL SIGNS: Heart rate is 63 and blood pressure is 128/69. NECK: Thin. There is no jugular venous distention. LUNGS: Clear. CARDIOVASCULAR: Regular. There is no S3 gallop. ABDOMEN: Soft. EXTREMITIES: Chronic 1+ lower extremity edema. LABORATORY DATA: Creatinine 0.89. IMPRESSION: An 82-year-old female presented with nausea, lightheadedness and near syncope, likely secondary to underlying infectious process and multiple issues. Would continue current cardiac medications as prescribed. No signs of arrhythmias both on admission and since hospitalization. Resume usual dosing of furosemide at 20 mg per day. The patient has routine followup scheduled with her cardiology and I will continue to follow as an outpatient.
[2017-08-04] MEDS ORDERED: CIPROFLOXACIN 250 MG TAB PO ONE (13:02)
--- NOTE | 2017-08-04 13:05 | Progress Note ---
Medicine Progress Note Date & Time of Visit: Aug 04, 2017 at 12:50. Subjective Pt was seen and examined Sitting in chair comfortable reading newspaper Pt said that she feels fine Her strength slightly improves Denies any chest pain, palpitation, dizziness and sob Objective Last 8 Hrs Date Time Temp Pulse Resp B/P (MAP) Pulse Ox O2 Delivery O2 Flow Rate FiO2 08/04/17 12:30 Room Air 08/04/17 11:18 36.3 64 20 147/78 (101) 97 08/04/17 07:45 Room Air 08/04/17 07:10 36.5 63 20 128/69 (88) 91 Physical Exam: General- No acute distress Head- atraumatic Eyes- PERRL, EOMI ENT- oropharynx clear Neck- supple, no JVD Lungs- clear to auscultation Heart- regular rhythm Abdomen- normal bowel sounds, soft Extremities- +edema, no calf tenderness Neuro- alert, oriented x 3; PERRL, EOMI Skin- warm & dry Laboratory Results: Last 24 Hours Test 08/04/17 07:44 Creatinine 0.89 mg/dl Est Creatinine Clear Calc Drug Dose 34.4 ml/min Estimated GFR () 69.5 Estimated GFR (Non- 59.9 Assessment & Plan UTI Hx of recurrent complicated UTI Chronic indwelling welsh cath UA +leukocytes, nitrite and bacteria Received cefepime in the ER On Zosyn IV for day 2 will change abx to cipro to complete 7 days course of abx urine cx showed URINE CULTURE Preliminary 08/04/17-831 Organism 1 SERRATIA MARCESCENS COLONY COUNT >100,000 CFU/ml SENS SENSITIVITY TO FOLLOW Organism 2 GROUP B BETA STREP COLONY COUNT >100,000 CFU/ml SENS NO SENSITIVITY TO FOLLOW 1. SERRATIA MARCESCENS Target Route Dose RX AB Cost M.I.C. IQ ------ ----- ------ -- ------ -------- - ------ TRIMET/SULFA S <=2/38 CEFOTAXIME S <=2 CEFTRIAXONE I 2 CEFEPIME S <=4 IMIPENEM S <=1 GENTAMICIN S <=4 TOBRAMYCIN S <=4 AMIKACIN S <=16 CIPROFLOXACIN S <=1 LEVOFLOXACIN S <=2 ERTAPENEM S <=1 PIP/TAZO S <=16 S = SENSITIVE I = INTERMEDIATE R = RESISTANT Weakness Possible related to UTI PT/OT fall precaution Neurogenic Bladder Due to MS Continue welsh cath Hx Pacemaker placement Pacemaker interrogation done and functioning properly no signs of arrhythmia on tele cardiology on board, recommended to continue current management follow up with cardiology as an outpatient MS No signs of MS flare up Stable Hypertension stable. DVT px on Lovenox CODE STATUS FULL CODE Consultants: Cardio Current Inpatient Medications: Current Inpatient Medications Medications (Trade) Dose Ordered Sig/Van Route Start Time Stop Time Status Last Admin Dose Admin Enoxaparin Sodium (Lovenox Inj) 30 mg Q24H SC 08/03/17 09:00 09/02/17 08:59 08/04/17 07:57 30 MG Acetaminophen (Tylenol Tab) 650 mg Q4H PRN PO 08/02/17 23:15 09/01/17 23:14 Nitroglycerin (Nitrostat Tab) 0.4 mg UD PRN SL 08/02/17 23:15 09/01/17 23:14 Piperacillin Sod/ Tazobactam Sod (Consult) 1 ea UD PRN N/A 08/02/17 23:45 09/01/17 23:44 Lactobacillus Acidophilus (Floranex Tab) 4 tab TIDM PO 08/03/17 08:00 09/02/17 07:59 08/04/17 11:43 4 TAB Aspirin (Ecotrin Tab) 81 mg BID PO 08/03/17 09:00 09/02/17 08:59 08/04/17 07:57 81 MG Docusate Sodium (coLACE CAP) 100 mg BID PRN PO 08/02/17 23:45 09/01/17 23:44 Levothyroxine Sodium (Synthroid Tab) 100 mcg DAILYBB PO 08/03/17 06:30 09/02/17 06:59 08/04/17 05:40 100 MCG Magnesium Oxide (Mag-Ox Tab) 400 mg DAILYBL PO 08/03/17 11:00 09/02/17 10:59 08/04/17 10:29 400 MG Multivitamins/ Minerals (Multivitamin W/ Minerals Tab) 1 tab DAILY PO 08/03/17 09:00 09/02/17 08:59 08/04/17 07:57 1 TAB Sotalol HCl (Betapace Tab) 40 mg QPM PO 08/03/17 21:00 09/02/17 20:59 08/03/17 20:18 40 MG Sotalol HCl (Betapace Tab) 80 mg QAM PO 08/03/17 09:00 09/02/17 08:59 08/04/17 07:57 80 MG Promethazine HCl 12.5 mg/Sodium Chloride 50.5 ml @ 204 mls/hr Q6H PRN IV 08/02/17 23:15 09/01/17 23:14 Tramadol HCl (Ultram Tab) 25 mg Q6H PRN PO 08/02/17 23:15 09/01/17 23:14 Hydromorphone HCl (Dilaudid Inj) 0.25 mg Q3H PRN IV 08/02/17 23:15 08/16/17 23:14 Piperacillin Sod/ Tazobactam Sod 3.375 gm/Dextrose 115 ml @ 28.75 mls/ hr Q8H IV 08/03/17 06:00 08/13/17 05:59 08/04/17 05:41 28.75 MLS/HR Furosemide (Lasix Tab) 20 mg DAILY PO 08/05/17 09:00 09/04/17 08:59
[2017-08-04] MEDS ORDERED: CPR500 PO (13:10)
--- NOTE | 2017-08-04 13:22 | Discharge Instructions ---
Discharge Instructions Date of Service Aug 04, 2017. Admission Reason for Admission: Complicated Uti, Inappropriate Shocks From Icd Discharge Discharge Diagnosis / Problem: UTI/ Weakness/ Neurogenic Bladder Discharge Goals Goal(s): Decrease discomfort, Improve function, Improve disease control Activity Recommendations Activity Limitations: resume your previous activity (as tolerated) . Instructions / Follow-Up Instructions / Follow-Up Follow up with your primary care provider Dr. Peña on 08/09 @ 11:05 Routine Follow up with your cardiology Completed the course of antibiotic with cipro Continue physical therapy Fall precaution Current Hospital Diet Patient's current hospital diet: AHA Diet (Heart Healthy), Gluten Free Diet Discharge Diet Recommended Diet: AHA Diet (Heart Healthy), Gluten Free Diet Pending Studies Studies pending at discharge: no Medical Emergencies . Who to Call and When: Medical Emergencies: If at any time you feel your situation is an emergency, please call 911 immediately. . Non-Emergent Contact Non-Emergency issues call your: Primary Care Provider Call Non-Emergent contact if: you have a fever, you have any medication questions . . "Provider Documentation" section prepared by Mary Caro. . VTE Core Measure Inpt VTE Proph given/why not?: Enoxaparin (Lovenox)SQ
[2017-08-04 13:47] VITALS: BP 147/78; PULSE 64; TEMP 36.3; O2SAT 97
[2017-08-04] MEDS ORDERED: CIPROFLOXACIN 250 MG TAB PO SCH (21:00)
[2017-08-05] MEDS ORDERED: FUROSEMIDE 20 MG TAB PO SCH (09:00)
--- NOTE | 2017-08-05 23:34 | Discharge Summary ---
Discharge Summary Date of Service Aug 05, 2017. Discharge Summary Admission Date: Aug 02, 2017 at 22:30 Discharge Date: Aug 04, 2017 Discharge Disposition: Home with services Principal Diagnosis: UTI Secondary Diagnoses/Problems: Weakness Neurogenic bladder Hx Pacemaker placement Multiple Sclerosis HTN Procedures: HEAD WITHOUT CONTRAST (CT) CT DOSE: 638.56 mGycm HISTORY: Mental status change weak eval for cva TECHNIQUE: Multiaxial CT images of the head were performed without the use of intravenous contrast. A dose lowering technique was utilized adhering to the principles of ALARA. Comparison: 08/04/2015 Findings: Chronic changes produces described considered unaltered. The calvarium and skull base are intact. The ventricles and sulci are within normal limits. There is no mass, hematoma, midline shift, or acute infarct. Age-related atrophy and chronic small vessel change. No acute intracranial hemorrhage. Impression: Chronic and age-related change. No acute intracranial abnormality. The above report was generated using voice recognition software. It may contain grammatical, syntax or spelling errors. Electronically signed by: Rasheed Vance M.D. 08/02/2017 7:52 PM Dictated Date/Time: 08/02/2017 7:51 PM CHEST ONE VIEW PORTABLE CLINICAL HISTORY: weak eval for pnea dyspnea COMPARISON STUDY: 05/15/2017 FINDINGS: Chronic atelectatic change left base. Unchanging nodular density right pulmonary apex. No acute infiltrate. No cardiac enlargement. IMPRESSION: Chronic change. No acute process. The above report was generated using voice recognition software. It may contain grammatical, syntax or spelling errors. Electronically signed by: Rasheed Vance M.D. 08/02/2017 7:46 PM Dictated Date/Time: 08/02/2017 7:45 PM Consultations: Cardio Medication Reconciliation New Medications: Ciprofloxacin (Ciprofloxacin HCl) 500 Mg Tab 250 MG PO BID for 5 Days, #5 TAB Continued Medications: Acetaminophen (Tylenol) 500 Mg Tab 1000 MG PO Q8H PRN for Pain, TAB Ascorbic Acid (Vitamin C) 500 Mg Tab 500 MG PO DAILY@1200 Aspirin (Aspirin Ec) 81 Mg Tab 81 MG PO BID Calcium/Vitamin D (Os-Hitesh 500 Plus D) Tab 1 TAB PO TID Cholecalciferol (Vitamin D3) 1,000 Unit Tab 1 TAB PO BID for 90 Days, #180 TAB 3 Refills Cyanocobalamin (Cyanocobalamin) 1,000 Mcg/Ml Inj 1000 MCG INJ MONTHLY Dextromethorphan-Guaifenesin (Mucinex Dm) 1 Tab Tab 1 TAB PO Q12 PRN for Cough for 10 Days, #20 TAB Docusate Sodium (Docusate Sodium) 100 Mg Cap 1 CAP PO BID PRN for Constipation for 15 Days, #30 CAP Estrogens, Conjugated (Premarin) 14 Appln/30 Gm Cr 1 APPLN PV UD MONDAYS AND FRIDAYS Furosemide (Lasix) 20 Mg Tab 20 MG PO DAILY, TAB Levothyroxine Sodium (Levothyroxine Sodium) 100 Mcg Tab 100 MCG PO DAILYBB Loperamide Hcl (Imodium) 2 Mg Cap 2 MG PO PRN for Diarrhea, CAP Loratadine (Claritin) 10 Mg Tab 10 MG PO DAILY PRN for ALLERGY SX, 0 Refills Magnesium Oxide (Mag-Ox) 400 Mg Tab 400 MG PO DAILYBL Multiple Vitamins W/ Minerals (Centrum) 1 Tab Tab 1 TAB PO DAILY Ondansetron Hcl (Zofran) 4 Mg Tab 1 TAB PO Q8H PRN for Nausea or Vomiting, #10 TAB 1 Refill Potassium Chloride (Potassium Chloride) 10 Meq Soln 20 MEQ PO 3XWK MWF Prochlorperazine Maleate (Compazine) 10 Mg Tab 5 MG PO Q6 PRN for Nausea for 7 Days, #30 TAB 3 Refills Sotalol HCl (Sotalol HCl) 80 Mg Tab 80 MG PO QAM Sotalol HCl (Sotalol HCl) 80 Mg Tab 40 MG PO QPM 2100 Admission Information HPI (per Admitting provider): DICTATED BY: Joel Rubio M.D. *NOTICE TO RECEIVING [facility]/AGENCY This information is strictly Confidential and protected under [place] law. [place] law prohibits you from making any further disclosure of this information unless further disclosure is expressly permitted by the written consent of the person to whom it pertains or is authorized by law. A general authorization for the release of medical or other information is not sufficient for this purpose. Hospital accepts no responsibility if the information is made available to any other person, INCLUDING THE PATIENT. DATE OF ADMISSION: 08/02/2017 PRIMARY CARE DOCTOR: Dr. Peña. CHIEF COMPLAINT: Weakness. HISTORY OF PRESENT ILLNESS: History obtained from the patienta and records. Medical history is significant for MS, history of neurogenic bladder with chronic indwelling Welsh catheter, recurrent UTIs, hypertension, sick sinus syndrome status post pacemaker placement, PVD as per records, hypothyroidism. Past tobacco abuse. Recent confinement last May 2017 for HCAP. Today, the patient felt weak, felt nauseous, appetite fair. Denies bowel and bladder symptoms. No belly pain, chest pain, shortness of breath. Patient was brought to the Emergency Room, noted to be hypoglycemic. Given Ceftriaxone for possible UTI. In the ER, the patient felt her cardiac device shocked her. Last episode to her recollection probably last year as per patient. Physical Exam (per Admitting): VITAL SIGNS: Blood pressure was noted to be 167/87 later 130/80, pulse rate 86 , RR 18, temperature 37, O2 96% on room air. GENERAL: Noted to be pleasant, slightly anxious, no respiratory distress. Looks younger for stated age. SKIN: Normal color. Dry HEENT: [place] palpebral conjunctivae. Dry mucosa. NECK: Supple. Nontender CHEST: Clear to auscultation. Nontender Cardiovascular : No JVD , Regular rate and rhythm. Systolic murmur. ABDOMEN: Soft. Nontender EXTREMITIES: No edema. Nontender NEUROLOGIC: Coherent , No gross focality. Hospital Course UTI Hx of recurrent complicated UTI Chronic indwelling welsh cath UA +leukocytes, nitrite and bacteria Received cefepime in the ER On Zosyn IV for day 2 will change abx to cipro to complete 7 days course of abx urine cx showed URINE CULTURE Preliminary 08/04/17-0832 Organism 1 SERRATIA MARCESCENS COLONY COUNT >100,000 CFU/ml SENS SENSITIVITY TO FOLLOW Organism 2 GROUP B BETA STREP COLONY COUNT >100,000 CFU/ml SENS NO SENSITIVITY TO FOLLOW 1. SERRATIA MARCESCENS Target Route Dose RX AB Cost M.I.C. IQ ------ ----- ------ -- ------ -------- - ------ TRIMET/SULFA S <=2/38 CEFOTAXIME S <=2 CEFTRIAXONE I 2 CEFEPIME S <=4 IMIPENEM S <=1 GENTAMICIN S <=4 TOBRAMYCIN S <=4 AMIKACIN S <=16 CIPROFLOXACIN S <=1 LEVOFLOXACIN S <=2 ERTAPENEM S <=1 PIP/TAZO S <=16 S = SENSITIVE I = INTERMEDIATE R = RESISTANT Weakness Possible related to UTI PT/OT fall precaution Neurogenic Bladder Due to MS Continue welsh cath Hx Pacemaker placement Pacemaker interrogation done and functioning properly no signs of arrhythmia on tele cardiology on board, recommended to continue current management follow up with cardiology as an outpatient MS No signs of MS flare up Stable Hypertension stable. DVT px on Lovenox CODE STATUS FULL CODE Total time spent on discharge = 35 minutes This includes examination of the patient, discharge planning, medication reconciliation, and communication with other providers. Discharge Instructions Discharge Instructions Date of Service Aug 04, 2017. Admission Reason for Admission: Complicated Uti, Inappropriate Shocks From Icd Discharge Discharge Diagnosis / Problem: UTI/ Weakness/ Neurogenic Bladder Discharge Goals Goal(s): Decrease discomfort, Improve function, Improve disease control Activity Recommendations Activity Limitations: resume your previous activity (as tolerated) . Instructions / Follow-Up Instructions / Follow-Up Follow up with your primary care provider Dr. Peña on 08/09 @ 11:05 Routine Follow up with your cardiology Completed the course of antibiotic with cipro Continue physical therapy Fall precaution Current Hospital Diet Patient's current hospital diet: AHA Diet (Heart Healthy), Gluten Free Diet Discharge Diet Recommended Diet: AHA Diet (Heart Healthy), Gluten Free Diet Pending Studies Studies pending at discharge: no Medical Emergencies . Who to Call and When: Medical Emergencies: If at any time you feel your situation is an emergency, please call 911 immediately. . Non-Emergent Contact Non-Emergency issues call your: Primary Care Provider Call Non-Emergent contact if: you have a fever, you have any medication questions . . "Provider Documentation" section prepared by Mary Caro. . VTE Core Measure Inpt VTE Proph given/why not?: Enoxaparin (Lovenox)SQ Signed: Signed: The status of this report is Draft * If report status is Draft, the document has not been finalized by the responsible provider. Additional Copies To Reggie Peña D.O.
== END 2017-08-04 15:43 | disposition home health service (06) | DRG 700 ==
LOC: EDBD 18:49 → C.EDC 18:50 → C.MED 22:30 → ENRESERV 23:06
PROVIDERS: ADMIT Internal Medicine; ATTEND Internal Medicine
DX: T83.511A Infection and inflammatory reaction due to indwelling urethral catheter, initial encounter (principal); N39.0 Urinary tract infection, site not specified; E16.2 Hypoglycemia, unspecified; I48.0 Paroxysmal atrial fibrillation; G35 Multiple sclerosis; N31.9 Neuromuscular dysfunction of bladder, unspecified; I10 Essential (primary) hypertension; I73.9 Peripheral vascular disease, unspecified; E03.9 Hypothyroidism, unspecified; Z95.0 Presence of cardiac pacemaker; Z86.79 Personal history of other diseases of the circulatory system; Z87.440 Personal history of urinary (tract) infections; Z86.19 Personal history of other infectious and parasitic diseases; Z87.891 Personal history of nicotine dependence; Z79.890 Hormone replacement therapy; Z79.82 Long term (current) use of aspirin; Z79.899 Other long term (current) drug therapy; Z88.1 Allergy status to other antibiotic agents; Z88.2 Allergy status to sulfonamides; Z88.5 Allergy status to narcotic agent; Z82.49 Family history of ischemic heart disease and other diseases of the circulatory system; Z82.3 Family history of stroke; Z82.5 Family history of asthma and other chronic lower respiratory diseases

== ENCOUNTER 2017-12-19 02:21 | Inpatient (IN) | payer OTHER, BC ==
[~2017-12-19] VITALS: Ht 152.4 cm; Wt 53.7 kg
[2017-12-19] VITALS (8 sets, daily range): BP systolic 105–124; BP diastolic 68–85; PULSE 83–119; TEMP 36.3–36.7; O2SAT 95–100; Ht 152.4 cm; Wt 53.7 kg
[~2017-12-19 02:21] MED LIST changes: -BENZ100C7 PO; +CPR500 PO; -DXY100 PO
[2017-12-19] MEDS ORDERED: ONDANSETRON INJ 2 MG/ML 2 ML VIAL IV STA (02:40)
--- NOTE | 2017-12-19 02:40 | EMERGENCY ROOM VISIT NOTE ---
History Report prepared by Jovanni: Anand Willoughby Under the Supervision of: Dr. Jm Langston M.D. First contact with patient: 02:27 Chief Complaint: CARDIAC ASSESSMENT Stated Complaint: CHEST PAIN History of Present Illness The patient is a 82 year old female who presents to the Emergency Room with complaints of constant SOB beginning 2 and a half hours ago. The patient also complains of nausea, chest pain, weakness, and rhinorrhea. She denies any fevers. She states that her symptoms worsen when she takes a breath. She notes that she has a history of atrial fibrillation and has a pacemaker. She denies any history of heart failure or COPD. The patient states that she does not take any anxiety medication. Source of History: patient Onset: 2 and a half hours ago Position: chest Quality: other (SOB) Timing: constant Modifying Factors (Worsening): breathing Associated Symptoms: + chest pain, + nausea, + weakness, No fevers Note: She also complains of rhinorrhea. Review of Systems See HPI for pertinent positives & negatives. A total of 10 systems reviewed and were otherwise negative. 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) (9) Multiple sclerosis (10) Neurogenic bladder (11) Osteoporosis (12) Pacemaker (13) Paroxysmal atrial fibrillation (14) PVD (peripheral vascular disease) (15) rectocele repair (16) SBO (small bowel obstruction) (17) Vertigo Surgical Problems: (1) H/O dilation and curettage (2) History of appendectomy (3) S/P partial colectomy Family History FH: CAD (coronary artery disease) FATHER SISTER Social History Smoking Status: Never Smoker Alcohol Use: none Drug Use: none Marital Status: Housing Status: lives with family Occupation Status: retired Current/Historical Medications Scheduled Ascorbic Acid (Vitamin C), 500 MG PO DAILY@1200 Aspirin (Aspirin Ec), 81 MG PO BID Calcium/Vitamin D (Os-Hitesh 500 Plus D), 1 TAB PO TID Cholecalciferol (Vitamin D3), 1 TAB PO BID Cyanocobalamin (Cyanocobalamin), 1,000 MCG INJ MONTHLY Denosumab (Prolia), 1 DOSE INJ DIRECTED Estrogens, Conjugated (Premarin), 1 APPLN PV UD Furosemide (Lasix), 20 MG PO MWF Lactobacillus-Inulin (Culturelle Digestive Heal), 1 CAP PO BID Levothyroxine Sodium (Levothyroxine Sodium), 100 MCG PO DAILYBB Magnesium Oxide (Mag-Ox), 400 MG PO DAILYBL Multiple Vitamins W/ Minerals (Centrum), 1 TAB PO DAILY Potassium Chloride (Potassium Chloride), 20 MEQ PO 3XWK Sotalol HCl (Sotalol HCl), 80 MG PO QAM Sotalol HCl (Sotalol HCl), 40 MG PO QPM Scheduled PRN Acetaminophen (Tylenol), 1,000 MG PO Q8H PRN for Pain Dextromethorphan-Guaifenesin (Mucinex Dm), 1 TAB PO Q12 PRN for Cough Loperamide Hcl (Imodium), 2 MG PO for Diarrhea Loratadine (Claritin), 10 MG PO DAILY PRN for ALLERGY SX Allergies Coded Allergies: Sulfa Antibiotics (Verified Allergy, Severe, HIVES, 12/19/17) Wheat Bran (Verified Allergy, Intermediate, DIARRHEA, 12/19/17) GLUTEN FREE DIET Codeine (Verified Adverse Reaction, Severe, "VERY SICK", 12/19/17) Doxycycline (Verified Adverse Reaction, Severe, 0, 12/19/17) bad diarrhea as per px Gluten (Verified Adverse Reaction, Intermediate, GI DISTRESS, 12/19/17) Physical Exam Vital Signs Date Time Temp Pulse Resp B/P (MAP) Pulse Ox O2 Delivery O2 Flow Rate FiO2 12/19/17 04:41 110 20 128/104 94 BiPAP 12/19/17 04:38 114 107/81 12/19/17 04:00 109 18 110/79 98 BiPAP 12/19/17 03:30 111 20 130/100 98 BiPAP 12/19/17 02:55 95 100 35 12/19/17 02:36 36.4 86 28 171/155 92 Room Air 12/19/17 02:36 Nasal Cannula 3.0 94 12/19/17 02:36 97 Nasal Cannula 4.0 12/19/17 02:33 108 Physical Exam GENERAL: Patient is acutely ill appearing and in moderate distress. HEENT: No acute trauma, normocephalic atraumatic, mucous membranes moist, no nasal congestion, no scleral icterus. NECK: No stridor, no adenopathy, no meningismus, trachea is midline. Positive JVD. LUNGS: No wheeze, no rhonchi. Dyspneic with minimal air movement in bilateral lower lobes, crackles throughout upper lobes. Tachypneic. HEART: Tachycardic and irregular. No murmurs, rubs, gallops appreciated. ABDOMEN: Soft, nontender, bowel sounds positive, no masses appreciated, no peritonitis. BACK: No midline tenderness, no CVA tenderness EXTREMITIES: Normal motion all extremities, no cyanosis, no edema. NEUROLOGIC: Alert and oriented, no acute motor or sensory deficits, no focal weakness, cranial nerves grossly intact. SKIN: No rash, no jaundice, no diaphoresis. Medical Decision & Procedures ER Provider Diagnostic Interpretation: Radiology results and stated below per my review and interpretation: CHEST X-RAY: Diffuse pulmonary edema. Pacemaker in place. Large heart. Laboratory Results 12/19/17 03:00 Red Blood Count 4.09, Mean Corpuscular Volume 97.8, Mean Corpuscular Hemoglobin 32.8, Mean Corpuscular Hemoglobin Concent 33.5, Mean Platelet Volume 9.2, Neutrophils (%) (Auto) 81.7, Lymphocytes (%) (Auto) 9.5, Monocytes (%) (Auto) 6.0, Eosinophils (%) (Auto) 2.1, Basophils (%) (Auto) 0.5, Neutrophils # (Auto) 9.07, Lymphocytes # (Auto) 1.05, Monocytes # (Auto) 0.67, Eosinophils # (Auto) 0.23, Basophils # (Auto) 0.06 12/19/17 03:00 Test 12/19/17 02:48 12/19/17 03:00 Influenza Type A Antigen Neg for Influ A (NEG) Influenza Type B Antigen Neg for Influ B (NEG) White Blood Count 11.10 K/uL (4.8-10.8) Red Blood Count 4.09 M/uL (4.2-5.4) Hemoglobin 13.4 g/dL (12.0-16.0) Hematocrit 40.0 % (37-47) Mean Corpuscular Volume 97.8 fL (80-100) Mean Corpuscular Hemoglobin 32.8 pg (25-34) Mean Corpuscular Hemoglobin Concent 33.5 g/dl (32-36) Platelet Count 302 K/uL (130-400) Mean Platelet Volume 9.2 fL (7.4-10.4) Neutrophils (%) (Auto) 81.7 % Lymphocytes (%) (Auto) 9.5 % Monocytes (%) (Auto) 6.0 % Eosinophils (%) (Auto) 2.1 % Basophils (%) (Auto) 0.5 % Neutrophils # (Auto) 9.07 K/uL (1.4-6.5) Lymphocytes # (Auto) 1.05 K/uL (1.2-3.4) Monocytes # (Auto) 0.67 K/uL (0.11-0.59) Eosinophils # (Auto) 0.23 K/uL (0-0.5) Basophils # (Auto) 0.06 K/uL (0-0.2) RDW Standard Deviation 51.8 fL (36.4-46.3) RDW Coefficient of Variation 14.5 % (11.5-14.5) Immature Granulocyte % (Auto) 0.2 % Immature Granulocyte # (Auto) 0.02 K/uL (0.00-0.02) Anion Gap 10.0 mmol/L (3-11) Est Creatinine Clear Calc Drug Dose 45.6 ml/min Estimated GFR () 86.8 Estimated GFR (Non- 74.9 BUN/Creatinine Ratio 35.5 (10-20) Calcium Level 8.6 mg/dl (8.5-10.1) Total Bilirubin 0.3 mg/dl (0.2-1) Direct Bilirubin < 0.1 mg/dl (0-0.2) Aspartate Amino Transf (AST/SGOT) 100 U/L (15-37) Alanine Aminotransferase (ALT/SGPT) 46 U/L (12-78) Alkaline Phosphatase 250 U/L (45-117) Troponin I < 0.015 ng/ml (0-0.045) Pro-B-Type Natriuretic Peptide 7521 pg/ml (0-1800) Total Protein 6.9 gm/dl (6.4-8.2) Albumin 2.9 gm/dl (3.4-5.0) Lipase 357 U/L (73-393) Laboratory results as reviewed by me. Medications Administered Medications (Trade) Dose Ordered Sig/Van Route Start Time Stop Time Status Last Admin Dose Admin Ondansetron HCl (Zofran Inj) 4 mg NOW STAT IV 12/19/17 02:40 12/19/17 02:43 DC 12/19/17 02:59 4 MG Furosemide (Lasix Inj) 40 mg NOW STAT IV 12/19/17 03:59 12/19/17 04:02 DC 12/19/17 04:34 40 MG Metoprolol Tartrate (Lopressor Iv) 5 mg NOW STAT IV 12/19/17 03:59 12/19/17 04:02 DC 12/19/17 04:38 2.5 MG ECG Indication: chest pain Rate (beats per minute): 100 Rhythm: atrial fibrillation Findings: no acute ischemic change Comparison ECG Date: 08/03/2017 Change: no significant change Change: EKG: Electrocardiogram per my interpretation. ED Course 0230: The patient was evaluated in room B7. A complete history and physical exam was performed. 0359: Upon reevaluation, the patient is stable. Discussed results and treatment plan with the patient. She verbalized understanding and agreement with the treatment plan. Discussed the patient's case with Dr. Lange - Denia Brito.The patient will be evaluated for further management. Medical Decision Differential: Infectious, Reactive Airway Disease, Pneumonia, Pneumothorax, COPD , CHF, ACS, Pulmonary Embolism, MSK, GI, Dissection, amongst other etiologies entertained. 82 yr old female arrives in severe distress s/p awakening with acute shortness of breath. EMS initially on seen with afib RVR and respiratory difficulty. GIven Cardizem IV by me in field and arrives with HR in 100-110s. Clearly in CHF by exam with significant JVD, wet lungs. This is likely acute process given minimal leg swelling and suspect it is from sudden rvr afib. No evidence of PE and she would be unable to lay flat for CT at this time as it is. Was not severely hypoxic but given significant reparatory distress felt that BiPAP reasonable which resulted in vast improvement in her breathing. Patient stable , breathing comfortably and BP starting to normalize as she calmed down. Given IV lasix along with further IV lopressor. Drops to 80s on RA if BiPAP taken off. No clear infectious etiology and exam not consistent with COPD. No evidence ACS currently. Medication Reconcilliation Current Medication List: was personally reviewed by me Blood Pressure Screening Patient's blood pressure: Elevated blood pressure Elevated blood pressure will be monitored by hospitalist. Consults Time Called: [phone] Consulting Physician: Dr. Lange - Denia Brito Returned Call: [phone] Discussed the patient's case. The patient will be evaluated for further treatment and disposition. Impression Primary Impression: Pulmonary edema Additional Impressions: Atrial fibrillation with RVR Acute congestive heart failure Critical Care I have personally spent greater than 35 minutes of critical care time in the direct management of this patient. This was a life/limb threatening event. This includes time spent evaluating patient, direct bedside care, chart review, placing orders, interpretation of diagnostic studies, discussion with consultants, patient, and family members, as well as other required patient management activities. This 35 minutes is in excess of all separately billable procedures. Scribe Attestation The scribe's documentation has been prepared under my direction and personally reviewed by me in its entirety. I confirm that the note above accurately reflects all work, treatment, procedures, and medical decision making performed by me. Departure Information Dispostion Being Evaluated By Hospitalist Referrals Reggie Peña D.O. (PCP) Patient Instructions My [facility] Problem Qualifiers
[2017-12-19] MEDS ORDERED: DENO60SO INJ (02:57)
[2017-12-19] MEDS ORDERED: LACTCAP27 PO (02:57)
[2017-12-19 03:20] LABS: BASO % 0.5 %; BASO ABS # 0.06 K/uL (0-0.2); EOS % 2.1 %; EOS ABS # 0.23 K/uL (0-0.5); HEMOGLOBIN 13.4 g/dL (12.0-16.0); IG# 0.02 K/uL (0.00-0.02); LYMPH % 9.5 %; LYMPH ABS # 1.05 K/uL (1.2-3.4); MEAN CELL VOLUME 97.8 fL (80-100); MEAN CORPUSCULAR HEMOGLOBIN 32.8 pg (25-34); MEAN CORPUSCULAR HGB CONC 33.5 g/dl (32-36); MEAN PLATELET VOLUME 9.2 fL (7.4-10.4); MONO ABS # 0.67 K/uL (0.11-0.59); NEUT % 81.7 %; NEUT ABS # 9.07 K/uL (1.4-6.5); PLATELET COUNT 302 K/uL (130-400); RED CELL DISTRIBUTION WIDTH CV 14.5 % (11.5-14.5); RED CELL DISTRIBUTION WIDTH SD 51.8 fL (36.4-46.3)
[2017-12-19 03:26] LABS: INFLUENZA B ANTIGEN Neg for Influ B (NEG)
[2017-12-19 03:39] LABS: ALBUMIN 2.9 gm/dl (3.4-5.0); ALT/SGPT 46 U/L (12-78); AST/SGOT 100 U/L (15-37); BLOOD UREA NITROGEN 26 mg/dl (7-18); CALCIUM 8.6 mg/dl (8.5-10.1); CARBON DIOXIDE 24 mmol/L (21-32); CREATININE 0.74 mg/dl (0.60-1.20); GLUCOSE 120 mg/dl (70-99); LIPASE 357 U/L (73-393); SODIUM 132 mmol/L (136-145)
[2017-12-19 03:44] LABS: ALKALINE PHOSPHATASE 250 U/L (45-117); TOTAL PROTEIN 6.9 gm/dl (6.4-8.2)
[2017-12-19] MEDS ORDERED: METOPROLOL TARTRATE 1 MG/ML VIAL IV STA (03:59)
[2017-12-19] MEDS ORDERED: FUROSEMIDE 40 MG/4 ML VIAL IV STA (03:59)
[2017-12-19] MEDS ORDERED: ONDANSETRON INJ 2 MG/ML 2 ML VIAL IV PRN (06:00)
[2017-12-19] MEDS ORDERED: ACETAMINOPHEN 325 MG TAB PO PRN (06:00)
[2017-12-19] MEDS ORDERED: POLYETHYLENE (MIRALAX) 17 GM PACK PO PRN (06:00)
[2017-12-19] MEDS ORDERED: LORATADINE 10 MG TAB PO PRN (06:15)
[2017-12-19] MEDS ORDERED: ACETAMINOPHEN 500 MG TAB PO PRN (06:15)
--- NOTE | 2017-12-19 06:34 | History and Physical ---
History & Physical Date & Time of Service: Dec 19, 2017 at 06:08 Chief Complaint: Acute Exacerbation Of Chf, A Fib W/ Rvr Primary Care Physician: Reggie Peña D.O. History of Present Illness Source: patient, clinic records, hospital records 82 yo F presents with acute onset SOB earlier this evening. She reports feeling herself go into atrial fibrillation on Monday (3 nights ago) and flipped back and forth over the weekend. She denies chest pain but states that she "knew something was going on". She denies nausea, vomiting, diarrhea, abdominal pain or other symptoms at this time except for some generalized weakness. She recently had her PM interrogated on 12/13/17 revealing 5 episodes of afib. However, since symptoms started up on 12/15 repeat interrogation was ordered. Most recent TTE was in 2015 revealing normal LV function with EF 55-60 %, mild LVH, basal septum is thickened and angulated consistent with sigmoid septum, left atrium is severely dilated, mild posterior MV prolapse with borderline anterior leaflet prolapse, moderate mitral regurgitation, moderate tricuspid regurgitation, redundant TV chordae visualized. Past Medical/Surgical History Medical Problems: (1) Celiac disease Status: Chronic (2) cystocel repair Status: Chronic (3) Hypothyroidism Status: Chronic (4) Multiple sclerosis Status: Chronic (5) Neurogenic bladder Status: Chronic (6) Osteoporosis Status: Chronic (7) Pacemaker Status: Chronic (8) Paroxysmal atrial fibrillation Status: Chronic (9) PVD (peripheral vascular disease) Status: Chronic (10) rectocele repair Status: Chronic (11) SBO (small bowel obstruction) Status: Chronic (12) Vertigo Status: Resolved Surgical Problems: (1) H/O dilation and curettage Status: Chronic (2) History of appendectomy Status: Chronic (3) S/P partial colectomy Permanent Comment: x2 for prolapse Status: Chronic Family History FH: CAD (coronary artery disease) FATHER SISTER Social History Smoking Status: Former Smoker Smokeless Tobacco Use: No Alcohol Use: none Drug Use: none Marital Status: Housing status: lives with significant other Occupational Status: retired Immunizations History of Influenza Vaccine: Yes Influenza Vaccine Date: Aug 22, 2016 History of Tetanus Vaccine?: Yes Tetanus Immunization Date: Nov 29, 2016 History of Pneumococcal: Yes Pneumococcal Date: Sep 01, 2015 Multi-Drug Resistant Organisms History of MDRO: No Allergies Coded Allergies: Sulfa Antibiotics (Verified Allergy, Severe, HIVES, 12/19/17) Wheat Bran (Verified Allergy, Intermediate, DIARRHEA, 12/19/17) GLUTEN FREE DIET Codeine (Verified Adverse Reaction, Severe, "VERY SICK", 12/19/17) Doxycycline (Verified Adverse Reaction, Severe, 0, 12/19/17) bad diarrhea as per px Gluten (Verified Adverse Reaction, Intermediate, GI DISTRESS, 12/19/17) Home Medications Scheduled Ascorbic Acid (Vitamin C), 500 MG PO DAILY@1200 Aspirin (Aspirin Ec), 81 MG PO BID Calcium/Vitamin D (Os-Hitesh 500 Plus D), 1 TAB PO TID Cholecalciferol (Vitamin D3), 1 TAB PO BID Cyanocobalamin (Cyanocobalamin), 1,000 MCG INJ MONTHLY Denosumab (Prolia), 1 DOSE INJ DIRECTED Estrogens, Conjugated (Premarin), 1 APPLN PV UD Furosemide (Lasix), 20 MG PO MWF Lactobacillus-Inulin (Culturelle Digestive Heal), 1 CAP PO BID Levothyroxine Sodium (Levothyroxine Sodium), 100 MCG PO DAILYBB Magnesium Oxide (Mag-Ox), 400 MG PO DAILYBL Multiple Vitamins W/ Minerals (Centrum), 1 TAB PO DAILY Potassium Chloride (Potassium Chloride), 20 MEQ PO 3XWK Sotalol HCl (Sotalol HCl), 80 MG PO QAM Sotalol HCl (Sotalol HCl), 40 MG PO QPM Scheduled PRN Acetaminophen (Tylenol), 1,000 MG PO Q8H PRN for Pain Dextromethorphan-Guaifenesin (Mucinex Dm), 1 TAB PO Q12 PRN for Cough Loperamide Hcl (Imodium), 2 MG PO for Diarrhea Loratadine (Claritin), 10 MG PO DAILY PRN for ALLERGY SX Review of Systems At least ten systems were reviewed and negative except as indicated in HPI above. Physical Exam Vital Signs Date Time Temp Pulse Resp B/P (MAP) Pulse Ox O2 Delivery O2 Flow Rate FiO2 12/19/17 05:57 104 20 132/79 94 12/19/17 04:41 110 20 128/104 94 BiPAP 12/19/17 04:38 114 107/81 12/19/17 04:00 109 18 110/79 98 BiPAP 12/19/17 03:30 111 20 130/100 98 BiPAP 12/19/17 02:55 95 100 35 12/19/17 02:36 36.4 86 28 171/155 92 Room Air 12/19/17 02:36 Nasal Cannula 3.0 94 12/19/17 02:36 97 Nasal Cannula 4.0 12/19/17 02:33 108 General Appearance: + mild distress, + thin, + pertinent finding (desaturates to 86% off the BIPAP) Head: normocephalic, atraumatic Eyes: normal inspection, PERRL, sclerae normal ENT: hearing grossly normal, pharynx normal Neck: supple, trachea midline, + JVD Respiratory/Chest: chest non-tender, no respiratory distress, no accessory muscle use, + decreased breath sounds, + crackles Cardiovascular: no gallop, no murmur, normal peripheral pulses, + irregularly irregular, + pertinent finding (trace LE edema bilaterally) Abdomen/GI: normal bowel sounds, non tender, soft, no organomegaly Back: normal inspection Extremities/Musculoskelatal: normal inspection, no calf tenderness Neurologic/Psych: center receptionist II-XII nml as tested, alert, normal mood/affect, oriented x 3, + pertinent finding (baseline motor deficits from MS) Skin: normal color, warm/dry Diagnostics Laboratory Results 12/19/17 03:00 Red Blood Count 4.09, Mean Corpuscular Volume 97.8, Mean Corpuscular Hemoglobin 32.8, Mean Corpuscular Hemoglobin Concent 33.5, Mean Platelet Volume 9.2, Neutrophils (%) (Auto) 81.7, Lymphocytes (%) (Auto) 9.5, Monocytes (%) (Auto) 6.0, Eosinophils (%) (Auto) 2.1, Basophils (%) (Auto) 0.5, Neutrophils # (Auto) 9.07, Lymphocytes # (Auto) 1.05, Monocytes # (Auto) 0.67, Eosinophils # (Auto) 0.23, Basophils # (Auto) 0.06 12/19/17 03:00 Test 12/19/17 02:48 12/19/17 03:00 12/19/17 06:14 Influenza Type A Antigen Neg for Influ A (NEG) Influenza Type B Antigen Neg for Influ B (NEG) White Blood Count 11.10 K/uL (4.8-10.8) Red Blood Count 4.09 M/uL (4.2-5.4) Hemoglobin 13.4 g/dL (12.0-16.0) Hematocrit 40.0 % (37-47) Mean Corpuscular Volume 97.8 fL (80-100) Mean Corpuscular Hemoglobin 32.8 pg (25-34) Mean Corpuscular Hemoglobin Concent 33.5 g/dl (32-36) Platelet Count 302 K/uL (130-400) Mean Platelet Volume 9.2 fL (7.4-10.4) Neutrophils (%) (Auto) 81.7 % Lymphocytes (%) (Auto) 9.5 % Monocytes (%) (Auto) 6.0 % Eosinophils (%) (Auto) 2.1 % Basophils (%) (Auto) 0.5 % Neutrophils # (Auto) 9.07 K/uL (1.4-6.5) Lymphocytes # (Auto) 1.05 K/uL (1.2-3.4) Monocytes # (Auto) 0.67 K/uL (0.11-0.59) Eosinophils # (Auto) 0.23 K/uL (0-0.5) Basophils # (Auto) 0.06 K/uL (0-0.2) RDW Standard Deviation 51.8 fL (36.4-46.3) RDW Coefficient of Variation 14.5 % (11.5-14.5) Immature Granulocyte % (Auto) 0.2 % Immature Granulocyte # (Auto) 0.02 K/uL (0.00-0.02) Anion Gap 10.0 mmol/L (3-11) Est Creatinine Clear Calc Drug Dose 45.6 ml/min Estimated GFR () 86.8 Estimated GFR (Non- 74.9 BUN/Creatinine Ratio 35.5 (10-20) Calcium Level 8.6 mg/dl (8.5-10.1) Total Bilirubin 0.3 mg/dl (0.2-1) Direct Bilirubin < 0.1 mg/dl (0-0.2) Aspartate Amino Transf (AST/SGOT) 100 U/L (15-37) Alanine Aminotransferase (ALT/SGPT) 46 U/L (12-78) Alkaline Phosphatase 250 U/L (45-117) Troponin I < 0.015 ng/ml (0-0.045) Pro-B-Type Natriuretic Peptide 7521 pg/ml (0-1800) Total Protein 6.9 gm/dl (6.4-8.2) Albumin 2.9 gm/dl (3.4-5.0) Lipase 357 U/L (73-393) Results Past 24 Hours Test 12/19/17 02:48 12/19/17 03:00 12/19/17 05:56 Range/Units Influenza Type A Antigen Neg for Influ A NEG Influenza Type B Antigen Neg for Influ B NEG White Blood Count 11.10 4.8-10.8 K/uL Red Blood Count 4.09 4.2-5.4 M/uL Hemoglobin 13.4 12.0-16.0 g/dL Hematocrit 40.0 37-47 % Mean Corpuscular Volume 97.8 80-100 fL Mean Corpuscular Hemoglobin 32.8 25-34 pg Mean Corpuscular Hemoglobin Concent 33.5 32-36 g/dl Platelet Count 302 130-400 K/uL Mean Platelet Volume 9.2 7.4-10.4 fL Neutrophils (%) (Auto) 81.7 % Lymphocytes (%) (Auto) 9.5 % Monocytes (%) (Auto) 6.0 % Eosinophils (%) (Auto) 2.1 % Basophils (%) (Auto) 0.5 % Neutrophils # (Auto) 9.07 1.4-6.5 K/uL Lymphocytes # (Auto) 1.05 1.2-3.4 K/uL Monocytes # (Auto) 0.67 0.11-0.59 K/uL Eosinophils # (Auto) 0.23 0-0.5 K/uL Basophils # (Auto) 0.06 0-0.2 K/uL RDW Standard Deviation 51.8 36.4-46.3 fL RDW Coefficient of Variation 14.5 11.5-14.5 % Immature Granulocyte % (Auto) 0.2 % Immature Granulocyte # (Auto) 0.02 0.00-0.02 K/uL Sodium Level 132 136-145 mmol/L Potassium Level 4.0 3.5-5.1 mmol/L Chloride Level 98 98-107 mmol/L Carbon Dioxide Level 24 21-32 mmol/L Anion Gap 10.0 3-11 mmol/L Blood Urea Nitrogen 26 7-18 mg/dl Creatinine 0.74 0.60-1.20 mg/dl Est Creatinine Clear Calc Drug Dose 45.6 ml/min Estimated GFR () 86.8 Estimated GFR (Non- 74.9 BUN/Creatinine Ratio 35.5 10-20 Random Glucose 120 70-99 mg/dl Calcium Level 8.6 8.5-10.1 mg/dl Total Bilirubin 0.3 0.2-1 mg/dl Direct Bilirubin < 0.1 0-0.2 mg/dl Aspartate Amino Transf (AST/SGOT) 100 15-37 U/L Alanine Aminotransferase (ALT/SGPT) 46 12-78 U/L Alkaline Phosphatase 250 45-117 U/L Troponin I < 0.015 0-0.045 ng/ml Pro-B-Type Natriuretic Peptide 7521 0-1800 pg/ml Total Protein 6.9 6.4-8.2 gm/dl Albumin 2.9 3.4-5.0 gm/dl Lipase 357 73-393 U/L Impression Assessment and Plan 82 yo F presents with acute shortness of breath 2/2 heart failure exacerbation 1. CHF-acute, decompensated-likely 2/2 episodes of atrial fibrillation with RVR tonight requiring cardizem in the field. Lasix given IV with repeat doses ordered as the day goes on. Cardiology consulted. 2. Atrial fibrillation with RVR-rate controlled with IV AV jj blockers. Stroke prophy with ASA 81mg PO BID, cont sotatolol and defer to cardiology to change dosage. if needed. 3. Hypothyroidism-cont Synthroid DVT prophy-Heparin Full Code Dispo-tele [facility] Level of Care Telemetry Resuscitation Status FULL RESUSCITATION VTE Prophylaxis VTE Risk Assessment Done? Y/N: Yes Risk Level: Moderate Given or contraindicated: Unfractionated heparin SQ
--- NOTE | 2017-12-19 07:28 | DIAGNOSTIC IMAGING REPORT ---
CHEST ONE VIEW PORTABLE HISTORY: Atypical chest pain. Short of breath. COMPARISON: Chest 08/02/2017. FINDINGS: Left-sided dual-chamber pacemaker. The heart remains mildly enlarged. Right greater than left interstitial and vascular thickening. Linear densities the left lung base persist. Old, healed bilateral rib fractures. IMPRESSION: 1. Suspect mild asymmetric pulmonary edema. 2. Patchy density left lung base persists and likely represents scarring or atelectasis. 3. Stable mild cardiomegaly. Electronically signed by: Tolu Gregory M.D. 12/19/2017 7:27 AM Dictated Date/Time: 12/19/2017 7:26 AM
[2017-12-19] MEDS: ASPIRIN 81 MG ECTAB PO SCH ×2 (07:54→20:31)
[2017-12-19] MEDS: LEVOTHYROXINE 100 MCG TAB PO SCH (07:54)
[2017-12-19] MEDS: CALCIUM 600MG + VIT D 400 IU TAB PO SCH ×3 (07:55→20:31)
[2017-12-19] MEDS: CEROVITE ADV FORMULA TAB PO SCH (07:55)
[2017-12-19] MEDS: CHOLECALCIFEROL 1000 INTER.UNIT TAB PO SCH (07:55)
[2017-12-19] MEDS ORDERED: NURSING VERBAL MED ORDER ONE (08:00)
[2017-12-19] MEDS ORDERED: POTASSIUM CHLORIDE 20 MEQ TABCR PO SCH (09:00)
[2017-12-19] MEDS ORDERED: SOTALOL HCL 80 MG TAB PO SCH ×3 (09:00→21:00)
[2017-12-19] MEDS ORDERED: FUROSEMIDE INJ 40 MG in SYRINGE 0 ML IV ONE (09:00)
[2017-12-19] MEDS: POTASSIUM CHLORIDE 20 MEQ/15 ML UDC PO SCH ×2 (09:24→20:32)
[2017-12-19] MEDS ORDERED: METOPROLOL TARTRATE 25 MG TAB PO STA (11:42)
[2017-12-19] MEDS: MAGNESIUM OXIDE 400 MG TAB PO SCH (12:37)
[2017-12-19] MEDS: ASCORBIC ACID 500 MG TAB PO SCH (12:37)
[2017-12-19] MEDS: HEPARIN SOD 5000 UNIT/0.5 ML CARP SQ SCH ×2 (12:40→21:15)
--- NOTE | 2017-12-19 13:09 | CARDIOLOGY CONSULTATION ---
DATE OF CONSULTATION: 12/19/2017 REFERRING PHYSICIAN: Dr. Lange. INDICATIONS: Atrial fibrillation, congestive heart failure. HISTORY OF PRESENT ILLNESS: The patient is an 82-year-old female with complex history which includes: 1. Paroxysmal atrial fibrillation, controlled, predominantly in sinus rhythm with oral sotalol. 2. History of tachybrady syndrome, status post dual-chamber pacemaker insertion. 3. Multiple sclerosis with neurogenic bladder and chronic indwelling Walker. 4. History of celiac disease. The patient presents this admission having noted feeling weak and washed out throughout the past weekend, was concerned regarding possible exposures to the flu, but evening of admission, became acutely dyspneic with orthopnea. She felt that she had been in atrial fibrillation for at least 3 days. She denies fevers, chills or productive cough. Notes no melena, hematochezia, dysuria or hematuria. Feels dramatically better after diuresis this morning. Notes no chest pain or discomfort. Notes no headache or visual changes. Notes no change in medications. Has noted some increase in pedal edema recently in association with the above symptoms. REVIEW OF SYSTEMS: Otherwise negative. ALLERGIES: CODEINE, DOXYCYCLINE, GLUTEN, SULFA AND WHEAT BRAN. THE PATIENT IN THE PAST HAS HAD HEMORRHAGIC COMPLICATIONS OF ANTICOAGULATION AND DECLINES ITS USAGE. PAST MEDICATIONS: Vitamin C 500 mg daily, aspirin 81 mg b.i.d., Os-Hitesh 500 t.i.d., B12 1000 mcg q. month IM, furosemide 20 mg Monday, Monday and Monday, levothyroxine 100 mcg p.o. daily, Mag-Ox 400 mg p.o. daily, potassium chloride 20 mEq 3 times per week, sotalol 80 mg a.m. and 40 mg p.m. PAST SURGICAL HISTORY: Notable for prior pacemaker insertion, past D&C, appendectomy, partial colectomy. MEDICAL HISTORY: As per HPI. In addition includes history of hypothyroidism, past neurogenic bladder, prior rectocele repair and history of intermittent small-bowel obstruction. FAMILY HISTORY: Positive for coronary artery disease in father. SOCIAL HISTORY: The patient is a nonsmoker, nondrinker. She lives with her . PHYSICAL EXAMINATION: VITAL SIGNS: Heart rate is 100, blood pressure is 124/85. HEENT: Normocephalic and atraumatic. Nares without discharge. Throat is clear. NECK: Supple without thyromegaly, lymphadenopathy, JVD or bruit. LUNGS: Clear to auscultation. CARDIOVASCULAR: Irregularly irregular. There is no S3 gallop. ABDOMEN: Soft, nontender. There is no palpable hepatosplenomegaly. There is no hepatojugular reflux. EXTREMITIES: Reveal 1 to 2+ lower extremity edema. SKIN: Pacemaker site is without irritation. NEUROLOGIC: The patient is answering questions appropriately, has chronic lower extremity weakness. DATA: Pacer interrogation today finds the patient lapsed into atrial fibrillation on 12/11/2017. Troponins are negative. TSH was 0.647. BNP was 7521. Chest x-ray reveals increased interstitial markings consistent with pulmonary edema. Influenza A and B are canceled. IMPRESSION: An 82-year-old female presented with signs and symptoms of acute congestive heart failure, likely in the setting of lapse into atrial fibrillation with uncontrolled ventricular response rate on 12/11/2017. RECOMMENDATIONS: Continue diuresis. They will hold a.m. dose of furosemide until reassessed given brisk diuresis today. Sotalol will be increased to 80 mg twice per day with additional dose of low dose metoprolol to be administered for rate control. We will consider potential switch from sotalol to metoprolol for the patient in the past has been poorly tolerant of atrial fibrillation, anticoagulation remains contraindicated per the patient and she declines its usage. We will follow the patient in the hospital. Expect at least 1-2 more days of management at the minimum.
[2017-12-19] MEDS ORDERED: FUROSEMIDE INJ 40 MG in SYRINGE 0 ML IV SCH (17:00)
--- NOTE | 2017-12-19 17:12 | Progress Note ---
Internal Med Progress Note Date of Service: Dec 19, 2017. Provider Documentation: SUBJECTIVE: The patient was seen and examined Admitted with CHF with H/O MS and decreased mobility Clinically much better this morning OBJECTIVE: Vital Signs-as noted below Exam: General-No distress at rest Eyes-normal ENT-normal Neck-supple Lungs-Decreased breath sound bilaterally Heart-Regular Abdomen-Benign,on masses,bowel sound present Extremities-1+ edema bilaterally Neuro-AAOx3 Lab data as noted below. ASSESSMENT & PLAN: 82 yo F presents with acute shortness of breath 2/2 heart failure exacerbation CHF- -Acute, decompensated-likely 2/2 episodes of atrial fibrillation with RVR tonight requiring Cardizem in the field. -Lasix given IV with repeat doses ordered as the day goes on. -Cardiology consulted.-appreciate Input -Continue Lasix for now Paroxysmal Atrial fibrillation with RVR-rate controlled with IV AV jj blockers. H/O Tachy nichole syndrome s/p PPM Has been on Sotalol Hypothyroidism-cont Synthroid Multiple sclerosis with neurogenic bladder and chronic indwelling Walker. History of celiac disease. Remains stable DVT prophy-Heparin Full Code Dispo-tele Vital Signs: Date Time Temp Pulse Resp B/P (MAP) Pulse Ox O2 Delivery O2 Flow Rate FiO2 12/19/17 16:51 36.4 98 16 109/77 (88) 97 Nasal Cannula 1.0 12/19/17 12:00 Nasal Cannula 2.0 12/19/17 11:34 36.3 83 20 107/74 (85) 98 Nasal Cannula 2.0 12/19/17 08:00 Nasal Cannula 2.0 12/19/17 07:52 36.7 101 20 124/85 (98) 97 Nasal Cannula 2.0 12/19/17 06:19 36.6 119 16 111/73 95 Nasal Cannula 2.0 12/19/17 05:57 104 20 132/79 94 12/19/17 04:41 110 20 128/104 94 BiPAP 12/19/17 04:38 114 107/81 12/19/17 04:00 109 18 110/79 98 BiPAP 12/19/17 03:30 111 20 130/100 98 BiPAP 12/19/17 02:55 95 100 35 12/19/17 02:36 36.4 86 28 171/155 92 Room Air 2/13/18 02:36 Nasal Cannula 3.0 94 12/19/17 02:36 97 Nasal Cannula 4.0 12/19/17 02:33 108 Lab Results: Results Past 24 Hours Test 12/19/17 02:48 12/19/17 03:00 12/19/17 06:14 12/19/17 08:53 Range/Units Influenza Type A Antigen Neg for Influ A NEG Influenza Type B Antigen Neg for Influ B NEG White Blood Count 11.10 4.8-10.8 K/uL Red Blood Count 4.09 4.2-5.4 M/uL Hemoglobin 13.4 12.0-16.0 g/dL Hematocrit 40.0 37-47 % Mean Corpuscular Volume 97.8 80-100 fL Mean Corpuscular Hemoglobin 32.8 25-34 pg Mean Corpuscular Hemoglobin Concent 33.5 32-36 g/dl Platelet Count 302 130-400 K/uL Mean Platelet Volume 9.2 7.4-10.4 fL Neutrophils (%) (Auto) 81.7 % Lymphocytes (%) (Auto) 9.5 % Monocytes (%) (Auto) 6.0 % Eosinophils (%) (Auto) 2.1 % Basophils (%) (Auto) 0.5 % Neutrophils # (Auto) 9.07 1.4-6.5 K/uL Lymphocytes # (Auto) 1.05 1.2-3.4 K/uL Monocytes # (Auto) 0.67 0.11-0.59 K/uL Eosinophils # (Auto) 0.23 0-0.5 K/uL Basophils # (Auto) 0.06 0-0.2 K/uL RDW Standard Deviation 51.8 36.4-46.3 fL RDW Coefficient of Variation 14.5 11.5-14.5 % Immature Granulocyte % (Auto) 0.2 % Immature Granulocyte # (Auto) 0.02 0.00-0.02 K/uL Sodium Level 132 136-145 mmol/L Potassium Level 4.0 3.5-5.1 mmol/L Chloride Level 98 98-107 mmol/L Carbon Dioxide Level 24 21-32 mmol/L Anion Gap 10.0 3-11 mmol/L Blood Urea Nitrogen 26 7-18 mg/dl Creatinine 0.74 0.60-1.20 mg/dl Est Creatinine Clear Calc Drug Dose 45.6 ml/min Estimated GFR () 86.8 Estimated GFR (Non- 74.9 BUN/Creatinine Ratio 35.5 10-20 Random Glucose 120 70-99 mg/dl Calcium Level 8.6 8.5-10.1 mg/dl Total Bilirubin 0.3 0.2-1 mg/dl Direct Bilirubin < 0.1 0-0.2 mg/dl Aspartate Amino Transf (AST/SGOT) 100 15-37 U/L Alanine Aminotransferase (ALT/SGPT) 46 12-78 U/L Alkaline Phosphatase 250 45-117 U/L Troponin I < 0.015 0.017 0-0.045 ng/ml Pro-B-Type Natriuretic Peptide 7521 0-1800 pg/ml Total Protein 6.9 6.4-8.2 gm/dl Albumin 2.9 3.4-5.0 gm/dl Lipase 357 73-393 U/L Prothrombin Time 10.4 9.0-12.0 SECONDS Prothromb Time International Ratio 1.0 0.9-1.1 Thyroid Stimulating Hormone (TSH) 0.647 0.300-4.500 uIu/ml
[2017-12-20] VITALS: O2SAT 98
[2017-12-20 03:20] VITALS: BP 121/68; PULSE 113; TEMP 36.6; O2SAT 97
[2017-12-20] MEDS: LEVOTHYROXINE 100 MCG TAB PO SCH (05:55)
--- NOTE | 2017-12-20 05:55 | Clinical Documentation Query ---
CLINICAL DOCUMENTATION QUERY 82 year old female who presents to the Emergency Room with complaints of constant SOB found to be in acute CHF unspecified and Afib with RVR. Query #1/2 In your clinical opinion is this patient being managed for: ( + ) Acute diastolic (preserved EF) CHF in setting of Afib with RVR treated with IV Lasix and rate control. ( ) Not Agree ( ) Other explanation of clinical findings (Please Explain) ( ) Unable to determine (Please Define) ( ) Need to Discuss The medical record reflects the following clinical findings, treatment, and risk factors. Clinical Indicators: presents in moderate distress, dyspneic, tachypneic, with minimal air movement in bilateral lower lobes, and crackles throughout upper lobes per ED assesment. O2 sats of 86% off BiPAP. Most recent TTE was in 2015 revealing normal LV function with EF 55-60%, mild LVH, basal septum is thickened and angulated consistent with sigmoid septum, left atrium is severely dilated, mild posterior MV prolapse with borderline anterior leaflet prolapse, moderate mitral regurgitation, moderate tricuspid regurgitation, redundant TV chordae visualized. Treatment: O2 via BiPAP, IV Lasix, IV Cardizem, Sotalol, Metoprolol, Risk Factors: Age, CHF, Afib RVR. Query #2/2 In your clinical opinion is this patient being managed for: ( + ) Acute respiratory failure in setting of acute diastolic CHF treated with O2 via BiPAP & IV Lasix ( ) Not Agree ( ) Other explanation of clinical findings (Please Explain) ( ) Unable to determine (Please Define) ( ) Need to Discuss The medical record reflects the following clinical findings, treatment, and risk factors. Clinical Indicators: presents in moderate distress, dyspneic, tachypneic, with minimal air movement in bilateral lower lobes, and crackles throughout upper lobes per ED assesment. O2 sats of 86% off BiPAP. Treatment: O2 via BiPAP, IV Lasix, IV Cardizem, Sotalol, Metoprolol, Risk Factors: Age, CHF, Afib RVR. Please clarify and document your clinical opinion in the progress notes and discharge summary. Terms such as "probable", "suspected", "likely", "questionable", "possible", or "still to be ruled out" are acceptable. IF IN AGREEMENT, YOU MUST DOCUMENT ABOVE DIAGNOSTIC STATEMENT IN DAILY PROGRESS NOTES AND DISCHARGE SUMMARY. This document is not part of the patient's record. Thank You, Sohail Scott, TYRELL [phone]
[2017-12-20] MEDS: HEPARIN SOD 5000 UNIT/0.5 ML CARP SQ SCH ×3 (05:57→22:07)
--- NOTE | 2017-12-20 05:57 | Clinical Documentation Query ---
CLINICAL DOCUMENTATION QUERY 82 year old female who presents to the Emergency Room with complaints of constant SOB found to be in acute CHF unspecified and Afib with RVR. The medical record documentation is now expected to include definitive and explicit description of the patient's heart failure; vague terms such as "heart failure," ventricular dysfunction," and "CHF" may not fully capture the physician's intended level of severity. In your clinical opinion is this patient being managed for: ( x ) Acute diastolic (preserved EF) CHF in setting of Afib with RVR treated with IV Lasix and rate control. ( ) Not Agree ( ) Other explanation of clinical findings (Please Explain) ( ) Unable to determine (Please Define) ( ) Need to Discuss The medical record reflects the following clinical findings, treatment, and risk factors. Clinical Indicators: presents in moderate distress, dyspneic, tachypneic, with minimal air movement in bilateral lower lobes, and crackles throughout upper lobes per ED assesment. O2 sats of 86% off BiPAP. Most recent TTE was in 2016 revealing normal LV function with EF 55-60%, mild LVH, basal septum is thickened and angulated consistent with sigmoid septum, left atrium is severely dilated, mild posterior MV prolapse with borderline anterior leaflet prolapse, moderate mitral regurgitation, moderate tricuspid regurgitation, redundant TV chordae visualized. Treatment: O2 via BiPAP, IV Lasix, IV Cardizem, Sotalol, Metoprolol, Risk Factors: Age, CHF, Afib RVR. Please clarify and document your clinical opinion in the progress notes and discharge summary. Terms such as "probable", "suspected", "likely", "questionable", "possible", or "still to be ruled out" are acceptable. IF IN AGREEMENT, YOU MUST DOCUMENT ABOVE DIAGNOSTIC STATEMENT IN DAILY PROGRESS NOTES AND DISCHARGE SUMMARY. This document is not part of the patient's record. Thank You, Sohail Scott, RN [phone]
[2017-12-20 06:20] LABS: HEMATOCRIT 35.8 % (37-47); HEMOGLOBIN 11.8 g/dL (12.0-16.0); MEAN CELL VOLUME 99.2 fL (80-100); MEAN CORPUSCULAR HEMOGLOBIN 32.7 pg (25-34); MEAN PLATELET VOLUME 9.6 fL (7.4-10.4); PLATELET COUNT 289 K/uL (130-400); RED CELL DISTRIBUTION WIDTH CV 14.6 % (11.5-14.5); RED CELL DISTRIBUTION WIDTH SD 52.7 fL (36.4-46.3); WHITE BLOOD COUNT 6.14 K/uL (4.8-10.8)
[2017-12-20 06:59] LABS: CALCIUM 8.5 mg/dl (8.5-10.1); CREATININE 1.04 mg/dl (0.60-1.20); POTASSIUM 4.1 mmol/L (3.5-5.1)
[2017-12-20 07:00] LABS: PHOSPHORUS 3.1 mg/dl (2.5-4.9)
[2017-12-20 07:49] VITALS: BP 122/83; PULSE 112; TEMP 36.5; O2SAT 94
[2017-12-20] MEDS ORDERED: FUROSEMIDE INJ 20 MG in SYRINGE 0 ML IV ONE (09:00)
[2017-12-20] MEDS: CEROVITE ADV FORMULA TAB PO SCH (09:28)
[2017-12-20] MEDS: CALCIUM 600MG + VIT D 400 IU TAB PO SCH ×3 (09:28→22:04)
[2017-12-20] MEDS: DIGOXIN 0.25 MG TAB PO SCH ×2 (09:28→12:02)
[2017-12-20] MEDS: METOPROLOL SUCC 50MG EXT REL TAB PO SCH ×2 (09:28→22:01)
[2017-12-20] MEDS: ASPIRIN 81 MG ECTAB PO SCH ×2 (09:29→22:02)
[2017-12-20] MEDS: POTASSIUM CHLORIDE 20 MEQ/15 ML UDC PO SCH ×2 (09:29→22:03)
[2017-12-20] MEDS: CHOLECALCIFEROL 1000 INTER.UNIT TAB PO SCH (09:29)
--- NOTE | 2017-12-20 09:29 | PROGRESS NOTE ---
DATE: 12/20/2017 The patient seen and examined. Chart, medications, telemetry reviewed. SUBJECTIVE: The patient feels improved this morning. Has diuresed significantly since hospitalization, greater than 3 liters. Leg edema and shortness of breath has improved. She remains in atrial fibrillation with elevated ventricular response so is unable to sense tachypalpitations. Notes no chest pain, fevers, chills, cough, sitting out of bed in chair today lower extremity edema is improved. OBJECTIVE: VITAL SIGNS: Heart rate is 112, blood pressure is 122/83. Telemetry reveals atrial fibrillation with rapid ventricular response. She has had no conversion to sinus, O2 saturations 94% on 1.5 liters. HEENT: Normocephalic and atraumatic. NECK: Thin. There is no jugular venous distension with patient examined upright. LUNGS: Reveal better aeration at the bases with less rhonchi and rale. There is a pressure patch overlying spine. CARDIOVASCULAR: Irregularly, irregular. There is no S3 gallop. ABDOMEN: Soft. EXTREMITIES: Reveal trace pedal edema. LABORATORY STUDIES: White cell count is 6.1, hemoglobin is 11.8. Sodium is 134, potassium is 4.1, chloride is 98, bicarbonate is 30, BUN 30, creatinine is 1.04. IMPRESSION: An 82-year-old female with history of past paroxysmal, now persistent atrial fibrillation with acute decompensated diastolic heart failure secondary to rapid response. Pacemaker interrogation revealed atrial fibrillation of at least 6 days' duration prior to hospital stay with elevated ventricular response rate. The patient's heart failure has improved with IV diuretics though elevated ventricular response rate and atrial fibrillation is noted persistently. Discussed findings in detail. I think likelihood of return to sinus rhythm without other intervention is small. The patient wishes to avoid anticoagulation despite increased risk of stroke noting significant difficulties with prior hematuria and hemorrhage due to indwelling Walker in the past. We have discussed this multiple times in the past. We will avoid long-term anticoagulation. In the interim, we will switch to a rate control method beginning with by discontinuing sotalol, adding Toprol-XL 50 mg twice per day and adding digoxin. The patient has a history of past tachybrady. With indwelling pacemaker, bradyarrhythmia should not be an issue with ultimate goal of rate control. We will give additional dose of 20 mg IV Lasix today and then switch to oral dosing in a.m. We will follow patient in the hospital.
[2017-12-20 11:28] VITALS: BP 112/64; PULSE 118; TEMP 36.9; O2SAT 94
[2017-12-20] MEDS: MAGNESIUM OXIDE 400 MG TAB PO SCH (11:58)
[2017-12-20] MEDS: ASCORBIC ACID 500 MG TAB PO SCH (12:02)
[2017-12-20] MEDS: DIGOXIN 0.125 MG TAB PO SCH (16:00)
[2017-12-20 16:21] VITALS: BP 112/75; PULSE 110; TEMP 36.5; O2SAT 94
--- NOTE | 2017-12-20 16:35 | Progress Note ---
Internal Med Progress Note Date of Service: Dec 20, 2017. Provider Documentation: SUBJECTIVE: The patient was seen and examined Admitted with CHF with H/O MS and decreased mobility Clinically much better this morning OBJECTIVE: Vital Signs-as noted below Exam: General-No distress at rest Eyes-normal ENT-normal Neck-supple Lungs-Decreased breath sound bilaterally Heart-Regular Abdomen-Benign,on masses,bowel sound present Extremities-1+ edema bilaterally Neuro-AAOx3 Lab data as noted below. ASSESSMENT & PLAN: 82 yo F presents with acute shortness of breath 2/2 heart failure exacerbation CHF-cute diastolic CHF in setting of Afib with RVR treated with IV Lasix and rate control. -Acute, decompensated-likely 2/2 episodes of atrial fibrillation with RVR tonight requiring Cardizem in the field. -Lasix given IV with repeat doses ordered as the day goes on. -Cardiology consulted.-appreciate Input -Continue Lasix for now Paroxysmal Atrial fibrillation with RVR-rate controlled with IV AV jj blockers. H/O Tachy nichole syndrome s/p PPM Was on Sotalol Will try to replace Sotalol with Toprol XL and Adding Digoxin Acute respiratory failure in setting of acute diastolic CHF treated with O2 via BiPAP & IV Lasix Clinically better Hypothyroidism-cont Synthroid Multiple sclerosis with neurogenic bladder and chronic indwelling Walker. History of celiac disease. Remains stable DVT prophy-Heparin SQ Not a Candidate for [facility] antico[facility] Full Code Dispo-tele PT/OT Vital Signs: Date Time Temp Pulse Resp B/P (MAP) Pulse Ox O2 Delivery O2 Flow Rate FiO2 12/20/17 16:21 36.5 110 16 112/75 (87) 94 Room Air 12/20/17 16:00 113 12/20/17 12:02 121 12/20/17 12:00 Room Air 12/20/17 11:28 36.9 118 20 112/64 (80) 94 Room Air 12/20/17 09:28 112 12/20/17 08:00 Room Air 12/20/17 07:49 36.5 112 18 122/83 (96) 94 1.5 12/20/17 04:00 Nasal Cannula 2.0 12/20/17 03:20 36.6 113 16 121/68 (85) 97 Nasal Cannula 1.0 12/20/17 00:00 98 Nasal Cannula 2.0 12/19/17 23:15 36.7 110 18 124/77 (93) 96 Nasal Cannula 1.0 12/19/17 20:11 36.5 108 18 105/68 (80) 97 Nasal Cannula 1.0 12/19/17 20:00 Nasal Cannula 2.0 12/19/17 16:51 36.4 98 16 109/77 (88) 97 Nasal Cannula 1.0 Lab Results: Results Past 24 Hours Test 12/20/17 05:54 Range/Units White Blood Count 6.14 4.8-10.8 K/uL Red Blood Count 3.61 4.2-5.4 M/uL Hemoglobin 11.8 12.0-16.0 g/dL Hematocrit 35.8 37-47 % Mean Corpuscular Volume 99.2 80-100 fL Mean Corpuscular Hemoglobin 32.7 25-34 pg Mean Corpuscular Hemoglobin Concent 33.0 32-36 g/dl RDW Standard Deviation 52.7 36.4-46.3 fL RDW Coefficient of Variation 14.6 11.5-14.5 % Platelet Count 289 130-400 K/uL Mean Platelet Volume 9.6 7.4-10.4 fL Sodium Level 134 136-145 mmol/L Potassium Level 4.1 3.5-5.1 mmol/L Chloride Level 98 98-107 mmol/L Carbon Dioxide Level 30 21-32 mmol/L Anion Gap 6.0 3-11 mmol/L Blood Urea Nitrogen 30 7-18 mg/dl Creatinine 1.04 0.60-1.20 mg/dl Est Creatinine Clear Calc Drug Dose 29.4 ml/min Estimated GFR () 57.5 Estimated GFR (Non- 49.6 BUN/Creatinine Ratio 28.6 10-20 Random Glucose 99 70-99 mg/dl Calcium Level 8.5 8.5-10.1 mg/dl Phosphorus Level 3.1 2.5-4.9 mg/dl Magnesium Level 2.1 1.8-2.4 mg/dl
[2017-12-20 20:32] VITALS: BP 127/93; PULSE 110; TEMP 36.6; O2SAT 91
[2017-12-21] VITALS (9 sets, daily range): BP systolic 120–132; BP diastolic 72–95; PULSE 89–122; TEMP 36.5–36.8; O2SAT 92–96
[2017-12-21] MEDS: LEVOTHYROXINE 100 MCG TAB PO SCH (06:01)
[2017-12-21] MEDS: HEPARIN SOD 5000 UNIT/0.5 ML CARP SQ SCH ×3 (06:01→21:14)
[2017-12-21 07:15] LABS: HEMATOCRIT 37.5 % (37-47); HEMOGLOBIN 12.4 g/dL (12.0-16.0); MEAN CELL VOLUME 98.4 fL (80-100); MEAN CORPUSCULAR HEMOGLOBIN 32.5 pg (25-34); MEAN CORPUSCULAR HGB CONC 33.1 g/dl (32-36); MEAN PLATELET VOLUME 9.2 fL (7.4-10.4); PLATELET COUNT 315 K/uL (130-400); RED CELL DISTRIBUTION WIDTH CV 14.7 % (11.5-14.5); RED CELL DISTRIBUTION WIDTH SD 52.5 fL (36.4-46.3); WHITE BLOOD COUNT 5.79 K/uL (4.8-10.8)
[2017-12-21 07:43] LABS: CREATININE 0.98 mg/dl (0.60-1.20); POTASSIUM 4.3 mmol/L (3.5-5.1)
[2017-12-21] MEDS: FUROSEMIDE 20 MG TAB PO SCH (08:04)
[2017-12-21] MEDS: ASPIRIN 81 MG ECTAB PO SCH ×2 (08:04→21:11)
[2017-12-21] MEDS: CALCIUM 600MG + VIT D 400 IU TAB PO SCH ×3 (08:04→21:11)
[2017-12-21] MEDS: POTASSIUM CHLORIDE 20 MEQ/15 ML UDC PO SCH ×2 (08:04→21:12)
[2017-12-21] MEDS: CEROVITE ADV FORMULA TAB PO SCH (08:05)
[2017-12-21] MEDS: METOPROLOL SUCC 50MG EXT REL TAB PO SCH ×2 (08:05→21:15)
[2017-12-21] MEDS: CHOLECALCIFEROL 1000 INTER.UNIT TAB PO SCH (08:05)
[2017-12-21] MEDS: MAGNESIUM OXIDE 400 MG TAB PO SCH (12:20)
[2017-12-21] MEDS: ASCORBIC ACID 500 MG TAB PO SCH (12:20)
--- NOTE | 2017-12-21 13:11 | PROGRESS NOTE ---
DATE: 12/21/2017 CARDIOLOGY CONSULTATION FOLLOWUP NOTE The patient was seen and examined. Chart, medications, and telemetry were reviewed. SUBJECTIVE: The patient notes clinical improvement and is no longer requiring oxygen. She has had brisk diuresis since admission. Notes no chest pains. Notes no dizziness. Notes no lightheadedness. She is working with occupational and physical therapy. OBJECTIVE: VITAL SIGNS: Heart rate is 85. The patient is remaining in atrial fibrillation with variable ventricular response rates on telemetry. HEENT: Normocephalic and atraumatic. NECK: Thin. There is no jugular venous distention. LUNGS: Reveal minimal crackles at the bases. CARDIOVASCULAR: Irregularly irregular. There is no S3 gallop. ABDOMEN: Soft and nontender. There is no palpable hepatosplenomegaly. There is no hepatojugular reflux. EXTREMITIES: Without cyanosis or clubbing. Edema is nearly resolved. DATA: EKG reveals atrial fibrillation with occasional ventricular ectopic beats at a rate of 83 beats per minute. LABORATORY STUDIES: White cell count is 5.7 and hemoglobin is 12.4. Sodium is 133, potassium is 4.3, chloride is 99, bicarbonate is 27, BUN is 30, and creatinine is 0.98. IMPRESSION: An 82-year-old female presents with issues as follows: 1. Acute on chronic decompensated congestive heart failure secondary to atrial fibrillation with rapid ventricular response. Heart rates are coming under better control. Continue current dosing of Toprol and digoxin. I do not expect the patient to return to sinus rhythm at this time. She remains at high risk anticoagulation per the patient due to past hematuria and multiple falls. She does not wish to initiate despite additional risks of stroke noted. We will plan on continuing digoxin and Toprol as described as above. Daily furosemide has been ordered. She has indwelling Walker catheter. Gradual increase in activities will be ordered. The patient is to be maintained on telemetry for an additional 24 hours.
[2017-12-21] MEDS: DIGOXIN 0.125 MG TAB PO SCH (16:09)
--- NOTE | 2017-12-21 17:07 | Progress Note ---
Internal Med Progress Note Date of Service: Dec 21, 2017. Provider Documentation: SUBJECTIVE: resting comfortably afebrile no chest pain or sob feeling better ambulated some in room OBJECTIVE: Vital Signs-as noted below Exam: General-alert and oriented. Not in distress ENT-normal hearing Neck-no neck masses Lungs-cta b/l no wheezing or crackles Heart-s1 and s2 heard regular rate and rhythm no murmurs Abdomen-soft bowel sounds present non tender no distension Extremities-trace edema no erythema Neuro-alert and awake moves extremities Lab data as noted below. ASSESSMENT & PLAN: 82 yo F presents with acute shortness of breath 2/2 heart failure exacerbation CHF-Acute diastolic CHF in setting of Afib with RVR treated with IV Lasix and rate control. Acute, decompensated-most likely 2/2 episodes of atrial fibrillation with RVR received iv Lasix currently on po Lasix. stable appreciate cardiology inputs Paroxysmal Atrial fibrillation with RVR-rate controlled with IV AV jj blockers. H/O Tachy nichole syndrome s/p PPM Was on Sotalol which is stopped now cardiology adjusting with Toprol XL and Adding Digoxin refusing terminal make up operator anticoagulation secondary to bleeding issues in the past will monitor Acute respiratory failure in setting of acute diastolic CHF treated with O2 via BiPAP & IV Lasix stable now Hypothyroidism-cont Synthroid Multiple sclerosis with neurogenic bladder and chronic indwelling Walker. History of celiac disease. Remains stable DVT prophy-Heparin SQ Not a Candidate for terminal make up operator anticoagulation Full Code Dispo- PT/OT possible d/c in am Vital Signs: Date Time Temp Pulse Resp B/P (MAP) Pulse Ox O2 Delivery O2 Flow Rate FiO2 12/21/17 16:48 36.5 112 16 126/91 (103) 94 Room Air 12/21/17 16:09 102 12/21/17 12:00 36.8 102 18 125/76 (92) 94 Room Air 12/21/17 12:00 Room Air 12/21/17 08:10 36.5 119 16 131/80 (97) 92 Room Air 12/21/17 08:00 Room Air 12/21/17 04:27 36.6 106 18 123/72 (89) 92 Room Air 12/21/17 04:00 Room Air 12/21/17 00:21 36.7 90 18 120/80 (93) 95 Room Air 12/20/17 23:59 Room Air 12/20/17 20:32 36.6 110 18 127/93 (104) 91 Room Air 12/20/17 20:00 Room Air Lab Results: Results Past 24 Hours Test 12/21/17 06:53 Range/Units White Blood Count 5.79 4.8-10.8 K/uL Red Blood Count 3.81 4.2-5.4 M/uL Hemoglobin 12.4 12.0-16.0 g/dL Hematocrit 37.5 37-47 % Mean Corpuscular Volume 98.4 80-100 fL Mean Corpuscular Hemoglobin 32.5 25-34 pg Mean Corpuscular Hemoglobin Concent 33.1 32-36 g/dl RDW Standard Deviation 52.5 36.4-46.3 fL RDW Coefficient of Variation 14.7 11.5-14.5 % Platelet Count 315 130-400 K/uL Mean Platelet Volume 9.2 7.4-10.4 fL Sodium Level 133 136-145 mmol/L Potassium Level 4.3 3.5-5.1 mmol/L Chloride Level 99 98-107 mmol/L Carbon Dioxide Level 27 21-32 mmol/L Anion Gap 7.0 3-11 mmol/L Blood Urea Nitrogen 30 7-18 mg/dl Creatinine 0.98 0.60-1.20 mg/dl Est Creatinine Clear Calc Drug Dose 34.0 ml/min Estimated GFR () 61.8 Estimated GFR (Non- 53.3 BUN/Creatinine Ratio 30.1 10-20 Random Glucose 94 70-99 mg/dl Calcium Level 9.0 8.5-10.1 mg/dl Magnesium Level 2.1 1.8-2.4 mg/dl
[2017-12-22 04:44] VITALS: BP 113/64; PULSE 94; TEMP 36.3; O2SAT 95
[2017-12-22] MEDS: LEVOTHYROXINE 100 MCG TAB PO SCH (05:48)
[2017-12-22] MEDS: HEPARIN SOD 5000 UNIT/0.5 ML CARP SQ SCH ×3 (05:50→22:05)
[2017-12-22] MEDS: POTASSIUM CHLORIDE 20 MEQ/15 ML UDC PO SCH (07:41)
[2017-12-22] MEDS: CEROVITE ADV FORMULA TAB PO SCH (07:41)
[2017-12-22] MEDS: MAGNESIUM OXIDE 400 MG TAB PO SCH (07:41)
[2017-12-22] MEDS: METOPROLOL SUCC 50MG EXT REL TAB PO SCH (07:41)
[2017-12-22] MEDS: CHOLECALCIFEROL 1000 INTER.UNIT TAB PO SCH (07:42)
[2017-12-22] MEDS: ASPIRIN 81 MG ECTAB PO SCH ×2 (07:42→22:01)
[2017-12-22] MEDS: FUROSEMIDE 20 MG TAB PO SCH (07:42)
[2017-12-22] MEDS: CALCIUM 600MG + VIT D 400 IU TAB PO SCH ×3 (07:42→22:01)
[2017-12-22 07:53] VITALS: BP 147/86; PULSE 113; TEMP 36.8; O2SAT 93
[2017-12-22 12:18] VITALS: BP 118/77; PULSE 114; TEMP 37.2; O2SAT 94
[2017-12-22] MEDS: ASCORBIC ACID 500 MG TAB PO SCH (13:46)
[2017-12-22 14:44] LABS: CALCIUM 9.6 mg/dl (8.5-10.1); CREATININE 1.11 mg/dl (0.60-1.20)
--- NOTE | 2017-12-22 15:30 | CARDIOLOGY PROGRESS NOTE ---
DATE: 12/22/2017 CARDIOLOGY CONSULTATION FOLLOWUP NOTE The patient was seen and examined. Chart, medications, and telemetry were reviewed. SUBJECTIVE: The patient feels "not as good as yesterday. Worn out and fatigued." Notes no chest pains. Notes no fevers or chills. Notes no productive cough. Weight is down with continued diuresis. OBJECTIVE: VITAL SIGNS: Heart rate is 92 and blood pressure is 118/77. HEENT: Normocephalic and atraumatic. Nares without discharge. Throat was clear. NECK: Without jugular venous distention or carotid bruits. LUNGS: Reveal mildly diminished breath sounds, but are clear. CARDIOVASCULAR: Irregularly irregular. There is no S3 gallop. ABDOMEN: Soft and nontender. EXTREMITIES: Free of edema. IMPRESSION: An 82-year-old female with issues as follows: 1. Acute on chronic decompensated congestive heart failure. The patient appears compensated today. We will hold diuretics given current complaints of weakness, fatigue and pass hyponatremia with diuresis, however, we will likely reinstitute furosemide at slightly higher dose than prehospitalization dosing. 2. Atrial fibrillation with elevated ventricular response rate. Rate has been slowly trending downward. We will increase metoprolol to 75 mg twice per day. Continue digoxin. 3. History of tachybrady syndrome with pacemaker in place. 4. History of multiple sclerosis. 5. History of past gross hematuria and multiple falls. The patient is declining anticoagulation. PLAN: As outlined above, we will hold furosemide and increase Toprol dosing. We will follow patient in the hospital.
[2017-12-22] MEDS: DIGOXIN 0.125 MG TAB PO SCH (16:01)
[2017-12-22 16:33] VITALS: BP 111/78; PULSE 89; TEMP 36.5; O2SAT 94
--- NOTE | 2017-12-22 17:55 | Progress Note ---
Internal Med Progress Note Date of Service: Dec 22, 2017. Provider Documentation: SUBJECTIVE: today morning was not feeling as great as yesterday morning nauseous weak afebrile no chest pain or sob not feeling palpitations OBJECTIVE: Vital Signs-as noted below Exam: General-alert and oriented. Not in distress ENT-normal hearing Neck-no neck masses Lungs-cta b/l no wheezing or crackles Heart-s1 and s2 heard regular rate and rhythm no murmurs Abdomen-soft bowel sounds present non tender no distension Extremities-trace edema no erythema Neuro-alert and awake moves extremities Lab data as noted below. ASSESSMENT & PLAN: 82 yo F presents with acute shortness of breath 2/2 heart failure exacerbation CHF-Acute diastolic CHF in setting of Afib with RVR treated with IV Lasix and rate control. Acute, decompensated-most likely 2/2 episodes of atrial fibrillation with RVR received iv Lasix currently on po Lasix which is held currently for hyponatremia stable appreciate cardiology inputs Paroxysmal Atrial fibrillation with RVR-rate controlled with IV AV jj blockers. H/O Tachy nichole syndrome s/p PPM Was on Sotalol which is stopped now cardiology adjusting with Toprol XL and Adding Digoxin refusing group home anticoagulation secondary to bleeding issues in the past Toprol xl dose increased to 75mg bid today will monitor Acute respiratory failure in setting of acute diastolic CHF treated with O2 via BiPAP & IV Lasix stable now Hypothyroidism-cont Synthroid Multiple sclerosis with neurogenic bladder and chronic indwelling Walker. History of celiac disease. Remains stable DVT prophy-Heparin SQ Not a Candidate for group home anticoagulation Full Code Dispo- PT/OT possible d/c in 1-2 days Vital Signs: Date Time Temp Pulse Resp B/P (MAP) Pulse Ox O2 Delivery O2 Flow Rate FiO2 12/22/17 16:33 36.5 89 16 111/78 (89) 94 Room Air 12/22/17 16:03 Room Air 12/22/17 16:01 78 12/22/17 12:18 37.2 114 19 118/77 (91) 94 Room Air 12/22/17 12:06 Room Air 12/22/17 08:06 Room Air 12/22/17 07:53 36.8 113 18 147/86 (106) 93 12/22/17 04:44 36.3 94 18 113/64 (80) 95 Room Air 12/22/17 04:00 Room Air 12/21/17 23:59 36.7 89 16 132/95 (107) 96 Room Air 12/21/17 23:59 Room Air 12/21/17 20:53 36.6 122 20 127/77 (94) 96 Room Air 12/21/17 20:00 94 Room Air 94 Lab Results: Results Past 24 Hours Test 12/22/17 13:58 Range/Units Sodium Level 131 136-145 mmol/L Potassium Level 5.0 3.5-5.1 mmol/L Chloride Level 95 98-107 mmol/L Carbon Dioxide Level 29 21-32 mmol/L Anion Gap 7.0 3-11 mmol/L Blood Urea Nitrogen 28 7-18 mg/dl Creatinine 1.11 0.60-1.20 mg/dl Est Creatinine Clear Calc Drug Dose 29.9 ml/min Estimated GFR () 53.2 Estimated GFR (Non- 45.9 BUN/Creatinine Ratio 25.5 10-20 Random Glucose 119 70-99 mg/dl Calcium Level 9.6 8.5-10.1 mg/dl
[2017-12-22 21:02] VITALS: BP 107/74; PULSE 101; TEMP 36.4; O2SAT 96
[2017-12-22] MEDS: METOPROLOL SUCC 25MG EXT REL TAB PO SCH (22:01)
[2017-12-22 23:20] VITALS: BP 115/65; PULSE 105; TEMP 36.4; O2SAT 98
[2017-12-23 03:42] VITALS: BP 115/80; PULSE 94; TEMP 36.3; O2SAT 94
[2017-12-23] MEDS: LEVOTHYROXINE 100 MCG TAB PO SCH (05:54)
[2017-12-23] MEDS: HEPARIN SOD 5000 UNIT/0.5 ML CARP SQ SCH ×3 (05:57→20:31)
[2017-12-23] MEDS: POTASSIUM CHLORIDE 20 MEQ/15 ML UDC PO SCH (07:50)
[2017-12-23] MEDS: METOPROLOL SUCC 25MG EXT REL TAB PO SCH ×2 (07:50→20:28)
[2017-12-23] MEDS: CALCIUM 600MG + VIT D 400 IU TAB PO SCH ×3 (07:50→20:27)
[2017-12-23] MEDS: ASPIRIN 81 MG ECTAB PO SCH ×2 (07:50→20:27)
[2017-12-23 07:51] VITALS: BP 117/69; PULSE 80; TEMP 36.5; O2SAT 93
[2017-12-23] MEDS: CEROVITE ADV FORMULA TAB PO SCH (07:51)
[2017-12-23] MEDS: MAGNESIUM OXIDE 400 MG TAB PO SCH (07:51)
[2017-12-23] MEDS: CHOLECALCIFEROL 1000 INTER.UNIT TAB PO SCH (07:51)
[2017-12-23 10:51] LABS: CALCIUM 9.3 mg/dl (8.5-10.1); CREATININE 1.13 mg/dl (0.60-1.20); POTASSIUM 4.8 mmol/L (3.5-5.1)
[2017-12-23 12:06] VITALS: BP 128/64; TEMP 36.4; O2SAT 95
--- NOTE | 2017-12-23 12:54 | CARDIOLOGY PROGRESS NOTE ---
DATE: 12/23/2017 CARDIOLOGY CONSULTATION FOLLOWUP NOTE The patient seen and examined. Chart, medications, telemetry reviewed. SUBJECTIVE: The patient feels somewhat nauseated this morning, otherwise no acute complaints. Heart rates have come under better control. Blood pressure is controlled. Notes no fevers, chills. Notes no productive cough. OBJECTIVE: VITAL SIGNS: Heart rate is 82, blood pressure is 128/64, O2 saturation is 95% on room air. HEENT: Normocephalic, atraumatic. Nares without discharge. Throat was clear. NECK: Supple without thyromegaly, lymphadenopathy, JVD. There are no carotid bruits. LUNGS: Clear to auscultation. CARDIOVASCULAR: Irregular There is no S3 gallop. Pacemaker site is without irritation. ABDOMEN: Soft. EXTREMITIES: Free of significant edema. LABORATORY STUDIES: Sodium is 135, potassium is 4.8, chloride is 97, bicarbonate is 33, BUN is 27, creatinine is 1.1. IMPRESSION: An 82-year-old female admitted with acute decompensated diastolic heart failure secondary to atrial fibrillation with rapid ventricular response, clinically responded. She carries an underlying history of tachybrady syndrome with pacemaker insertion, passport tolerance of anticoagulation, paroxysmal, now persistent atrial fibrillation. PLAN: Resume furosemide at 4 days per week on discharge. We will continue metoprolol succinate 75 mg twice per day. Given mild nausea and good rate control and blood pressure control, will discontinue digoxin. If patient becomes intolerant of current dosing of metoprolol, consideration may be made in the future for AV junction ablation. The patient when clinically able, might be discharged to home with planned outpatient cardiovascular followup. [facility]
[2017-12-23] MEDS: ASCORBIC ACID 500 MG TAB PO SCH (14:33)
[2017-12-23 16:00] VITALS: BP 131/81; PULSE 73; TEMP 36.6
--- NOTE | 2017-12-23 16:58 | Progress Note ---
Internal Med Progress Note Date of Service: Dec 23, 2017. Provider Documentation: SUBJECTIVE: patient not feeling well today nauseous poor appetite afebrile no chest pain or sob or palpitations OBJECTIVE: Vital Signs-as noted below Exam: General-alert and oriented. Not in distress ENT-normal hearing Neck-no neck masses Lungs-cta b/l no wheezing or crackles Heart-s1 and s2 heard regular rate and rhythm no murmurs Abdomen-soft bowel sounds present non tender no distension Extremities-trace edema no erythema Neuro-alert and awake moves extremities Lab data as noted below. ASSESSMENT & PLAN: 82 yo F presents with acute shortness of breath 2/2 heart failure exacerbation CHF-Acute diastolic CHF in setting of Afib with RVR treated with IV Lasix and rate control. Acute, decompensated-most likely 2/2 episodes of atrial fibrillation with RVR received iv Lasix currently on po Lasix which is held currently for hyponatremia stable appreciate cardiology inputs plan to d/c on Lasix four times a week Paroxysmal Atrial fibrillation with RVR-rate controlled with IV AV jj blockers. H/O Tachy nichole syndrome s/p PPM Was on Sotalol which is stopped now cardiology adjusting with Toprol XL and Adding Digoxin refusing intermediate anticoagulation secondary to bleeding issues in the past Toprol xl dose increased to 75mg bid yesterday digoxin stopped as complaining of nausea continue to monitor Acute respiratory failure in setting of acute diastolic CHF treated with O2 via BiPAP & IV Lasix stable now Hypothyroidism-cont Synthroid Multiple sclerosis with neurogenic bladder and chronic indwelling Walker. History of celiac disease. Remains stable DVT prophy-Heparin SQ Not a Candidate for terminal gauger anticoagulation Full Code Dispo- PT/OT possible d/c in am if stable Vital Signs: Date Time Temp Pulse Resp B/P (MAP) Pulse Ox O2 Delivery O2 Flow Rate FiO2 12/23/17 16:00 36.6 73 18 131/81 (98) 12/23/17 16:00 Room Air 12/23/17 12:06 36.4 20 128/64 (85) 95 Room Air 12/23/17 12:00 Room Air 12/23/17 08:00 Room Air 12/23/17 07:51 36.5 80 18 117/69 (85) 93 Room Air 12/23/17 04:00 Room Air 12/23/17 03:42 36.3 94 18 115/80 (92) 94 Room Air 12/22/17 23:59 Room Air 12/22/17 23:20 36.4 105 18 115/65 (82) 98 Room Air 12/22/17 21:02 36.4 101 16 107/74 (85) 96 Room Air 12/22/17 20:00 Room Air Lab Results: Results Past 24 Hours Test 12/23/17 09:59 Range/Units Sodium Level 135 136-145 mmol/L Potassium Level 4.8 3.5-5.1 mmol/L Chloride Level 97 98-107 mmol/L Carbon Dioxide Level 33 21-32 mmol/L Anion Gap 6.0 3-11 mmol/L Blood Urea Nitrogen 27 7-18 mg/dl Creatinine 1.13 0.60-1.20 mg/dl Est Creatinine Clear Calc Drug Dose 29.3 ml/min Estimated GFR () 52.1 Estimated GFR (Non- 44.9 BUN/Creatinine Ratio 24.2 10-20 Random Glucose 85 70-99 mg/dl Calcium Level 9.3 8.5-10.1 mg/dl
[2017-12-23 19:08] VITALS: BP 125/78; PULSE 105; TEMP 37; O2SAT 97
[2017-12-24] MEDS ORDERED: METOPROLOL SUCC 25MG EXT REL TAB PO SCH
[2017-12-24 00:07] VITALS: BP 126/73; PULSE 111; TEMP 36.8; O2SAT 96
[2017-12-24 03:30] VITALS: BP 110/68; PULSE 77; TEMP 37; O2SAT 95
[2017-12-24] MEDS: LEVOTHYROXINE 100 MCG TAB PO SCH (06:00)
[2017-12-24] MEDS: HEPARIN SOD 5000 UNIT/0.5 ML CARP SQ SCH (06:01)
[2017-12-24] MEDS: MAGNESIUM OXIDE 400 MG TAB PO SCH (07:53)
[2017-12-24] MEDS: POTASSIUM CHLORIDE 20 MEQ/15 ML UDC PO SCH (07:53)
[2017-12-24] MEDS: CEROVITE ADV FORMULA TAB PO SCH (07:53)
[2017-12-24] MEDS: METOPROLOL SUCC 25MG EXT REL TAB PO SCH (07:53)
[2017-12-24 07:54] VITALS: BP 118/77; PULSE 94; TEMP 36.4; O2SAT 92
[2017-12-24] MEDS: CALCIUM 600MG + VIT D 400 IU TAB PO SCH (07:54)
[2017-12-24] MEDS: ASPIRIN 81 MG ECTAB PO SCH (07:54)
[2017-12-24] MEDS: CHOLECALCIFEROL 1000 INTER.UNIT TAB PO SCH (07:54)
[2017-12-24 08:33] LABS: CALCIUM 8.8 mg/dl (8.5-10.1); CREATININE 0.92 mg/dl (0.60-1.20); POTASSIUM 4.4 mmol/L (3.5-5.1)
--- NOTE | 2017-12-24 11:58 | PROGRESS NOTE ---
DATE: 12/24/2017 CARDIOLOGY CONSULTATION FOLLOWUP NOTE The patient seen and examined. Chart, medications, telemetry reviewed. SUBJECTIVE: The patient feels improved this morning. Notes no worsening shortness of breath. Notes no chest pains or dizziness. Notes no lightheadedness when up in room. OBJECTIVE: VITAL SIGNS: Heart rate is 70-90, in atrial fibrillation. Blood pressure is 118/77. HEENT: Normocephalic, atraumatic. Nares without discharge. Throat was clear. NECK: Thin. There is no jugular venous distention. LUNGS: Reveal good aeration to the bases. CARDIOVASCULAR: Irregularly irregular. There is no S3 gallop. ABDOMEN: Soft. EXTREMITIES: Reveal chronic 1+ edema with mild ruborous changes. LABORATORY STUDIES: Sodium is 135, potassium is 4.4, chloride is 99, bicarbonate is 28, BUN is 27, and creatinine is 0.92. IMPRESSION AND PLAN: An 82-year-old female, admitted with acute decompensated diastolic heart failure secondary to atrial fibrillation with rapid ventricular response. The patient has underlying multiple valvular disease and unlikely returning to sinus rhythm. Goals will be rate control. The patient past intolerant of anticoagulation. Will plan on discharging on metoprolol succinate at 75 mg twice per day. Continue diuretics at furosemide 5 days per week, potassium 3 days per week. Sotalol has been discontinued and that will not be resumed. Follow up with cardiology in 3-4 weeks' time. The patient to report any symptoms or complaints.
[2017-12-24] MEDS: ASCORBIC ACID 500 MG TAB PO SCH (12:24)
[2017-12-24 12:43] VITALS: BP 115/75; PULSE 99; TEMP 36.9; O2SAT 97
[2017-12-24] MEDS ORDERED: LSX20 PO ×2 (13:03→13:17)
[2017-12-24] MEDS ORDERED: TPRSR25 PO ×2 (13:03→13:17)
--- NOTE | 2017-12-24 13:07 | Discharge Instructions ---
Discharge Instructions Date of Service Dec 24, 2017. Admission Reason for Admission: Acute Exacerbation Of Chf, A Fib W/ Rvr Discharge Discharge Diagnosis / Problem: ACUTE CHF, RAPID A FIB Discharge Goals Goal(s): Decrease discomfort, Improve function Activity Recommendations Activity Limitations: resume your previous activity . Instructions / Follow-Up Instructions / Follow-Up FOLLOWUP WITH FAMILY DOCTOR ON Dec AT 1:45 PM. FOLLOWUP WITH CARDIOLOGY IN 3-4 WEEKS SCHEDULED. PLEASE GO THROUGH MEDICATION LIST CAREFULLY. LAB: BMP IN 1 -2 WEEKS AND FOLLOW RESULTS WITH FAMILY DOCTOR. Call your Primary Care doctor if any of the following symptoms or problems start or get worse: * Shortness of breath or difficulty breathing * Wake up at night short of breath * Chest pain * Cough * Swelling of your hands, feet, or legs * More fatigued or tired with your normal activity * Palpitations - sudden fast heart beats WEIGHT * Weigh yourself every morning after using the bathroom. * Use the same scale. * Wear the same amount of clothing. * Write your weight down on a chart. * Call your Primary Care doctor if you gain more than 2-3 pounds in 1-2 days. MEDICATIONS * Use this discharge instruction sheet for medication instructions. * Take your medications at the time your doctor ordered. * Do not skip a dose of your medicines. * If you miss a dose of medicine, take it as soon as possible, but DO NOT DOUBLE A DOSE. * Read your medicine information when you get home. * Know all of the side effects of your medicine. If in doubt, ask your pharmacist * Call your Primary Care doctor's office if you have any side effects. * Be sure all of your doctors know what medicine and herbs you take (including cold, flu, and herbal medicine). Take the following with you to your follow-up doctor appointments: * Weight Chart * Medication List * List of questions Do not drink excessive alcohol, beer or wine. Current Hospital Diet Patient's current hospital diet: Low Sodium Diet (2gm Na) Discharge Diet Recommended Diet: AHA Diet (Heart Healthy) Pending Studies Studies pending at discharge: no Medical Emergencies . Who to Call and When: Call 911 or go to the Emergency Room if: * If at any time you feel your situation is an emergency * You have tightness or pain in your chest that does not go away with rest or Nitroglycerin * You are very short of breath even with rest . Non-Emergent Contact Non-Emergency issues call your: Primary Care Provider . . "Provider Documentation" section prepared by Ian Lizama. . VTE Core Measure Inpt VTE Proph given/why not?: Unfractionated heparin SQ
[2017-12-24 13:10] VITALS: BP 115/75; PULSE 99; TEMP 36.9; O2SAT 97
[2017-12-24] MEDS ORDERED: NURSING VERBAL MED ORDER ONE (14:00)
--- NOTE | 2017-12-24 16:08 | Progress Note ---
Internal Med Progress Note Date of Service: Dec 24, 2017. Provider Documentation: SUBJECTIVE: feeling better today no nausea no chest pain or sob no palpitations ok to go home OBJECTIVE: Vital Signs-as noted below Exam: General-alert and oriented. Not in distress ENT-normal hearing Neck-no neck masses Lungs-cta b/l no wheezing or crackles Heart-s1 and s2 heard irregular rate and rhythm no murmurs Abdomen-soft bowel sounds present non tender no distension Extremities-trace edema no erythema Neuro-alert and awake moves extremities Lab data as noted below. ASSESSMENT & PLAN: 82 yo F presents with acute shortness of breath 2/2 heart failure exacerbation CHF-Acute diastolic CHF in setting of Afib with RVR treated with IV Lasix and rate control. Acute, decompensated-most likely 2/2 episodes of atrial fibrillation with RVR received iv Lasix currently on po Lasix which is held currently for hyponatremia stable appreciate cardiology inputs plan to d/c on Lasix five times a week and to keep potassium supplemts three times a week f/u with pcp and cardiology Paroxysmal Atrial fibrillation with RVR-rate controlled with IV AV jj blockers. 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 History of celiac disease. Remains stable discharged home Vital Signs: Date Time Temp Pulse Resp B/P (MAP) Pulse Ox O2 Delivery O2 Flow Rate FiO2 12/24/17 13:10 36.9 99 20 97 Room Air 12/24/17 12:43 36.9 99 20 115/75 (88) 97 Room Air 12/24/17 12:00 Room Air 12/24/17 08:00 Room Air 12/24/17 07:54 36.4 94 16 118/77 (91) 92 Room Air 12/24/17 04:00 Room Air 12/24/17 03:30 37.0 77 16 110/68 (82) 95 Room Air 12/24/17 00:07 36.8 111 16 126/73 (90) 96 Room Air 12/24/17 00:00 Room Air 12/23/17 20:00 Room Air 12/23/17 19:08 37.0 105 18 125/78 (94) 97 Room Air Lab Results: Results Past 24 Hours Test 12/24/17 07:28 Range/Units Sodium Level 135 136-145 mmol/L Potassium Level 4.4 3.5-5.1 mmol/L Chloride Level 99 98-107 mmol/L Carbon Dioxide Level 28 21-32 mmol/L Anion Gap 8.0 3-11 mmol/L Blood Urea Nitrogen 27 7-18 mg/dl Creatinine 0.92 0.60-1.20 mg/dl Est Creatinine Clear Calc Drug Dose 33.3 ml/min Estimated GFR () 66.7 Estimated GFR (Non- 57.6 BUN/Creatinine Ratio 29.6 10-20 Random Glucose 88 70-99 mg/dl Calcium Level 8.8 8.5-10.1 mg/dl
--- NOTE | 2017-12-24 18:24 | Discharge Summary ---
Discharge Summary Date of Service Dec 24, 2017. Discharge Summary Admission Date: Dec 19, 2017 at 05:02 Discharge Date: Dec 24, 2017 Discharge Disposition: Home with services Principal Diagnosis: acute respiratory failure acute diastolic chf rapid afib Secondary Diagnoses/Problems: 1) Celiac disease Status: Chronic (2) cystocel repair Status: Chronic (3) Hypothyroidism Status: Chronic (4) Multiple sclerosis Status: Chronic (5) Neurogenic bladder Status: Chronic (6) Osteoporosis Status: Chronic (7) Pacemaker Status: Chronic (8) Paroxysmal atrial fibrillation Status: Chronic (9) PVD (peripheral vascular disease) Status: Chronic (10) rectocele repair Status: Chronic (11) SBO (small bowel obstruction) Status: Chronic (12) Vertigo Status: Resolved Procedures: cxr: 1. Suspect mild asymmetric pulmonary edema. 2. Patchy density left lung base persists and likely represents scarring or atelectasis. 3. Stable mild cardiomegaly. Consultations: CARDIOLOGY Medication Reconciliation New Medications: Furosemide (Furosemide) 20 Mg Tab 20 MG PO 5XWK for 30 Days, #30 TAB 2 Refills Metoprolol Succinate (Metoprolol Succinate ER) 25 Mg Tabcr 75 MG PO BID for 30 Days, #180 TABS 2 Refills Continued Medications: Acetaminophen (Tylenol) 500 Mg Tab 1000 MG PO Q8H PRN for Pain, TAB Ascorbic Acid (Vitamin C) 500 Mg Tab 500 MG PO DAILY@1200 Aspirin (Aspirin Ec) 81 Mg Tab 81 MG PO BID Calcium/Vitamin D (Os-Hitesh 500 Plus D) Tab 1 TAB PO TID Cholecalciferol (Vitamin D3) 1,000 Unit Tab 1 TAB PO BID for 90 Days, #180 TAB 3 Refills Cyanocobalamin (Cyanocobalamin) 1,000 Mcg/Ml Inj 1000 MCG INJ MONTHLY Denosumab (Prolia) 60 Mg/Ml Arpita 1 DOSE INJ DIRECTED Dextromethorphan-Guaifenesin (Mucinex Dm) 1 Tab Tab 1 TAB PO Q12 PRN for Cough for 10 Days, #20 TAB Estrogens, Conjugated (Premarin) 14 Appln/30 Gm Cr 1 APPLN PV UD MONDAYS AND FRIDAYS Lactobacillus-Inulin (Culturelle Digestive Heal) 1 Cap Cap 1 CAP PO BID Levothyroxine Sodium (Levothyroxine Sodium) 100 Mcg Tab 100 MCG PO DAILYBB Loperamide Hcl (Imodium) 2 Mg Cap 2 MG PO PRN for Diarrhea, CAP Loratadine (Claritin) 10 Mg Tab 10 MG PO DAILY PRN for ALLERGY SX, 0 Refills Magnesium Oxide (Mag-Ox) 400 Mg Tab 400 MG PO DAILYBL Multiple Vitamins W/ Minerals (Centrum) 1 Tab Tab 1 TAB PO DAILY Potassium Chloride (Potassium Chloride) 10 Meq Soln 20 MEQ PO 3XWK MWF Discontinued Medications: Furosemide (Lasix) 20 Mg Tab 20 MG PO MWF, TAB Sotalol HCl (Sotalol HCl) 80 Mg Tab 80 MG PO QAM Sotalol HCl (Sotalol HCl) 80 Mg Tab 40 MG PO QPM 2100 Admission Information HPI (per Admitting provider): 82 yo F presents with acute onset SOB earlier this evening. She reports feeling herself go into atrial fibrillation on Monday (3 nights ago) and flipped back and forth over the weekend. She denies chest pain but states that she "knew something was going on". She denies nausea, vomiting, diarrhea, abdominal pain or other symptoms at this time except for some generalized weakness. She recently had her PM interrogated on 12/13/17 revealing 5 episodes of afib. However, since symptoms started up on 12/15 repeat interrogation was ordered. Most recent TTE was in 2016 revealing normal LV function with EF 55-60 %, mild LVH, basal septum is thickened and angulated consistent with sigmoid septum, left atrium is severely dilated, mild posterior MV prolapse with borderline anterior leaflet prolapse, moderate mitral regurgitation, moderate tricuspid regurgitation, redundant TV chordae visualized. Physical Exam (per Admitting): General Appearance: + mild distress, + thin, + pertinent finding ( desaturates to 86% off the BIPAP) Head: normocephalic, atraumatic Eyes: normal inspection, PERRL, sclerae normal ENT: hearing grossly normal, pharynx normal Neck: supple, trachea midline, + JVD Respiratory/Chest: chest non-tender, no respiratory distress, no accessory muscle use, + decreased breath sounds, + crackles Cardiovascular: no gallop, no murmur, normal peripheral pulses, + irregularly irregular, + pertinent finding (trace LE edema bilaterally) Abdomen/GI: normal bowel sounds, non tender, soft, no organomegaly Back: normal inspection Extremities/Musculoskelatal: normal inspection, no calf tenderness 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 Acute, decompensated-most likely 2/2 episodes of atrial fibrillation with RVR received iv Lasix currently on po Lasix which is held currently for hyponatremia stable appreciate cardiology inputs plan to d/c on Lasix five times a week and to keep potassium supplemts three times a week f/u with pcp and cardiology Paroxysmal Atrial fibrillation with RVR-rate controlled with IV AV jj blockers. 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 History of celiac disease. Remains stable discharged home Total time spent on discharge = 35MINUTES This includes examination of the patient, discharge planning, medication reconciliation, and communication with other providers. Discharge Instructions Discharge Instructions Date of Service Dec 24, 2017. Admission Reason for Admission: Acute Exacerbation Of Chf, A Fib W/ Rvr Discharge Discharge Diagnosis / Problem: ACUTE CHF, RAPID A FIB Discharge Goals Goal(s): Decrease discomfort, Improve function Activity Recommendations Activity Limitations: resume your previous activity . Instructions / Follow-Up Instructions / Follow-Up FOLLOWUP WITH FAMILY DOCTOR ON Dec AT 1:45 PM. FOLLOWUP WITH CARDIOLOGY IN 3-4 WEEKS SCHEDULED. PLEASE GO THROUGH MEDICATION LIST CAREFULLY. LAB: BMP IN 1 -2 WEEKS AND FOLLOW RESULTS WITH FAMILY DOCTOR. Call your Primary Care doctor if any of the following symptoms or problems start or get worse: * Shortness of breath or difficulty breathing * Wake up at night short of breath * Chest pain * Cough * Swelling of your hands, feet, or legs * More fatigued or tired with your normal activity * Palpitations - sudden fast heart beats WEIGHT * Weigh yourself every morning after using the bathroom. * Use the same scale. * Wear the same amount of clothing. * Write your weight down on a chart. * Call your Primary Care doctor if you gain more than 2-3 pounds in 1-2 days. MEDICATIONS * Use this discharge instruction sheet for medication instructions. * Take your medications at the time your doctor ordered. * Do not skip a dose of your medicines. * If you miss a dose of medicine, take it as soon as possible, but DO NOT DOUBLE A DOSE. * Read your medicine information when you get home. * Know all of the side effects of your medicine. If in doubt, ask your pharmacist * Call your Primary Care doctor's office if you have any side effects. * Be sure all of your doctors know what medicine and herbs you take (including cold, flu, and herbal medicine). Take the following with you to your follow-up doctor appointments: * Weight Chart * Medication List * List of questions Do not drink excessive alcohol, beer or wine. Current Hospital Diet Patient's current hospital diet: Low Sodium Diet (2gm Na) Discharge Diet Recommended Diet: AHA Diet (Heart Healthy) Pending Studies Studies pending at discharge: no Medical Emergencies . Who to Call and When: Call 911 or go to the Emergency Room if: * If at any time you feel your situation is an emergency * You have tightness or pain in your chest that does not go away with rest or Nitroglycerin * You are very short of breath even with rest
== END 2017-12-24 15:20 | disposition home health service (06) | DRG 291 ==
LOC: EDBD 02:21 → C.EDB 02:22 → C.2T 05:02 → ENRESERV 05:06 → C.2T 12-22 20:05
PROVIDERS: ADMIT Hospitalist; ATTEND Internal Medicine
DX: I50.33 Acute on chronic diastolic (congestive) heart failure (principal); J96.00 Acute respiratory failure, unspecified whether with hypoxia or hypercapnia; I48.2 Chronic atrial fibrillation; I08.1 Rheumatic disorders of both mitral and tricuspid valves; E03.9 Hypothyroidism, unspecified; G35 Multiple sclerosis; N31.9 Neuromuscular dysfunction of bladder, unspecified; K90.0 Celiac disease; Z91.81 History of falling; Z95.0 Presence of cardiac pacemaker; Z86.79 Personal history of other diseases of the circulatory system; Z87.19 Personal history of other diseases of the digestive system; Z90.49 Acquired absence of other specified parts of digestive tract; Z87.891 Personal history of nicotine dependence; Z79.82 Long term (current) use of aspirin; Z79.890 Hormone replacement therapy; Z79.899 Other long term (current) drug therapy; Z88.1 Allergy status to other antibiotic agents; Z88.2 Allergy status to sulfonamides; Z88.5 Allergy status to narcotic agent; Z82.49 Family history of ischemic heart disease and other diseases of the circulatory system

== ENCOUNTER 2018-02-22 10:46 | Inpatient (IN) | payer OTHER, BC ==
[~2018-02-22] VITALS: Ht 154.9 cm; Wt 55.3 kg
[~2018-02-22 10:46] MED LIST changes: -BTP80 PO; -CPR500 PO; +DENO60SO INJ; -DOCU100C31 PO; -FURO-85 PO; +LACTCAP27 PO; +LSX20 PO; -ONDA4TAB65 PO; -PROC1TAB5 PO; +TPRSR25 PO
[2018-02-22] MEDS ORDERED: FURO-85 PO ×2 (11:20)
[2018-02-22] MEDS ORDERED: TPRSR/100 PO (11:26)
[2018-02-22] MEDS ORDERED: DIGO0.1219 PO (11:26)
--- NOTE | 2018-02-22 11:38 | EMERGENCY ROOM VISIT NOTE ---
History Report prepared by Jovanni: Malinda Obrien Under the Supervision of: Dr. Douglas Conley M.D. First contact with patient: 11:23 Chief Complaint: SHORTNESS OF BREATH Stated Complaint: BREATHING DIFFICULTY Nursing Triage Summary: Patient arrived via ALS from home. Patient states for the last approx 5 days has been SOB, mostly with exertion. Yesterday, SOB got worse and today was SOB even at rest. Hx of Afib with pacer and MS which has been acting up today per patient. Patient denies CP or N/V/D. Per EMS, patient was 90-92% on RA at home. Duoneb given and 4L O2 applied and patients SAT improved to 100%. Upon arrival to ER patients SAT 93-95% on RA, 2L O2 applied for comfort. History of Present Illness The patient is a 80 year old white female with a past medical history of MS, Afib, pacemaker who presents to the ED with a cc of shortness of breath beginning a couple days ago. Positive swelling in right leg, clear productive cough. Negative history of blood clots. The patient reports her symptoms worsen with exertion and with laying flat. She reports she is mostly wheelchair bound. She states she sometimes uses a walker. The patient reports her symptoms feel better than they did yesterday. The patient does not wear oxygen at home . The patient is on Lasix which she does not think is working. The patient has an appointment with Dr. Campos-Cardiology on Monday. Source of History: patient Onset: a couple days ago Position: other (generalized) Quality: other (shortness of breath) Timing: constant Modifying Factors (Worsening): exertion, other (laying flat) Associated Symptoms: + cough, + SOB Review of Systems See HPI for pertinent positives and negatives. A total of ten systems were reviewed and were otherwise negative. 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 (16) Vertigo Surgical Problems: (1) H/O dilation and curettage (2) History of appendectomy (3) S/P partial colectomy Family History FH: CAD (coronary artery disease) FATHER SISTER Social History Smoking Status: Former Smoker Alcohol Use: none Drug Use: none Marital Status: Housing Status: lives with family Occupation Status: retired Current/Historical Medications Scheduled Ascorbic Acid (Vitamin C), 500 MG PO DAILY@1200 Aspirin (Aspirin Ec), 81 MG PO BID Calcium/Vitamin D (Os-Hitesh 500 Plus D), 1 TAB PO TID Cholecalciferol (Vitamin D3), 1 TAB PO BID Cyanocobalamin (Cyanocobalamin), 1,000 MCG INJ MONTHLY Denosumab (Prolia), 1 DOSE INJ DIRECTED Digoxin (Digox), 125 MG PO DAILY@1800 Estrogens, Conjugated (Premarin), 1 APPLN PV UD Furosemide (Lasix), 20 MG PO BID Furosemide (Lasix), 10 MG PO 2XWK Lactobacillus-Inulin (Culturelle Digestive Heal), 1 CAP PO BID Levothyroxine Sodium (Levothyroxine Sodium), 100 MCG PO DAILYBB Magnesium Oxide (Mag-Ox), 400 MG PO DAILYBL Metoprolol Succinate (Metoprolol Succinate ER), 100 MG PO BID Multiple Vitamins W/ Minerals (Centrum), 1 TAB PO DAILY Scheduled PRN Acetaminophen (Tylenol), 1,000 MG PO Q8H PRN for Pain Dextromethorphan-Guaifenesin (Mucinex Dm), 1 TAB PO Q12 PRN for Cough Loratadine (Claritin), 10 MG PO DAILY PRN for ALLERGY SX Allergies Coded Allergies: Ciprofloxacin (Unverified Allergy, Severe, GI SYMPTOMS, 02/22/18) Sulfa Antibiotics (Verified Allergy, Severe, HIVES, 02/22/18) Wheat Bran (Verified Allergy, Intermediate, DIARRHEA, 02/22/18) GLUTEN FREE DIET Codeine (Verified Adverse Reaction, Severe, "VERY SICK", 02/22/18) Doxycycline (Verified Adverse Reaction, Severe, 0, 02/22/18) bad diarrhea as per px Gluten (Verified Adverse Reaction, Intermediate, GI DISTRESS, 02/22/18) Physical Exam Vital Signs Date Time Temp Pulse Resp B/P (MAP) Pulse Ox O2 Delivery O2 Flow Rate FiO2 02/22/18 14:52 93 18 126/71 95 Room Air 02/22/18 13:51 95 Room Air 02/22/18 13:47 87 18 138/98 98 Room Air 02/22/18 12:51 91 18 147/75 98 Nasal Cannula 2.0 02/22/18 12:08 98 20 137/88 96 Room Air 02/22/18 11:00 96 Nasal Cannula 2.0 02/22/18 10:57 94 02/22/18 10:50 94 Room Air 02/22/18 10:50 94 Room Air 02/22/18 10:50 36.4 92 18 148/91 94 Room Air Physical Exam GENERAL: Awake, alert, well-appearing, NAD, nasal cannula in place. HENT: Normocephalic, atraumatic. EYES: Normal conjunctiva. Sclera non-icteric. NECK: Supple. No nuchal rigidity. FROM. RESPIRATORY: CTAB, no rhonchi, wheezing. Crackles in left chest. CARDIAC: Irregularly irregular rhythm, no MRG ABDOMEN: Soft, NTND, BS+ MSK: Device in left chest. No chest wall TTP, right LE swelling greater than left, no calf pain. NEURO: GCS 15, CN 2-12 intact, moves all 4s on command. 3/5 strength in right LE , 4/5 strength in the left LE. SKIN: No rash or jaundice noted. Medical Decision & Procedures ER Provider Diagnostic Interpretation: Radiology results as stated below per my review and radiologist interpretation: CHEST ONE VIEW PORTABLE FINDINGS: The heart is mildly enlarged. There is a left subclavian dual-chamber central venous pacemaker present. There is been marked improvement in the previously identified congestive failure/fluid overload. Trace pleural effusions are suspected. There is a retrocardiac opacity consistent with a hiatal hernia.[ IMPRESSION: Cardiomegaly, trace pleural effusions, and marked interval improvement in the previously identified congestive failure. Electronically signed by: Teodoro Chamberlain M.D. ULTRASOUND R VENOUS DOPP LOWER EXT UNILAT FINDINGS: Real-time and color flow Doppler imaging were performed. Flow was seen within the femoral, popliteal and calf veins with no intraluminal thrombus demonstrated. The saphenous vein is patent. IMPRESSION: No evidence of right lower extremity DVT. Electronically signed by: Teodoro Chamberlain M.D. Laboratory Results Test 02/22/18 10:59 02/22/18 14:13 RDW Standard Deviation 51.2 fL (36.4-46.3) RDW Coefficient of Variation 14.1 % (11.5-14.5) White Blood Count 8.83 K/uL (4.8-10.8) Red Blood Count 3.77 M/uL (4.2-5.4) Hemoglobin 12.4 g/dL (12.0-16.0) Hematocrit 37.2 % (37-47) Mean Corpuscular Volume 98.7 fL (80-100) Mean Corpuscular Hemoglobin 32.9 pg (25-34) Mean Corpuscular Hemoglobin Concent 33.3 g/dl (32-36) Platelet Count 329 K/uL (130-400) Mean Platelet Volume 9.0 fL (7.4-10.4) Neutrophils (%) (Auto) 67.0 % Lymphocytes (%) (Auto) 17.6 % Monocytes (%) (Auto) 11.3 % Eosinophils (%) (Auto) 3.1 % Basophils (%) (Auto) 0.8 % Neutrophils # (Auto) 5.92 K/uL (1.4-6.5) Lymphocytes # (Auto) 1.55 K/uL (1.2-3.4) Monocytes # (Auto) 1.00 K/uL (0.11-0.59) Eosinophils # (Auto) 0.27 K/uL (0-0.5) Basophils # (Auto) 0.07 K/uL (0-0.2) Immature Granulocyte % (Auto) 0.2 % Immature Granulocyte # (Auto) 0.02 K/uL (0.00-0.02) Prothrombin Time 11.1 SECONDS (9.0-12.0) Prothromb Time International Ratio 1.1 (0.9-1.1) Activated Partial Thromboplast Time 28.4 SECONDS (21.0-31.0) Partial Thromboplastin Ratio 1.1 Est Creatinine Clear Calc Drug Dose 38.7 ml/min Total Bilirubin 0.4 mg/dl (0.2-1) Aspartate Amino Transf (AST/SGOT) 21 U/L (15-37) Alanine Aminotransferase (ALT/SGPT) 17 U/L (12-78) Alkaline Phosphatase 123 U/L (45-117) Pro-B-Type Natriuretic Peptide 7728 pg/ml (0-1800) Total Protein 6.6 gm/dl (6.4-8.2) Albumin 2.7 gm/dl (3.4-5.0) Globulin 3.9 gm/dl (2.5-4.0) Albumin/Globulin Ratio 0.7 (0.9-2) Digoxin Level 0.8 ng/ml (0.8-2.0) Laboratory results reviewed by me Medications Administered Medications (Trade) Dose Ordered Sig/Van Route Start Time Stop Time Status Last Admin Dose Admin Aspirin (Aspirin Chew) 324 mg NOW STAT PO 02/22/18 13:12 02/22/18 13:14 DC 02/22/18 13:54 324 MG ECG Per My Interpretation Indication: SOB/dyspnea Rate (beats per minute): 103 Rhythm: atrial fibrillation Findings: PVC, other (normal QRS, depression in lateral leads, TWI in inferior leads ) Comparison ECG Date: 12/21/17 Change: Depressions in lateral leads are worse ED Course 1131: The patient was evaluated in room C7. A complete history and physical exam was performed. 1259: I updated the patient. She reports feeling tired. We will perform a walk test. 1406: Discussed the patient's case with Dr. Grissom-Neurology. She doesn't think the patient needs any steroids at this time. 1432: Discussed the patient's case Cristine Dunn. She will come evaluate the patient. Medical Decision The patient is a 80 year old white female with a past medical history of MS, Afib, pacemaker who presents to the ED with a cc of shortness of breath beginning a couple days ago. Nursing notes reviewed. Ancillary studies and prior records reviewed. Differential diagnosis: Etiologies such as infections, reactive airway disease, pneumonia, pneumothorax , COPD, CHF, cardiac ischemia, pulmonary embolism, musculoskeletal, gastrointestinal, as well as others were entertained. Patient was seen and evaluated the bedside. Patient had a complaining some mild shortness of breath. Of note the patient did have a recent admission approximately 2 months prior with a CHF exacerbation. Patient did have an echo completed showed grade 1 diastolic dysfunction. Patient was recently told to stop taking digoxin however the patient states that she is continued to take digoxin. Patient does have a cardiology appointment on Monday with Dr. Campos. On exam the patient does have some mild crackles and the patient is wearing oxygen. Patient never had any evidence of desaturations. Patient does have bilateral lower extremity weakness which is chronic secondary to her MS. Patient also does have some significant right lower extremity swelling greater than left lower extremity swelling. Patient had blood work completed, EKG, troponin, chest x-ray. Patient's EKG did show some depressions in the lateral leads. These appear new from prior. Troponin is not elevated. Patient's chest x-ray did show vast improvement in her interstitial pulmonary edema. EKG did show A. fib. Patient is not on anticoagulation given prior history or concerns for bleeding risk per prior discharge note. Patient's BNP is mildly elevated but is about the same from prior. Troponin is not detectable. The patient was taken off oxygen. The patient was never hypoxic. Unable to do an ambulatory trial secondary to her lower extremity weakness. I did discuss the patient with the on-call neurologist who stated that steroids would likely not benefit the patient. Unlikely to be an MS flare. I am concerned that the patient may not be suitable for home as the patient is hypercapnic and tachypneic however the patient is not hypoxic. Right lower extremity ultrasound is negative. She also may have some issues of deconditioning which she states was an issue last time when she was admitted hospital. I did discuss possible rehab placement which she is amenable to however she cannot go to [facility] as it is likely more aggressive when she is able to participate given her lower extremity weakness. I discussed the patient's case with the on-call hospitalist who agreed to further evaluate and treat the patient. Medication Reconcilliation Current Medication List: was personally reviewed by me Blood Pressure Screening Patient's blood pressure: Normal blood pressure Consults Time Called: 1400 Consulting Physician: Dr. Grissom-Neurology Returned Call: [phone] Discussed the patient's case with Dr. Grissom-Neurology. She doesn't think the patient needs any steroids at this time. Additional Consults: Time Called: 1412 Consulted Physician: Cristine Dunn Returned Call: [phone] Additional Comments: Discussed the patient's case Cristine Dunn. She will come evaluate the patient. Impression Primary Impression: Shortness of breath Additional Impressions: Swelling of right lower extremity Physical deconditioning History of multiple sclerosis Scribe Attestation The scribe's documentation has been prepared under my direction and personally reviewed by me in its entirety. I confirm that the note above accurately reflects all work, treatment, procedures, and medical decision making performed by me. Departure Information Referrals Reggie Peña D.O. (PCP) Patient Instructions My [facility] Problem Qualifiers
[2018-02-22 11:56] LABS: BASO % 0.8 %; BASO ABS # 0.07 K/uL (0-0.2); EOS % 3.1 %; EOS ABS # 0.27 K/uL (0-0.5); HEMATOCRIT 37.2 % (37-47); HEMOGLOBIN 12.4 g/dL (12.0-16.0); IG# 0.02 K/uL (0.00-0.02); LYMPH % 17.6 %; LYMPH ABS # 1.55 K/uL (1.2-3.4); MEAN CELL VOLUME 98.7 fL (80-100); MEAN CORPUSCULAR HEMOGLOBIN 32.9 pg (25-34); MEAN CORPUSCULAR HGB CONC 33.3 g/dl (32-36); MONO % 11.3 %; NEUT ABS # 5.92 K/uL (1.4-6.5); PLATELET COUNT 329 K/uL (130-400); RED CELL DISTRIBUTION WIDTH CV 14.1 % (11.5-14.5); RED CELL DISTRIBUTION WIDTH SD 51.2 fL (36.4-46.3); WHITE BLOOD COUNT 8.83 K/uL (4.8-10.8)
[2018-02-22 12:02] LABS: INR 1.1 (0.9-1.1); PTT PATIENT 28.4 SECONDS (21.0-31.0)
--- NOTE | 2018-02-22 12:03 | DIAGNOSTIC IMAGING REPORT ---
CHEST ONE VIEW PORTABLE CLINICAL HISTORY: Respiratory distress. COMPARISON STUDY: 12/19/2017 FINDINGS: The heart is mildly enlarged. There is a left subclavian dual-chamber central venous pacemaker present. There is been marked improvement in the previously identified congestive failure/fluid overload. Trace pleural effusions are suspected. There is a retrocardiac opacity consistent with a hiatal hernia.[ IMPRESSION: Cardiomegaly, trace pleural effusions, and marked interval improvement in the previously identified congestive failure. Electronically signed by: Teodoro Chamberlain M.D. 02/22/2018 12:02 PM Dictated Date/Time: 02/22/2018 12:01 PM
[2018-02-22 12:11] LABS: ALBUMIN 2.7 gm/dl (3.4-5.0); ALT/SGPT 17 U/L (12-78); AST/SGOT 21 U/L (15-37); BLOOD UREA NITROGEN 18 mg/dl (7-18); CALCIUM 8.7 mg/dl (8.5-10.1); CARBON DIOXIDE 29 mmol/L (21-32); CREATININE 0.91 mg/dl (0.60-1.20); GLUCOSE 91 mg/dl (70-99); POTASSIUM 3.9 mmol/L (3.5-5.1); SODIUM 134 mmol/L (136-145)
[2018-02-22 12:16] LABS: ALKALINE PHOSPHATASE 123 U/L (45-117); TOTAL PROTEIN 6.6 gm/dl (6.4-8.2)
--- NOTE | 2018-02-22 12:49 | DIAGNOSTIC IMAGING REPORT ---
ULTRASOUND R VENOUS DOPP LOWER EXT UNILAT CLINICAL HISTORY: Bilateral leg swelling and right greater than left COMPARISON STUDY: February 25, 2017 FINDINGS: Real-time and color flow Doppler imaging were performed. Flow was seen within the femoral, popliteal and calf veins with no intraluminal thrombus demonstrated. The saphenous vein is patent. IMPRESSION: No evidence of right lower extremity DVT. Electronically signed by: Teodoro Chamberlain M.D. 02/22/2018 12:47 PM Dictated Date/Time: 02/22/2018 12:47 PM
[2018-02-22] MEDS ORDERED: ASPIRIN 324 MG CHEW PO STA (13:12)
[2018-02-22] MEDS ORDERED: ACETAMINOPHEN 325 MG TAB PO PRN (15:15)
[2018-02-22] MEDS ORDERED: ONDANSETRON INJ 2 MG/ML 2 ML VIAL IV PRN (15:15)
[2018-02-22] MEDS ORDERED: NITROGLYCERIN 0.4 MG SL PER TAB CHARGE SL PRN (15:15)
[2018-02-22] MEDS ORDERED: LEVOTHYROXINE 100 MCG TAB PO ONE (15:37)
[2018-02-22] MEDS ORDERED: FUROSEMIDE 20 MG TAB PO SCH ×2 (15:45→21:00)
[2018-02-22 16:24] VITALS: Ht 154.9 cm; Wt 55.3 kg
[2018-02-22] MEDS ORDERED: FUROSEMIDE INJ 40 MG in SYRINGE 0 ML IV ONE (17:04)
[2018-02-22 17:21] VITALS: BP 136/81; PULSE 73; TEMP 36.4; O2SAT 100
--- NOTE | 2018-02-22 17:56 | History and Physical ---
History & Physical Date & Time of Service: Feb 22, 2018 ~ 14:45 Chief Complaint: Shortness Of Breath Primary Care Physician: Reggie Peña D.O. History of Present Illness 82-year-old female who presents to the ED with shortness of breath. Patient has history of MS reports a chronic decline over the past couple months. Patient was admitted in December and reports she has not fully recovered from the hospitalization. She reports increasing weakness and inability to ambulate. Also has been having increasing shortness of breath with minimal exertion. Patient feels as though her weakness and shortness of breath has acutely gotten worse over the past few days. She reports feeling short of breath with minimal exertion. She denies chest pain or palpitations. No lightheadedness or dizziness. She denies abdominal pain, nausea, vomiting, or diarrhea. Patient has a chronic Walker in place. No changes in her urine. She denies fever and chills. In the ED, patient saturating well on room air. Chest x-ray shows trace pleural effusions. Labs are unremarkable. EKG shows more prominent T-wave inversion in the inferior and lateral leads. She was given a full dose aspirin in the ED. Past Medical/Surgical History Medical Problems: (1) Celiac disease Status: Chronic (2) Chronic indwelling Walker catheter Status: Chronic (3) cystocel repair Status: Chronic (4) Diastolic CHF Permanent Comment: echo 08/2016 - EF 55 to 60%, Mild concentric LVH, Mild posterior mitral valve prolapse with borderline anterior leaflet prolapse, Moderate mitral regurgitation, Mild to moderate tricuspid regurgitation Status: Chronic (5) Hypothyroidism Status: Chronic (6) Multiple sclerosis Status: Chronic (7) Neurogenic bladder Status: Chronic (8) Osteoporosis Status: Chronic (9) Pacemaker Status: Chronic (10) Paroxysmal atrial fibrillation Status: Chronic (11) PVD (peripheral vascular disease) Status: Chronic (12) rectocele repair Status: Chronic (13) SBO (small bowel obstruction) Status: Resolved (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 (15) Vertigo Status: Resolved Surgical Problems: (1) H/O dilation and curettage Status: Chronic (2) History of appendectomy Status: Chronic (3) S/P partial colectomy Permanent Comment: x2 for prolapse Status: Chronic Family History Noncontributory secondary to patient's advanced age Social History Smoking Status: Former Smoker Alcohol Use: none Marital Status: Housing status: lives with significant other Immunizations History of Influenza Vaccine: Yes Influenza Vaccine Date: Aug 29, 2017 History of Tetanus Vaccine?: Yes Tetanus Immunization Date: Nov 29, 2016 History of Pneumococcal: Yes Pneumococcal Date: Sep 01, 2015 Allergies Coded Allergies: Ciprofloxacin (Unverified Allergy, Severe, GI SYMPTOMS, 02/22/18) Sulfa Antibiotics (Verified Allergy, Severe, HIVES, 02/22/18) Wheat Bran (Verified Allergy, Intermediate, DIARRHEA, 02/22/18) GLUTEN FREE DIET Codeine (Verified Adverse Reaction, Severe, "VERY SICK", 02/22/18) Doxycycline (Verified Adverse Reaction, Severe, 0, 02/22/18) bad diarrhea as per px Gluten (Verified Adverse Reaction, Intermediate, GI DISTRESS, 02/22/18) Home Medications Scheduled Ascorbic Acid (Vitamin C), 500 MG PO DAILY@1200 Aspirin (Aspirin Ec), 81 MG PO BID Calcium/Vitamin D (Os-Hitesh 500 Plus D), 1 TAB PO TID Cholecalciferol (Vitamin D3), 1 TAB PO BID Cyanocobalamin (Cyanocobalamin), 1,000 MCG INJ MONTHLY Denosumab (Prolia), 1 DOSE INJ DIRECTED Digoxin (Digox), 125 MG PO DAILY@1800 Estrogens, Conjugated (Premarin), 1 APPLN PV UD Furosemide (Lasix), 20 MG PO BID Furosemide (Lasix), 10 MG PO 2XWK Lactobacillus-Inulin (Culturelle Digestive Heal), 1 CAP PO BID Levothyroxine Sodium (Levothyroxine Sodium), 100 MCG PO DAILYBB Magnesium Oxide (Mag-Ox), 400 MG PO DAILYBL Metoprolol Succinate (Metoprolol Succinate ER), 100 MG PO BID Multiple Vitamins W/ Minerals (Centrum), 1 TAB PO DAILY Scheduled PRN Acetaminophen (Tylenol), 1,000 MG PO Q8H PRN for Pain Dextromethorphan-Guaifenesin (Mucinex Dm), 1 TAB PO Q12 PRN for Cough Loratadine (Claritin), 10 MG PO DAILY PRN for ALLERGY SX Review of Systems ROS per HPI, all other systems reviewed and negative Physical Exam Vital Signs Date Time Temp Pulse Resp B/P (MAP) Pulse Ox O2 Delivery O2 Flow Rate FiO2 02/22/18 17:21 36.4 73 18 136/81 (99) 100 Room Air 02/22/18 16:46 85 18 128/67 94 02/22/18 16:24 Room Air 2.0 02/22/18 14:52 93 18 126/71 95 Room Air 02/22/18 13:51 95 Room Air 02/22/18 13:47 87 18 138/98 98 Room Air 02/22/18 12:51 91 18 147/75 98 Nasal Cannula 2.0 02/22/18 12:08 98 20 137/88 96 Room Air 02/22/18 11:00 96 Nasal Cannula 2.0 02/22/18 10:57 94 02/22/18 10:50 94 Room Air 02/22/18 10:50 94 Room Air 02/22/18 10:50 36.4 92 18 148/91 94 Room Air General Appearance: WD/WN, no apparent distress Head: normocephalic, atraumatic Eyes: normal inspection, EOMI, sclerae normal ENT: hearing grossly normal, + pertinent finding (Mucous membranes moist) Neck: supple, no JVD, trachea midline Respiratory/Chest: lungs clear, normal breath sounds, no respiratory distress Cardiovascular: regular rate, rhythm, normal peripheral pulses, + pertinent finding (+1-2 pitting edema BLE, right greater than left) Abdomen/GI: normal bowel sounds, non tender, soft, no organomegaly Genitourinary - Female: + pertinent finding (Chronic Walker in place draining clear yellow urine) Extremities/Musculoskelatal: normal inspection, no calf tenderness, normal capillary refill Neurologic/Psych: alert, normal mood/affect, oriented x 3, + motor weakness ( Bilateral lower extremities, equal; no other gross focal deficits noted) Skin: normal color, warm/dry Diagnostics Laboratory Results Results Past 24 Hours Test 02/22/18 10:59 02/22/18 14:13 02/22/18 15:56 Range/Units White Blood Count 8.83 4.8-10.8 K/uL Red Blood Count 3.77 4.2-5.4 M/uL Hemoglobin 12.4 12.0-16.0 g/dL Hematocrit 37.2 37-47 % Mean Corpuscular Volume 98.7 80-100 fL Mean Corpuscular Hemoglobin 32.9 25-34 pg Mean Corpuscular Hemoglobin Concent 33.3 32-36 g/dl Platelet Count 329 130-400 K/uL Mean Platelet Volume 9.0 7.4-10.4 fL Neutrophils (%) (Auto) 67.0 % Lymphocytes (%) (Auto) 17.6 % Monocytes (%) (Auto) 11.3 % Eosinophils (%) (Auto) 3.1 % Basophils (%) (Auto) 0.8 % Neutrophils # (Auto) 5.92 1.4-6.5 K/uL Lymphocytes # (Auto) 1.55 1.2-3.4 K/uL Monocytes # (Auto) 1.00 0.11-0.59 K/uL Eosinophils # (Auto) 0.27 0-0.5 K/uL Basophils # (Auto) 0.07 0-0.2 K/uL RDW Standard Deviation 51.2 36.4-46.3 fL RDW Coefficient of Variation 14.1 11.5-14.5 % Immature Granulocyte % (Auto) 0.2 % Immature Granulocyte # (Auto) 0.02 0.00-0.02 K/uL Prothrombin Time 11.1 9.0-12.0 SECONDS Prothromb Time International Ratio 1.1 0.9-1.1 Activated Partial Thromboplast Time 28.4 21.0-31.0 SECONDS Partial Thromboplastin Ratio 1.1 Sodium Level 134 136-145 mmol/L Potassium Level 3.9 3.5-5.1 mmol/L Chloride Level 98 98-107 mmol/L Carbon Dioxide Level 29 21-32 mmol/L Anion Gap 7.0 3-11 mmol/L Blood Urea Nitrogen 18 7-18 mg/dl Creatinine 0.91 0.60-1.20 mg/dl Est Creatinine Clear Calc Drug Dose 38.7 ml/min Estimated GFR () 67.6 Estimated GFR (Non- 58.3 BUN/Creatinine Ratio 20.2 10-20 Random Glucose 91 70-99 mg/dl Calcium Level 8.7 8.5-10.1 mg/dl Total Bilirubin 0.4 0.2-1 mg/dl Aspartate Amino Transf (AST/SGOT) 21 15-37 U/L Alanine Aminotransferase (ALT/SGPT) 17 12-78 U/L Alkaline Phosphatase 123 45-117 U/L Troponin I < 0.015 < 0.015 0-0.045 ng/ml Pro-B-Type Natriuretic Peptide 7728 0-1800 pg/ml Total Protein 6.6 6.4-8.2 gm/dl Albumin 2.7 3.4-5.0 gm/dl Globulin 3.9 2.5-4.0 gm/dl Albumin/Globulin Ratio 0.7 0.9-2 Digoxin Level 0.8 0.8-2.0 ng/ml Diagnostic Radiology RIGHT LOWER EXTREMITY DOPPLER IMPRESSION: No evidence of right lower extremity DVT. CXR IMPRESSION: Cardiomegaly, trace pleural effusions, and marked interval improvement in the previously identified congestive failure. Impression Assessment and Plan SHORTNESS OF BREATH MILD ACUTE ON CHRONIC DIASTOLIC CHF EKG CHANGES -Admit to telemetry -Patient presenting from home with reports of increasing shortness of breath and lower extremity weakness; in the ED, CXR shows trace bilateral pleural effusions -EKG shows worsening T-wave inversions in the inferior and lateral leads -Troponin negative, will continue to cycle cardiac enzymes -Echocardiogram from 2015 showed an EF of 55-60% and valvular disease as noted above; will update echo -Pacemaker interrogation -Given trace bilateral pleural effusions and lower extremity edema on exam, will give Lasix 40 mg IV 1 dose tonight and reevaluate further diuresis needs tomorrow -I's and O's, low Na+ diet, daily weights BLLE WEAKNESS, HISTORY MS -ED discussed case with Dr. Grissom who does not feel this is an acute MS flare -Check UA to r/o UTI -neurology consult, Dr. Coreas to evaluate tomorrow ATRIAL FIBRILLATION, HISTORY TACHYBRADYCARDIA S/P PACEMAKER -Rate controlled on digoxin and metoprolol, will continue both -Not anticoagulated secondary to fall risk HYPOTHYROIDISM -Continue levothyroxine DVT PROPHYLAXIS -SQ heparin CODE STATUS -Patient is a full code as per my discussion with her. DISPOSITION -In my clinical judgment this beneficiary meets acute admission criteria, established by [facility], that includes being hospitalized through two midnights. -PT/OT, case management consult; may need placement for short-term rehab stay ADDENDUM: I have seen and examined the patient and agree with the assessment and plan as above with the following exceptions. She does reports acute worsening of shortness of breath in the last couple of weeks with a 7- 10 lb weight gain according to the outpatient trend. What's more concerning is her acute physical limitations in the last 4 days related to her weakness which is amplifying her SOB as she is essentially overexerting herself per her description. 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 She has changed significantly to the point of hardly being able to move her legs at all. Specifically hip flexors 2/5, hip extendors 5/5, knee flexion 3/5, knee extension-difficult to nothing, dorsi/ plantarflexion 5/5 bilaterally. Knee reflexes are 2/4 bilaterally. UE are intact, no sensation deficits. Lungs are CTAB. 1+pitting edema on LLE to knee and none on RLE. Dopplers of legs were negative for DVT. Agree with acute on chronic heart failure and with some IV Lasix. There are also some downsloping ST depressions on lateral chest leads that were concerning but no chest pain or cardiac enzyme elevation. Ruling out ACS overnight and trending EKG. I did separately speak with Neuro regarding the possibility of an MS flare. At this time will defer to Dr. Coreas who knows the patient and who will be in tomorrow to assess her. Additionally, in setting of HF, and +UTI, these would need to be addressed/treated first. 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
[2018-02-22 19:28] VITALS: BP 118/67; PULSE 67; TEMP 36.6; O2SAT 96
[2018-02-22] MEDS: LACTOBACILLUS ACIDOPHILUS (FLORANEX) TAB PO SCH ×2 (21:00→21:12)
[2018-02-22] MEDS: HEPARIN SOD 5000 UNIT/0.5 ML CARP SQ SCH (21:09)
[2018-02-22] MEDS: CALCIUM 600MG + VIT D 400 IU TAB PO SCH (21:13)
[2018-02-22] MEDS: DIGOXIN 0.125 MG TAB PO SCH (21:13)
[2018-02-22] MEDS: METOPROLOL SUCC 50MG EXT REL TAB PO SCH (21:14)
[2018-02-22] MEDS: CHOLECALCIFEROL 1000 INTER.UNIT TAB PO SCH (21:14)
[2018-02-22] MEDS: ASPIRIN 81 MG ECTAB PO SCH (21:14)
[2018-02-22] MEDS ORDERED: CIPROFLOXACIN 500 MG TAB PO SCH (22:00)
[2018-02-22 22:51] VITALS: BP 143/90; PULSE 64; TEMP 37.1; O2SAT 93
[2018-02-23] VITALS (7 sets, daily range): BP systolic 108–144; BP diastolic 66–87; PULSE 61–90; TEMP 36.5–37; O2SAT 90–97
[2018-02-23] MEDS ORDERED: PROCHLORPERAZINE INJ 5 MG in SYRINGE 4 ML IV PRN (00:45)
[2018-02-23] MEDS ORDERED: CEFEPIME IV 2,000 MG in DEXTROSE 5% 100ML 100 ML IV ONE (00:45)
[2018-02-23] MEDS: CEFEPIME IV 2,000 MG in SYRINGE 7.5 ML IV SCH (01:52)
[2018-02-23] MEDS: LEVOTHYROXINE 100 MCG TAB PO SCH (05:46)
[2018-02-23] MEDS: HEPARIN SOD 5000 UNIT/0.5 ML CARP SQ SCH ×3 (05:48→21:20)
--- NOTE | 2018-02-23 07:03 | Clinical Documentation Query ---
CLINICAL DOCUMENTATION QUERY 80 year old white female with a cc of shortness of breath. She has a chronic indwelling Walker catheter and history of UTI's. UA+bacteremia and large leukocyte esterase. She has been started on IV Cefepime Query #1/2 In your clinical opinion is this patient being managed for: ( x ) Possible Walker catheter associated UTI treated with IV Cefepime. ( ) Not Agree ( ) Other explanation of clinical findings (Please Explain) ( ) Unable to determine (Please Define) ( ) Need to Discuss The medical record reflects the following clinical findings, treatment, and risk factors. Clinical Indicators: As above. Treatment: As above. Risk Factors: As above. Query #2/2 80 year old white female with a cc of shortness of breath. ECG shows worsening T-wave inversions in the inferior and lateral leads. In your clinical opinion is this patient being managed for: ( ) Old myocardial infarction ( ) [facility] ( ) Not Agree ( ) Other explanation of clinical findings (Please Explain) ( x ) Unable to determine (Please Define) ( ) Need to Discuss Troponins negative. Patient denies chest pain. Patient does have some component of valvular disease disease. Will need a repeat echocardiogram to look at wall motion The medical record reflects the following clinical findings, treatment, and risk factors. Clinical Indicators: SOB, EKG shows worsening T-wave inversions in the inferior and lateral leads Treatment: O2, ASA, Heparin Sq, serial troponin's Risk Factors: Age, sex, Please clarify and document your clinical opinion in the progress notes and discharge summary. Terms such as "probable", "suspected", "likely", "questionable", "possible", or "still to be ruled out" are acceptable. IF IN AGREEMENT, YOU MUST DOCUMENT ABOVE DIAGNOSTIC STATEMENT IN DAILY PROGRESS NOTES AND DISCHARGE SUMMARY. This document is not part of the patient's record. Thank You, Sohail Scott, TYRELL [phone]
[2018-02-23 07:27] LABS: HEMATOCRIT 36.9 % (37-47); HEMOGLOBIN 12.3 g/dL (12.0-16.0); MEAN CELL VOLUME 98.9 fL (80-100); MEAN CORPUSCULAR HGB CONC 33.3 g/dl (32-36); MEAN PLATELET VOLUME 8.4 fL (7.4-10.4); PLATELET COUNT 306 K/uL (130-400); RED CELL DISTRIBUTION WIDTH CV 14.3 % (11.5-14.5); RED CELL DISTRIBUTION WIDTH SD 51.1 fL (36.4-46.3); WHITE BLOOD COUNT 6.79 K/uL (4.8-10.8)
[2018-02-23 08:03] LABS: CALCIUM 8.8 mg/dl (8.5-10.1); CREATININE 1.15 mg/dl (0.60-1.20); POTASSIUM 4.2 mmol/L (3.5-5.1)
[2018-02-23] MEDS: CEROVITE ADV FORMULA TAB PO SCH (08:32)
[2018-02-23] MEDS: LACTOBACILLUS ACIDOPHILUS (FLORANEX) TAB PO SCH ×2 (08:32→21:17)
[2018-02-23] MEDS: ASPIRIN 81 MG ECTAB PO SCH ×2 (08:32→21:16)
[2018-02-23] MEDS: CHOLECALCIFEROL 1000 INTER.UNIT TAB PO SCH ×2 (08:32→21:17)
[2018-02-23] MEDS: METOPROLOL SUCC 50MG EXT REL TAB PO SCH ×2 (08:32→21:17)
[2018-02-23] MEDS: CALCIUM 600MG + VIT D 400 IU TAB PO SCH ×3 (08:32→21:16)
[2018-02-23] MEDS ORDERED: CEFEPIME CONSULT ACTIVE PRN (09:00)
[2018-02-23] MEDS ORDERED: FUROSEMIDE INJ 40 MG in SYRINGE 0 ML IV SCH (09:00)
[2018-02-23] MEDS: ASCORBIC ACID 500 MG TAB PO SCH (11:18)
[2018-02-23] MEDS: MAGNESIUM OXIDE 400 MG TAB PO SCH (11:18)
--- NOTE | 2018-02-23 15:16 | Neurology Consultation ---
Neurology Consultation Date of Consultation: Feb 23, 2018. Attending Physician: Shukri Antunez M.D. Primary Care Physician: Reggie Peña D.OBonnie History of Present Illness Source: patient Mariluz is a 82 year old female who presents to the ED with shortness of breath. She has a history of f MS reports a chronic decline over the past couple months. She has had increasing weakness and inability to ambulate. Also has been having increasing shortness of breath with minimal exertion. She has felt the weakness and shortness of breath has acutely gotten worse over the past few days. she has a chronic Walker in place. She states the other morning she was unable to get OOB and had her help her. She can only walk a very short distance without getting weak and SOB. denies CP, abdominal pain, new one sides weakness, numbness tingling. +RLE chronic weakness from MS. Past Medical/Surgical History Medical Problems: (1) Acute congestive heart failure Status: Acute (2) Atrial fibrillation with RVR Status: Acute (3) Catheter-associated urinary tract infection Status: Acute (4) Dehydration Status: Acute (5) Exacerbation of multiple sclerosis Status: Acute (6) Failure of outpatient treatment Status: Acute (7) Hypoglycemia Status: Acute (8) Left lower lobe pneumonia Status: Acute (9) Near syncope Status: Acute (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 (11) Partial small bowel obstruction Status: Acute (12) Pulmonary edema Status: Acute (13) Right lower lobe pneumonia Status: Acute (14) UTI (urinary tract infection) Status: Acute (15) UTI (urinary tract infection) Status: Acute (16) Vomiting Status: Acute (17) Weakness Status: Acute Social History Smoking Status: Never smoker Alcohol Use: none Marital Status: Housing Status: lives with family Allergies Coded Allergies: Ciprofloxacin (Unverified Allergy, Severe, GI SYMPTOMS, 02/22/18) Sulfa Antibiotics (Verified Allergy, Severe, HIVES, 02/22/18) Wheat Bran (Verified Allergy, Intermediate, DIARRHEA, 02/22/18) GLUTEN FREE DIET Codeine (Verified Adverse Reaction, Severe, "VERY SICK", 02/22/18) Doxycycline (Verified Adverse Reaction, Severe, 0, 02/22/18) bad diarrhea as per px Gluten (Verified Adverse Reaction, Intermediate, GI DISTRESS, 02/22/18) Current Inpatient Medications Current Inpatient Medications Medications (Trade) Dose Ordered Sig/Van Route Start Time Stop Time Status Last Admin Dose Admin Heparin Sodium (Porcine) (Heparin Sq 5000 Unit/0.5ml) 5,000 unit Q8 SQ 02/22/18 22:00 03/24/18 21:59 02/23/18 14:00 5,000 UNIT Acetaminophen (Tylenol Tab) 650 mg Q4H PRN PO 02/22/18 15:15 03/24/18 15:14 Ondansetron HCl (Zofran Inj) 4 mg Q6H PRN IV 02/22/18 15:15 03/24/18 15:14 02/23/18 00:46 4 MG Nitroglycerin (Nitrostat Tab) 0.4 mg UD PRN SL 02/22/18 15:15 03/24/18 15:14 Ascorbic Acid (Vitamin C Tab) 500 mg DAILY@1200 PO 02/23/18 12:00 03/25/18 11:59 02/23/18 11:18 500 MG Aspirin (Ecotrin Tab) 81 mg BID PO 02/22/18 21:00 03/24/18 20:59 02/23/18 08:32 81 MG Calcium/Vitamin D (Caltrate Plus Tab) 1 tab TID PO 02/22/18 21:00 03/24/18 20:59 02/23/18 14:00 1 TAB Cholecalciferol (Vitamin D Tab) 1,000 inter.unit BID PO 02/22/18 21:00 03/24/18 20:59 02/23/18 08:32 1,000 INTER.UNIT Digoxin (Lanoxin Tab) 0.125 mg DAILY@1800 PO 02/22/18 18:00 03/24/18 17:59 02/22/18 21:13 0.125 MG Levothyroxine Sodium (Synthroid Tab) 100 mcg DAILYBB PO 02/23/18 06:30 03/25/18 06:59 02/23/18 05:46 100 MCG Magnesium Oxide (Mag-Ox Tab) 400 mg DAILYBL PO 02/23/18 11:00 03/25/18 10:59 02/23/18 11:18 400 MG Multivitamins/ Minerals (Multivitamin W/ Minerals Tab) 1 tab DAILY PO 02/23/18 09:00 03/25/18 08:59 02/23/18 08:32 1 TAB Lactobacillus Acidophilus (Floranex Tab) 4 tab BID PO 02/22/18 16:00 03/24/18 15:59 02/23/18 08:32 4 TAB Metoprolol Succinate (Toprol Xl Tab) 100 mg BID PO 02/22/18 21:00 03/24/18 20:59 02/23/18 08:32 100 MG Prochlorperazine Edisylate 5 mg/ Syringe 5 ml @ 5 mls/min Q6H PRN IV 02/23/18 00:45 03/25/18 00:44 Cefepime HCl (Consult) 1 ea DAILY PRN N/A 02/23/18 09:00 03/25/18 08:59 Cefepime HCl 2000 mg/Syringe 20 ml @ 5 mls/min DAILY@0100 IV 02/23/18 01:00 03/05/18 00:59 02/23/18 01:52 5 MLS/MIN Physical Exam Vital Signs (Past 24 Hrs): Date Time Temp Pulse Resp B/P (MAP) Pulse Ox O2 Delivery O2 Flow Rate FiO2 02/23/18 14:49 36.6 64 20 110/74 (86) 97 02/23/18 12:00 Room Air 02/23/18 11:16 36.5 76 20 108/66 (80) 95 02/23/18 08:00 Room Air 02/23/18 07:16 36.5 86 20 110/72 (85) 94 Room Air 02/23/18 04:23 36.5 86 18 110/74 (86) 90 Room Air 02/23/18 04:00 Room Air 02/23/18 00:11 37.0 02/23/18 00:00 Room Air 02/22/18 22:51 37.1 64 18 143/90 (107) 93 Room Air 02/22/18 21:13 99 02/22/18 20:00 Room Air 02/22/18 19:28 36.6 67 16 118/67 (84) 96 Room Air 02/22/18 17:21 36.4 73 18 136/81 (99) 100 Room Air 02/22/18 16:46 85 18 128/67 94 02/22/18 16:24 Room Air 2.0 Physical Exam: Constitutional: appearance nourished, frail ill appearing Ears, Nose, Mouth and Throat: mucous membranes moist, no injection and skin normal, eyes normal Cardiovascular: normal S-1 and S-2 and regular rate and rhythm Respiratory: course breath sounds Musculoskeletal: no peripheral edema and good distal pulses Skin: no stigmata of neurocutaneous disease noted and normal and intact Eyes: extraocular muscles intact (EOMI) and pupils equal, round and reactive to light (PERRL) NEUROLOGIC EXAMINATION: Mental status: Alert and interactive Oriented to full date and location Oriented to person Speech fluent with no evidence of aphasia Cranial Nerves smile eye brow raise symmetric Reflexes: Deep tendon reflexes were symmetrical and graded 2/5. LE hyperreflexic bilaterally Sensory: decreased sensation intact to light touch, cool vibration bilateral LE edema R>L Coordination: finger to nose no bipass Gait/Stance: Posture sitting in bedside chair Motor: Negative for pronator drift of out stretched arms with eyes closed. 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 bilaterally 5/5, right hip flex plantar flex 0/5, left hip flex plantar flex ext 3/5, Laboratory Results Past 24 Hours: 02/23/18 07:15 02/23/18 07:15 Test 02/22/18 17:33 02/22/18 19:20 02/22/18 22:30 02/23/18 07:15 Bedside Glucose 84 mg/dl (70-90) Urine Color STRAW Urine Appearance TURBID (CLEAR) Urine pH 8.0 (4.5-7.5) Urine Specific [place] 1.011 (1.000-1.030) Urine Protein NEG (NEG) Urine Glucose (UA) NEG (NEG) Urine Ketones NEG (NEG) Urine Occult Blood 3+ (NEG) Urine Nitrite POS (NEG) Urine Bilirubin NEG (NEG) Urine Urobilinogen NEG (NEG) Urine Leukocyte Esterase LARGE (NEG) Urine WBC (Auto) >30 /hpf (0-5) Urine RBC (Auto) >30 /hpf (0-4) Urine Hyaline Casts (Auto) 5-10 /lpf (0-5) Urine Epithelial Cells (Auto) 10-20 /lpf (0-5) Urine Bacteria (Auto) 4+ (NEG) Urine Pathogenic Casts /lpf (0) Urine Yeast (Auto) (NONE PRSENT) Troponin I < 0.015 ng/ml (0-0.045) Red Blood Count 3.73 M/uL (4.2-5.4) Mean Corpuscular Volume 98.9 fL (80-100) Mean Corpuscular Hemoglobin 33.0 pg (25-34) Mean Corpuscular Hemoglobin Concent 33.3 g/dl (32-36) RDW Standard Deviation 51.1 fL (36.4-46.3) RDW Coefficient of Variation 14.3 % (11.5-14.5) Mean Platelet Volume 8.4 fL (7.4-10.4) Anion Gap 8.0 mmol/L (3-11) Est Creatinine Clear Calc Drug Dose 27.9 ml/min Estimated GFR () 51.0 Estimated GFR (Non- 44.0 BUN/Creatinine Ratio 20.6 (10-20) Calcium Level 8.8 mg/dl (8.5-10.1) Date/Time Source Procedure Growth Status 02/22/18 19:20 Urine,Catheterized Urine Culture - Final GREATER THAN THREE TYPES OF ORGANISMS... Complete Imaging doppler LE-No evidence of right lower extremity DVT. Impression 82 year old MS patient no modifying medication with increased SOB, increased weakness Plan 1. IV solumedrol has helped in past however will likely increase CHF 2. PT/OT for discharge needs 3. pacer interrogated on admission 4. fall risk 5. would care for ulceration bilateral heels further recommendations to follow I have seen and discussed above patient with Dr Dharmesh Coreas, neurology I have seen this woman and agree that her current status is worse thn her baseline but she is also breathless n casual conversation and is in chf so would try to get her under the best control fo the heart failure and defer on steroids for now I will check back over the weekend as her neurological status ( decompensated ms due to metabolic issues and perhaps deconditioning ) may well improve spontaneously with improvement in her chf we also need to check for potential underlying infectious process Dharmesh Coreas MD
[2018-02-23] MEDS: DIGOXIN 0.125 MG TAB PO SCH (18:17)
--- NOTE | 2018-02-23 18:46 | ECHOCARDIOGRAM REPORT ---
*NOTICE TO RECEIVING LIBERTARIAN AGENCY This information is strictly Confidential and protected under [place] law. [place] law prohibits you from making any further disclosure of this information unless further disclosure is expressly permitted by the written consent of the person to whom it pertains or is authorized by law. A general authorization for the release of medical or other information is not sufficient for this purpose. Hospital accepts no responsibility if the information is made available to any other person, INCLUDING THE PATIENT. Interpretation Summary * Name: MAYLIN RIDDLE Study Date: 02/23/2018 07:37 AM BP: 110/74 mmHg * Patient Location: [facility]\S\N284\S\1 HR: 86 * : 1935 (M/d/yyyy) Gender: Female Height: 61 in * Age: 82 yrs Ethnicity: [place] Weight: 130 lb * Ordering Physician: Cristine Matthews * Referring Physician: Self, Referred * Performed By: Maggi Sorto RCS * * Reason For Study: SOB * BSA: 1.6 m2 * -- Conclusions -- * Study was technically adequate for the referral indication. * Rate controlled atrial fibrillation was present during the echocardiogram. * The left atrium is severely dilated. * The left ventricular wall motion is normal. * Ejection Fraction = 60-65%. * The right ventricle is mildly dilated. * The right ventricular systolic function is normal. * Mitral valve leaflets are moderately thickened with mild bileaflet mitral valve prolapse. * There is moderate mitral regurgitation. * There is mild tricuspid regurgitation. * Mild pulmonary hypertension is present. * The catheter pulmonary artery systolic pressure is 43 mmHg. Procedure Details * A complete two-dimensional transthoracic echocardiogram was performed (2D, M-mode, Doppler and color flow Doppler). Left Ventricle * The left ventricle is normal in size. * There is mild concentric left ventricular hypertrophy. * Left ventricular systolic function is normal. * Ejection Fraction = 60-65%. * The left ventricular wall motion is normal. Right Ventricle * The right ventricle is mildly dilated. * The right ventricular systolic function is normal. Atria * The left atrium is severely dilated. * Right atrial size is normal. * Pacemaker lead is visualized in the right atrium that traverses the tricuspid valve terminates in the right ventricular apex. * There is no evidence of atrial septal defect, but resolution does not allow assessment for a patent foramen ovale. Mitral Valve * Mitral valve leaflets are moderately thickened with mild bileaflet mitral valve prolapse. * There is no mitral valve stenosis. * There is moderate mitral regurgitation. Tricuspid Valve * The tricuspid valve is normal. * There is no tricuspid stenosis. * There is mild tricuspid regurgitation. * Mild pulmonary hypertension is present. The catheter pulmonary artery systolic pressure is 43 mmHg. Aortic Valve * The aortic valve is trileaflet. * Aortic valve sclerosis mild, without significant aortic valvular stenosis. * Aortic stenosis is absent. * There is no significant aortic regurgitation. Pulmonic Valve * The pulmonary valve is not well seen, but the Doppler examination is normal without significant regurgitation or stenosis. Great Vessels * The aortic root and proximal ascending aorta are normal sized. Pericardium/Pleural * There is no pericardial effusion. Great Vessels * Normal inferior vena cava diameter and respiratory variation suggests normal central venous pressure. MMode 2D Measurements and Calculations IVSd 1.1 cm IVSs 1.6 cm LVIDd 3.7 cm LVIDs 2.5 cm LVPWd 1.1 cm LVPWs 1.4 cm IVS/LVPW 0.92 FS 32.6 % EDV(Teich) 59.1 ml ESV(Teich) 22.6 ml EF(Teich) 61.8 % EDV(cubed) 51.7 ml ESV(cubed) 15.8 ml EF(cubed) 69.4 % % IVS thick 47.5 % % LVPW thick 20.3 % LV mass(C)d 130.5 grams LV mass(C)dI 83.0 grams/m\S\2 LV mass(C)s 121.5 grams LV mass(C)sI 77.2 grams/m\S\2 SV(Teich) 36.5 ml SI(Teich) 23.2 ml/m\S\2 SV(cubed) 35.9 ml SI(cubed) 22.8 ml/m\S\2 Ao root diam 3.5 cm Ao root area 9.6 cm\S\2 ACS 1.6 cm LA dimension 3.2 cm asc Aorta Diam 3.0 cm LA/Ao 0.91 EDV(MOD-sp4) 62.6 ml ESV(MOD-sp4) 28.4 ml EF(MOD-sp4) 54.6 % EDV(MOD-sp2) 84.8 ml ESV(MOD-sp2) 48.9 ml EF(MOD-sp2) 42.4 % SV(MOD-sp4) 34.2 ml SI(MOD-sp4) 21.7 ml/m\S\2 SV(MOD-sp2) 35.9 ml SI(MOD-sp2) 22.8 ml/m\S\2 Doppler Measurements and Calculations Ao V2 max 125.1 cm/sec Ao max PG 6.3 mmHg Ao max PG (full) 4.1 mmHg LV V1 max PG 2.2 mmHg LV V1 max 73.7 cm/sec PA V2 max 52.2 cm/sec PA max PG 1.1 mmHg TR max chad 300.9 cm/sec
--- NOTE | 2018-02-23 19:02 | Cardiology Consultation ---
Cardiology Consultation Date of Consultation: Feb 23, 2018 History of Present Illness Patient is a 82 year old female seen in cardiology consultation per the request of Dr. Antunez for the evaluation of shortness of breath and abnormal EKG with new inferior and lateral ST segment depression. The patient is well-known to our cardiology service having most recently been seen by Rasheed Peguero PA-C of our practice on 01/17/18. She typically follows with Dr. Campos and already has a follow-up visit with him scheduled for 02/26/18. She presented to the hospital yesterday with apparent complaints of worsening shortness of breath and right greater than left lower extremity edema. She has been assessed as an outpatient for lower extremity edema and furosemide has been increased to 20 mg twice daily. Digoxin has been added on 01/10/2018 for further rate control of atrial fibrillation. Patient received a dose of IV furosemide 40 mg this morning. Her antibiotics have since been discontinued. She is being covered with empiric cefepime for possible UTI or pneumonia. 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 Paroxysmal atrial fibrillation previously rhythm controlled in sinus rhythm , however has reverted to atrial fibrillation in December 2017 as noted on pacemaker check she has been in persistent atrial fibrillation since then prompting rate control with metoprolol and digoxin 2. 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 History of multiple sclerosis with neurogenic bladder, chronic indwelling Walkre 4. History of celiac disease 5. 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 6. Hypothyroidism 7. Small bowel obstruction Past Surgical History: Pacemaker insertion Past D&C Appendectomy Partial colectomy Social History: The patient is a non-smoker. She lives with her . She describes herself as an avid reader and does enjoy his stories about [facility] culture. Family History: Positive for coronary artery disease in her father Review Of Systems A 10 point review of systems is reviewed and is negative with the exception of that outlined above. Allergies Coded Allergies: Ciprofloxacin (Unverified Allergy, Severe, GI SYMPTOMS, 02/22/18) Sulfa Antibiotics (Verified Allergy, Severe, HIVES, 02/22/18) Wheat Bran (Verified Allergy, Intermediate, DIARRHEA, 02/22/18) GLUTEN FREE DIET Codeine (Verified Adverse Reaction, Severe, "VERY SICK", 02/22/18) Doxycycline (Verified Adverse Reaction, Severe, 0, 02/22/18) bad diarrhea as per px Gluten (Verified Adverse Reaction, Intermediate, GI DISTRESS, 02/22/18) Medications Reported Home Medications Medications Dose Route/Sig Max Daily Dose Days Date Category Dose Instructions Digox (Digoxin) 125 Mcg Tab 125 Mg PO DAILY@1800 02/22/18 Reported Metoprolol Succinate ER (Metoprolol Succinate) 100 Mg Tabcr 100 Mg PO BID 02/22/18 Reported Lasix (Furosemide) 20 Mg Tab 10 Mg PO 2XWK 02/22/18 Reported Monday and Lasix (Furosemide) 20 Mg Tab 20 Mg PO BID 02/22/18 Reported Prolia (Denosumab) 60 Mg/Ml Arpita 1 Dose INJ DIRECTED 12/19/17 Reported Culturelle Digestive Heal (Lactobacillus-Inulin) 1 Cap Cap 1 Cap PO BID 12/19/17 Reported Centrum (Multiple Vitamins W/ Minerals) 1 Tab Tab 1 Tab PO DAILY 02/25/17 Reported Mucinex Dm (Dextromethorphan-Guaifenesin) 1 Tab Tab 1 Tab PO Q12 PRN 10 02/25/17 Reported Premarin (Estrogens, Conjugated) 14 Appln/30 Gm Cr 1 Appln PV UD 02/15/17 Reported MONDAYS AND FRIDAYS Cyanocobalamin 1,000 Mcg/Ml Inj 1,000 Mcg INJ MONTHLY 02/15/17 Reported Vitamin D3 (Cholecalciferol) 1,000 Unit Tab 1 Tab PO BID 90 01/04/17 Reported Tylenol (Acetaminophen) 500 Mg Tab 1,000 Mg PO Q8H PRN 08/15/16 Reported Aspirin Ec (Aspirin) 81 Mg Tab 81 Mg PO BID 06/22/15 Reported Mag-Ox (Magnesium Oxide) 400 Mg Tab 400 Mg PO DAILYBL 06/22/15 Reported Vitamin C (Ascorbic Acid) 500 Mg Tab 500 Mg PO DAILY@1200 06/22/15 Reported Levothyroxine Sodium 100 Mcg Tab 100 Mcg PO DAILYBB 10/15/13 Reported Os-Hitesh 500 Plus D (Calcium/Vitamin D) Tab 1 Tab PO TID 06/14/10 Reported Claritin (Loratadine) 10 Mg Tab 10 Mg PO DAILY PRN 01/20/09 Reported Physical Exam Vital Signs (Last 8hrs): Last 8 Hrs Date Time Temp Pulse Resp B/P (MAP) Pulse Ox O2 Delivery O2 Flow Rate FiO2 02/23/18 18:17 76 02/23/18 16:00 Room Air 02/23/18 14:49 36.6 64 20 110/74 (86) 97 02/23/18 12:00 Room Air 02/23/18 11:16 36.5 76 20 108/66 (80) 95 General Appearance: Alert and Oriented x3. NAD, kyphosis/scoliosis noted Head: Normocephalic Atraumatic. Eyes: PERRLA, EOMI, conjunctiva and sclera clear Neck: Supple. No carotid bruits noted. No JVD. No HJD. Respiratory: Breath sounds clear to auscultation bilaterally. No w/r/r. Cardiovascular: Irregular rhythm 1/6 systolic murmur Abdomen: Normal bowel sounds, soft nontender. no abdominal bruits. Extremities: 1+ lower extremity edema, chronic venous stasis changes right lower extremity edema a little bit worse than the left Neuro: No focal deficits. Psychiatric: Normal affect. Data Last Resulted 02/23/18 07:15 Last Resulted 02/23/18 07:15 Past 24 Hours Test 02/22/18 22:30 Range/Units Troponin I < 0.015 0-0.045 ng/ml Imaging: Lower extremity venous duplex was negative Transthoracic echocardiogram performed earlier today and reviewed independently reveals normal left ventricular wall motion, the right ventricle is mildly dilated with normal systolic function. Mitral valve prolapse with moderate mitral regurgitation is present. Mild tricuspid regurgitation. Mild pulmonary hypertension. Severe left atrial dilatation. EKG: Telemetry reviewed: Rate controlled atrial fibrillation occasional demand ventricular paced [employer] pacemaker check performed today revealed stable generator longevity exteriors. The patient has been in atrial fibrillation 100% the time since The patient is atrial paced 1% the time. She is ventricular paced 83% of the time. EKG tracings performed yesterday on presentation again today revealed atrial fibrillation with new inferior and lateral repolarization abnormalities of ST depression concerning for ischemia. Assessment & Plan Impression: 82-year-old female 1. Presented with complaints of exertional shortness of breath. She notes that she has felt improved this afternoon, perhaps after having dose of IV furosemide, and her symptoms are consistent with acute on chronic decompensation of heart failure, heart failure with preserved ejection fraction 2. Previous paroxysmal, now permanent atrial fibrillation since December 2017 3. History of multiple sclerosis, neurogenic bladder 4. Past hemorrhagic complications to anticoagulation therapy and therefore she has declined anticoagulation on a chronic basis 5. New EKG abnormalities, with inferolateral ST segment depression consistent with ischemia pattern Discussion/recommendations: Patient describes no focal symptoms suggestive of angina. She had been hospitalized in December of this year having reverted to atrial fibrillation. Her sotalol had been discontinued and she has been rate controlled with metoprolol succinate. She was followed in the office and digoxin was added. Her digoxin level is within the goal range today at 0.8 ng/dL. The patient presented with shortness of breath. Overall, I think her shortness of breath correlates with her conversion to chronic atrial fibrillation. Her symptoms described today some somewhat similar to what was described 2 months ago and correlated with her atrial fibrillation. She does however have a significant EKG changes that are suggestive of ischemia. Her troponin has been negative on a serial basis this admission. Other potential alternative explanations to the repolarization changes are not this is a T-wave memory phenomenon and she is typically frequently ventricular paced and we are catching her with [place] QRS complexes, and another alternative explanation is that she has repolarization changes due to digoxin. The repolarization changes however are quite dramatic and I think are out of proportion to what would expect with digoxin. While I would agree that the current EKG changes suggest ischemia, she is a frail elderly patient, with no da angina and I would recommend ongoing conservative therapy with optimizing her from a standpoint of diastolic heart failure decompensation. I have ordered a dose of furosemide 40 mg IV for tomorrow. Would recommend the patient is reassess clinically and further diuretic therapy can be readdressed after that. Continue subcutaneous heparin for DVT prophylaxis. Repeat EKG is already ordered for tomorrow and repeat chemistry panel has been ordered.
--- NOTE | 2018-02-23 19:27 | Progress Note ---
Progress Note Date of Service Feb 23, 2018. Progress Note Subjective: Throughout the day medical doctor has seen the patient several times. Never reporting shortness of breath or chest discomfort Physical Exam General: no acute distress Lungs: CTABL Heart: on exams, have irregular beats but rate controlled Abdomen: soft, nontender, + bowel sounds Echocardiogram * Rate controlled atrial fibrillation was present during the echocardiogram. * The left atrium is severely dilated. * The left ventricular wall motion is normal. * Ejection Fraction = 60-65%. * The right ventricle is mildly dilated. * The right ventricular systolic function is normal. * Mitral valve leaflets are moderately thickened with mild bileaflet mitral valve prolapse. * There is moderate mitral regurgitation. * There is mild tricuspid regurgitation. * Mild pulmonary hypertension is present. * The catheter pulmonary artery systolic pressure is 43 mmHg. Plan acute on chronic decompensation of heart failure, heart failure with preserved ejection fraction -symptoms have improve with IV Lasix, continue Lasix as per cardiology EKG abnormalities, with inferolateral ST segment depression consistent with ischemia pattern -however no chest pain, troponins negative x 3 -cardiology offers several differentials: ischemia vs repolarization changes due to digoxin vs tribal QRS complexes -cardiology recommends conservative therapy and optimize her from a standpoint of diastolic heart failure decompensation. -Repeat EKG is ordered for tomorrow by cardiology previous paroxysmal, now permanent atrial fibrillation since December 2017, Past hemorrhagic complications to anticoagulation therapy and therefore she had declined anticoagulation on a chronic basis -rate controlled with metoprolol succinate -on digoxin, digoxin level is within the goal range today at 0.8 ng/dL. History of neurogenic bladder -was started on cefepime was possible UTI given history of welsh, urine culture returns as greater than 3 types of organisms and recommend to repeat -patient does not have typical signs of dysuria and there is a good chance that the urine collection is welsh contaminant, will ask nurse to re-collect urine and send for urinalysis/culture, will continue Cefepime for now Multiple sclerosis -neurology recommends against IV solumedrol for now because concern that this would increase fluid retention PT/OT Would care for prevent foot ulcer HYPOTHYROIDISM: Continue levothyroxine DVT prophylaxis subcutaneous heparin .
[2018-02-24] VITALS (7 sets, daily range): BP systolic 109–131; BP diastolic 70–85; PULSE 79–118; TEMP 36.4–36.9; O2SAT 91–95
[2018-02-24] MEDS: CEFEPIME IV 2,000 MG in SYRINGE 7.5 ML IV SCH (01:10)
[2018-02-24] MEDS: LEVOTHYROXINE 100 MCG TAB PO SCH (05:43)
[2018-02-24] MEDS: HEPARIN SOD 5000 UNIT/0.5 ML CARP SQ SCH ×3 (05:46→21:22)
[2018-02-24 08:15] LABS: CALCIUM 8.8 mg/dl (8.5-10.1); CREATININE 0.99 mg/dl (0.60-1.20)
[2018-02-24] MEDS: CEROVITE ADV FORMULA TAB PO SCH (08:22)
[2018-02-24] MEDS: CHOLECALCIFEROL 1000 INTER.UNIT TAB PO SCH ×2 (08:22→21:16)
[2018-02-24] MEDS: LACTOBACILLUS ACIDOPHILUS (FLORANEX) TAB PO SCH ×2 (08:22→21:13)
[2018-02-24] MEDS: METOPROLOL SUCC 50MG EXT REL TAB PO SCH ×2 (08:22→21:17)
[2018-02-24] MEDS: ASPIRIN 81 MG ECTAB PO SCH ×2 (08:22→21:13)
[2018-02-24] MEDS: CALCIUM 600MG + VIT D 400 IU TAB PO SCH ×3 (08:22→21:25)
[2018-02-24] MEDS ORDERED: FUROSEMIDE INJ 40 MG in SYRINGE 0 ML IV SCH (09:00)
[2018-02-24] MEDS: ASCORBIC ACID 500 MG TAB PO SCH (11:04)
[2018-02-24] MEDS: MAGNESIUM OXIDE 400 MG TAB PO SCH (11:04)
--- NOTE | 2018-02-24 13:01 | PROGRESS NOTE ---
DATE: 02/24/2018 Mariluz looks a little better today. Her legs are moving better. She feels that they are significantly improved. Her congestive heart failure seems to be responding to the medications. I refer the reader to Dr. Salgado's extensive note of yesterday, describing EKG changes and his feelings about what might be going on here. She did receive some extra furosemide and this may be associated with her current improvement. At this point, I think this is a "flare" of her old MS symptoms related to the effects of a medical illness rather than a true exacerbation of her disease which is an unlikely phenomena at her age and with her type of illness. I certainly would not recommend steroid therapy in this setting as the last thing this woman needs is more fluid retention and edema. I will check with her tomorrow. For now, however, would not recommend any aggressive management of her MS other than symptomatic. CYRIL
--- NOTE | 2018-02-24 15:01 | Cardiology Follow-Up ---
Subjective General Date of Service: Feb 24, 2018. Pt evaluation today including: conversation w/ patient, physical exam, chart review, lab review, review of studies, review of inpatient medication list History of Present Illness The patient is a 82 year old female seen in follow-up. Bilateral lower extremity edema, right greater than left present. Complains of dyspnea on exertion. Denies chest pain. Offers no other complaints at this time. Telemetry reveals atrial fibrillation, rate 80 - 95 bpm Allergies Coded Allergies: Ciprofloxacin (Unverified Allergy, Severe, GI SYMPTOMS, 02/22/18) Sulfa Antibiotics (Verified Allergy, Severe, HIVES, 02/22/18) Wheat Bran (Verified Allergy, Intermediate, DIARRHEA, 02/22/18) GLUTEN FREE DIET Codeine (Verified Adverse Reaction, Severe, "VERY SICK", 02/22/18) Doxycycline (Verified Adverse Reaction, Severe, 0, 02/22/18) bad diarrhea as per px Gluten (Verified Adverse Reaction, Intermediate, GI DISTRESS, 02/22/18) Social History Smoking Status: Former Smoker Hx Tobacco Use In Past Year?: No Hx Alcohol Use - Type And Amou: No Hx Substance Use - Type And Am: No Problem List Medical Problems: (1) Acute congestive heart failure Status: Acute (2) Atrial fibrillation with RVR Status: Acute (3) Catheter-associated urinary tract infection Status: Acute (4) Dehydration Status: Acute (5) Exacerbation of multiple sclerosis Status: Acute (6) Failure of outpatient treatment Status: Acute (7) Hypoglycemia Status: Acute (8) Left lower lobe pneumonia Status: Acute (9) Near syncope Status: Acute (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 (11) Partial small bowel obstruction Status: Acute (12) Pulmonary edema Status: Acute (13) Right lower lobe pneumonia Status: Acute (14) UTI (urinary tract infection) Status: Acute (15) UTI (urinary tract infection) Status: Acute (16) Vomiting Status: Acute (17) Weakness Status: Acute Review of Systems Respiratory: + cough, + dyspnea on exertion, No sputum, No wheezing, No shortness of breath, No dyspnea at rest, No hemoptysis Cardiac: + edema, No chest pain, No orthopnea, No PND, No claudication, No palpitations Physical Exam Vital Signs Last Vital Signs Documentation Date Time Temp Pulse Resp B/P (MAP) Pulse Ox O2 Delivery O2 Flow Rate FiO2 02/24/18 12:00 Room Air 02/24/18 11:08 36.4 85 16 117/84 (95) 91 02/22/18 16:24 2.0 Physical Exam Constitutional: General Apperance: well-nourished Head: normocephalic, atraumatic Lungs: Auscultation: rales/crackles on the left, rales/crackles on the right Cardiovascular: Heart Auscultation: normal S1, normal S2, I/ WSM, irregular rate rhythm Peripheral Pulses: Radial Pulse: normal on the right Abdomen: Inspection & Palpation: soft, non-distended, no tenderness, guarding & rebound Extremities: no cyanosis, no clubbing, no ulcers, edema Neurologic: Cranial Nerves: grossly intact Assessment and Plan Assessment and Plan 82-year-old female 1. Acute decompensated diastolic heart failure. (HFpEF) 2. Permanent atrial fibrillation since December 2017 -rate controlled 3. History of multiple sclerosis, neurogenic bladder 4. Past hemorrhagic complications to anticoagulation therapy and therefore she has declined anticoagulation on a chronic basis 5. New EKG abnormalities, with inferolateral ST segment depression consistent with ischemia pattern Discussion/recommendations: Patient appears mildly decompensated from a heart failure perspective. Recommend IV Lasix, 40 mg twice daily. Repeat basic metabolic panel in a.m. From a cardiovascular perspective patient may receive corticosteroids if necessary for treatment of MS flare. Other cardiovascular medications will be continued as previously ordered. I will continue to monitor telemetry and follow patient during hospitalization. Laboratory Results Last 24 Hours Test 02/23/18 19:50 02/24/18 07:12 Urine Color YELLOW Urine Appearance CLOUDY Urine pH 5.5 Urine Specific [place] 1.016 Urine Protein 1+ Urine Glucose (UA) NEG Urine Ketones NEG Urine Occult Blood 2+ Urine Nitrite NEG Urine Bilirubin NEG Urine Urobilinogen NEG Urine Leukocyte Esterase LARGE Urine WBC (Auto) >30 /hpf Urine RBC (Auto) 5-10 /hpf Urine Hyaline Casts (Auto) 10-30 /lpf Urine Epithelial Cells (Auto) 10-20 /lpf Urine Bacteria (Auto) NEG Urine Pathogenic Casts 0-3 GRANULAR CASTS /lpf Sodium Level 132 mmol/L Potassium Level 4.0 mmol/L Chloride Level 97 mmol/L Carbon Dioxide Level 29 mmol/L Anion Gap 7.0 mmol/L Blood Urea Nitrogen 22 mg/dl Creatinine 0.99 mg/dl Est Creatinine Clear Calc Drug Dose 35.3 ml/min Estimated GFR () 61.1 Estimated GFR (Non- 52.7 BUN/Creatinine Ratio 22.7 Random Glucose 90 mg/dl Calcium Level 8.8 mg/dl
--- NOTE | 2018-02-24 16:56 | Progress Note ---
Internal Med Progress Note Date of Service: Feb 24, 2018. Provider Documentation: Subjective: Patient denies shortness of breath or chest discomfort Physical Exam General: no acute distress Lungs: CTABL Heart: on exams, have irregular beats but rate controlled Abdomen: soft, nontender, + bowel sounds Extremities: poor toe nail footcare, patient has at baseline some neuropathy and because of weakness of multiple sclerosis she may have been causing injury to toe nails but there is no apparent ulcers on exam : welsh ASSESSMENT & PLAN: Echocardiogram * Rate controlled atrial fibrillation was present during the echocardiogram. * The left atrium is severely dilated. * The left ventricular wall motion is normal. * Ejection Fraction = 60-65%. * The right ventricle is mildly dilated. * The right ventricular systolic function is normal. * Mitral valve leaflets are moderately thickened with mild bileaflet mitral valve prolapse. * There is moderate mitral regurgitation. * There is mild tricuspid regurgitation. * Mild pulmonary hypertension is present. * The catheter pulmonary artery systolic pressure is 43 mmHg. Plan acute on chronic decompensation of heart failure, heart failure with preserved ejection fraction -symptoms have improve with IV Lasix, continue Lasix as per cardiology EKG abnormalities, with inferolateral ST segment depression consistent with ischemia pattern -however no chest pain, troponins negative x 3 -cardiology offers several differentials: ischemia vs repolarization changes due to digoxin vs [place] QRS complexes -cardiology recommends conservative therapy and optimize her from a standpoint of diastolic heart failure decompensation with IV Lasix BID previous paroxysmal, now permanent atrial fibrillation since December 2017, Past hemorrhagic complications to anticoagulation therapy and therefore she had declined anticoagulation on a chronic basis -rate controlled with metoprolol succinate -on digoxin History of neurogenic bladder -was started on cefepime was possible UTI given history of welsh, and urinalysis with bacteria on 02/22/18, however the urine culture returns as greater than 3 types of organisms and recommend to repeat -the urinalysis repeated on 02/23/18 negative for bacteria and cefepime stopped on 02/24/18 Multiple sclerosis -neurology recommended against IV solumedrol because concern that this would increase fluid retention -as per cardiology 02/24/18: From a cardiovascular perspective patient may receive corticosteroids if necessary for treatment of MS flare -neurology notes on 02/24/18 does not find evidence for acute MS flare PT/OT Would care as needed for toe nail care and to prevent heel ulcers HYPOTHYROIDISM: Continue levothyroxine DVT prophylaxis subcutaneous heparin Upcoming appointments on [employer] 02/26/2018 1:30 PM Alfredo Campos MD Cardiology, [facility] 02/26/2018 3:00 PM Chair 1 Hem Onc [facility] Hematology/Oncology Treatment, [place] 03/01/2018 1:10 PM Reggie Peña DO [facility] 03/06/2018 2:00 PM Nurse Urology [facility] Urology, [facility] Vital Signs: Date Time Temp Pulse Resp B/P (MAP) Pulse Ox O2 Delivery O2 Flow Rate FiO2 02/24/18 16:00 Room Air 02/24/18 15:00 36.5 79 16 110/73 (85) 94 Room Air 02/24/18 12:00 Room Air 02/24/18 11:08 36.4 85 16 117/84 (95) 91 Room Air 02/24/18 08:00 Room Air 02/24/18 06:59 36.7 87 18 116/79 (91) 92 Room Air 02/24/18 04:00 Room Air 02/24/18 04:00 36.9 99 18 109/70 (83) 92 Room Air 02/24/18 00:00 Room Air 02/23/18 23:39 36.5 61 20 144/87 (106) 92 Room Air 02/23/18 20:00 Room Air 02/23/18 19:55 36.6 90 18 124/73 (90) 95 Room Air 02/23/18 18:17 76 Lab Results: Results Past 24 Hours Test 02/23/18 19:50 02/24/18 07:12 Range/Units Urine Color YELLOW Urine Appearance CLOUDY CLEAR Urine pH 5.5 4.5-7.5 Urine Specific [place] 1.016 1.000-1.030 Urine Protein 1+ NEG Urine Glucose (UA) NEG NEG Urine Ketones NEG NEG Urine Occult Blood 2+ NEG Urine Nitrite NEG NEG Urine Bilirubin NEG NEG Urine Urobilinogen NEG NEG Urine Leukocyte Esterase LARGE NEG Urine WBC (Auto) >30 0-5 /hpf Urine RBC (Auto) 5-10 0-4 /hpf Urine Hyaline Casts (Auto) 10-30 0-5 /lpf Urine Epithelial Cells (Auto) 10-20 0-5 /lpf Urine Bacteria (Auto) NEG NEG Urine Pathogenic Casts 0-3 GRANULAR CASTS 0 /lpf Sodium Level 132 136-145 mmol/L Potassium Level 4.0 3.5-5.1 mmol/L Chloride Level 97 98-107 mmol/L Carbon Dioxide Level 29 21-32 mmol/L Anion Gap 7.0 3-11 mmol/L Blood Urea Nitrogen 22 7-18 mg/dl Creatinine 0.99 0.60-1.20 mg/dl Est Creatinine Clear Calc Drug Dose 35.3 ml/min Estimated GFR () 61.1 Estimated GFR (Non- 52.7 BUN/Creatinine Ratio 22.7 10-20 Random Glucose 90 70-99 mg/dl Calcium Level 8.8 8.5-10.1 mg/dl
[2018-02-24] MEDS: FUROSEMIDE INJ 40 MG in SYRINGE 0 ML IV SCH (17:02)
[2018-02-24] MEDS: DIGOXIN 0.125 MG TAB PO SCH (18:02)
[2018-02-25] MEDS: LEVOTHYROXINE 100 MCG TAB PO SCH (04:37)
[2018-02-25] MEDS: HEPARIN SOD 5000 UNIT/0.5 ML CARP SQ SCH ×3 (04:39→20:26)
[2018-02-25 04:40] VITALS: BP 128/84; PULSE 97; TEMP 36.3; O2SAT 93
[2018-02-25 07:25] VITALS: BP 113/67; PULSE 90; TEMP 36.7; O2SAT 93
[2018-02-25 07:35] LABS: BASO % 1.2 %; BASO ABS # 0.08 K/uL (0-0.2); EOS % 4.2 %; EOS ABS # 0.29 K/uL (0-0.5); HEMATOCRIT 37.6 % (37-47); HEMOGLOBIN 12.3 g/dL (12.0-16.0); IG# 0.01 K/uL (0.00-0.02); LYMPH % 22.6 %; LYMPH ABS # 1.55 K/uL (1.2-3.4); MEAN CELL VOLUME 97.7 fL (80-100); MEAN CORPUSCULAR HEMOGLOBIN 31.9 pg (25-34); MEAN PLATELET VOLUME 8.5 fL (7.4-10.4); MONO % 12.7 %; MONO ABS # 0.87 K/uL (0.11-0.59); NEUT % 59.2 %; NEUT ABS # 4.07 K/uL (1.4-6.5); PLATELET COUNT 294 K/uL (130-400); RED CELL DISTRIBUTION WIDTH SD 49.9 fL (36.4-46.3); WHITE BLOOD COUNT 6.87 K/uL (4.8-10.8)
[2018-02-25 07:38] LABS: MEAN CORPUSCULAR HGB CONC 32.7 g/dl (32-36)
[2018-02-25] MEDS: FUROSEMIDE INJ 40 MG in SYRINGE 0 ML IV SCH ×2 (07:52→17:26)
[2018-02-25] MEDS: CEROVITE ADV FORMULA TAB PO SCH (07:53)
[2018-02-25] MEDS: CHOLECALCIFEROL 1000 INTER.UNIT TAB PO SCH ×2 (07:53→20:19)
[2018-02-25] MEDS: METOPROLOL SUCC 50MG EXT REL TAB PO SCH ×2 (07:53→20:19)
[2018-02-25] MEDS: ASPIRIN 81 MG ECTAB PO SCH ×2 (07:53→20:19)
[2018-02-25] MEDS: CALCIUM 600MG + VIT D 400 IU TAB PO SCH ×3 (07:53→20:19)
[2018-02-25] MEDS: LACTOBACILLUS ACIDOPHILUS (FLORANEX) TAB PO SCH ×2 (07:53→20:19)
[2018-02-25 08:06] LABS: ALBUMIN 2.3 gm/dl (3.4-5.0); CALCIUM 8.9 mg/dl (8.5-10.1); CREATININE 0.97 mg/dl (0.60-1.20); POTASSIUM 3.4 mmol/L (3.5-5.1); TOTAL PROTEIN 6.1 gm/dl (6.4-8.2)
[2018-02-25] MEDS: MAGNESIUM OXIDE 400 MG TAB PO SCH (11:10)
[2018-02-25] MEDS: ASCORBIC ACID 500 MG TAB PO SCH (11:10)
--- NOTE | 2018-02-25 11:25 | PROGRESS NOTE ---
DATE: 02/25/2018 SUBJECTIVE: Mariluz is looking better every day. Her right leg is now moving and it is not nearly back to her baseline, but is on the way and the left leg is actually now capable of supporting her weight. Her shortness of breath at least judging from her clinical appearance today is markedly improved, but she has some edema still of the lower extremities, worse on the right which is the more paretic extremity and obviously will collect a little more fluid. I spoke with Dr. Antunez today; he is wondering if she would be a candidate for rehabilitation stay and I agree. There is some cardiac rehabilitation available at [facility] and certainly her MS would justify it but at this point I really cannot state that this is a true immunologic mediated MS flare and would not advocate the use of steroids or indeed any agent of this type that might suppress her immune response and add to fluid retention. At this point, we are waiting for cardiology to render an opinion and I would suggest a rehabilitation medicine consult be placed but will let this decision up to Dr. Antunez. CYRIL
[2018-02-25 12:03] VITALS: BP 111/74; PULSE 87; TEMP 36.4; O2SAT 95
--- NOTE | 2018-02-25 12:04 | Cardiology Follow-Up ---
Subjective General Date of Service: Feb 25, 2018. Pt evaluation today including: conversation w/ patient, conversation w/ family , physical exam, chart review, lab review, review of studies, conversation w/ customer sales consultant, review of inpatient medication list History of Present Illness The patient is a 82 year old female seen in follow-up. Right lower extremity edema improving. Bilateral pedal discoloration noted. Patient states discoloration is a chronic issue. Denies orthopnea or PND. Fluid balance negative approximately 2500 cc over the past 24 hours. No chest discomfort. Atrial fibrillation with average heart rate of 85 bpm and occasional PVCs noted on telemetry. Allergies Coded Allergies: Ciprofloxacin (Unverified Allergy, Severe, GI SYMPTOMS, 02/22/18) Sulfa Antibiotics (Verified Allergy, Severe, HIVES, 02/22/18) Wheat Bran (Verified Allergy, Intermediate, DIARRHEA, 02/22/18) GLUTEN FREE DIET Codeine (Verified Adverse Reaction, Severe, "VERY SICK", 02/22/18) Doxycycline (Verified Adverse Reaction, Severe, 0, 02/22/18) bad diarrhea as per px Gluten (Verified Adverse Reaction, Intermediate, GI DISTRESS, 02/22/18) Social History Smoking Status: Former Smoker Hx Tobacco Use In Past Year?: No Hx Alcohol Use - Type And Amou: No Hx Substance Use - Type And Am: No Problem List Medical Problems: (1) Acute congestive heart failure Status: Acute (2) Atrial fibrillation with RVR Status: Acute (3) Catheter-associated urinary tract infection Status: Acute (4) Dehydration Status: Acute (5) Exacerbation of multiple sclerosis Status: Acute (6) Failure of outpatient treatment Status: Acute (7) Hypoglycemia Status: Acute (8) Left lower lobe pneumonia Status: Acute (9) Near syncope Status: Acute (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 (11) Partial small bowel obstruction Status: Acute (12) Pulmonary edema Status: Acute (13) Right lower lobe pneumonia Status: Acute (14) UTI (urinary tract infection) Status: Acute (15) UTI (urinary tract infection) Status: Acute (16) Vomiting Status: Acute (17) Weakness Status: Acute Review of Systems Respiratory: + dyspnea on exertion, No cough, No sputum, No wheezing, No shortness of breath, No dyspnea at rest, No hemoptysis Cardiac: + edema, No chest pain, No orthopnea, No PND, No claudication, No palpitations Physical Exam Vital Signs Last Vital Signs Documentation Date Time Temp Pulse Resp B/P (MAP) Pulse Ox O2 Delivery O2 Flow Rate FiO2 02/25/18 08:00 Room Air 02/25/18 07:25 36.7 90 17 113/67 (82) 93 02/22/18 16:24 2.0 Physical Exam Constitutional: General Apperance: well-nourished Head: normocephalic, atraumatic Lungs: Auscultation: rales/crackles on the left, rales/crackles on the right Cardiovascular: Heart Auscultation: normal S1, normal S2, I/ WSM, irregular rate rhythm Peripheral Pulses: Radial Pulse: normal on the right Abdomen: Inspection & Palpation: soft, non-distended, no tenderness, guarding & rebound Extremities: no cyanosis, no clubbing, no ulcers, edema Neurologic: Cranial Nerves: grossly intact Assessment and Plan Assessment and Plan 82-year-old female 1. Acute decompensated diastolic heart failure. (HFpEF) -Improving with intravenous diuretic therapy 2. Permanent atrial fibrillation since December 2017 -rate controlled 3. History of multiple sclerosis, neurogenic bladder 4. Past hemorrhagic complications to anticoagulation therapy and therefore she has declined anticoagulation on a chronic basis 5. New EKG abnormalities, with inferolateral ST segment depression consistent with ischemia pattern 6. Chart history of peripheral vascular disease with bilateral pedal discoloration. No evidence of ulceration or skin breakdown. Distal pulses are not palpable. Patient denies discomfort. History consistent with possible Raynaud's phenomenon in the past. Discussion/recommendations: Assessed bilateral lower extremity arterial duplex. Continue intravenous Lasix , 40 mg twice daily. Repeat basic metabolic panel in the a.m. As previously noted. Patient may receive corticosteroids as needed for MS flare. Other cardiovascular medications will be continued as previously ordered. Laboratory Results Last 24 Hours Test 02/25/18 07:25 White Blood Count 6.87 K/uL Red Blood Count 3.85 M/uL Hemoglobin 12.3 g/dL Hematocrit 37.6 % Mean Corpuscular Volume 97.7 fL Mean Corpuscular Hemoglobin 31.9 pg Mean Corpuscular Hemoglobin Concent 32.7 g/dl Platelet Count 294 K/uL Mean Platelet Volume 8.5 fL Neutrophils (%) (Auto) 59.2 % Lymphocytes (%) (Auto) 22.6 % Monocytes (%) (Auto) 12.7 % Eosinophils (%) (Auto) 4.2 % Basophils (%) (Auto) 1.2 % Neutrophils # (Auto) 4.07 K/uL Lymphocytes # (Auto) 1.55 K/uL Monocytes # (Auto) 0.87 K/uL Eosinophils # (Auto) 0.29 K/uL Basophils # (Auto) 0.08 K/uL RDW Standard Deviation 49.9 fL RDW Coefficient of Variation 14.0 % Immature Granulocyte % (Auto) 0.1 % Immature Granulocyte # (Auto) 0.01 K/uL Sodium Level 134 mmol/L Potassium Level 3.4 mmol/L Chloride Level 96 mmol/L Carbon Dioxide Level 32 mmol/L Anion Gap 7.0 mmol/L Blood Urea Nitrogen 24 mg/dl Creatinine 0.97 mg/dl Est Creatinine Clear Calc Drug Dose 33.1 ml/min Estimated GFR () 62.6 Estimated GFR (Non- 54.0 BUN/Creatinine Ratio 25.0 Random Glucose 95 mg/dl Calcium Level 8.9 mg/dl Total Bilirubin 0.4 mg/dl Aspartate Amino Transf (AST/SGOT) 18 U/L Alanine Aminotransferase (ALT/SGPT) 13 U/L Alkaline Phosphatase 108 U/L Pro-B-Type Natriuretic Peptide 4473 pg/ml Total Protein 6.1 gm/dl Albumin 2.3 gm/dl Globulin 3.8 gm/dl Albumin/Globulin Ratio 0.6
--- NOTE | 2018-02-25 15:02 | Progress Note ---
Internal Med Progress Note Date of Service: Feb 25, 2018. Provider Documentation: Subjective: Patient denies shortness of breath or chest discomfort. Met with patient and patient's to discuss current health status and possible discharge needs Physical Exam General: no acute distress Lungs: CTABL Heart: regular heart rate Abdomen: soft, nontender, + bowel sounds Extremities: poor toe nail footcare, patient has at baseline some neuropathy and because of weakness of multiple sclerosis she may have been causing injury to toe nails but there is no apparent ulcers on exam, lower extremity with some more swelling of the left vs the right leg but this swelling is not getting worse compared to yesterday : welsh ASSESSMENT & PLAN: Echocardiogram * Rate controlled atrial fibrillation was present during the echocardiogram. * The left atrium is severely dilated. * The left ventricular wall motion is normal. * Ejection Fraction = 60-65%. * The right ventricle is mildly dilated. * The right ventricular systolic function is normal. * Mitral valve leaflets are moderately thickened with mild bileaflet mitral valve prolapse. * There is moderate mitral regurgitation. * There is mild tricuspid regurgitation. * Mild pulmonary hypertension is present. * The catheter pulmonary artery systolic pressure is 43 mmHg. Plan acute on chronic decompensation of heart failure, heart failure with preserved ejection fraction -presented to hospital as symptoms of shortness of breath - resolved -presented to hospital as symptoms of Bilateral leg swelling and right greater than left, No evidence of right lower extremity DVT on ultrasound on 02/22/18 -symptoms have improve with IV Lasix, continue Lasix as per cardiology EKG abnormalities, with inferolateral ST segment depression consistent with ischemia pattern -however no chest pain, troponins negative x 3 -cardiology offers several differentials: ischemia vs repolarization changes due to digoxin vs [place] QRS complexes -cardiology recommends conservative therapy and optimize her from a standpoint of diastolic heart failure decompensation with IV Lasix BID previous paroxysmal, now permanent atrial fibrillation since December 2017, Past hemorrhagic complications to anticoagulation therapy and therefore she had declined anticoagulation on a chronic basis -rate controlled with metoprolol succinate -on digoxin History of neurogenic bladder -was started on cefepime was possible UTI given history of welsh, and urinalysis with bacteria on 02/22/18, however the urine culture returns as greater than 3 types of organisms and recommend to repeat -the urinalysis repeated on 02/23/18 negative for bacteria and cefepime stopped on 02/24/18 Multiple sclerosis -neurology recommended against IV solumedrol because concern that this would increase fluid retention -as per cardiology 02/24/18: From a cardiovascular perspective patient may receive corticosteroids if necessary for treatment of MS flare -neurology notes on 02/24/18 does not find evidence for acute MS flare PT/OT Would care as needed for toe nail care and to prevent heel ulcers HYPOTHYROIDISM: Continue levothyroxine DVT prophylaxis subcutaneous heparin Disposition: Patient remains in the hospital and getting IV Lasix as per cardiology assessments. There does not appear to be an acute multiple sclerosis flare. An important question is where patient goes after the hospital stay. Patient lives at home with her who has some issues with mobility. They do have some caretakers at home. She does not seem to have severe enough cardiac disease to qualify for cardiac rehabilitation as suggested by recent neurology note, her multiple sclerosis associated weakness may prevent her from fully participating in an inpatient rehabilitation facility. Will need manager case involvement for discharge planning Upcoming appointments on [employer] 03/01/2018 1:10 PM Reggie Peña DO [facility] 03/06/2018 2:00 PM Nurse Urology [facility] Urology, [facility] Patient will need to reschedule cardiology appointments and Hematology/Oncology Treatment appointment due on 02/26/18 as patient is staying as inpatient at this time. Vital Signs: Date Time Temp Pulse Resp B/P (MAP) Pulse Ox O2 Delivery O2 Flow Rate FiO2 02/25/18 12:03 36.4 87 16 111/74 (86) 95 Room Air 02/25/18 12:00 Room Air 02/25/18 08:00 Room Air 02/25/18 07:25 36.7 90 17 113/67 (82) 93 Room Air 02/25/18 04:40 36.3 97 17 128/84 (99) 93 Room Air 02/25/18 04:00 Room Air 02/25/18 00:00 Room Air 02/24/18 23:27 36.7 102 19 131/79 (96) 95 Room Air 02/24/18 21:16 118 130/85 (100) 02/24/18 20:00 Room Air 02/24/18 18:02 84 02/24/18 18:00 84 02/24/18 16:00 Room Air Lab Results: Results Past 24 Hours Test 02/25/18 07:25 Range/Units White Blood Count 6.87 4.8-10.8 K/uL Red Blood Count 3.85 4.2-5.4 M/uL Hemoglobin 12.3 12.0-16.0 g/dL Hematocrit 37.6 37-47 % Mean Corpuscular Volume 97.7 80-100 fL Mean Corpuscular Hemoglobin 31.9 25-34 pg Mean Corpuscular Hemoglobin Concent 32.7 32-36 g/dl Platelet Count 294 130-400 K/uL Mean Platelet Volume 8.5 7.4-10.4 fL Neutrophils (%) (Auto) 59.2 % Lymphocytes (%) (Auto) 22.6 % Monocytes (%) (Auto) 12.7 % Eosinophils (%) (Auto) 4.2 % Basophils (%) (Auto) 1.2 % Neutrophils # (Auto) 4.07 1.4-6.5 K/uL Lymphocytes # (Auto) 1.55 1.2-3.4 K/uL Monocytes # (Auto) 0.87 0.11-0.59 K/uL Eosinophils # (Auto) 0.29 0-0.5 K/uL Basophils # (Auto) 0.08 0-0.2 K/uL RDW Standard Deviation 49.9 36.4-46.3 fL RDW Coefficient of Variation 14.0 11.5-14.5 % Immature Granulocyte % (Auto) 0.1 % Immature Granulocyte # (Auto) 0.01 0.00-0.02 K/uL Sodium Level 134 136-145 mmol/L Potassium Level 3.4 3.5-5.1 mmol/L Chloride Level 96 98-107 mmol/L Carbon Dioxide Level 32 21-32 mmol/L Anion Gap 7.0 3-11 mmol/L Blood Urea Nitrogen 24 7-18 mg/dl Creatinine 0.97 0.60-1.20 mg/dl Est Creatinine Clear Calc Drug Dose 33.1 ml/min Estimated GFR () 62.6 Estimated GFR (Non- 54.0 BUN/Creatinine Ratio 25.0 10-20 Random Glucose 95 70-99 mg/dl Calcium Level 8.9 8.5-10.1 mg/dl Total Bilirubin 0.4 0.2-1 mg/dl Aspartate Amino Transf (AST/SGOT) 18 15-37 U/L Alanine Aminotransferase (ALT/SGPT) 13 12-78 U/L Alkaline Phosphatase 108 45-117 U/L Pro-B-Type Natriuretic Peptide 4473 0-1800 pg/ml Total Protein 6.1 6.4-8.2 gm/dl Albumin 2.3 3.4-5.0 gm/dl Globulin 3.8 2.5-4.0 gm/dl Albumin/Globulin Ratio 0.6 0.9-2
--- NOTE | 2018-02-25 15:34 | DIAGNOSTIC IMAGING REPORT ---
ART DOP LOWER EXT BILAT CLINICAL HISTORY: PVD, B/L pedal discoloration claudication COMPARISON STUDY: None FINDINGS: Real-time as well as Doppler evaluation of the arterial structures of the lower legs was performed. Waveforms are triphasic throughout. Velocity characteristics are unremarkable. Moderate plaque formation is identified bilaterally The following blood pressure indices were obtained. On the right, posterior tibial is 0.91 and dorsalis pedis is 0.88. On the left, posterior tibial is 0.88 and dorsalis pedis is 0.8. IMPRESSION: Normal biphasic and triphasic waveforms. Mild plaque formation throughout. No significant stenosis. The above report was generated using voice recognition software. It may contain grammatical, syntax or spelling errors. Electronically signed by: Rasheed Vance M.D. 02/25/2018 3:33 PM Dictated Date/Time: 02/25/2018 3:31 PM
[2018-02-25 15:42] VITALS: BP 111/68; PULSE 80; TEMP 36.4; O2SAT 95
[2018-02-25] MEDS: DIGOXIN 0.125 MG TAB PO SCH (17:26)
[2018-02-25 18:55] VITALS: BP 113/63; PULSE 65; TEMP 36.6; O2SAT 94
[2018-02-25 23:21] VITALS: BP 137/83; PULSE 106; TEMP 36.8; O2SAT 91
[2018-02-26] VITALS (7 sets, daily range): BP systolic 108–127; BP diastolic 67–92; PULSE 66–115; TEMP 36.3–36.9; O2SAT 92–96
--- NOTE | 2018-02-26 05:06 | Clinical Documentation Query ---
CLINICAL DOCUMENTATION QUERY Last daily progress note 02/25 states, "was started on cefepime was possible UTI given history of welsh, and urinalysis with bacteria on 02/22/18, however the urine culture returns as greater than 3 types of organisms and recommend to repeat -the urinalysis repeated on 02/23/18 negative for bacteria and cefepime stopped on 02/24/18." A outdoor pursuits instructor cannot assume this means treated and resolved or ruled out. Also if the UTI was thought associated to the [place] the a link has to be stated. History of Welsh does not establish a link to the infection. In your clinical opinion is this patient being managed for: ( ) [place] catheter associated UTI treated and resolved (x ) [place] catheter associated UTI ruled out Please clarify and document your clinical opinion in the progress notes and discharge summary. Terms such as "probable", "suspected", "likely", "questionable", "possible", or "still to be ruled out" are acceptable. IF IN AGREEMENT, YOU MUST DOCUMENT ABOVE DIAGNOSTIC STATEMENT IN DAILY PROGRESS NOTES AND DISCHARGE SUMMARY. This document is not part of the patient's record. Thank You, Sohail Scott, RN [phone]
[2018-02-26] MEDS: LEVOTHYROXINE 100 MCG TAB PO SCH (06:09)
[2018-02-26] MEDS: HEPARIN SOD 5000 UNIT/0.5 ML CARP SQ SCH ×3 (06:09→21:37)
[2018-02-26] MEDS ORDERED: POTASSIUM CHLORIDE 20 MEQ TABCR PO STA (07:38)
[2018-02-26] MEDS: FUROSEMIDE INJ 40 MG in SYRINGE 0 ML IV SCH ×2 (07:57→16:49)
[2018-02-26] MEDS: CEROVITE ADV FORMULA TAB PO SCH (07:58)
[2018-02-26] MEDS: LACTOBACILLUS ACIDOPHILUS (FLORANEX) TAB PO SCH ×2 (07:58→20:37)
[2018-02-26] MEDS: ASPIRIN 81 MG ECTAB PO SCH ×2 (07:58→20:39)
[2018-02-26] MEDS: CALCIUM 600MG + VIT D 400 IU TAB PO SCH ×3 (07:58→20:39)
[2018-02-26] MEDS: CHOLECALCIFEROL 1000 INTER.UNIT TAB PO SCH ×2 (07:58→20:40)
[2018-02-26] MEDS: METOPROLOL SUCC 50MG EXT REL TAB PO SCH ×2 (07:58→20:38)
[2018-02-26] MEDS: MAGNESIUM OXIDE 400 MG TAB PO SCH (11:31)
[2018-02-26] MEDS: ASCORBIC ACID 500 MG TAB PO SCH (11:31)
--- NOTE | 2018-02-26 13:18 | Cardiology Follow-Up ---
Subjective General Date of Service: Feb 26, 2018. Pt evaluation today including: conversation w/ patient, physical exam, chart review, lab review, review of studies, review of inpatient medication list History of Present Illness The patient is a 82 year old female seen in follow-up. Significant diuresis overnight. Renal function remained stable. Edema improving. No significant peripheral vascular disease per lower extremity arterial duplex. Patient offers no complaints at this time. Allergies Coded Allergies: Ciprofloxacin (Unverified Allergy, Severe, GI SYMPTOMS, 02/22/18) Sulfa Antibiotics (Verified Allergy, Severe, HIVES, 02/22/18) Wheat Bran (Verified Allergy, Intermediate, DIARRHEA, 02/22/18) GLUTEN FREE DIET Codeine (Verified Adverse Reaction, Severe, "VERY SICK", 02/22/18) Doxycycline (Verified Adverse Reaction, Severe, 0, 02/22/18) bad diarrhea as per px Gluten (Verified Adverse Reaction, Intermediate, GI DISTRESS, 02/22/18) Social History Smoking Status: Former Smoker Hx Tobacco Use In Past Year?: No Hx Alcohol Use - Type And Amou: No Hx Substance Use - Type And Am: No Problem List Medical Problems: (1) Acute congestive heart failure Status: Acute (2) Atrial fibrillation with RVR Status: Acute (3) Catheter-associated urinary tract infection Status: Acute (4) Dehydration Status: Acute (5) Exacerbation of multiple sclerosis Status: Acute (6) Failure of outpatient treatment Status: Acute (7) Hypoglycemia Status: Acute (8) Left lower lobe pneumonia Status: Acute (9) Near syncope Status: Acute (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 (11) Partial small bowel obstruction Status: Acute (12) Pulmonary edema Status: Acute (13) Right lower lobe pneumonia Status: Acute (14) UTI (urinary tract infection) Status: Acute (15) UTI (urinary tract infection) Status: Acute (16) Vomiting Status: Acute (17) Weakness Status: Acute Review of Systems Respiratory: + dyspnea on exertion, No cough, No sputum, No wheezing, No shortness of breath, No dyspnea at rest, No hemoptysis Cardiac: + edema, No chest pain, No orthopnea, No PND, No claudication, No palpitations Physical Exam Vital Signs Last Vital Signs Documentation Date Time Temp Pulse Resp B/P (MAP) Pulse Ox O2 Delivery O2 Flow Rate FiO2 02/26/18 12:00 Room Air 02/26/18 11:14 36.4 66 17 116/74 (88) 96 02/22/18 16:24 2.0 Physical Exam Constitutional: General Apperance: well-nourished Head: normocephalic, atraumatic Lungs: Auscultation: no wheezing, no rales/crackles, no rhonchi, decreased breath sounds Cardiovascular: Heart Auscultation: normal S1, normal S2, I/ WSM, irregular rate rhythm Peripheral Pulses: Radial Pulse: normal on the right Abdomen: Inspection & Palpation: soft, non-distended, no tenderness, guarding & rebound Extremities: no cyanosis, no clubbing, no ulcers, edema Neurologic: Cranial Nerves: grossly intact Assessment and Plan Assessment and Plan 82-year-old female 1. Acute decompensated diastolic heart failure. (HFpEF) -Improving with intravenous diuretic therapy 2. Permanent atrial fibrillation since December 2017 -rate controlled 3. History of multiple sclerosis, neurogenic bladder 4. Past hemorrhagic complications to anticoagulation therapy and therefore she has declined anticoagulation on a chronic basis 5. New EKG abnormalities, with inferolateral ST segment depression consistent with ischemia pattern 6. Chart history of peripheral vascular disease with bilateral pedal discoloration. No evidence of ulceration or skin breakdown. -No significant obstruction per lower extremity arterial duplex -Suspect Raynaud's phenomena Discussion/recommendations: Continue intravenous Lasix, 40 mg twice daily. Repeat basic metabolic panel in the a.m. consider transition to oral diuretic therapy in the next 24-48 hours. Other cardiovascular medications will be continued as previously ordered.
--- NOTE | 2018-02-26 15:00 | Neurology Progress Notes ---
Neurology Progress Note Date of Service Feb 26, 2018. Gem Mcgraw is a 82 year old female who presents to the ED with shortness of breath. She has a history of f MS reports a chronic decline over the past couple months. She has had increasing weakness and inability to ambulate. Also has been having increasing shortness of breath with minimal exertion. She has felt the weakness and shortness of breath has acutely gotten worse over the past few days. she has a chronic Walker in place. She states the other morning she was unable to get OOB and had her help her. She can only walk a very short distance without getting weak and SOB. denies CP, abdominal pain, new one sides weakness, numbness tingling. +RLE chronic weakness from MS. Today she states she walked with PT and at least was able to make it to the end of the bad and back. She has agreed to have some physical therapy at [facility] waiting for insurance clearance. denies increased SOB, abdominal pain, CP, N, V. Objective Date Time Temp Pulse Resp B/P (MAP) Pulse Ox O2 Delivery O2 Flow Rate FiO2 02/26/18 12:00 Room Air 02/26/18 11:14 36.4 66 17 116/74 (88) 96 Room Air 02/26/18 08:00 Room Air 02/26/18 06:50 36.7 84 18 108/71 (83) 94 Room Air 02/26/18 04:28 36.6 97 18 112/70 (84) 92 Room Air 02/26/18 04:00 Room Air 02/26/18 00:10 Room Air 02/25/18 23:21 36.8 106 18 137/83 (101) 91 Room Air 02/25/18 20:00 Room Air 02/25/18 18:55 36.6 65 16 113/63 (80) 94 Room Air 02/25/18 17:26 82 02/25/18 16:00 Room Air 02/25/18 15:42 36.4 80 16 111/68 (82) 95 Room Air no new labs Imaging: no new imaging Exam: Gen: alert NAD lungs normal respiratory effort CV RRR minimal hip flex bilaterally Current Inpatient Medications Medications (Trade) Dose Ordered Sig/Van Route Start Time Stop Time Status Last Admin Dose Admin Heparin Sodium (Porcine) (Heparin Sq 5000 Unit/0.5ml) 5,000 unit Q8 SQ 4/19/18 22:00 03/24/18 21:59 02/26/18 14:14 5,000 UNIT Acetaminophen (Tylenol Tab) 650 mg Q4H PRN PO 02/22/18 15:15 03/24/18 15:14 Ondansetron HCl (Zofran Inj) 4 mg Q6H PRN IV 02/22/18 15:15 03/24/18 15:14 02/23/18 00:46 4 MG Nitroglycerin (Nitrostat Tab) 0.4 mg UD PRN SL 02/22/18 15:15 03/24/18 15:14 Ascorbic Acid (Vitamin C Tab) 500 mg DAILY@1200 PO 02/23/18 12:00 03/25/18 11:59 02/26/18 11:31 500 MG Aspirin (Ecotrin Tab) 81 mg BID PO 02/22/18 21:00 03/24/18 20:59 02/26/18 07:58 81 MG Calcium/Vitamin D (Caltrate Plus Tab) 1 tab TID PO 02/22/18 21:00 03/24/18 20:59 02/26/18 14:11 1 TAB Cholecalciferol (Vitamin D Tab) 1,000 inter.unit BID PO 02/22/18 21:00 03/24/18 20:59 02/26/18 07:58 1,000 INTER.UNIT Digoxin (Lanoxin Tab) 0.125 mg DAILY@1800 PO 02/22/18 18:00 03/24/18 17:59 02/25/18 17:26 0.125 MG Levothyroxine Sodium (Synthroid Tab) 100 mcg DAILYBB PO 02/23/18 06:30 03/25/18 06:59 02/26/18 06:09 100 MCG Magnesium Oxide (Mag-Ox Tab) 400 mg DAILYBL PO 02/23/18 11:00 03/25/18 10:59 02/26/18 11:31 400 MG Multivitamins/ Minerals (Multivitamin W/ Minerals Tab) 1 tab DAILY PO 02/23/18 09:00 03/25/18 08:59 02/26/18 07:58 1 TAB Lactobacillus Acidophilus (Floranex Tab) 4 tab BID PO 02/22/18 16:00 03/24/18 15:59 02/26/18 07:58 4 TAB Metoprolol Succinate (Toprol Xl Tab) 100 mg BID PO 02/22/18 21:00 03/24/18 20:59 02/26/18 07:58 100 MG Prochlorperazine Edisylate 5 mg/ Syringe 5 ml @ 5 mls/min Q6H PRN IV 02/23/18 00:45 03/25/18 00:44 Furosemide 40 mg/ Syringe 4 ml @ 4 mls/min BID17 IV 02/24/18 17:00 03/26/18 16:59 02/26/18 07:57 4 MLS/MIN Impression 82 year old MS patient no modifying medication with increased SOB, increased weakness Plan 1. IV solumedrol has helped in pasted however will likely increase CHF- no place for steroids at this time 2. PT/OT for discharge needs- [facility] once insurance clears 3. pacer interrogated on admission 4. fall risk 5. would care for ulceration bilateral heels 6. will see her back in our office post hospitalization however she usually only comes when flair or issues 7. neurology follow up 2-3 weeks after discharge from rehab. Dr Dharmesh Coreas or Cassi Conway PAC schedule I have seen and discussed above patient with Dr Dharmesh Coreas, neurology Patient seen and above reviewed agree with above plan for assistant terminal manager management Dharmesh Coreas MD
--- NOTE | 2018-02-26 16:02 | Progress Note ---
Internal Med Progress Note Date of Service: Feb 26, 2018. Provider Documentation: Subjective: Patient denies shortness of breath or chest discomfort Physical Exam General: no acute distress Lungs: CTABL Heart: regular heart rate Abdomen: soft, nontender, + bowel sounds Extremities: poor toe nail footcare, patient has at baseline some neuropathy and because of weakness of multiple sclerosis she may have been causing injury to toe nails but there is no apparent ulcers on exam, lower extremity with some more swelling of the left vs the right leg but this swelling is not significnatly changed, unchanged bruising color of the feet : welsh ASSESSMENT & PLAN: Echocardiogram * Rate controlled atrial fibrillation was present during the echocardiogram. * The left atrium is severely dilated. * The left ventricular wall motion is normal. * Ejection Fraction = 60-65%. * The right ventricle is mildly dilated. * The right ventricular systolic function is normal. * Mitral valve leaflets are moderately thickened with mild bileaflet mitral valve prolapse. * There is moderate mitral regurgitation. * There is mild tricuspid regurgitation. * Mild pulmonary hypertension is present. * The catheter pulmonary artery systolic pressure is 43 mmHg. Plan acute on chronic decompensation of heart failure, heart failure with preserved ejection fraction -presented to hospital as symptoms of shortness of breath - resolved -presented to hospital as symptoms of Bilateral leg swelling and right greater than left, No evidence of right lower extremity DVT on ultrasound on 02/22/18 -overall symptoms have improve with IV Lasix -Cardiology note: "Continue intravenous Lasix, 40 mg twice daily. Repeat basic metabolic panel in the a.m. consider transition to oral diuretic therapy in the next 24-48 hours. Other cardiovascular medications will be continued as previously ordered" EKG abnormalities, with inferolateral ST segment depression consistent with ischemia pattern -however no chest pain, troponins negative x 3 -cardiology offers several differentials: ischemia vs repolarization changes due to digoxin vs [place] QRS complexes -cardiology recommends conservative therapy and optimize her from a standpoint of diastolic heart failure decompensation with Lasix previous paroxysmal, now permanent atrial fibrillation since December 2017, Past hemorrhagic complications to anticoagulation therapy and therefore she had declined anticoagulation on a chronic basis -rate controlled with metoprolol succinate -on digoxin History of neurogenic bladder -was started on cefepime was possible UTI given history of welsh, and urinalysis with bacteria on 02/22/18, however the urine culture returns as greater than 3 types of organisms and recommend to repeat -the urinalysis repeated on 02/23/18 negative for bacteria and cefepime stopped on 02/24/18 Multiple sclerosis -neurology recommended against IV solumedrol because concern that this would increase fluid retention -as per cardiology 02/24/18: From a cardiovascular perspective patient may receive corticosteroids if necessary for treatment of MS flare -recent neurology notes, neurology service does not find evidence for acute MS flare PT/OT Would care as needed for footcare HYPOTHYROIDISM: Continue levothyroxine DVT prophylaxis subcutaneous heparin Disposition: Patient remains in the hospital and getting IV Lasix as per cardiology assessments. There does not appear to be an acute multiple sclerosis flare. call manager has sent referral to Alis Perry in regards to placement for after hospital stay Upcoming appointments on [facility] 03/01/2018 1:10 PM Reggie Peña DO [facility] 03/06/2018 2:00 PM Nurse Urology [facility], [facility] Patient will need to have cardiology appointments and Hematology/Oncology Treatment appointment that were due on 02/26/18 to be re-scheduled Vital Signs: Date Time Temp Pulse Resp B/P (MAP) Pulse Ox O2 Delivery O2 Flow Rate FiO2 02/26/18 15:32 36.3 93 18 127/92 (104) 94 Room Air 02/26/18 12:00 Room Air 02/26/18 11:14 36.4 66 17 116/74 (88) 96 Room Air 02/26/18 08:00 Room Air 02/26/18 06:50 36.7 84 18 108/71 (83) 94 Room Air 02/26/18 04:28 36.6 97 18 112/70 (84) 92 Room Air 02/26/18 04:00 Room Air 02/26/18 00:10 Room Air 02/25/18 23:21 36.8 106 18 137/83 (101) 91 Room Air 02/25/18 20:00 Room Air 02/25/18 18:55 36.6 65 16 113/63 (80) 94 Room Air 02/25/18 17:26 82
[2018-02-26] MEDS: DIGOXIN 0.125 MG TAB PO SCH (18:07)
[2018-02-26] MEDS ORDERED: CALCIUM CARBONATE 500 MG CHEWABLE PO ONE (19:45)
[2018-02-27] VITALS (7 sets, daily range): BP systolic 98–129; BP diastolic 65–70; PULSE 80–104; TEMP 36.3–36.8; O2SAT 90–96
[2018-02-27] MEDS: LEVOTHYROXINE 100 MCG TAB PO SCH (06:20)
[2018-02-27] MEDS: HEPARIN SOD 5000 UNIT/0.5 ML CARP SQ SCH ×3 (06:22→21:44)
[2018-02-27] MEDS: ASPIRIN 81 MG ECTAB PO SCH ×2 (07:38→20:13)
[2018-02-27] MEDS: FUROSEMIDE INJ 40 MG in SYRINGE 0 ML IV SCH (07:38)
[2018-02-27] MEDS: CHOLECALCIFEROL 1000 INTER.UNIT TAB PO SCH ×2 (07:38→20:11)
[2018-02-27] MEDS: CALCIUM 600MG + VIT D 400 IU TAB PO SCH ×3 (07:38→20:13)
[2018-02-27] MEDS: LACTOBACILLUS ACIDOPHILUS (FLORANEX) TAB PO SCH ×2 (07:38→20:12)
[2018-02-27] MEDS: METOPROLOL SUCC 50MG EXT REL TAB PO SCH ×2 (07:38→20:11)
[2018-02-27] MEDS: CEROVITE ADV FORMULA TAB PO SCH (07:38)
[2018-02-27 09:08] LABS: CREATININE 1.09 mg/dl (0.60-1.20); POTASSIUM 3.8 mmol/L (3.5-5.1)
--- NOTE | 2018-02-27 11:23 | Cardiology Follow-Up ---
Subjective General Date of Service: Feb 27, 2018. Pt evaluation today including: conversation w/ patient, physical exam, chart review, lab review, review of studies, review of inpatient medication list History of Present Illness The patient is a 82 year old female seen in follow-up. Edema improved. Denies chest pain or shortness of breath. Creatinine trending upward slightly. Offers no complaints. Allergies Coded Allergies: Ciprofloxacin (Unverified Allergy, Severe, GI SYMPTOMS, 02/22/18) Sulfa Antibiotics (Verified Allergy, Severe, HIVES, 02/22/18) Wheat Bran (Verified Allergy, Intermediate, DIARRHEA, 02/22/18) GLUTEN FREE DIET Codeine (Verified Adverse Reaction, Severe, "VERY SICK", 02/22/18) Doxycycline (Verified Adverse Reaction, Severe, 0, 02/22/18) bad diarrhea as per px Gluten (Verified Adverse Reaction, Intermediate, GI DISTRESS, 02/22/18) Social History Smoking Status: Former Smoker Hx Tobacco Use In Past Year?: No Hx Alcohol Use - Type And Amou: No Hx Substance Use - Type And Am: No Problem List Medical Problems: (1) Acute congestive heart failure Status: Acute (2) Atrial fibrillation with RVR Status: Acute (3) Catheter-associated urinary tract infection Status: Acute (4) Dehydration Status: Acute (5) Exacerbation of multiple sclerosis Status: Acute (6) Failure of outpatient treatment Status: Acute (7) Hypoglycemia Status: Acute (8) Left lower lobe pneumonia Status: Acute (9) Near syncope Status: Acute (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 (11) Partial small bowel obstruction Status: Acute (12) Pulmonary edema Status: Acute (13) Right lower lobe pneumonia Status: Acute (14) UTI (urinary tract infection) Status: Acute (15) UTI (urinary tract infection) Status: Acute (16) Vomiting Status: Acute (17) Weakness Status: Acute Review of Systems Respiratory: No cough, No sputum, No wheezing, No shortness of breath, No dyspnea on exertion, No dyspnea at rest, No hemoptysis Cardiac: No chest pain, No orthopnea, No PND, No edema, No claudication, No palpitations Physical Exam Vital Signs Last Vital Signs Documentation Date Time Temp Pulse Resp B/P (MAP) Pulse Ox O2 Delivery O2 Flow Rate FiO2 02/27/18 08:00 Room Air 02/27/18 07:35 36.6 82 16 111/70 (84) 93 02/22/18 16:24 2.0 Physical Exam Constitutional: General Apperance: well-nourished Head: normocephalic, atraumatic Neck: supple, trachea midline Lungs: Auscultation: no wheezing, no rales/crackles, no rhonchi, decreased breath sounds Cardiovascular: Heart Auscultation: normal S1, normal S2, I/ WSM, irregular rate rhythm Peripheral Pulses: Radial Pulse: normal on the right Abdomen: Inspection & Palpation: soft, non-distended, no tenderness, guarding & rebound Extremities: no cyanosis, no clubbing, no ulcers, edema Neurologic: Cranial Nerves: grossly intact Assessment and Plan Assessment and Plan 82-year-old female 1. Acute decompensated diastolic heart failure. (HFpEF) -Improving with intravenous diuretic therapy 2. Permanent atrial fibrillation since December 2017 - rate controlled 3. History of multiple sclerosis, neurogenic bladder 4. Past hemorrhagic complications to anticoagulation therapy and therefore she has declined anticoagulation on a chronic basis 5. New EKG abnormalities, with inferolateral ST segment depression consistent with ischemia pattern 6. Chart history of peripheral vascular disease with bilateral pedal discoloration. No evidence of ulceration or skin breakdown. -No significant obstruction per lower extremity arterial duplex -Suspect Raynaud's phenomena Discussion/recommendations: Discontinue IV Lasix. Oral Lasix, 40 mg daily ordered. (Previous dose 20 mg twice daily) Repeat BMP in a.m. Continue other cardiovascular medications as previously ordered. PT/OT. Laboratory Results Last 24 Hours Test 02/27/18 08:37 Sodium Level 132 mmol/L Potassium Level 3.8 mmol/L Chloride Level 92 mmol/L Carbon Dioxide Level 34 mmol/L Anion Gap 6.0 mmol/L Blood Urea Nitrogen 28 mg/dl Creatinine 1.09 mg/dl Est Creatinine Clear Calc Drug Dose 29.5 ml/min Estimated GFR () 54.4 Estimated GFR (Non- 46.9 BUN/Creatinine Ratio 25.2 Random Glucose 116 mg/dl Calcium Level 9.0 mg/dl
[2018-02-27] MEDS: ASCORBIC ACID 500 MG TAB PO SCH (11:41)
[2018-02-27] MEDS: MAGNESIUM OXIDE 400 MG TAB PO SCH (11:41)
--- NOTE | 2018-02-27 14:53 | Progress Note ---
Internal Med Progress Note Date of Service: Feb 27, 2018. Provider Documentation: SUBJECTIVE: Seen and examined at bedside Leg swelling improved Denies chest pain, SOB, nausea, dizziness, abd pain, dysuria No other complaints on Chronic Walker OBJECTIVE: Vital Signs-as noted below Physical Exam: General Appearance:Moderately built and nourished, no apparent distress Head: normocephalic, Atraumatic Eyes: normal inspection, EOMI, PERRL Neck: supple, Trachea midline Respiratory/Chest: Decreased breath sounds, CTA Cardiovascular: Irregularly Irregular, Pacemaker on left side of chest, No murmur Abdomen/GI:Soft, Non tender, Bowel sounds present Extremities/Musculoskelatal:normal inspection, B/L LE edema: R >L Neurologic/Psych:AAOX3, grossly no focal neurological deficits Skin: normal color, warm Lab data as noted below. ASSESSMENT & PLAN: Acute on Chronic Diastolic CHF: IV diuretics discontinued Resume PO Lasix Monitor renal function, electrolytes Appreciate Cardiology Input Weight down by 5kg since admission BNP trending down ECHO: EF:60-65%, Moderate MR, Mild Pulm HTN, Mild TR continue other home medications Pacemaker Interrogation completed EKG abnormalities: Inferolateral ST segment depression consistent with ischemia pattern Troponin X 3: Negative Denies chest pain ECHO: The left ventricular wall motion is normal conservative management continue home meds Cardiology following Permanent atrial fibrillation: Not on chronic anticoagulation due to H/O hemorrhagic complications Rate controlled Continue Digoxin, Metoprolol Digoxin level:0.8 Hypothyroidism: TSH on 12/19/17 normal Continue levothyroxine H/O Neurogenic bladder: On chronic Walker Follows with as outpatient Multiple Sclerosis: No signs of acute MS flare Appreciate Neurology Input Needs follow up with in 2-3 weeks upon DC from Rehab facility continue PT/OT Chronic Hyponatremia: Likely secondary to diuretics monitor sodium levels DVT Px: SQ Heparin Code Status: Full Code Disposition: PT/OT recommends Rehab placement licensed clinical social worker consulted for discharge planning PROCEDURES: ECHO: * Study was technically adequate for the referral indication. * Rate controlled atrial fibrillation was present during the echocardiogram. * The left atrium is severely dilated. * The left ventricular wall motion is normal. * Ejection Fraction = 60-65%. * The right ventricle is mildly dilated. * The right ventricular systolic function is normal. * Mitral valve leaflets are moderately thickened with mild bileaflet mitral valve prolapse. * There is moderate mitral regurgitation. * There is mild tricuspid regurgitation. * Mild pulmonary hypertension is present. * The catheter pulmonary artery systolic pressure is 43 mmHg. Vital Signs: Date Time Temp Pulse Resp B/P (MAP) Pulse Ox O2 Delivery O2 Flow Rate FiO2 02/27/18 11:30 36.3 80 18 106/68 (81) 96 Room Air 02/27/18 08:00 Room Air 02/27/18 07:35 36.6 82 16 111/70 (84) 93 02/27/18 04:00 Room Air 02/27/18 04:00 36.7 99 16 114/68 (83) 91 Room Air 02/27/18 00:31 36.8 104 16 129/69 (89) 93 Room Air 02/27/18 00:30 Room Air 02/26/18 20:38 115 118/67 (84) 02/26/18 20:00 Room Air 02/26/18 19:36 36.9 93 18 124/72 (89) 94 Room Air 02/26/18 18:07 92 02/26/18 16:50 111/72 (85) 02/26/18 16:00 Room Air 02/26/18 15:32 36.3 93 18 127/92 (104) 94 Room Air Lab Results: Results Past 24 Hours Test 02/27/18 08:37 Range/Units Sodium Level 132 136-145 mmol/L Potassium Level 3.8 3.5-5.1 mmol/L Chloride Level 92 98-107 mmol/L Carbon Dioxide Level 34 21-32 mmol/L Anion Gap 6.0 3-11 mmol/L Blood Urea Nitrogen 28 7-18 mg/dl Creatinine 1.09 0.60-1.20 mg/dl Est Creatinine Clear Calc Drug Dose 29.5 ml/min Estimated GFR () 54.4 Estimated GFR (Non- 46.9 BUN/Creatinine Ratio 25.2 10-20 Random Glucose 116 70-99 mg/dl Calcium Level 9.0 8.5-10.1 mg/dl
[2018-02-27] MEDS: DIGOXIN 0.125 MG TAB PO SCH (18:02)
[2018-02-28 04:19] VITALS: BP 92/57; PULSE 75; TEMP 36.4; O2SAT 95
[2018-02-28] MEDS: LEVOTHYROXINE 100 MCG TAB PO SCH (06:04)
[2018-02-28] MEDS: HEPARIN SOD 5000 UNIT/0.5 ML CARP SQ SCH (06:06)
[2018-02-28 06:49] LABS: HEMATOCRIT 39.1 % (37-47); HEMOGLOBIN 13.1 g/dL (12.0-16.0); MEAN CELL VOLUME 97.3 fL (80-100); MEAN CORPUSCULAR HEMOGLOBIN 32.6 pg (25-34); MEAN CORPUSCULAR HGB CONC 33.5 g/dl (32-36); MEAN PLATELET VOLUME 8.9 fL (7.4-10.4); PLATELET COUNT 303 K/uL (130-400); RED CELL DISTRIBUTION WIDTH CV 13.8 % (11.5-14.5); RED CELL DISTRIBUTION WIDTH SD 48.9 fL (36.4-46.3)
[2018-02-28 07:16] LABS: CALCIUM 9.3 mg/dl (8.5-10.1); CREATININE 1.06 mg/dl (0.60-1.20); POTASSIUM 3.8 mmol/L (3.5-5.1)
[2018-02-28 07:28] VITALS: BP 111/71; PULSE 95; TEMP 36.8; O2SAT 94
[2018-02-28] MEDS: CALCIUM 600MG + VIT D 400 IU TAB PO SCH (07:42)
[2018-02-28] MEDS: CEROVITE ADV FORMULA TAB PO SCH (07:42)
[2018-02-28] MEDS: LACTOBACILLUS ACIDOPHILUS (FLORANEX) TAB PO SCH (07:42)
[2018-02-28] MEDS: ASPIRIN 81 MG ECTAB PO SCH (07:42)
[2018-02-28] MEDS: CHOLECALCIFEROL 1000 INTER.UNIT TAB PO SCH (07:43)
[2018-02-28] MEDS ORDERED: FUROSEMIDE 40 MG TAB PO SCH (09:00)
[2018-02-28] MEDS: METOPROLOL SUCC 50MG EXT REL TAB PO SCH (09:15)
--- NOTE | 2018-02-28 11:24 | Cardiology Follow-Up ---
Subjective General Date of Service: Feb 28, 2018. Pt evaluation today including: conversation w/ patient, physical exam, chart review, lab review, review of studies, conversation w/ bridal sales consultant, review of inpatient medication list History of Present Illness The patient is a 82 year old female seen in follow-up. Edema markedly improved. Diuretics transition to oral formulation. Remains in atrial fibrillation on telemetry. Offers no complaints at this time. Allergies Coded Allergies: Ciprofloxacin (Unverified Allergy, Severe, GI SYMPTOMS, 02/22/18) Sulfa Antibiotics (Verified Allergy, Severe, HIVES, 02/22/18) Wheat Bran (Verified Allergy, Intermediate, DIARRHEA, 02/22/18) GLUTEN FREE DIET Codeine (Verified Adverse Reaction, Severe, "VERY SICK", 02/22/18) Doxycycline (Verified Adverse Reaction, Severe, 0, 02/22/18) bad diarrhea as per px Gluten (Verified Adverse Reaction, Intermediate, GI DISTRESS, 02/22/18) Social History Smoking Status: Former Smoker Hx Tobacco Use In Past Year?: No Hx Alcohol Use - Type And Amou: No Hx Substance Use - Type And Am: No Problem List Medical Problems: (1) Acute congestive heart failure Status: Acute (2) Atrial fibrillation with RVR Status: Acute (3) Catheter-associated urinary tract infection Status: Acute (4) Dehydration Status: Acute (5) Exacerbation of multiple sclerosis Status: Acute (6) Failure of outpatient treatment Status: Acute (7) Hypoglycemia Status: Acute (8) Left lower lobe pneumonia Status: Acute (9) Near syncope Status: Acute (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 (11) Partial small bowel obstruction Status: Acute (12) Pulmonary edema Status: Acute (13) Right lower lobe pneumonia Status: Acute (14) UTI (urinary tract infection) Status: Acute (15) UTI (urinary tract infection) Status: Acute (16) Vomiting Status: Acute (17) Weakness Status: Acute Review of Systems Respiratory: + cough, + dyspnea on exertion, No sputum, No wheezing, No shortness of breath, No dyspnea at rest, No hemoptysis Cardiac: + edema, No chest pain, No orthopnea, No PND, No claudication, No palpitations Physical Exam Vital Signs Last Vital Signs Documentation Date Time Temp Pulse Resp B/P (MAP) Pulse Ox O2 Delivery O2 Flow Rate FiO2 02/28/18 08:00 Room Air 02/28/18 07:28 36.8 95 18 111/71 (84) 94 02/22/18 16:24 2.0 Physical Exam Constitutional: General Apperance: well-nourished Head: normocephalic, atraumatic Neck: supple, trachea midline Lungs: Auscultation: no wheezing, no rales/crackles, no rhonchi, decreased breath sounds Cardiovascular: Heart Auscultation: normal S1, normal S2, I/ WSM, irregular rate rhythm Peripheral Pulses: Radial Pulse: normal on the right Abdomen: Inspection & Palpation: soft, non-distended, no tenderness, guarding & rebound Extremities: no cyanosis, no clubbing, no ulcers, edema Neurologic: Cranial Nerves: grossly intact Assessment and Plan Assessment and Plan 82-year-old female 1. Acute decompensated diastolic heart failure. (HFpEF) -Weight is down approximately 5 kg since admission -Patient appears compensated 2. Permanent atrial fibrillation since December 2017 - rate controlled 3. History of multiple sclerosis, neurogenic bladder 4. Past hemorrhagic complications to anticoagulation therapy and therefore she has declined anticoagulation on a chronic basis 5. New EKG abnormalities, with inferolateral ST segment depression consistent with ischemia pattern 6. Chart history of peripheral vascular disease with bilateral pedal discoloration. No evidence of ulceration or skin breakdown. -No significant obstruction per lower extremity arterial duplex -Suspect Raynaud's phenomena Discussion/recommendations: Oral Lasix, 20 mg twice daily at discharge. Repeat BMP in 1 week. Continue other cardiovascular medications as previously ordered. PT/OT. No further inpatient cardiac testing at this time. Cardiology will sign off. Please call with questions. Laboratory Results Last 24 Hours Test 02/28/18 06:19 White Blood Count 7.00 K/uL Red Blood Count 4.02 M/uL Hemoglobin 13.1 g/dL Hematocrit 39.1 % Mean Corpuscular Volume 97.3 fL Mean Corpuscular Hemoglobin 32.6 pg Mean Corpuscular Hemoglobin Concent 33.5 g/dl RDW Standard Deviation 48.9 fL RDW Coefficient of Variation 13.8 % Platelet Count 303 K/uL Mean Platelet Volume 8.9 fL Sodium Level 132 mmol/L Potassium Level 3.8 mmol/L Chloride Level 96 mmol/L Carbon Dioxide Level 31 mmol/L Anion Gap 5.0 mmol/L Blood Urea Nitrogen 34 mg/dl Creatinine 1.06 mg/dl Est Creatinine Clear Calc Drug Dose 30.3 ml/min Estimated GFR () 56.2 Estimated GFR (Non- 48.5 BUN/Creatinine Ratio 32.0 Random Glucose 90 mg/dl Calcium Level 9.3 mg/dl Magnesium Level 2.1 mg/dl Pro-B-Type Natriuretic Peptide 3350 pg/ml
[2018-02-28] MEDS: MAGNESIUM OXIDE 400 MG TAB PO SCH (11:29)
[2018-02-28] MEDS: ASCORBIC ACID 500 MG TAB PO SCH (11:29)
--- NOTE | 2018-02-28 11:38 | Progress Note ---
Internal Med Progress Note Date of Service: Feb 28, 2018. Provider Documentation: SUBJECTIVE: Seen and examined at bedside Leg swelling much improved Denies chest pain, SOB, nausea, dizziness, abd pain, dysuria No other complaints on Chronic Walker [id number] to be discharged to Rehab facility today OBJECTIVE: Vital Signs-as noted below Physical Exam: General Appearance:Moderately built and nourished, no apparent distress Head: normocephalic, Atraumatic Eyes: normal inspection, EOMI, PERRL Neck: supple, Trachea midline Respiratory/Chest: Decreased breath sounds, CTA Cardiovascular: Irregularly Irregular, Pacemaker on left side of chest, No murmur Abdomen/GI:Soft, Non tender, Bowel sounds present Extremities/Musculoskelatal:normal inspection, B/L LE edema: R >L Neurologic/Psych:AAOX3, grossly no focal neurological deficits Skin: normal color, warm Lab data as noted below. ASSESSMENT & PLAN: Acute on Chronic Diastolic CHF: IV diuretics discontinued Resume PO Lasix and planned to be discharged on her home dose Monitor renal function, electrolytes Appreciate Cardiology Input Weight down by 5kg since admission BNP trending down ECHO: EF:60-65%, Moderate MR, Mild Pulm HTN, Mild TR continue other home medications Pacemaker Interrogation completed EKG abnormalities: Inferolateral ST segment depression consistent with ischemia pattern Troponin X 3: Negative Denies chest pain ECHO: The left ventricular wall motion is normal conservative management continue home meds Cardiology following Permanent atrial fibrillation: Not on chronic anticoagulation due to H/O hemorrhagic complications Rate controlled Continue Digoxin, Metoprolol Digoxin level:0.8 Hypothyroidism: TSH on 12/19/17 normal Continue levothyroxine H/O Neurogenic bladder: On chronic Walker Follows with as outpatient Multiple Sclerosis: No signs of acute MS flare Appreciate Neurology Input Needs follow up with in 2-3 weeks upon DC from Rehab facility continue PT/OT Chronic Hyponatremia: Likely secondary to diuretics monitor sodium levels DVT Px: SQ Heparin Code Status: Full Code Disposition: PT/OT recommends Rehab placement psychosocial rehabilitation counselor consulted Planned to be discharged to Rehab facility today Follow up with in 1 week after discharge from Rehab Facility Follow up with your Form Tamper Operator in 2-4 weeks Follow up with your Neurologist in 2-3 weeks upon DC from Rehab facility Get Blood test (BMP) in 1 week and follow up with yout physician with results Seek immediate medical attention if your symptoms reoccur or worsen PROCEDURES: ECHO: * Study was technically adequate for the referral indication. * Rate controlled atrial fibrillation was present during the echocardiogram. * The left atrium is severely dilated. * The left ventricular wall motion is normal. * Ejection Fraction = 60-65%. * The right ventricle is mildly dilated. * The right ventricular systolic function is normal. * Mitral valve leaflets are moderately thickened with mild bileaflet mitral valve prolapse. * There is moderate mitral regurgitation. * There is mild tricuspid regurgitation. * Mild pulmonary hypertension is present. * The catheter pulmonary artery systolic pressure is 43 mmHg. Vital Signs: Date Time Temp Pulse Resp B/P (MAP) Pulse Ox O2 Delivery O2 Flow Rate FiO2 02/28/18 08:00 Room Air 02/28/18 07:28 36.8 95 18 111/71 (84) 94 Room Air 02/28/18 04:19 36.4 75 16 92/57 (69) 95 Room Air 02/28/18 04:00 Room Air 02/28/18 00:10 Room Air 02/27/18 23:45 36.4 84 18 98/65 (76) 90 Room Air 02/27/18 20:00 Room Air 02/27/18 20:00 36.4 87 18 122/70 (87) 92 Room Air 02/27/18 18:02 91 02/27/18 16:00 96 Room Air 02/27/18 12:00 Room Air 02/27/18 11:30 36.3 80 18 106/68 (81) 96 Room Air Lab Results: Results Past 24 Hours Test 02/28/18 06:19 Range/Units White Blood Count 7.00 4.8-10.8 K/uL Red Blood Count 4.02 4.2-5.4 M/uL Hemoglobin 13.1 12.0-16.0 g/dL Hematocrit 39.1 37-47 % Mean Corpuscular Volume 97.3 80-100 fL Mean Corpuscular Hemoglobin 32.6 25-34 pg Mean Corpuscular Hemoglobin Concent 33.5 32-36 g/dl RDW Standard Deviation 48.9 36.4-46.3 fL RDW Coefficient of Variation 13.8 11.5-14.5 % Platelet Count 303 130-400 K/uL Mean Platelet Volume 8.9 7.4-10.4 fL Sodium Level 132 136-145 mmol/L Potassium Level 3.8 3.5-5.1 mmol/L Chloride Level 96 98-107 mmol/L Carbon Dioxide Level 31 21-32 mmol/L Anion Gap 5.0 3-11 mmol/L Blood Urea Nitrogen 34 7-18 mg/dl Creatinine 1.06 0.60-1.20 mg/dl Est Creatinine Clear Calc Drug Dose 30.3 ml/min Estimated GFR () 56.2 Estimated GFR (Non- 48.5 BUN/Creatinine Ratio 32.0 10-20 Random Glucose 90 70-99 mg/dl Calcium Level 9.3 8.5-10.1 mg/dl Magnesium Level 2.1 1.8-2.4 mg/dl Pro-B-Type Natriuretic Peptide 3350 0-1800 pg/ml
[2018-02-28 11:40] VITALS: BP 105/64; PULSE 111; TEMP 36.6; O2SAT 96
--- NOTE | 2018-02-28 11:41 | Discharge Summary ---
Discharge Summary Date of Service Feb 28, 2018. Discharge Summary Admission Date: Feb 22, 2018 at 15:14 Discharge Date: Feb 28, 2018 Discharge Disposition: Rehab Principal Diagnosis: Acute on chronic diastolic heart failure Procedures: Venous Doppler: No evidence of right lower extremity DVT. Arterial Doppler: Normal biphasic and triphasic waveforms. Mild plaque formation throughout. No significant stenosis. CXR: Cardiomegaly, trace pleural effusions, and marked interval improvement in the previously identified congestive failure. ECHO: * Study was technically adequate for the referral indication. * Rate controlled atrial fibrillation was present during the echocardiogram. * The left atrium is severely dilated. * The left ventricular wall motion is normal. * Ejection Fraction = 60-65%. * The right ventricle is mildly dilated. * The right ventricular systolic function is normal. * Mitral valve leaflets are moderately thickened with mild bileaflet mitral valve prolapse. * There is moderate mitral regurgitation. * There is mild tricuspid regurgitation. * Mild pulmonary hypertension is present. * The catheter pulmonary artery systolic pressure is 43 mmHg. Consultations: Cardiology Pending Studies/Follow-Up: Follow up with in 1 week after discharge from Rehab Facility Follow up with your Drop Hammer Setter Up in 2-4 weeks Follow up with your Neurologist in 2-3 weeks upon DC from Rehab facility Get Blood test (BMP) in 1 week and follow up with yout physician with results Seek immediate medical attention if your symptoms reoccur or worsen Medication Reconciliation Continued Medications: Acetaminophen (Tylenol) 500 Mg Tab 1000 MG PO Q8H PRN for Pain, TAB Ascorbic Acid (Vitamin C) 500 Mg Tab 500 MG PO DAILY@1200 Aspirin (Aspirin Ec) 81 Mg Tab 81 MG PO BID Calcium/Vitamin D (Os-Hitesh 500 Plus D) Tab 1 TAB PO TID Cholecalciferol (Vitamin D3) 1,000 Unit Tab 1 TAB PO BID for 90 Days, #180 TAB 3 Refills Cyanocobalamin (Cyanocobalamin) 1,000 Mcg/Ml Inj 1000 MCG INJ MONTHLY Denosumab (Prolia) 60 Mg/Ml Arpita 1 DOSE INJ DIRECTED Dextromethorphan-Guaifenesin (Mucinex Dm) 1 Tab Tab 1 TAB PO Q12 PRN for Cough for 10 Days, #20 TAB Digoxin (Digox) 125 Mcg Tab 125 MG PO DAILY@1800 Estrogens, Conjugated (Premarin) 14 Appln/30 Gm Cr 1 APPLN PV UD MONDAYS AND FRIDAYS Furosemide (Lasix) 20 Mg Tab 20 MG PO BID, TAB Furosemide (Lasix) 20 Mg Tab 10 MG PO 2XWK, TAB Monday and Lactobacillus-Inulin (Culturelle Digestive Heal) 1 Cap Cap 1 CAP PO BID Levothyroxine Sodium (Levothyroxine Sodium) 100 Mcg Tab 100 MCG PO DAILYBB Loratadine (Claritin) 10 Mg Tab 10 MG PO DAILY PRN for ALLERGY SX, 0 Refills Magnesium Oxide (Mag-Ox) 400 Mg Tab 400 MG PO DAILYBL Metoprolol Succinate (Metoprolol Succinate ER) 100 Mg Tabcr 100 MG PO BID Multiple Vitamins W/ Minerals (Centrum) 1 Tab Tab 1 TAB PO DAILY Admission Information HPI (per Admitting provider): 82-year-old female who presents to the ED with shortness of breath. Patient has history of MS reports a chronic decline over the past couple months. Patient was admitted in December and reports she has not fully recovered from the hospitalization. She reports increasing weakness and inability to ambulate. Also has been having increasing shortness of breath with minimal exertion. Patient feels as though her weakness and shortness of breath has acutely gotten worse over the past few days. She reports feeling short of breath with minimal exertion. She denies chest pain or palpitations. No lightheadedness or dizziness. She denies abdominal pain, nausea, vomiting, or diarrhea. Patient has a chronic Walker in place. No changes in her urine. She denies fever and chills. In the ED, patient saturating well on room air. Chest x-ray shows trace pleural effusions. Labs are unremarkable. EKG shows more prominent T-wave inversion in the inferior and lateral leads. She was given a full dose aspirin in the ED. Physical Exam (per Admitting): General Appearance: WD/WN, no apparent distress Head: normocephalic, atraumatic Eyes: normal inspection, EOMI, sclerae normal ENT: hearing grossly normal, + pertinent finding (Mucous membranes moist) Neck: supple, no JVD, trachea midline Respiratory/Chest: lungs clear, normal breath sounds, no respiratory distress Cardiovascular: regular rate, rhythm, normal peripheral pulses, + pertinent finding (+1-2 pitting edema BLE, right greater than left) Abdomen/GI: normal bowel sounds, non tender, soft, no organomegaly Genitourinary - Female: + pertinent finding (Chronic Walker in place draining clear yellow urine) Extremities/Musculoskelatal: normal inspection, no calf tenderness, normal capillary refill Neurologic/Psych: alert, normal mood/affect, oriented x 3, + motor weakness (Bilateral lower extremities, equal; no other gross focal deficits noted) Skin: normal color, warm/dry Hospital Course Acute on Chronic Diastolic CHF: IV diuretics discontinued Resume PO Lasix and planned to be discharged on her home dose Monitor renal function, electrolytes Appreciate Cardiology Input Weight down by 5kg since admission BNP trending down ECHO: EF:60-65%, Moderate MR, Mild Pulm HTN, Mild TR continue other home medications Pacemaker Interrogation completed EKG abnormalities: Inferolateral ST segment depression consistent with ischemia pattern Troponin X 3: Negative Denies chest pain ECHO: The left ventricular wall motion is normal conservative management continue home meds Cardiology following Permanent atrial fibrillation: Not on chronic anticoagulation due to H/O hemorrhagic complications Rate controlled Continue Digoxin, Metoprolol Digoxin level:0.8 Hypothyroidism: TSH on 12/19/17 normal Continue levothyroxine H/O Neurogenic bladder: On chronic Walker Follows with as outpatient Multiple Sclerosis: No signs of acute MS flare Appreciate Neurology Input Needs follow up with in 2-3 weeks upon DC from Rehab facility continue PT/OT Chronic Hyponatremia: Likely secondary to diuretics monitor sodium levels DVT Px: SQ Heparin Code Status: Full Code Disposition: PT/OT recommends Rehab placement social media marketer consulted Planned to be discharged to Rehab facility today Follow up with in 1 week after discharge from Rehab Facility Follow up with your Drop Hammer Setter Up in 2-4 weeks Follow up with your Neurologist in 2-3 weeks upon DC from Rehab facility Get Blood test (BMP) in 1 week and follow up with yout physician with results Seek immediate medical attention if your symptoms reoccur or worsen PROCEDURES: ECHO: * Study was technically adequate for the referral indication. * Rate controlled atrial fibrillation was present during the echocardiogram. * The left atrium is severely dilated. * The left ventricular wall motion is normal. * Ejection Fraction = 60-65%. * The right ventricle is mildly dilated. * The right ventricular systolic function is normal. * Mitral valve leaflets are moderately thickened with mild bileaflet mitral valve prolapse. * There is moderate mitral regurgitation. * There is mild tricuspid regurgitation. * Mild pulmonary hypertension is present. * The catheter pulmonary artery systolic pressure is 43 mmHg. Total time spent on discharge = 34 minutes This includes examination of the patient, discharge planning, medication reconciliation, and communication with other providers. Discharge Instructions Discharge Instructions Date of Service Feb 28, 2018. Admission Reason for Admission: Shortness Of Breath Discharge Discharge Diagnosis / Problem: Acute on chronic diastolic heart failure Discharge Goals Goal(s): Decrease discomfort, Improve function Activity Recommendations Activity Limitations: resume your previous activity Exercise/Sports Limitations: as tolerated . Instructions / Follow-Up Instructions / Follow-Up Follow up with in 1 week after discharge from Rehab Facility Follow up with your Drop Hammer Setter Up in 2-4 weeks Follow up with your Neurologist in 2-3 weeks upon DC from Rehab facility Get Blood test (BMP) in 1 week and follow up with yout physician with results Seek immediate medical attention if your symptoms reoccur or worsen Current Hospital Diet Patient's current hospital diet: AHA Diet (Heart Healthy), Diabetes Type 2 Diet Discharge Diet Recommended Diet: AHA Diet (Heart Healthy), Diabetes Type 2 Diet Pending Studies Studies pending at discharge: no Medical Emergencies . Who to Call and When: Medical Emergencies: If at any time you feel your situation is an emergency, please call 911 immediately. . Non-Emergent Contact Non-Emergency issues call your: Primary Care Provider, Drop Hammer Setter Up, Neurologist Call Non-Emergent contact if: you have a fever, your pain is not controlled, your pain is worsening, your pain is unusual for you, your pain is concerning you, you have any medication questions Seek immediate medical attention if your symptoms reoccur or worsen . . "Provider Documentation" section prepared by Johnathan Junior. .
[2018-02-28 11:52] VITALS: BP 105/64; PULSE 111; TEMP 36.6; O2SAT 96
[2018-03-14] MEDS ORDERED: ALUMSUS2 PO (04:22)
[2018-03-14] MEDS ORDERED: LOPE-5 PO (04:24)
[2018-03-14] MEDS ORDERED: NTRGSL/4 UT (04:27)
[2018-03-14] MEDS ORDERED: ONDA4TAB46 PO (04:32)
[2018-03-14] MEDS ORDERED: MULT-610 PO (04:35)
[2018-03-14] MEDS ORDERED: CEFE2INJ IV (04:37)
[2018-03-14] MEDS ORDERED: MOML PO (06:43)
== END 2018-02-28 12:30 | DRG 292 ==
LOC: EDBD 10:46 → C.EDC 10:48 → C.MED 15:14 → ENRESERV 15:32
PROVIDERS: ADMIT Hospitalist; ATTEND Internal Medicine
DX: I50.33 Acute on chronic diastolic (congestive) heart failure (principal); E87.1 Hypo-osmolality and hyponatremia; T50.1X5A Adverse effect of loop [high-ceiling] diuretics, initial encounter; R94.31 Abnormal electrocardiogram [ECG] [EKG]; R53.1 Weakness; G35 Multiple sclerosis; N31.9 Neuromuscular dysfunction of bladder, unspecified; I73.9 Peripheral vascular disease, unspecified; I48.2 Chronic atrial fibrillation; E03.9 Hypothyroidism, unspecified; I34.0 Nonrheumatic mitral (valve) insufficiency; Z96.0 Presence of urogenital implants; Z95.0 Presence of cardiac pacemaker; Z87.891 Personal history of nicotine dependence; Z79.82 Long term (current) use of aspirin; Z79.890 Hormone replacement therapy; Z79.899 Other long term (current) drug therapy; Z90.49 Acquired absence of other specified parts of digestive tract; Z88.1 Allergy status to other antibiotic agents; Z88.2 Allergy status to sulfonamides; Z88.5 Allergy status to narcotic agent; Z91.018 Allergy to other foods; Z82.49 Family history of ischemic heart disease and other diseases of the circulatory system